=== PATIENT | female | born 1985 | race Caucasian/White ===

== ENCOUNTER 2019-06-27 13:26 | Emergency (ER) | payer MEDICARE, SELFPAY ==
[2019-06-27 13:27] VITALS: BP 132/86; PULSE 99; RESP 18; TEMP 36.4; O2SAT 95; BMI 43.4
[2019-06-27 14:01] LABS: Color, Urine Yellow (Yellow); Glucose, Dipstick 50 mg/dl (Normal); Ketone-Dipstick 15 mg/dl (Negative); Leukocyte Esterase-Dipstick 25 /ul (Negative); Mucous, Urine 0 SEEN /hpf (<or=2+); Nitrite-Dipstick Negative (Negative); Occult Blood-Urine 10 /ul (Negative); Protein-Dipstick 15 mg/dl (Negative); Specific Gravity, Urine 1.025 (1.002-1.030); Urine Bilirubin Dipstick Negative (Negative); Urine Clarity Sl. Cloudy (Clear); Urine Urobilinogen Normal (Normal)
[2019-06-27 14:07] LABS: Bacteria 1+ /hpf (None Seen); Red Blood Cells-Urine 0-5 SEEN /hpf (0-5); Squamous Epithelial Cells - UA 0-5 SEEN /hpf (5-10); White Blood Cells 0-5 SEEN /hpf (0-5)
[2019-06-27 14:31] LABS: Absolute Neutrophil Count 5.3 X10^3/uL (2.0-7.7); Basophil# 0.05 X10^3/uL; Basophil% 0.6 % (0-1); Eosinophil# 0.19 X10^3/uL; Eosinophils% 2.1 % (0-5); Hematocrit 45.7 % (37-47); Hemoglobin 15.2 g/dL (12.0-15.0); Lymphocyte % 32.6 % (19-41); Mean Corp Hgb Conc 33.3 g/dL (32-36); Mean Corpuscular Hgb 29.8 pg (27.0-32.0); Mean Corpuscular Volume 89.6 fL (81-99); Mean Platelet Vol. 10.2 fl (6.2-12.0); Monocyte# 0.49 X10^3/uL; Monocyte% 5.5 % (0-10); NRBC Flagged by Analyzer 0 % (0-5); Neutrophil # 5.25 X10^3/uL (2.7-7.7); Platelet Count 220 K/mm3 (150-450); RBC Distribution Width CV 13.9 % (11.6-14.6); RBC Distribution Width SD 45.9 fl (35.1-43.9); White Blood Count 8.9 K/mm3 (4.4-11.0)
--- NOTE | 2019-06-27 14:34 | CT_ITS ---
STUDY: CT ABDOMEN AND PELVIS WITH CONTRAST REASON FOR EXAM: Female, 33 years old. Nausea, vomiting and diarrhea. Abdominal pain. History of cholecystectomy RADIATION DOSAGE (If Supplied By Facility): CTDIvol = ( 17.05 ) mGy, DLP = ( 1222.91 ) mGycm TECHNIQUE: Transaxial images were obtained from the dome of the diaphragm to the symphysis pubis with oral contrast. 100 IV/Oral Isovue 300 was administered. Sagittal and coronal images were reconstructed. Individualized dose optimization techniques were used for this CT. COMPARISON: None. FINDINGS: The visualized lung bases are unremarkable. The visualized portions of the heart are within normal limits. Diffuse fatty infiltration of liver without focal mass. There are surgical clips in the gallbladder fossa consistent with a prior cholecystectomy. Normal spleen. There is a 1.7 cm splenule adjacent to the pancreatic tail. Normal pancreas. Normal bilateral adrenal glands. Normal right kidney. Normal left kidney. Normal bilateral ureters Normal visualized stomach. Normal small intestine. Normal colon. The appendix is visualized and appears normal. Normal abdominal aorta. Normal inferior vena cava. Normal retroperitoneum. Normal urinary bladder. Uterus is anteverted and tilted to the right. No evidence of uterine abnormality. The left ovary is well visualized and contains small follicles. The right ovary is not well visualized. There is no pelvic lymphadenopathy. No free air or free fluid is seen within the peritoneal cavity. Normal abdominal wall. Normal osseous structures. CT/Abdomen/Pelvis WITH Contrast IMPRESSION: 1. Fatty infiltration liver without mass. 2. No evidence of acute intra-abdominal or pelvic abnormality. 3. Normal appendix. 4. Nonvisualization of the right ovary without evidence of pelvic mass. Electronically Signed: Maciej Cabral DO at 17:23 EDT Tel [phone], Service support ,
[2019-06-27 14:44] LABS: Anion Gap 5 (5-15); BUN 8 mg/dL (7-18); BUN/Creat Ratio 10.3 RATIO (10-20); Calcium,Total 8.6 mg/dL (8.5-10.1); Chloride 108 mmol/L (98-107); Creatinine, Serum 0.77 mg/dL (0.55-1.02); EST Glomerular Filtration Rate 90 mL/min (>60); Est Glom Filt Rate - Afr Amer 109 mL/min (>60); Estimated Creatinine Clearance 76.95 ml/min; Glucose 185 mg/dL (74-106); Sodium Level 139 mmol/L (136-145)
[2019-06-27] MEDS: Ondansetron 4 MG/2 ML Vial IV (14:45)
[2019-06-27] MEDS: Morphine 4 MG/ML Syringe IV (14:45)
[2019-06-27] MEDS: 0.9% Normal Saline 1,000 ML 150 ML IV (14:45)
[2019-06-27 15:49] LABS: Internal QC Validated? YES +Cl - CLEAR BKGD; Pregnancy, Serum, hCG Quali. NEGATIVE Negative
[2019-06-27] MEDS: MethylPREDNISolone 125 MG/2 ML Vial 60 MG IV (15:57)
[2019-06-27] MEDS: DiphenhydrAMINE 50 MG/ML Syringe 25 MG IV (15:57)
[2019-06-27] MEDS: proMETHazine 25 MG/ML Syringe 12.5 MG IV (15:57)
--- NOTE | 2019-06-27 17:39 | ED.VIS.GEN ---
History of Present Illness Chief Complaint: Abd Pain Informant: Patient Onset: Yesterday Current Severity: Moderate Maximum Severity: Moderate Narrative: Patient presents with right lower quadrant abdominal pain that started yesterday morning. She has had nausea, vomiting, and diarrhea. She denies fever. She went to urgent care and then sent to the emergency room due to concern for appendicitis. Patient did have her right ovary and fallopian tube removed as well as her gallbladder in the past. Past Medical History - Allergies and Home Meds Allergies/Adverse Reactions: Allergies Iodinated Contrast Media [CONTRASTS] Allergy (Verified 06/27/19 14:55) Hives tramadol Adverse Reaction (Verified 06/27/19 13:27) Other Primary Care Physician: Mack Hart MD [Primary Care Provider] - Prior records reviewed: Yes Past Medical History: - Surgical History: cholecystectomy, - - Right ovary and fallopian tube removed Lives: With Family Smoking Status: Current every day smoker Review of Systems General: Denies: Chills, Fever Eyes: Denies: Visual changes - bilaterally ENT: Denies: Bilateral ear pain Cardiovascular: Denies: Chest pain Respiratory: Denies: Dyspnea, Cough Gastrointestinal: Reports: Abdominal pain, Nausea, Vomiting, Diarrhea Genitourinary: Denies: Dysuria Musculoskeletal: Denies: Neck pain, Back pain, Extremity Pain Skin: Denies: Rash Neurological: Denies: Headache Hematologic: Denies: Easy bruising, Easy bleeding Allergy: Denies: Uticaria Physical Exam Inital Vital Signs reviewed: Yes General: Well nourished, Well developed ENT: Moist mucous membranes Neck: Supple Cardiovascular: Regular rate, Regular rhythm Respiratory: No distress, CTA bilaterally Abdomen: Soft, Tender - Lower abdominal tenderness, worse in the right lower quadrant., Hypoactive bowel sounds. Negative for: Guarding, Rebound tenderness Back: Nontender Extremities: Nontender Skin: - - Linear abrasions throughout the left forearm consistent with cutting behavior. No sign of infection. Neurological: Alert, Oriented x3 Psychological: Normal affect Diagnostic/Tx/Re-eval Impressions Abdomen/Pelvis CT 06/27/19 14:34 IMPRESSION: 1. Fatty infiltration liver without mass. 2. No evidence of acute intra-abdominal or pelvic abnormality. 3. Normal appendix. 4. Nonvisualization of the right ovary without evidence of pelvic mass. Electronically Signed: Maciej Cabral DO at 17:23 EDT Tel [phone], Service support , 06/27/19 14:34 Abdomen/Pelvis WITH Contrast [CT] Stat Laboratory Results 06/27/19 06/27/19 06/27/19 13:52 14:20 14:20 WBC 8.9 RBC 5.10 Hgb 15.2 H Hct 45.7 MCV 89.6 MCH 29.8 MCHC 33.3 RDW Std Deviation 45.9 H RDW Coeff of Radha 13.9 Plt Count 220 MPV 10.2 Immature Gran % (Auto) 0.200 Neut % (Auto) 59.0 Lymph % (Auto) 32.6 Elmore % (Auto) 5.5 Eos % (Auto) 2.1 Baso % (Auto) 0.6 Absolute Neuts (auto) 5.3 Absolute Lymphs (auto) 2.90 Nucleated RBC % 0 Sodium 139 Potassium 4.0 Chloride 108 H Carbon Dioxide 26.0 Anion Gap 5 BUN 8 Creatinine 0.77 Estim Creat Clear Calc 76.95 Est GFR (MDRD) Af Amer 109 Est GFR (MDRD) Non-Af 90 BUN/Creatinine Ratio 10.3 Glucose 185 H Calcium 8.6 Serum , Qual Urine Color Yellow Urine Clarity Sl. Cloudy Urine pH 5.0 Ur Specific Freeland 1.025 Urine Protein 15 H Urine Glucose (UA) 50 H Urine Ketones 15 H Urine Occult Blood 10 H Urine Nitrite Negative Urine Bilirubin Negative Urine Urobilinogen Normal Ur Leukocyte Esterase 25 H Urine RBC 0-5 SEEN Urine WBC 0-5 SEEN Ur Squamous Epith Cells 0-5 SEEN Urine Bacteria 1+ Urine Mucus 0 SEEN 06/27/19 14:20 WBC RBC Hgb Hct MCV MCH MCHC RDW Std Deviation RDW Coeff of Radha Plt Count MPV Immature Gran % (Auto) Neut % (Auto) Lymph % (Auto) Elmore % (Auto) Eos % (Auto) Baso % (Auto) Absolute Neuts (auto) Absolute Lymphs (auto) Nucleated RBC % Sodium Potassium Chloride Carbon Dioxide Anion Gap BUN Creatinine Estim Creat Clear Calc Est GFR (MDRD) Af Amer Est GFR (MDRD) Non-Af BUN/Creatinine Ratio Glucose Calcium Serum , Qual NEGATIVE Urine Color Urine Clarity Urine pH Ur Specific Freeland Urine Protein Urine Glucose (UA) Urine Ketones Urine Occult Blood Urine Nitrite Urine Bilirubin Urine Urobilinogen Ur Leukocyte Esterase Urine RBC Urine WBC Ur Squamous Epith Cells Urine Bacteria Urine Mucus - Medical Decision Making Patient was given morphine and Zofran for pain and nausea. Due to a sensitivity to IV contrast, she was given Benadryl and Solu-Medrol prior to CT. Blood work is unremarkable. CT reveals no evidence of acute intra-abdominal abnormality. Appendix is visualized and is normal. Test results are discussed with patient and mother at bedside. She will be given Zofran for home. She will continue Tylenol or ibuprofen and return for any worsening symptoms. ED Disposition - Plan for ED Patient: Disposition: Home or Assisted Living Diagnosis: Abdominal pain Instructions: ABDOMINAL PAIN, Unknown Cause, (Female) Prescriptions: Ondansetron [Zofran Odt] 4 mg PO Q8H PRN PRN #10 tablet PRN Reason: Nausea Referrals: Mack Hart MD [Primary Care Provider] - 3-5 Days if not improving
[2019-06-27 17:43] VITALS: BP 129/75; PULSE 81; RESP 16; O2SAT 98
[2019-06-27 17:56] VITALS: BP 123/70; PULSE 89; RESP 16; O2SAT 95
--- NOTE | 2019-06-27 17:57 | ED.RN ---
REVIEWED D/C INSTRUCTIONS, FOLLOW UP CARE, PRESCRIPTION, AND S/S THAT WOULD WARRANT A RETURN TO THE ED WITH PT. PT VERBALIZED AN UNDERSTANDING AND DENIES FURTHER QUESTIONS FOR THIS RN. PT SKIN P/W/D, RESP EVEN AND UNLABORED, PT A&O X 3, NO DISTRESS NOTED. PT AMBULATED OUT OF ED, GAIT STEADY.
== END 2019-06-27 17:58 | disposition home or self-care (01) ==
PROVIDERS: Emergency Provider Emergency Medicine; Family Provider Family Medicine; PCP Family Medicine
DX: R10.31 Right lower quadrant pain (principal); F17.200 Nicotine dependence, unspecified, uncomplicated
CPT/HCPCS: 74177; 80048; 81001; 84703; 85025; 96361; 96374; 96375; 99284; J7030; Q9967; J2405

== ENCOUNTER → 2019-08-27 | Outpatient (CLI) | payer MEDICARE, SELFPAY ==
--- NOTE | 2019-08-27 09:25 | RAD_ITS ---
STUDY: AIR-CONTRAST UPPER GI SERIES. REASON FOR EXAM: Female, 34 years old. Nausea vomiting and abdominal pain. FLUOROSCOPY TIME (if supplied): ( 105 seconds. ) minutes/seconds. 17 images were obtained. TECHNIQUE: The patient ingested barium. Imaging of the esophagus, stomach and duodenum were obtained. COMPARISON: None. FINDINGS: The esophagus is unremarkable. There is no evidence of obstruction. No mass lesion is seen. No evidence of gastroesophageal reflux. The stomach and duodenum are unremarkable. No evidence of ulceration. No mass lesion is present. RAD/Upper GI Series Only IMPRESSION: Unremarkable upper GI series. Electronically Signed: Luis Williamson, at 15:26 EST , Service support ,
== END | disposition home or self-care (01) ==
LOC: RAD 09:23
PROVIDERS: Family Provider Family Medicine; PCP Family Medicine; Referring Provider Nurse Practitioner Adult Health; Visit Provider Nurse Practitioner Adult Health
DX: R11.0 Nausea (principal); K21.9 Gastro-esophageal reflux disease without esophagitis
CPT/HCPCS: 74246

== ENCOUNTER → 2020-03-12 | Outpatient (CLI) | payer MEDICARE, SELFPAY ==
--- NOTE | 2020-03-12 13:15 | MRI_ITS ---
STUDY: MRI RIGHT ANKLE WITHOUT CONTRAST REASON FOR EXAM: Lateral and posterior ankle pain, injury one year ago, reconstructive surgery many years ago, evaluate for peroneal tendon tear, chronic sprain. TECHNIQUE: Standardized fat and water weighted pulse sequences were obtained in all 3 orthogonal planes. COMPARISON: None. FINDINGS: There is micrometallic postoperative artifact in the subcutis adipose space lateral to the posterior tuberosity of the calcaneus. Normal posterior tibialis tendon. Normal flexor digitorum longus tendon. Normal flexor hallucis longus tendon. Normal peroneus longus and brevis tendons. Normal tibialis anterior tendon. Normal extensor hallucis longus tendon. Normal extensor digitorum longus tendons. Normal Achilles tendon and teno-osseous insertion. Normal plantar fascia. There is a healed calcaneal osteotomy. Normal intrinsic muscles of the rearfoot. Normal distal tibiofibular syndesmotic ligamentous complex. There is scarring of the anterior talofibular ligament (T2 axial image 16). Normal calcaneofibular and posterior talofibular ligaments. Normal subtalar ligaments and sinus tarsi. Normal deltoid ligamentous complexes. Normal plantar calcaneonavicular (spring) ligament. Normal tibiotalar articulation. Normal talar dome. Normal subtalar articulations. Normal talonavicular articulation. Normal calcaneocuboid articulation. Normal navicular-cuneiform articulations. MRI/Lower Ext Joint Only (Routine) IMPRESSION: Scarring of the anterior talofibular ligament. Healed calcaneal osteotomy. No demonstrated peroneal tendon tear. Electronically Signed: Marquise Duran MD at 15:19 EDT Tel , Service support ,
== END | disposition home or self-care (01) ==
LOC: MRI 13:03
PROVIDERS: Family Provider Family Medicine; PCP Family Medicine; Referring Provider Podiatrist; Visit Provider Podiatrist
DX: M25.373 Other instability, unspecified ankle (principal); S86.319A Strain of muscle(s) and tendon(s) of peroneal muscle group at lower leg level, unspecified leg, initial encounter; S93.409A Sprain of unspecified ligament of unspecified ankle, initial encounter
CPT/HCPCS: 73721

== ENCOUNTER 2020-03-20 09:57 | Day surgery (SDC) | payer MEDICARE, MEDICAID, SELFPAY ==
--- NOTE | 2020-03-18 08:03 | PCM.HP.OB ---
- Problem List (1) Menorrhagia Status: Acute (2) Uterine polyp Status: Acute History History of this : This is a 34 year-old with menorrhagia and a polyp noted on ultrasound. Medical History: Medical History (Last Updated 03/18/20 @ 08:[address] 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 Renetta García, DO) H/O foot surgery Z98.890 History of esophagogastroduodenoscopy (EGD) Z98.890 History of salpingo-oophorectomy Z90.79, Z90.721 History of tonsillectomy Z90.89 Hx of cholecystectomy Z90.49 Allergies Iodinated Contrast Media [CONTRASTS] Allergy (Verified 03/14/20 09:44) Hives tramadol Adverse Reaction (Verified 03/14/20 09:44) Other lodine Allergy (Uncoded 03/14/20 09:44) Swelling Home Medications: Home Medications Fenofibrate [Lofibra] 160 mg PO DAILY 01/04/14 Levothyroxine [Synthroid] 250 mcg PO DAILY 01/04/14 Simvastatin [Zocor] 40 mg PO QHS 01/04/14 Benztropine Mesylate 2 mg PO DAILY 06/27/19 Glimepiride 4 mg PO DAILY 06/27/19 Insulin Aspart [Novolog Flexpen] 35 units SQ TID 06/27/19 Insulin Degludec [Tresiba Flextouch U-200] 102 unit SQ DAILY 06/27/19 Mirtazapine [Remeron] 30 mg PO QHS 06/27/19 Prochlorperazine Maleate [Compazine] 10 mg PO Q6H PRN 06/27/19 Cholecalciferol (VIT D3) [Vitamin D] 1,000 unit PO DAILY 03/14/20 Clozapine [Clozapine Odt] 200 mg PO QHS 03/14/20 Divalproex Sodium [Depakote ER] 750 mg PO QHS 03/14/20 Doxepin HCl 100 mg PO QHS 03/14/20 Melatonin/Pyridoxine HCl (B6) [Melatonin 10 mg Tablet] 1 ea PO QHS 03/14/20 Ondansetron [Zofran Odt] 8 mg PO Q6H 03/14/20 Pantoprazole Sodium [Protonix] 40 mg PO BID 03/14/20 Prazosin HCl [Minipress] 2 mg PO QHS 03/14/20 metFORMIN HCl [Glucophage] 500 mg PO BIDCM 03/14/20 Albuterol Inhaler [Ventolin Hfa (SP)] 2 puff INHALATION Q4H PRN PRN 03/18/20 Benztropine [Cogentin] 1 mg PO QHS 03/18/20 Etodolac 400 mg PO 03/18/20 Lorazepam [Ativan] 1 mg PO DAILY 03/18/20 Smoking Status: Current every day smoker History Past Pregnancies: Past Pregnancies Delivery Date Name GA/ Weeks Outcome Route Wt Infant Sex Labor Length Anesthesia Delivery Location Provider FOB Review of Systems Constitutional: Denies: Chills, Fever Eyes: Denies: Blurred vision HEENT: Denies: Head Aches Cardiovascular: Denies: Chest Pain Gastrointestinal: Denies: Vomiting Neurological: Denies: Blurred vision, Double vision Hematologic/ Lymphatic: Denies: Easy Bruising, Easy Bleeding Physical Exam General: Alert, No apparent distress HEENT: Atraumatic Cardiovascular: Regular rate Lungs: Clear to auscultation Abdomen: Soft, Non Tender Extremities:: No edema Neurological: Neuro grossly intact Assessment/Plan All Active Problems Menorrhagia (Acute) Uterine polyp (Acute) This is a 34 year-old who presents with menorrhagia and pelvic pain. Hemoglobin is 14.7. Pelvic ultrasound shows an endometrial polyp. Discussed hysteroscopy, polypectomy, D&C, possible IUD placement with patient. Discussed that there may not be a polyp at the time of surgery. Reviewed option for an office hysteroscopy. Also discussed that surgery will likely not improve her pelvic pain. After discussion of risk, benefits, alternatives to surgery the patient desires to proceed. Consent was signed.
[2020-03-20] VITALS (7 sets, daily range): BP systolic 112–151; BP diastolic 60–80; PULSE 81–96; RESP 16; TEMP 36.7–36.9; O2SAT 94–98; BMI 43.0
[2020-03-20 10:17] LABS: Internal QC Validated? YES +Cl - CLEAR BKGD; Pregnancy, Urine Negative Negative
[2020-03-20 10:25] LABS: Hemoglobin 14.9 g/dL (12.0-15.0); Mean Corp Hgb Conc 33.1 g/dL (32-36); Mean Corpuscular Hgb 30.3 pg (27.0-32.0); Mean Corpuscular Volume 91.6 fL (81-99); Mean Platelet Vol. 10.2 fl (6.2-12.0); Platelet Count 302 K/mm3 (150-450); RBC Distribution Width CV 13.8 % (11.6-14.6); RBC Distribution Width SD 46.5 fl (35.1-43.9); Red Blood Count 4.91 M/mm3 (4.2-5.4)
[2020-03-20] MEDS: Lactated Ringers 1,000 ML 100 ML IV (10:32)
[2020-03-20 10:41] LABS: Bedside Glucose 253 mg/dL (70-110)
--- NOTE | 2020-03-20 11:40 | EMB_PTH ---
PATIENT: MAYA OTT LOC: [facility] [place][id number] AGE/SX: 34/F ROOM: RE03/20/[address]: Dr. Renetta García DO : 1985 BED: DIS: 03/20/2020 SPEC #: [id number] RECD: 03/20/20 14:40 STATUS: YURIDIA JOSE #: [id number] MARQUEZ: 03/20/20 11:[address]: Renetta García DEPT: SURGICAL PATHOLOGY RECD BY: Nereida Jolly ENTERED: 03/21/20 09:34 SP TYPE: ENDOM BX/C OTHR DR: Dr. Mack Hart MD Tissues: Endometrium, NOS Procedures: Surgery Specimen Level IV HEADER OPERATION: Hysteroscopy, D & C Symphion, Mirena IUD PRE-OP DIAGNOSIS: Menorrhagia, uterine polyp TISSUE SUBMITTED: Endometrial curettings MICROSCOPIC DIAGNOSIS Endometrium, curettings: Proliferative endometrium with minimal disorder and recent stromal hemorrhage. Rare strips of benign superficial endocervix. AM:anitra 03/24/20 MICROSCOPIC DESCRIPTION Slides are reviewed. GROSS DESCRIPTION Received in fixative is one container labeled with the patient's name and designated endometrial curettings. The specimen consists of multiple fragments of hemorrhagic soft tissue that in aggregate measure 3 x 2.5 x 0.3 cm. The specimen is totally submitted in one cassette. / SJ:anitra 03/21/20 TC:5 CPT: 27573
--- NOTE | 2020-03-20 11:51 | DCINST_ITS ---
Discharge Diet: No Restrictions Discharge Activity: May Shower May resume sexual activity in: 1 week Weight Bearing Status: Weight bearing as tolerated Lifting Restrictions: No lifting restrictions Call your doctor if you observe: Fever of 101 or Higher, Inability to urinate, Inability to have a bowel movement, Using more than one pad per hour, Shortness of breath, Dizziness, Fainting spells, Chest pain, Increased palpitations (irreg ular heartbeat), Calf discomfort, Uncontrolled pain Allergies/Adverse Reactions: Allergies Iodinated Contrast Media [CONTRASTS] Allergy (Verified 03/20/20 10:12) Hives tramadol Adverse Reaction (Verified 03/20/20 10:12) Other lodine Allergy (Uncoded 03/20/20 10:12) Swelling Medications to take at Discharge Fenofibrate [Lofibra] 160 mg PO DAILY 01/04/14 Levothyroxine [Synthroid] 250 mcg PO DAILY 01/04/14 Simvastatin [Zocor] 40 mg PO QHS 01/04/14 Benztropine Mesylate 2 mg PO DAILY 06/27/19 Glimepiride 4 mg PO DAILY 06/27/19 Insulin Aspart [Novolog Flexpen] 35 units SQ TID 06/27/19 Insulin Degludec [Tresiba Flextouch U-200] 102 unit SQ DAILY 06/27/19 Mirtazapine [Remeron] 30 mg PO QHS 06/27/19 Prochlorperazine Maleate [Compazine] 10 mg PO Q6H PRN 06/27/19 Cholecalciferol (VIT D3) [Vitamin D] 1,000 unit PO DAILY 03/14/20 Clozapine [Clozapine Odt] 200 mg PO QHS 03/14/20 Divalproex Sodium [Depakote ER] 750 mg PO QHS 03/14/20 Doxepin HCl 100 mg PO QHS 03/14/20 Melatonin/Pyridoxine HCl (B6) [Melatonin 10 mg Tablet] 1 ea PO QHS 03/14/20 Ondansetron [Zofran Odt] 8 mg PO Q6H 03/14/20 Pantoprazole Sodium [Protonix] 40 mg PO BID 03/14/20 Prazosin HCl [Minipress] 2 mg PO QHS 03/14/20 metFORMIN HCl [Glucophage] 500 mg PO BIDCM 03/14/20 Albuterol Inhaler [Ventolin Hfa (SP)] 2 puff INHALATION Q4H PRN PRN 03/18/20 Benztropine [Cogentin] 1 mg PO QHS 03/18/20 Etodolac 400 mg PO 03/18/20 Lorazepam [Ativan] 1 mg PO DAILY 03/18/20 Primary Care Physician: Mack Hart MD [Primary Care Provider] - Test Results: Test results from this visit will be discussed in further detail at your follow- up appointment, if applicable. Please Follow Up With: Renetta García DO When: 1-2 weeks
--- NOTE | 2020-03-20 11:52 | PCM.OPRPT ---
Problem List (1) Menorrhagia Status: Acute (2) Uterine polyp Status: Acute Report of Operation Date of Procedure: 03/20/20 Pre-Operative Diagnosis: DUB, polyp on pelvic ultrasound Post-Operative Diagnosis: DUB, no polyp present Surgery/Procedure Performed:: Hysteroscopy D&C, Mirena IUD placement Description of Surgical Findings:: Uterine cavity was normal-appearing. Bilateral tubal ostia were visualized. No fibroids or polyps noted. Type of Anesthesia:: MAC Special Medications: Mirena IUD Specimen's removed: Endometrial curettings Drains: None Estimated Blood Loss (mL): < 10 cc Fluids Replaced: 50 cc fluid deficit Description of Procedure: Discussed risks and side effects of Mirena IUD. Patient provided consent and desires to proceed with Mirena IUD placement after discussion of risk, benefits, alternatives. Patient was taken the operating room where MAC anesthesia was found to be adequate. She was prepped and draped in the dorsal lithotomy position using yellowfin stirrups. Weighted speculum was placed in the vagina to expose the cervix. Single-tooth tenaculum was placed on the anterior lip of the cervix. Cervix was serially dilated to accommodate the hysteroscope. Hysteroscope was advanced to the fundus of the uterus and the uterus was distended with normal saline. The uterine cavity was normal-appearing and bilateral tubal ostia were visualized. Hysteroscope was then removed. A sharp curettage was performed and the endometrial curettings were sent to pathology for review. The uterus sounded to 7.5 cm. The Mirena IUD was then placed in usual fashion and the strings were trimmed. All instruments were removed from the vagina. Bleeding was hemostatic. Vaginal sweep was performed. Instrument and sponge counts were correct. The patient was taken recovery in stable condition. Grafts/Implants Used: Mirena IUD - Complications None - Admit VTE Documentation VTE Present on Admission: No VTE Mechan Device Prophylaxis: SCD's
--- NOTE | 2020-03-20 15:04 | HP.PCM_ITS ---
- Problem List (1) Menorrhagia Status: Acute (2) Uterine polyp Status: Acute History and Physical Date of Admission: 03/20/20 DATE OF SERVICE: March 04, 2020 ? PROBLEM:?Menorrhagia with irregular cycles, pelvic pain ? DIAGNOSIS:?Polyp noted on ultrasound ? PAST SURGICAL HISTORY:? PAST SURGICAL HISTORY PAST SURGICAL HISTORY Procedure Laterality Date ? EGD W/O OR W/BRUSH/WASH ? 11/27/2019 ? EGD ? PAST SURGICAL HISTORY OF ? 2008 ? Right foot surgery ? PAST SURGICAL HISTORY OF ? ? ? Lipoma removed from rib cage right side ? PAST SURGICAL HISTORY OF ? ? ? Cyst removed from tailbone ? REMOVAL GALLBLADDER ? 2006 ? Cholecystectomy ? REMOVAL OF OVARY/TUBE(S) Right ? Salpingo-oophorectomy ? REMOVAL OF TONSILS,<12 Y/O ? ? ? Tonsillectomy ? PAST MEDICAL HISTORY:? PAST MEDICAL HISTORY PAST MEDICAL HISTORY Diagnosis Date ? Depressive disorder, not elsewhere classified ? ? HPV in female ? ? Other anxiety states ? ? Other organic sleep apnea ? ? PCOS (polycystic ovarian syndrome) ? ? Pure hypercholesterolemia ? ? Schizoaffective disorder, unspecified condition ? ? Type II or unspecified type diabetes mellitus without mention of complication, not stated as uncontrolled ? ? Unspecified asthma(493.90) ? ? Unspecified essential hypertension ? ? Unspecified hypothyroidism ? ? SUBJECTIVE:?Heavy menses and pelvic pain. See note on 02/01/2020? ? SOCIAL HISTORY:? SOCIAL HISTORY Social History ? Tobacco Use ? Smoking status: Current Every Day Smoker ? ? Packs/day: 1.00 ? ? Years: 9.00 ? ? Pack years: 9.00 ? ? Types: Cigarettes ? Smokeless tobacco: Never Used Substance Use Topics ? Alcohol use: No ? Drug use: Yes ? ? Types: Marijuana ? ? Comment: once in a while? ? [employer]PER[employer] HISTORY:?Mother and sister with uterine cancer ? Current Outpatient Medications on File Prior to Visit Medication Sig ? Fenofibrate (LOFIBRA) 160 mg tablet Take 1 tablet by mouth once daily. ? pantoprazole DR (PROTONIX) 40 mg tablet Take 1 tablet by mouth twice daily before meals. ? ondansetron (ZOFRAN) 8 mg tablet Take 1 tablet by mouth every 8 hours as needed for Nausea/Vomiting. ? prochlorperazine (COMPAZINE) 10 mg tablet Take 1 tablet by mouth every 6 hours as needed (Nausea). May alternate with Zofran. ? insulin degludec (TRESIBA) 200 unit/mL (3 mL) injection Inject 102 Units subcutaneously every morning. ? insulin aspart U-100 (NOVOLOG FLEXPEN U-100 INSULIN) 100 unit/mL (3 mL) Inject 35 Units subcutaneously three times daily before meals. ? metFORMIN ER (GLUCOPHAGE XR) 500 mg 24 hr tablet Take 2 tablets by mouth twice daily. Increase dose up to 2000mg daily as tolerated ? simvastatin (ZOCOR) 40 mg tablet Take 1 tablet by mouth daily at bedtime. ? Lancets (ACCU-CHEK FASTCLIX LANCET DRUM) lancets Use as instructed to check blood sugars four times daily. Dx: E11.65 ?Insulin: Yes ? blood sugar diagnostic (ACCU-CHEK GUIDE) test strip Use as instructed to check blood sugars four times daily. Dx: E11.65 ?Insulin: Yes ? insulin needles, DISPOSABLE, (PEN NEEDLE) 31 gauge x 5/16 Use one needle per dose for Lantus and Novolog. 3 injections per day ? glimepiride (AMARYL) 4 mg tablet Take 1 tablet by mouth daily with breakfast. ? divalproex ER (DEPAKOTE ER) 250 mg 24 hr tablet Take 3 tablets by mouth daily at bedtime. ? melatonin 10 mg tab Take 1 tablet by mouth daily at bedtime. ? doxepin capsule 100 mg ? ? prazosin (MINIPRESS) 2 mg cap ? ? levothyroxine (SYNTHROID) 200 mcg tablet Take 1 tablet by mouth daily before breakfast. ? mirtazapine (REMERON) 30 mg tablet Take 30 mg by mouth daily at bedtime. ? cloZAPine (CLOZARIL) 25 mg tablet 25 mg three times daily. Patient reports taking 25mg QAM and 75mg QPM per psychiatrist, Dr. Jerad English. Reports psych is working on titrating up dose. ? ? levothyroxine (SYNTHROID) 50 mcg tablet Take 1 tablet by mouth once daily. Take along with the synthroid 200 mcg tablet daily on empty stomach. For Thyroid. ? Cholecalciferol, Vitamin D3, 1,000 unit cap Take 1 capsule by mouth once daily. ? albuterol HFA (VENTOLIN HFA) 90 mcg/actuation inhaler Inhale 2 Puffs as instructed every 4 hours as needed for Wheezing/Shortness of Breath. ? Blood-Glucose Meter (ACCU-CHEK GUIDE GLUCOSE METER) [facility] [place] Use as instructed to check blood sugars four times daily. Dx: E11.65 ?Insulin: Yes ? benztropine (COGENTIN) 1 mg tablet Take 1 mg by mouth once daily. Per psychiatrist, Dr. Jerad English ? ? etodolac (LODINE) 400 mg tablet Take 1 tablet by mouth twice daily. ? methocarbamol (ROBAXIN) 500 mg tablet Take 1 tablet by mouth four times daily. As needed ? lactulose (DUPHALAC, CONSTULOSE) 10 gram/15 mL solution ? ? LORazepam (ATIVAN) 0.5 mg tab Take 1 mg by mouth one time only. ? ? No current facility-administered medications on file prior to visit.? ? ALLERGIES ALLERGIES Allergen Reactions ? Iv Contrast Dye [Co* Itching ? Lodine [Etodolac] ?? Intolerance ? Tramadol ? Mental Status Change ? ? Patient states that Tramadol interferes with her psych meds and alters her mental state making her more depressed and increase the risk of self harm ? ? ? OBJECTIVE: ? VITALS: BP 102/64 ? Pulse 80 ? Resp 16 ? Ht 5' 2 (1.575 m) ? Wt 233 lb 6.4 oz (105.9 kg) ? LMP 01/12/2020 (Approximate) ? BMI 42.69 kg/m? ? ? HEENT: ?Normocephalic, atraumatic, Mucus membranes moist without lesions. ? NECK: ???Soft and Supple. ?No adenopathy , thyromegaly or bruits. ? SKIN: No lesions. ? CHEST: Clear to auscultation. ?No wheezes or rales. ?Good air exchange. ? HEART: Regular rate and rhythm ?No S3 or S4. ?No gallops or rubs. ? BREAST: No masses, thickenings, skin changes, nipple discharge or axillary lymp hadenopathy. ? BACK: Nontender with no CVA tenderness. ? ABDOMEN: Soft, non-tender, non-distended, no masses, no hepatosplenomegaly. ? LOWER EXTREMITIES: There was no pitting edema, no palpable cords and no skin changes.? ? ? Component Latest Ref Rng & Units 02/25/2020 WBC 3.70 - 11.00 k/uL 12.18 (H) RBC 3.90 - 5.20 m/uL 4.83 Hemoglobin 11.5 - 15.5 g/dL 14.7 Hematocrit 36.0 - 46.0 % 44.1 MCV 80.0 - 100.0 fL 91.3 MCH 26.0 - 34.0 pG 30.4 MCHC 30.5 - 36.0 g/dL 33.3 RDW-CV 11.5 - 15.0 % 14.2 Platelet Count 150 - 400 k/uL 245 MPV 9.0 - 12.7 fL 11.6 Neut% % 49.9 Abs Neut (ANC) 1.45 - 7.50 k/uL 6.08 Lymph% % 42.0 Abs Lymph 1.00 - 4.00 k/uL 5.11 (H) Gregg% % 6.1 Abs Gregg <0.87 k/uL 0.74 Eosin% % 1.3 Abs Eosin <0.46 k/uL 0.16 Baso% % 0.7 Abs Baso <0.11 k/uL 0.09 Nucleated Reds 0 /100 WBC 0.0 Absolute nRBC <0.01 k/uL <0.01 Diff Type ? Auto Diff ? Pelvic US: Normal appearing anteverted uterus that measures 68 mm x 35 mm x 39 mm. The central endometrial complex measures 7 mm in combined thickness. An endometrial polyp was seen: Polyp(s): Size 6 mm x 3 mm x 7 mm. Mean 5.3 mm. mid uterus Left ovary was visualized and appears normal. No adnexal masses were observed. There is no free fluid visualized in the peritoneal cavity. Recommendations Consider hysteroscopic evaluation and management of intracavitary lesion if clinically indicated. ? ASSESSMENT:?Menorrhagia and polyp noted on pelvic US ? PLAN:?Discussed hysteroscopy, polypectomy, D&C, possible IUD placement. Discussed that there may not be a polyp at time of surgery. Reviewed option for in offie hysteroscopy. Also discussed that surgery may not improve her pain.?The rationale for the proposed surgery was discussed in addition to risks, benefits, and alternatives. ?General pre- and post-operative care was reviewed. ?Questions were answered. ?After discussion, the patient indicated a desire to proceed with the planned surgery. ? Renetta García,?DO
== END 2020-03-20 13:23 | disposition home or self-care (01) ==
LOC: SDC 10:01 → AC 10:01
PROVIDERS: Anesthesiology; PCP Family Medicine; Referring Provider Obstetrics & Gynecology; Visit Provider Obstetrics & Gynecology
PROC: 0UB98ZZ Excision of Uterus, Via Natural or Artificial Opening Endoscopic (ICD-10-PCS; CPT 58558; principal; 2020-03-20 11:25)
DX: N92.0 Excessive and frequent menstruation with regular cycle (principal); K21.9 Gastro-esophageal reflux disease without esophagitis; E78.00 Pure hypercholesterolemia, unspecified; E11.9 Type 2 diabetes mellitus without complications; I10 Essential (primary) hypertension; J44.9 Chronic obstructive pulmonary disease, unspecified; E03.9 Hypothyroidism, unspecified; F32.9 Major depressive disorder, single episode, unspecified; F41.9 Anxiety disorder, unspecified; F25.9 Schizoaffective disorder, unspecified; F17.210 Nicotine dependence, cigarettes, uncomplicated; Z11.59 Encounter for screening for other viral diseases; Z79.4 Long term (current) use of insulin; Z79.899 Other long term (current) drug therapy
CPT/HCPCS: 00952; 58300; 58558; 36415; 81025; 82962; 85027; 87635; 88305; G2023; J7120; J2405; U0003

== ENCOUNTER → 2020-09-10 12:04 | Outpatient (CLI) | payer MEDICARE, MEDICAID, SELFPAY ==
[2020-03-20 10:18] VITALS: BMI 43.0
--- NOTE | 2020-09-10 14:09 | NEURO ---
NCS and/or EMG Patient Report Ordering Doctor: Duke Reed DATE OF SERVICE: 09/10/20 Jeniffer Mabry presents for electrodiagnostic testing of the right lower limb. She reports right foot pain with numbness. Electrodiagnostic findings: Right peroneal motor nerve demonstrates normal distal latency, amplitude and conduction velocity. Normal right tibial motor response. Prolonged right peroneal F wave. H reflex within normal limits bilaterally. Normal right sural response. Normal right superficial peroneal response right sided plantar responses are within normal limits. On needle EMG, all muscles tested in the right lower limb showed no evidence of denervation with normal motor unit action potentials. Electrodiagnostic impression: This is a normal electrodiagnostic study in the right lower limb. There is no evidence for peripheral neuropathy. There is no evidence for tarsal tunnel syndrome or sural neuropathy. If there are any further questions, please do not hesitate to contact me.
== END ==
PROVIDERS: PCP Family Medicine; Referring Provider Podiatrist; Visit Provider Podiatrist
DX: G58.8 Other specified mononeuropathies (principal); G62.9 Polyneuropathy, unspecified
CPT/HCPCS: 95886; 95910

== ENCOUNTER → 2020-09-30 13:58 | Outpatient (CLI) | payer MEDICARE, MEDICAID, SELFPAY ==
[2020-03-20 10:18] VITALS: BMI 43.0
--- NOTE | 2020-09-30 14:00 | ART_ITS ---
Reason For Study: PVD Procedure A bilateral lower extremity continuous wave Doppler with analog waveform analysis,segmental pressures,and ankle brachial indexes without exercise. Left Segmental Pressures Left brachial= 119mmHg. Left posterior tibial artery = 138mmHg. Left dorsalis pedis artery = 131mmHg. Left digit = 125 mmHg. The left dorsalis pedis waveforms are triphasic. The left posterior tibial artery waveforms are triphasic. Right Segmental Pressures Right brachial= 114mmHg. Right posterior tibial artery = 139mmHg. Right dorsalis pedis artery = 124mmHg. Right digit = 122 mmHg. The right dorsalis pedis waveforms are triphasic. The right posterior tibial artery waveforms are triphasic. Indices The right ankle brachial index by the posterior tibial artery is 1.17. The right ankle brachial index by the dorsalis pedis is 1.04. The right digital-brachial index is 1.03. The left ankle brachial index by the dorsalis pedis is 1.1. The left ankle brachial index by the posterior tibial artery is 1.16. The left digital-brachial index is 1.05. Interpretation Summary Triphasic Doppler waveforms are noted at ankle level bilaterally. Pulse-volume recordings appear satisfactory at all levels bilaterally, including low-thigh, calf, ankle, and digital levels. Resting ankle-brachial indices are normal bilaterally. Digital-brachial indices are normal bilaterally. There is no evidence of significant arterial occlusive disease in the lower extremities bilaterally. Ordering Physician: Duke Reed Performed By: ANNA BELL Flory
== END ==
PROVIDERS: PCP Family Medicine; Referring Provider Podiatrist; Visit Provider Podiatrist
DX: I73.9 Peripheral vascular disease, unspecified (principal)
CPT/HCPCS: 93923

== ENCOUNTER 2020-10-07 10:55 | Emergency (ER) | payer MEDICARE, MEDICAID, SELFPAY ==
[2020-03-20 10:18] VITALS: BMI 43.0
[2020-10-07 10:57] VITALS: BP 124/74; PULSE 91; RESP 18; TEMP 36.8; O2SAT 93; BMI 43.8
--- NOTE | 2020-10-07 11:29 | ED.DCSUM_ITS ---
History of Present Illness Chief Complaint: Depression Informant: Patient Narrative: 35-year-old female with history of schizoaffective disorder and anxiety presenting for evaluation. She states that she has been up for the last 4 days straight since her sister and she got an argument. She states that her sister called her a psycho bitch. Patient states that she has had these episodes in the past but she does not feel that this 1 is that bad. She states that her international tax manager called her counselor in the next thing she knows there is an ambulance there. She does not know what the counselor said. She is not suicidal or homicidal. She has hallucinations but she states she always has these at baseline. Past Medical History - Allergies and Home Meds Allergies/Adverse Reactions: Allergies Iodinated Contrast Media [CONTRASTS] Allergy (Verified 10/07/20 11:02) Hives tramadol Adverse Reaction (Verified 10/07/20 11:02) Other lodine Allergy (Uncoded 10/07/20 11:02) Swelling Primary Care Physician: Mack Hart MD [Primary Care Provider] - Past Medical History: - - Diabetes, asthma, schizoaffective disorder, anxiety, PCOS Surgical History: noncontributory, cholecystectomy, - - Right ovary and fallopian tube removed Lives: Alone Smoking Status: Current every day smoker Alcohol: None Drugs: None Review of Systems General: Denies: Chills, Fever, Sweats Eyes: Denies: Visual changes - bilaterally, Diplopia ENT: Denies: Rhinorrhea, Sore throat Cardiovascular: Denies: Chest pain, Palpitations Respiratory: Denies: Dyspnea, Cough, Dyspnea on exertion Genitourinary: Denies: Dysuria, Hematuria, Frequency Musculoskeletal: Denies: Back pain, Extremity Pain Skin: Denies: Rash, Wounds Psych: Reports: Anxiety Physical Exam Vital Signs/Narrative: Vital Signs Temp Pulse Resp BP Pulse Ox 10/07/20 10:57 98.2 F 91 18 124/74 H 93 Inital Vital Signs reviewed: Yes General: Obese, No Acute Distress Head: Normocephalic, Atraumatic Eyes: Perrl, EOMI ENT: Moist mucous membranes, Nasal congestion Cardiovascular: Regular rate, Regular rhythm Respiratory: No distress, CTA bilaterally Abdomen: Soft, Nontender Extremities: Nontender, No edema Skin: Normal color, No rash Neurological: Alert, Oriented x3, Cranial nerves II-XII grossly intact Psychological: Normal affect, - - Denies SI or HI. Admits to hallucinations which are chronic and unchanged. Diagnostic/Tx/Re-eval - Medical Decision Making She was seen and evaluated by the case resource manager. Patient does not have suicidal or homicidal behavior. It is felt by case management and myself that she could go home. She has an appointment on Tuesday to see her regular counselor. She has appointment next day for her Invega shot. She feels comfortable with this plan. Patient is given return precautions. Impression: 1. Anxiety 2. Insomnia ED Disposition - Plan for ED Patient: Disposition: Home or Assisted Living Instructions: ED Schizoaffective Disorder Referrals: Mack Hart MD [Primary Care Provider] -
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
--- NOTE | 2020-10-07 12:07 | CM.ED ---
Social Work Telephone call from Kathleen Gomez. Kathleen confirms to have received release of information. This social work job titles updated Kathleen on reason for patient ED visit today. Kathleen reports to be agreeable to safety plan to home for patient as patient is not actively suicidal. Kathleen confirms that patient goes through periods of not sleeping. Kathleen updated this social work job titles on patient next appointments. Met with patient in room. This social work job titles completed safety plan with patient. This social work job titles provided patient with crisis hotline number and local community resources. Patient reports to have transportation to home via a friend. Patient with no concerns on returning to home. This social work job titles also provided patient with written appointment reminders for patients appointments next week. Dr. Ballard updated on above and agreeable to plan. PLAN: Discharge to home with community services follow-up. Selina GUTHRIE, [place]
[2020-10-07 12:39] VITALS: BP 124/69; PULSE 75; RESP 16; O2SAT 99
== END 2020-10-07 12:41 | disposition home or self-care (01) ==
PROVIDERS: Emergency Provider Student in an Organized Health Care Education/Training Program; PCP Family Medicine
DX: F41.9 Anxiety disorder, unspecified (principal); G47.00 Insomnia, unspecified; E11.9 Type 2 diabetes mellitus without complications; J45.909 Unspecified asthma, uncomplicated; E66.9 Obesity, unspecified; Z79.899 Other long term (current) drug therapy; Z79.4 Long term (current) use of insulin
CPT/HCPCS: 99283

== ENCOUNTER → 2021-08-14 13:58 | Outpatient (CLI) | payer MEDICARE, MEDICAID, SELFPAY ==
--- NOTE | 2021-08-14 14:00 | US_ITS ---
STUDY: RENAL ULTRASOUND - COMPLETE REASON FOR EXAM: Female, 36 years old. UTI,RETENTION TECHNIQUE: Ultrasound evaluation of the kidneys was performed with real-time and static guajardo-scale imaging. COMPARISON: None. FINDINGS: RIGHT KIDNEY: Normal location of the right kidney, which is normal in size. The right kidney measures 12.5 cm x 5 cm x 4.3 cm. There is a normal cortex of the right kidney. The renal cortex measures 2.3 cm. There is no right renal mass or cyst. There are no right renal calculi. There is no right hydronephrosis. DISTAL RIGHT URETER: There is non-visualization of the distal right ureter. There is no demonstrated right ureterovesical junction calculus. There is no demonstrated right ureteral jet. LEFT KIDNEY: Normal location of the left kidney, which is normal in size. The left kidney measures 12 cm x 4.2 cm x 6.3 cm. There is a normal cortex of the left kidney. The renal cortex measures 2.6 cm. There is a 8mm by 11 mm x 8 mm parapelvic cyst. There are no left renal calculi. Minimal fullness of the left renal pelvis. DISTAL LEFT URETER: There is non-visualization of the distal left ureter. There is no demonstrated left ureterovesical junction calculus. There is no demonstrated left ureteral jet. BLADDER: The distended urinary bladder has a volume of 312 ml. The empty urinary bladder has a volume of 251 ml. There is a normal wall thickness of the distended urinary bladder. There is no demonstrated mass within the urinary bladder. There are no demonstrated bladder calculi. US/Kidney and Bladder IMPRESSION: Small left parapelvic cyst. Minimal fullness of the left renal pelvis. Electronically Signed: Luis Williamson MD at 15:34 EDT , Service support ,
== END ==
PROVIDERS: PCP Family Medicine; Referring Provider Urology; Visit Provider Urology
DX: N39.0 Urinary tract infection, site not specified (principal); R33.9 Retention of urine, unspecified
CPT/HCPCS: 76770

== ENCOUNTER 2021-11-18 13:58 | Outpatient (CLI) | payer MEDICARE, MEDICAID, SELFPAY | END 2021-11-18 23:59 | disposition home or self-care (01) | LOC: PAT 01-05 13:58 | PROVIDERS: PCP Family Medicine; Referring Provider Urology; Visit Provider Urology | DX: Z20.828 Contact with and (suspected) exposure to other viral communicable diseases (principal) | CPT/HCPCS: 87426 ==

== ENCOUNTER 2022-02-15 05:56 | Day surgery (SDC) | payer MEDICARE, MEDICAID, SELFPAY ==
[2022-02-15] VITALS (10 sets, daily range): BP systolic 105–156; BP diastolic 59–113; PULSE 102–117; RESP 16–24; TEMP 36.7–37.3; O2SAT 92–97; BMI 43.5
[2022-02-15 06:40] LABS: Bedside Glucose 376 mg/dL (74-106)
[2022-02-15 06:42] LABS: Internal QC Validated? YES +Cl - CLEAR BKGD; Pregnancy, Urine Negative Negative
[2022-02-15] MEDS: Insulin Lispro 100 UNIT/ML INSULN.PEN 8 UNIT SC (06:56)
[2022-02-15] MEDS: Vancomycin IV 1,000 MG/200 ML BAG 200 MG IV (06:56)
[2022-02-15] MEDS: Lactated Ringers 1,000 ML 15 ML IV (06:57)
--- NOTE | 2022-02-15 07:29 | PCM.OPRPT ---
Problems Associated Problem List Diagnoses (1) Urinary retention: Report of Operation Date of Procedure: 02/15/22 Pre-Operative Diagnosis: urinary retention, neurogenic bladder Post-Operative Diagnosis: same Surgery/Procedure Performed:: Interstim Stage 1 Surgeon: Naima Medina Type of Anesthesia: MAC Specimen's removed: none Estimated Blood Loss (mL): 5 cc. Description of Procedure: The patient is a 36-year-old female with urinary retention secondary to neurogenic bladder. She caths herself 3 times daily. She presents for an InterStim stage I trial. Informed consent was obtained. The patient was taken to the operating room and placed in a prone position on the operating room table. She was appropriately secured and padded. Anesthesia monitored the head, neck, airway, IV access and vital signs throughout the case. Once anesthesia was appropriate ministered the patient was prepped and draped in usual sterile fashion. Using fluoroscopic visualization the sacrum was outlined on the skin specifically the S3 foramen was marked. The area on the right side was infiltrated with lidocaine and the needle was passed through the skin through the S3 foramen. Good alejandro and toe flexion was achieved with stimulation. The obturator was removed and a guidewire was placed. The needle was then removed and an incision in the skin was made. The dilator was then passed through the S3 foramen followed by the lead. All 4 leads received good stimulation response with alejandro and toe flexion. The sheath was then removed leaving the tined lead in position. The pocket site was identified infiltrated with lidocaine. The incision was made and the pocket was formed using blunt dissection and Bovie cautery for hemostasis. The lead was then tunneled into position using the tunneling device which was then also used to tunnel the lead extension into position. The lead was inserted into the lead extension and secured using the torque wrench. The lead extension was secured using the Prolene suture and then. Everything was buried in the pocket site. The pocket was closed using 3-0 interrupted Vicryl followed by 4-0 subcuticular suturing and skin glue. The incisions over the lead and the lead extension were closed similarly. The battery was then attached and everything was secured in position with cloth tape. The patient was then awakened and taken to the recovery room in good condition. There were no complications during this procedure. Grafts/Implants Used: Interstim lead Complications none Admit VTE Documentation VTE Present on Admission: No VTE Mechan Device Prophylaxis: None VTE Pharm Prophylaxis ordered?: No Reason prophylaxis not ordered:: Treatment Not Indicated
--- NOTE | 2022-02-15 07:30 | RAD_ITS ---
STUDY: X-RAY - PELVIS REASON FOR EXAM: Female, 36 years old. INTERSTIM THERAPY 1 TECHNIQUE: One view of the pelvis was obtained. COMPARISON: None. FINDINGS: There is a non-specific bowel gas pattern. The tip of the right InterStim device is in the upper right posterior hemipelvis. IUD is seen within the pelvis. Normal bilateral iliac wings, sacroiliac joints and visualized sacrum. Normal visualized bilateral superior and inferior pubic rami. Normal pubic symphysis. Normal ischial tuberosities. Normal visualized right femoral head. Normal right acetabulum. Normal right hip joint. Normal visualized left femoral head. Normal left acetabulum. Normal left hip joint. RAD/Pelvis 1 or 2 Views IMPRESSION: The tip of the right InterStim device is in the upper right posterior hemipelvis. IUD is seen within the pelvis as well. Electronically Signed: Luis Williamson MD at 10:06 EDT ,
--- NOTE | 2022-02-15 07:31 | DCINST_ITS ---
Discharge Instructions Diet Discharge Diet: No restrictions Activity Discharge Activity: May Not Shower Dressing / Incision Call your doctor if your incision/area has: Continuous Slow Oozing, Sudden Increased Bleeding, Increased Pain/ Swelling, Increased Redness, Foul Smelling Discharge and Swelling at the incision site Call your doctor if you observe: Fever of 101 or Higher and Inability to have a bowel movement Suture Line Care: Avoid Pulling/Pushing and Avoid Pinching/Bending Remove Dressing in: do not remove dressing Cleanse incision/area with: Do not get Incision Wet Follow Up Care Please Follow Up With: Naima Medina MD When: this week in the office Test Results: Test results from this visit will be discussed in further detail at your follow-up appointment, if applicable. Discharge Plan Admission Attending Provider: Naima Medina Primary Care Provider: Mack Hart Discharge Orders/Prescriptions Prescriptions: New oxycodone-acetaminophen [Percocet] 5-325 mg tablet 1 tab PO Q8H PRN (Reason: pain) 5 Days RF: 0 cephalexin [cephalexin] 500 MG capsule 500 mg PO Q12 3 Days Qty: 6 RF: 0 Continued levothyroxine 112 MCG tablet 250 mcg PO DAILY RF: 0 prochlorperazine maleate [Compazine] 10 MG tablet 10 mg PO Q6H PRN (Reason: Nausea) RF: 0 metformin 500 MG tablet 1,000 mg PO BID RF: 0 pantoprazole [Protonix] 40 MG tablet 40 mg PO BID RF: 0 cholecalciferol (vitamin D3) 1,000 UNIT tablet 1,000 unit PO DAILY RF: 0 ondansetron 4 MG tablet 8 mg PO BID RF: 0 gabapentin [Neurontin] 100 MG capsule 800 mg PO TID RF: 0 trazodone 100 MG tablet 100 mg PO QHS RF: 0 multivitamin with minerals 1 EACH tablet 1 ea PO DAILY RF: 0 hydroxyzine HCl 10 MG tablet 50 mg PO TID RF: 0 dicyclomine 10 MG capsule 10 mg PO TIDAC RF: 0 fenofibrate 160 MG tablet 160 mg PO DAILY RF: 0 Tresiba FlexTouch U-100 100 UNIT/ML insulin pen 100 unit SQ QHS RF: 0 prochlorperazine 2.5 mg Suppository 25 mg [place] Q12H PRN (Reason: Nausea) RF: 0 asenapine maleate [Saphris] 10 mg tablet, sublingual 20 mg SUBLINGUAL QHS RF: 0 cyclobenzaprine 10 mg Tablet 10 mg PO TID PRN (Reason: Muscle Spasm) RF: 0 tamsulosin [Flomax] 0.4 mg Capsule 0.4 mg PO QHS RF: 0 insulin aspart U-100 [Novolog PenFill U-100 Insulin] 100 unit/mL Cartridge 35 unit SUBCUT TID RF: 0 Other Ambulatory Orders: COVID 19 AG RAPID (RN COLLECT) (Routine) Timeframe: 20211207 Facility: [facility] - Location: Laboratory Ordered By: Dr. John De La Vega COVID 19 AG RAPID (RN COLLECT) (Routine) Timeframe: 20220208 Facility: [facility] - Location: Laboratory Ordered By: Dr. John De La Vega ,Urine (Routine) Timeframe: 20211207 Facility: [facility] - Location: Laboratory Ordered By: Dr. John De La Vega ,Urine (Routine) Timeframe: 20220215 Facility: [facility] - Location: Laboratory Ordered By: Dr. John De La Vega Referrals / Follow Up: Mack Hart MD [Primary Care Provider] - Disposition Disposition (needs filled in before D/C Order can be placed): Home, Self Care
[2022-02-15] MEDS: Lidocaine 1% /Epi 1:100 (50ml) 50 ML VIAL (07:50)
[2022-02-15 08:55] LABS: Bedside Glucose 275 mg/dL (74-106)
[2022-02-15] MEDS: Insulin Lispro 100 UNIT/ML INSULN.PEN 35 UNIT SC (10:17)
== END 2022-02-15 10:57 | disposition home or self-care (01) ==
LOC: SDC 05:57 → AC 05:57
PROVIDERS: Anesthesiology; PCP Family Medicine; Referring Provider Urology; Visit Provider Urology
PROC: (CPT 64590; principal; 2022-02-15 07:20)
DX: Z45.42 Encounter for adjustment and management of neurostimulator (principal); F25.9 Schizoaffective disorder, unspecified; E11.9 Type 2 diabetes mellitus without complications; Z79.4 Long term (current) use of insulin; R33.9 Retention of urine, unspecified; N31.9 Neuromuscular dysfunction of bladder, unspecified; I10 Essential (primary) hypertension; R39.15 Urgency of urination; Z79.899 Other long term (current) drug therapy; Z79.890 Hormone replacement therapy; F41.9 Anxiety disorder, unspecified; F32.A Depression, unspecified; K21.9 Gastro-esophageal reflux disease without esophagitis; K76.0 Fatty (change of) liver, not elsewhere classified; E03.9 Hypothyroidism, unspecified
CPT/HCPCS: 64590; 64581; 00300; 72170; 76000; 81025; 82962; 87426; C9803; J7120; C1820; J2405

== ENCOUNTER → 2022-02-25 | Outpatient (CLI) | payer MEDICARE, MEDICAID, SELFPAY ==
[2022-02-25 15:20] LABS: Hemoglobin 14.9 g/dL (12.0-15.0); Mean Corp Hgb Conc 33.9 g/dL (32-36); Mean Corpuscular Volume 88.7 fL (81-99); Mean Platelet Vol. 10.6 fl (6.2-12.0); Platelet Count 225 K/mm3 (150-450); RBC Distribution Width SD 49.3 fl (35.1-43.9); Red Blood Count 4.96 M/mm3 (4.2-5.4); White Blood Count 9.5 K/mm3 (4.4-11.0)
[2022-02-25 16:22] LABS: Anion Gap 10 (5-15); BUN 12 mg/dL (7-18); BUN/Creat Ratio 13.2 RATIO (10-20); Calcium,Total 9.3 mg/dL (8.5-10.1); Chloride 104 mmol/L (98-107); Creatinine, Serum 0.91 mg/dL (0.55-1.02); EST Glomerular Filtration Rate 73 mL/min (>60); Est Glom Filt Rate - Afr Amer 89 mL/min (>60); Glucose 283 mg/dL (74-106); Potassium 4.2 mmol/L (3.5-5.1); Sodium Level 135 mmol/L (136-145)
== END | disposition home or self-care (01) ==
LOC: MTLAB 11:22
PROVIDERS: PCP Family Medicine; Referring Provider Urology; Visit Provider Urology
DX: R33.8 Other retention of urine (principal)
CPT/HCPCS: 36415; 80048; 85027

== ENCOUNTER 2022-03-01 06:25 | Day surgery (SDC) | payer MEDICARE, MEDICAID, SELFPAY ==
[2022-03-01] VITALS (11 sets, daily range): BP systolic 95–147; BP diastolic 45–85; PULSE 102–128; RESP 16–28; TEMP 36.7–37.3; O2SAT 92–100; BMI 43.9
[2022-03-01] MEDS: Lactated Ringers 1,000 ML 15 ML IV ×2 (07:06→09:31)
[2022-03-01 07:11] LABS: Bedside Glucose 329 mg/dL (74-106)
[2022-03-01] MEDS: Insulin Lispro 100 UNIT/ML INSULN.PEN 6 UNIT SC (07:29)
--- NOTE | 2022-03-01 07:57 | PCM.DC ---
Discharge Instructions Diet Discharge Diet: No restrictions Activity Discharge Activity: Return to Normal Activity and [address] (When not on pain medication.) Dressing / Incision Call your doctor if your incision/area has: Continuous Slow Oozing, Sudden Increased Bleeding, Increased Pain/ Swelling, Increased Redness, Foul Smelling Discharge and Swelling at the incision site Call your doctor if you observe: Fever of 101 or Higher and Inability to have a bowel movement Follow Up Care Please Follow Up With: Naima Medina MD When: Call the office for appointment Test Results: Test results from this visit will be discussed in further detail at your follow-up appointment, if applicable. Discharge Plan Admission Attending Provider: Naima Medina Primary Care Provider: Mack Hart Discharge Orders/Prescriptions Prescriptions: Continued levothyroxine 112 MCG tablet 250 mcg PO DAILY RF: 0 prochlorperazine maleate [Compazine] 10 MG tablet 10 mg PO Q6H PRN (Reason: Nausea) RF: 0 metformin 500 MG tablet 1,000 mg PO BID RF: 0 pantoprazole [Protonix] 40 MG tablet 40 mg PO BID RF: 0 cholecalciferol (vitamin D3) 1,000 UNIT tablet 1,000 unit PO DAILY RF: 0 ondansetron 4 MG tablet 8 mg PO BID RF: 0 gabapentin [Neurontin] 100 MG capsule 800 mg PO TID RF: 0 trazodone 100 MG tablet 100 mg PO QHS RF: 0 multivitamin with minerals 1 EACH tablet 1 ea PO DAILY RF: 0 hydroxyzine HCl 10 MG tablet 50 mg PO TID RF: 0 dicyclomine 10 MG capsule 10 mg PO TIDAC RF: 0 fenofibrate 160 MG tablet 160 mg PO DAILY RF: 0 Tresiba FlexTouch U-100 100 UNIT/ML insulin pen 100 unit SQ QHS RF: 0 prochlorperazine 2.5 mg Suppository 25 mg [place] Q12H PRN (Reason: Nausea) RF: 0 asenapine maleate [Saphris] 10 mg tablet, sublingual 20 mg SUBLINGUAL QHS RF: 0 cyclobenzaprine 10 mg Tablet 10 mg PO TID PRN (Reason: Muscle Spasm) RF: 0 tamsulosin [Flomax] 0.4 mg Capsule 0.4 mg PO QHS RF: 0 insulin aspart U-100 [Novolog PenFill U-100 Insulin] 100 unit/mL Cartridge 35 unit SUBCUT TID RF: 0 oxycodone-acetaminophen [Percocet] 5-325 mg tablet 1 tab PO Q8H PRN (Reason: pain) 5 Days RF: 0 cephalexin 500 MG capsule 500 mg PO Q12 3 Days Qty: 6 RF: 0 oxycodone-acetaminophen 1 TABLET tablet 2 tab PO Q8H PRN PRN (Reason: Pain) 7 Days Qty: 20 RF: 0 Referrals / Follow Up: Mack Hart MD [Primary Care Provider] - Disposition Disposition (needs filled in before D/C Order can be placed): Home, Self Care
--- NOTE | 2022-03-01 07:59 | PCM.OPRPT ---
Problems Associated Problem List Diagnoses (1) Urinary retention: Report of Operation Date of Procedure: 03/01/22 Pre-Operative Diagnosis: Urinary retention, postoperative infection Post-Operative Diagnosis: Same Surgery/Procedure Performed:: Removal of InterStim lead and lead extension Surgeon: Naima Medina Type of Anesthesia: MAC Specimen's removed: Interstim Lead and lead extension Description of Procedure: The patient is a 36-year-old female who had a successful stage I implant of an InterStim for management of her urinary retention. She then developed pain at the lead site and was started on antibiotics. We discussed the likelihood of infection given the extended trial phase and her history of diabetes. We have decided to proceed with removal of the InterStim lead and lead extension. Informed consent was obtained. The patient was taken to the operating room and placed in a prone position on the operating room table. Anesthesia monitored the head, neck, airway, IV access and vital signs throughout the case. Once anesthesia was appropriate ministered, the patient was prepped and draped in usual sterile fashion. The pocket and lead insertion sites were infiltrated with local anesthetic. The pocket site was opened exposing the lead and lead extension. The lead extension was removed using heavy scissors. The lead insertion site was then opened and using hemostats, the lead in its entirety was removed. The wounds were cultured, irrigated and closed with interrupted sutures. Gauze dressings were applied. The patient was then awakened and taken to the recovery room in good condition. There were no complications during this procedure. Grafts/Implants Used: None Complications None Admit VTE Documentation VTE Present on Admission: Yes VTE Mechan Device Prophylaxis: SCD's VTE Pharm Prophylaxis ordered?: No Reason prophylaxis not ordered:: Treatment Not Indicated
[2022-03-01] MEDS: Lidocaine 1% /Epi 1:100 (50ml) 50 ML VIAL (08:37)
[2022-03-01 10:36] LABS: Bedside Glucose 200 mg/dL (74-106)
== END 2022-03-01 11:24 | disposition home or self-care (01) ==
LOC: SDC 06:26 → AC 06:26
PROVIDERS: PCP Family Medicine; Referring Provider Urology; Visit Provider Urology
PROC: (CPT 64595; principal; 2022-03-01 08:05)
DX: Z45.42 Encounter for adjustment and management of neurostimulator (principal); F25.9 Schizoaffective disorder, unspecified; E11.9 Type 2 diabetes mellitus without complications; R33.9 Retention of urine, unspecified; T81.40XA Infection following a procedure, unspecified, initial encounter; Z87.440 Personal history of urinary (tract) infections; N31.9 Neuromuscular dysfunction of bladder, unspecified; R39.15 Urgency of urination
CPT/HCPCS: 64595; 64585; 00300; 82962; 87070; 87075; 87205; 87426; C9803; J7120; J2405

== ENCOUNTER 2022-03-24 17:26 | Emergency (ER) | payer MEDICARE, MEDICAID, SELFPAY ==
[2022-03-24 17:27] VITALS: BP 140/83; PULSE 96; RESP 16; TEMP 36.6; O2SAT 95; BMI 43.6
[2022-03-24 17:57] LABS: Mucous, Urine 0 SEEN /hpf (<or=2+)
[2022-03-24 17:59] LABS: Glucose, Dipstick 1000 mg/dl (Normal); Ketone-Dipstick 5 mg/dl (Negative); Leukocyte Esterase-Dipstick Negative /ul (Negative); Nitrite-Dipstick Negative (Negative); Occult Blood-Urine 10 /ul (Negative); Protein-Dipstick 15 mg/dl (Negative); Specific Gravity, Urine 1.015 (1.002-1.030); Urine Bilirubin Dipstick Negative (Negative); Urine Clarity Clear (Clear); Urine Urobilinogen Normal (Normal)
[2022-03-24 18:06] LABS: Color, Urine Straw (Yellow)
[2022-03-24 18:21] LABS: Bacteria 1+ /hpf (None Seen); Red Blood Cells-Urine 0-5 SEEN /hpf (0-5); Squamous Epithelial Cells - UA 0-5 SEEN /hpf (5-10); White Blood Cells 0-5 SEEN /hpf (0-5)
[2022-03-24 18:22] LABS: Yeast-Urine 1+ /hpf (None Seen)
[2022-03-24 18:47] LABS: Basophil# 0.06 X10^3/uL; Basophil% 0.6 % (0-1); Eosinophil# 0.14 X10^3/uL; Eosinophils% 1.4 % (0-5); Hematocrit 45.4 % (37-47); Hemoglobin 15.5 g/dL (12.0-15.0); Lymphocyte % 33.9 % (19-41); Mean Corp Hgb Conc 34.1 g/dL (32-36); Mean Corpuscular Hgb 30.5 pg (27.0-32.0); Mean Corpuscular Volume 89.2 fL (81-99); Mean Platelet Vol. 10.6 fl (6.2-12.0); Monocyte# 0.62 X10^3/uL; NRBC Flagged by Analyzer 0 % (0-5); Neutrophil # 5.95 X10^3/uL (2.7-7.7); Neutrophil % 57.7 % (47-70); Platelet Count 203 K/mm3 (150-450); RBC Distribution Width CV 14.1 % (11.6-14.6); RBC Distribution Width SD 45.7 fl (35.1-43.9); Red Blood Count 5.09 M/mm3 (4.2-5.4); White Blood Count 10.3 K/mm3 (4.4-11.0)
[2022-03-24 18:48] LABS: Anion Gap 9 (5-15); BUN 10 mg/dL (7-18); BUN/Creat Ratio 10.2 RATIO (10-20); Calcium,Total 9.1 mg/dL (8.5-10.1); Chloride 108 mmol/L (98-107); Creatinine, Serum 0.98 mg/dL (0.55-1.02); EST Glomerular Filtration Rate 67 mL/min (>60); Est Glom Filt Rate - Afr Amer 81 mL/min (>60); Estimated Creatinine Clearance 58.73 ml/min; Glucose 300 mg/dL (74-106); Sodium Level 140 mmol/L (136-145)
[2022-03-24 19:15] LABS: Internal QC Validated? YES +Cl - CLEAR BKGD; Pregnancy, Serum, hCG Quali. NEGATIVE Negative
--- NOTE | 2022-03-24 19:37 | CT_ITS ---
EXAM: CT ABDOMEN AND PELVIS WITHOUT INTRAVENOUS CONTRAST CLINICAL INDICATION: abdominal pain TECHNIQUE: Helically acquired images were obtained of the abdomen and pelvis without intravenous contrast. This CT exam was performed using one or more of the following dose reduction techniques: automated exposure control, adjustment of the mA and/or kV according to patient size, and/or use of iterative reconstruction technique. This report was created using Nimbit report generation technology. COMPARISON: 06/27/2019 FINDINGS: LOWER THORAX: Unremarkable. Lung bases are clear. No cardiomegaly. No pericardial effusion. ABDOMEN: LIVER: Enlarged steatotic liver again noted. GALLBLADDER AND BILE DUCTS: Cholecystectomy clips are in place. No intra- or extrahepatic biliary ductal dilation. PANCREAS: Unremarkable. No focal cystic mass. SPLEEN: Unremarkable. Normal size without focal cystic or solid mass. ADRENALS: Unremarkable. No nodules. KIDNEYS AND URETERS: Unremarkable. Normal renal size and position. No hydronephrosis. STOMACH AND BOWEL: Unremarkable. No bowel distention. No focal inflammatory change. PELVIS: APPENDIX: Appendix is visualized and normal in appearance. BLADDER: Unremarkable. REPRODUCTIVE: Interval placement of an IUD located within the endometrial cavity. ABDOMEN and PELVIS: INTRAPERITONEAL SPACE: Unremarkable. No ascites or other fluid collection. No free air. BONES/JOINTS: Unremarkable. No suspicious lytic or blastic abnormality. SOFT TISSUES: Unremarkable. No discrete abdominal or pelvic wall hernia. VASCULATURE: Unremarkable. Abdominal aorta is non-dilated. LYMPH NODES: Unremarkable. No enlarged lymph nodes. CT/Abdomen/Pelvis without Cont IMPRESSION: 1. Stable enlarged steatotic liver. 2. Interval placement of IUD. Electronically Signed: Ty Gray MD at 20:20 EDT ,
--- NOTE | 2022-03-24 19:38 | ED.VIS.GI ---
HPI HPI - GI History of Present Illness Chief Complaint: Abd Pain Narrative Narrative: 36-year-old female presenting with nausea, vomiting since early this morning. She denies fever or chills. She denies constipation or diarrhea. Patient denies any urinary complaints but does state that he self caths. Patient states that sometimes she does not self cath early and often there is too much urine left but this does not feel the same as what happened today. Patient states she has no sick contacts. She is complaining of pain which is fairly diffuse but also is more to the right side of her abdomen. Not associated with eating. PFSH [facility] Medical History Anxiety Bladder disease Cardiology follow-up encounter CPAP (continuous positive airway pressure) dependence Depression Dietary restriction Fatty liver Gastric reflux Gastroparesis High cholesterol History of stress test HPV (human papilloma virus) infection Hypothyroid Insulin dependent diabetes mellitus Nausea PCOS (polycystic ovarian syndrome) Schizoaffective disorder Smoker Urinary retention Wears glasses Wound abscess Home Medications levothyroxine 112 mcg tablet 250 mcg PO DAILY 01/04/14 [History Last Taken 03/01/22] prochlorperazine maleate 10 mg tablet (Compazine) 10 mg PO Q6H PRN Nausea 06/27/19 [History Last Taken Unknown] cholecalciferol (vitamin D3) 25 mcg (1,000 unit) tablet 1,000 unit PO DAILY 03/14/20 [History Last Taken Unknown] metformin 500 mg tablet 1,000 mg PO BID 03/14/20 [History Last Taken Unknown] ondansetron 4 mg disintegrating tablet 8 mg PO BID 03/14/20 [History Last Taken 03/01/22] pantoprazole 40 mg tablet,delayed release (Protonix) 40 mg PO BID 03/14/20 [History Last Taken 03/01/22] dicyclomine 10 mg capsule 10 mg PO TIDAC 10/07/20 [History Last Taken Unknown] fenofibrate 160 mg tablet 160 mg PO DAILY 10/07/20 [History Last Taken Unknown] gabapentin 100 mg capsule (Neurontin) 800 mg PO TID 10/07/20 [History Last Taken Unknown] hydroxyzine HCl 10 mg tablet 50 mg PO TID 10/07/20 [History Last Taken Unknown] insulin degludec 100 unit/mL (3 mL) subcutaneous pen (Tresiba FlexTouch U-100 insulin) 100 unit SQ QHS 10/07/20 [History Last Taken Unknown] multivitamin with minerals 1 ea PO DAILY 10/07/20 [History Last Taken Unknown] trazodone 100 mg tablet 100 mg PO QHS 10/07/20 [History Last Taken Unknown] asenapine maleate 10 mg sublingual tablet (Saphris) 20 mg sublingual QHS 11/18/21 [History Last Taken Unknown] prochlorperazine 2.5 mg rectal suppository 25 mg [place] Q12H PRN Nausea 11/18/21 [History Last Taken Unknown] cyclobenzaprine 10 mg tablet 10 mg PO TID PRN Muscle Spasm 02/08/22 [History Last Taken Unknown] insulin aspart U-100 100 unit/mL subcutaneous cartridge (Novolog PenFill U-100 Insulin aspart) 35 unit subcut TID 02/08/22 [History Last Taken Unknown] tamsulosin 0.4 mg capsule (Flomax) 0.4 mg PO QHS 02/08/22 [History Last Taken Unknown] cephalexin 500 mg capsule 500 mg PO Q12 post-operative 3 days #6 CAPSULES 02/15/22 [Rx Last Taken Unknown] oxycodone-acetaminophen 5 mg-325 mg tablet 2 tab PO Q8H PRN PRN Pain 7 days #20 tabs 02/15/22 [Rx Last Taken Unknown] oxycodone-acetaminophen 5 mg-325 mg tablet (Percocet) 1 tab PO Q8H PRN pain 5 days 02/15/22 [Rx Last Taken Unknown] ondansetron 4 mg disintegrating tablet 4 mg PO Q8H PRN nausea and vomiting #10 tabs 03/24/22 [Rx Last Taken Unknown] Allergy/AdvReac Type Severity Reaction Status Date / Time Iodinated Contrast Media Allergy Hives Verified 03/24/22 17:26 [CONTRASTS] tramadol AdvReac Other Verified 03/24/22 17:26 lodine Allergy Swelling Uncoded 03/24/22 17:26 Surgical History H/O foot surgery History of esophagogastroduodenoscopy (EGD) History of hysteroscopy History of salpingo-oophorectomy History of tonsillectomy Hx of cholecystectomy Social History Smoking Status: Current every day smoker tobacco type: cigarettes ROS ROS ED Constitutional Constitutional ED: Denies chills or subjective ENT ENT ED: Denies rhinorrhea or sore throat Cardiovascular Cardiovascular: Denies chest pain or palpitations Respiratory/Chest Respiratory/Chest: Denies cough or dyspnea Gastrointestinal Gastrointestinal: Reports abdominal pain, nausea and vomiting; Denies diarrhea Genitourinary Genitourinary ED: Denies dysuria or hematuria Musculoskeletal Musculoskeletal: Denies arthralgias or back pain Integumentary Denies abscess Neurologic Neurologic: Denies headache(s) or paresthesias Psychiatric Psychiatric: Denies anxiety or depression Endocrine Endocrinology: Denies polydipsia or polyphagia EXAM Physical Exam Const Vital Signs: 03/24/22 17:27 03/24/22 20:24 Temperature 97.8 F Temperature Source Temporal Pulse Rate 96 86 Respiratory Rate 16 16 Blood Pressure 140/83 H 114/72 Blood Pressure Mean 102 86 Pulse Ox 95 98 Oxygen Delivery Method Room Air Room Air Positive well nourished, obese and unkempt General Appearance ED: unkempt and NAD; Negative for pallor Nutritional Appearance: obese HEENT Reports moist mucous membranes Eyes PERRL and EOMs intact bilaterally Resp normal respiratory effort and clear to auscultation bilaterally Cardio regular rate and regular rhythm GI non-distended Auscultation: normoactive bowel sounds Palpation: soft and tender RLQ and RUQ Back/Spine no CVA tenderness Neuro Sensorium / Orientation: alert, oriented to person, oriented to place and oriented to time Motor Exam: strength 5/5 throughout Psych mental status grossly normal Appearance: unkempt Skin General Skin Exam: Negative for jaundice or pallor MDM MDM MDM Narrative Medical decision making narrative: Patient presenting with right-sided abdominal pain as well as nausea and vomiting. She not had fever or chills. CBC shows no leukocytosis. Hemoglobin stable at 15.4. Platelets normal at 203. Urinalysis is negative for infection. BMP is unremarkable with exception of slight hyperglycemia of 300. No anion gap. Patient was given morphine, Zofran, IV fluids. CT of the abdomen pelvis is negative for acute abnormality. Patient will be given refill for Zofran for home. She is instructed on bland diet. Meds as tolerated. Patient stable discharge. Impression: 1 abdominal pain 2. Nausea/vomiting Lab Data Labs: Laboratory Results - last 24 hr 03/24/22 03/24/22 03/24/22 17:45 18:28 18:28 WBC 10.3 RBC 5.09 Hgb 15.5 H Hct 45.4 MCV 89.2 MCH 30.5 MCHC 34.1 RDW Std Deviation 45.7 H RDW Coeff of Radha 14.1 Plt Count 203 MPV 10.6 Immature Gran % (Auto) 0.400 Neut % (Auto) 57.7 Lymph % (Auto) 33.9 Baldwin % (Auto) 6.0 Eos % (Auto) 1.4 Baso % (Auto) 0.6 Absolute Neuts (auto) 6.0 Absolute Lymphs (auto) 3.50 Nucleated RBC % 0 Sodium Potassium Chloride Carbon Dioxide Anion Gap BUN Creatinine Estim Creat Clear Calc Est GFR (MDRD) Af Amer Est GFR (MDRD) Non-Af BUN/Creatinine Ratio Glucose Calcium Total Bilirubin Direct Bilirubin AST ALT Alkaline Phosphatase Total Protein Albumin Globulin Lipase Serum , Qual NEGATIVE Urine Color Straw Urine Clarity Clear Urine pH 6.0 Ur Specific Beverly 1.015 Urine Protein 15 H Urine Glucose (UA) 1000 H Urine Ketones 5 H Urine Occult Blood 10 H Urine Nitrite Negative Urine Bilirubin Negative Urine Urobilinogen Normal Ur Leukocyte Esterase Negative Urine RBC 0-5 SEEN Urine WBC 0-5 SEEN Ur Squamous Epith Cells 0-5 SEEN Urine Bacteria 1+ Urine Mucus 0 SEEN Urine Yeast 1+ 03/24/22 03/24/22 18:28 18:28 WBC RBC Hgb Hct MCV MCH MCHC RDW Std Deviation RDW Coeff of Radha Plt Count MPV Immature Gran % (Auto) Neut % (Auto) Lymph % (Auto) Baldwin % (Auto) Eos % (Auto) Baso % (Auto) Absolute Neuts (auto) Absolute Lymphs (auto) Nucleated RBC % Sodium 140 Potassium 4.0 Chloride 108 H Carbon Dioxide 23.0 Anion Gap 9 BUN 10 Creatinine 0.98 Estim Creat Clear Calc 58.73 Est GFR (MDRD) Af Amer 81 Est GFR (MDRD) Non-Af 67 BUN/Creatinine Ratio 10.2 Glucose 300 H Calcium 9.1 Total Bilirubin 0.40 Direct Bilirubin 0.13 AST 19 ALT 31 Alkaline Phosphatase 83 Total Protein 7.1 Albumin 3.4 Globulin 3.7 Lipase 92 Serum , Qual Urine Color Urine Clarity Urine pH Ur Specific Beverly Urine Protein Urine Glucose (UA) Urine Ketones Urine Occult Blood Urine Nitrite Urine Bilirubin Urine Urobilinogen Ur Leukocyte Esterase Urine RBC Urine WBC Ur Squamous Epith Cells Urine Bacteria Urine Mucus Urine Yeast Radiography Diagnostic Testing: Clinical Impression(s) from Imaging Studies Abdomen/Pelvis CT 03/24/22 19:37 IMPRESSION: 1. Stable enlarged steatotic liver. 2. Interval placement of IUD. Electronically Signed: Ty Gray MD at 20:20 EDT , Discharge Plan Triage Chief Complaint: Abd Pain ED Provider: Yrn Ballard Dx/Rx/DC Orders Instructions: ED Abdominal Pain Unkn Cause Fem, ED Vomiting (Adult) Prescriptions: New ondansetron 4 mg tablet,disintegrating 4 mg PO Q8H PRN (Reason: nausea and vomiting) Qty: 10 0RF No Action levothyroxine 112 MCG tablet 250 mcg PO DAILY prochlorperazine maleate [Compazine] 10 MG tablet 10 mg PO Q6H PRN (Reason: Nausea) metformin 500 MG tablet 1,000 mg PO BID pantoprazole [Protonix] 40 MG tablet 40 mg PO BID cholecalciferol (vitamin D3) 1,000 UNIT tablet 1,000 unit PO DAILY ondansetron 4 MG tablet 8 mg PO BID gabapentin [Neurontin] 100 MG capsule 800 mg PO TID trazodone 100 MG tablet 100 mg PO QHS multivitamin with minerals 1 EACH tablet 1 ea PO DAILY hydroxyzine HCl 10 MG tablet 50 mg PO TID dicyclomine 10 MG capsule 10 mg PO TIDAC fenofibrate 160 MG tablet 160 mg PO DAILY Tresiba FlexTouch U-100 100 UNIT/ML insulin pen 100 unit SQ QHS prochlorperazine 2.5 mg Suppository 25 mg [place] Q12H PRN (Reason: Nausea) asenapine maleate [Saphris] 10 mg tablet, sublingual 20 mg SUBLINGUAL QHS cyclobenzaprine 10 mg Tablet 10 mg PO TID PRN (Reason: Muscle Spasm) tamsulosin [Flomax] 0.4 mg Capsule 0.4 mg PO QHS insulin aspart U-100 [Novolog PenFill U-100 Insulin] 100 unit/mL Cartridge 35 unit SUBCUT TID oxycodone-acetaminophen [Percocet] 5-325 mg tablet 1 tab PO Q8H PRN (Reason: pain) 5 Days 0RF cephalexin 500 MG capsule 500 mg PO Q12 3 Days Qty: 6 0RF oxycodone-acetaminophen 1 TABLET tablet 2 tab PO Q8H PRN PRN (Reason: Pain) 7 Days Qty: 20 0RF Primary Care Provider: Mack Hart Referrals: Mack Hart MD [Primary Care Provider] - Disposition Disposition: Home, Self Care
[2022-03-24 20:11] LABS: AST(SGOT) 19 U/L (15-37); Alanine Aminotransfer ALT/SGPT 31 U/L (13-56); Albumin, Serum 3.4 g/dL (3.2-5.0); Alkaline Phosphatase 83 U/L (45-117); Bilirubin, Direct 0.13 mg/dL (0.00-0.30); Globulin 3.7 g/dL (2.2-4.2); Lipase 92 U/L (73-393); Protein, Total 7.1 g/dL (6.4-8.2)
[2022-03-24] MEDS: Morphine 4 MG/ML Syringe IV (20:18)
[2022-03-24] MEDS: Ondansetron 4 MG/2 ML Vial IV (20:18)
[2022-03-24 20:24] VITALS: BP 114/72; PULSE 86; RESP 16; O2SAT 98
[2022-03-24 22:27] VITALS: PULSE 74; RESP 17; O2SAT 99
--- NOTE | 2022-03-24 22:31 | ED.RN ---
PT LEFT PRIOR TO RECEIVING DC INSTRUCTIONS
== END 2022-03-24 22:38 | disposition home or self-care (01) ==
PROVIDERS: Emergency Provider Student in an Organized Health Care Education/Training Program; PCP Family Medicine; Visit Provider Student in an Organized Health Care Education/Training Program
DX: R10.9 Unspecified abdominal pain (principal); E11.43 Type 2 diabetes mellitus with diabetic autonomic (poly)neuropathy; Z79.4 Long term (current) use of insulin; R11.2 Nausea with vomiting, unspecified; E78.00 Pure hypercholesterolemia, unspecified; F17.210 Nicotine dependence, cigarettes, uncomplicated; E03.9 Hypothyroidism, unspecified; Z79.899 Other long term (current) drug therapy; Z79.890 Hormone replacement therapy; K21.9 Gastro-esophageal reflux disease without esophagitis
CPT/HCPCS: 74176; 80048; 80076; 81001; 83690; 84703; 85025; 96361; 96374; 96375; 99283; J7030; A4216; J2405

== ENCOUNTER 2023-05-25 05:24 | Inpatient (IN) | payer MEDICARE, MEDICAID, SELFPAY ==
--- NOTE | 2023-05-13 12:07 | EKG12_ITS ---
Test Reason : PRE OP Blood Pressure : / mmHG Vent. Rate : 084 BPM Atrial Rate : 084 BPM P-R Int : 152 ms QRS Dur : 084 ms QT Int : 380 ms P-R-T Axes : 038 -30 049 degrees QTc Int : 449 ms Normal sinus rhythm Possible Left atrial enlargement Left axis deviation Low voltage QRS RSR' or QR pattern in V1 suggests right ventricular conduction delay Inferior infarct , age undetermined Cannot rule out Anterior infarct , age undetermined Abnormal ECG Confirmed by EMELI FISCHER, MIGUEL ([id number]), material expeditor CIERRA YOST ([id number]) on 05/13/2023 1:50:42 PM Referred By: Horace Brennan Confirmed By:MIGUEL SAINZ MD
[2023-05-13 12:48] LABS: Hematocrit 43.2 % (37-47); Hemoglobin 14.8 g/dL (12.0-15.0); Mean Corp Hgb Conc 34.3 g/dL (32-36); Mean Corpuscular Hgb 32.2 pg (27.0-32.0); Mean Corpuscular Volume 93.9 fL (81-99); Mean Platelet Vol. 9.9 fl (6.2-12.0); Platelet Count 248 K/mm3 (150-450); RBC Distribution Width CV 15.1 % (11.6-14.6); RBC Distribution Width SD 52.5 fl (35.1-43.9); White Blood Count 11.4 K/mm3 (4.4-11.0)
[2023-05-13 12:51] LABS: Internal QC Validated? YES +Cl - CLEAR BKGD; Pregnancy, Urine Negative Negative
[2023-05-13 13:17] LABS: Hemoglobin A1c 6.1 % (3.8-5.6)
[2023-05-13 13:20] LABS: Anion Gap 3 (5-15); BUN 8 mg/dL (7-18); BUN/Creat Ratio 9.7 RATIO (10-20); Calcium,Total 8.7 mg/dL (8.5-10.1); Chloride 111 mmol/L (98-107); Creatinine, Serum 0.82 mg/dL (0.55-1.02); EST Glomerular Filtration Rate 82 mL/min (>60); Est Glom Filt Rate - Afr Amer 99 mL/min (>60); Glucose 99 mg/dL (74-106); Potassium 4.2 mmol/L (3.5-5.1); Sodium Level 140 mmol/L (136-145); Thyroid Stim Hormone (TSH) 9.47 uIU/mL (0.358-3.74)
[2023-05-25] VITALS (12 sets, daily range): BP systolic 110–138; BP diastolic 64–87; PULSE 83–99; RESP 16–18; TEMP 36.2–37.2; O2SAT 90–98; BMI 47.5
--- NOTE | 2023-05-25 00:06 | PCM.HP.BLA ---
History and Physical Date of Admission: 05/25/23 HISTORY OF PRESENT ILLNESS 37 year old woman presents with a 7 month history of hidradenitis in her vulval area involving the mons pubis. She had an I&D once in the doctor's office. She has pain in her mons pubis. She denies fever. She denies trauma. She just finished antibiotics, Keflex and Bactrim. Patient has diabetes mellitus. Her last HgbA1c according to the patient is 7.3 few months ago at [facility]. She presents at this time for further evaluation and treatment. PAST MEDICAL HISTORY Anxiety Bladder disease Cardiology follow-up encounter CPAP (continuous positive airway pressure) dependence Depression Dietary restriction Fatty liver Gastric reflux Gastroparesis Hemoglobin A1c between 7.0% and 9.0% High cholesterol History of stress test HPV (human papilloma virus) infection Hypothyroid Insulin dependent diabetes mellitus Nausea PCOS (polycystic ovarian syndrome) Schizoaffective disorder Smoker Urinary retention Vulval hidradenitis suppurativa Wears glasses Wound abscess PAST SURGICAL HISTORY H/O foot surgery History of esophagogastroduodenoscopy (EGD) History of hysteroscopy History of incision and drainage History of salpingo-oophorectomy History of tonsillectomy Hx of cholecystectomy ALLERGIES etodolac Iodinated Contrast Media [CONTRASTS] tramadol MEDICATIONS levothyroxine 112 mcg tablet 250 mcg PO DAILY 01/04/14 [History Confirmed 04/05/23] prochlorperazine maleate 10 mg tablet (Compazine) 10 mg PO Q6H PRN Nausea 06/27/19 [History Confirmed 04/05/23] cholecalciferol (vitamin D3) 25 mcg (1,000 unit) tablet 1,000 unit PO DAILY 03/14/20 [History Confirmed 04/05/23] metformin 500 mg tablet 1,000 mg PO BID 03/14/20 [History Confirmed 04/05/23] ondansetron 4 mg disintegrating tablet 8 mg PO BID 03/14/20 [History Confirmed 04/05/23] pantoprazole 40 mg tablet,delayed release (Protonix) 40 mg PO BID 03/14/20 [History Confirmed 04/05/23] fenofibrate 160 mg tablet 160 mg PO DAILY 10/07/20 [History Confirmed 04/05/23] insulin degludec 100 unit/mL (3 mL) subcutaneous pen (Tresiba FlexTouch U-100 insulin) 100 unit SQ QHS 10/07/20 [History Confirmed 04/05/23] multivitamin with minerals 1 ea PO DAILY 10/07/20 [History Confirmed 04/05/23] prochlorperazine 2.5 mg rectal suppository 25 mg WI Q12H PRN Nausea 11/18/21 [History Confirmed 04/05/23] cyclobenzaprine 10 mg tablet 10 mg PO TID PRN Muscle Spasm 02/08/22 [History Confirmed 04/05/23] insulin aspart U-100 100 unit/mL subcutaneous cartridge (Novolog PenFill U-100 Insulin aspart) 35 unit subcut TID 02/08/22 [History Confirmed 04/05/23] chlorpromazine 25 mg tablet 25 mg PO TID 04/05/23 [History Confirmed 04/05/23] colestipol 1 gram tablet 2 g PO DAILY 04/05/23 [History Confirmed 04/05/23] levothyroxine 75 mcg tablet 75 mcg PO DAILY 04/05/23 [History Confirmed 04/05/23] metoprolol succinate 50 mg tablet,extended release 24 hr 50 mg PO DAILY 04/05/23 [History Confirmed 04/05/23] simvastatin 40 mg tablet 40 mg PO DAILY 04/05/23 [History Confirmed 04/05/23] tirzepatide 10 mg/0.5 mL subcutaneous pen injector (Mounjaro) 10 mg subcut QWEEK 04/05/23 [History Confirmed 04/05/23] doxycycline hyclate 100 mg capsule 100 mg PO BID #60 caps 04/07/23 [Rx Confirmed 04/07/23] FAMILY HISTORY Other - Cancer SOCIAL HISTORY Smoking Status: Current every day smoker tobacco type: cigarettes REVIEW OF SYSTEMS General - Denies fever, fatigue, and weight loss. Eyes - Denies cataracts and glaucoma. ENT - Denies nasal congestion and sore throat. Endocrine - Denies excessive thirst and urination. Has thyroid disease. Has diabetes mellitus. Skin - Denies suspicious lesions and skin cancer. Musculoskeletal - Denies joint pain, joint stiffness, weakness of muscles and joints, back pain, and arthritis. Neuro - Denies headaches. Cardiovascular - Denies chest pain, fatigue, and shortness of breath with exertion. Psych - Has anxiety and depression. Respiratory - Denies chronic cough and shortness of breath. Patient is a smoker. Gastrointestinal - Denies nausea, vomiting, diarrhea, and constipation. Hematologic - Denies abnormal bruising and bleeding. Genitourinary - Denies hematuria and urinary frequency. PHYSICAL EXAMINATION General - Alert and Oriented HEENT - PERRL. EOMI. Throat is clear. Neck - Supple and nontender. No cervical adenopathy. Lungs - Clear to auscultation. Heart - Regular rate and rhythm. Abdomen - Soft and nondistended. No inguinal adenopathy. Extremities - FROM. No axillary adenopathy. Radial pulses are palpable. Vulva - Has redness and swelling and drainage from hidradenitis. Involves the mons pubis. Measures 8 cm. Neuro - CN II-XII grossly intact. Psych - Normal mood and affect. ASSESSMENT 1. Vulval hidradenitis. 2. History of Incision and Drainage. 2. Diabetes mellitus, HgbA1c is 7.3 according to the patient. 3. Smoker. PLAN Patient has a flare up of hidradenitis in her mons pubis. She had a recent I&D procedure and was on antibiotics (Keflex and Bactrim). Recommend operative intervention with excision of her vulval hidradenitis with a partial vulvectomy involving the deep subcutaneous tissue. I would leave the wound open and begin wound care with the VAC at 150 mmHg to be changed 3 times per week or daily dressing changes with Dakin's dressings. Would followup at the [facility] Center. If there is a plateau during the healing process, can proceed with delayed closure with skin grafting. At the time of surgery, will send tissue to Pathology for analysis to rule out carcinoma and to Microbiology for culture. A positive culture will necessitate antibiotic therapy. Surgery would be done under general anesthesia with a surgical observation overnight stay in the hospital. At the time of surgery, will check a Prealbumin. I anticipate increased metabolic demands from the infection and the surgery. Patient was informed of the risks and complications of the procedure including alternatives to surgery. These were discussed with the patient personally. Patient voices understanding and wishes to proceed. Some of the risks and complications were included in a form from the [employer]. Potential risks and complications included but not inclusive of bleeding, infection, hematoma, bruising, swelling, loss of sensation to skin, wound breakdown, need for wound care, poor scarring, poor aesthetic outcome, intra operative cardiac or neurologic events, DVT, PE, and reaction to anesthesia. Encouraged patient to stop smoking as it may have deleterious effects on wound healing. Will send a script to her Pharmacy for Doxycycline that she will take for flare ups of hidradenitis when she is out of the hospital. Patient has diabetes mellitus. Her last HgbA1c is 7.3 according to the patient. For elective surgery, the HgbA1c needs to be less than 8. Assessment & Plan Assessment/Plan (1) Vulval hidradenitis suppurativa: (2) Diabetes mellitus: (3) Smoker: (4) History of incision and drainage:
[2023-05-25] MEDS: Lactated Ringers 1,000 ML 15 ML IV ×2 (06:33→10:59)
--- NOTE | 2023-05-25 06:39 | SUR.PREOP ---
Patient refuses test as she is a for 9 years, and is not sexually active.
--- NOTE | 2023-05-25 07:30 | TISS_PTH ---
PATIENT: MAYA OTT LOC: [facility]3 U#:[id number] AGE/SX: 37/F [facility] [facility] RE05/25/[address]: Dr. Horace Brennan MD : [id number] BED: 1 DIS: 05/28/2023 SPEC #: [id number] RECD: 05/25/23 12:57 STATUS: YURIDIA RESusan #: [id number] MARQUEZ: 05/25/23 07:[address]: Horace Brennan DEPT: SURGICAL PATHOLOGY RECD BY: Sayda Quintana ENTERED: 05/26/23 07:33 SP TYPE: Tissue Bx OTHR DR: Dr. Mack Hart MD Tissues: A - Abdomen, NOS B - Vulva, NOS Procedures: Surgery Specimen Level IV HEADER OPERATION: Surgical preparation vulvar area involving mons pubis PRE-OP DIAGNOSIS: Hidradenitis in vulvar area involving mons pubis TISSUE SUBMITTED: A - Anterior abdominal wall, B - Left inguinal and vulvar area MICROSCOPIC DIAGNOSIS A. Anterior abdominal wall skin and soft tissue, excision: Consistent with hidradenitis with abscess formation and associated granulation. B. Left inguinal and vulvar area skin and soft tissue, excision: Consistent with hidradenitis. AM:anitra 05/27/2023 MICROSCOPIC DESCRIPTION Slides are reviewed. GROSS DESCRIPTION A - Received in fixative is one container labeled with the patient's name and designated anterior abdominal wall. The specimen consists of an irregular fragment of pink-gould skin with attached yellow fatty tissue measuring 14.0 x 5.0 cm and a depth of excision measuring 6.5 cm. An area of discoloration is noted in the skin fragment measuring 3.5 x 2.0 cm. The remainder of the cut surface reveal yellow fatty tissue without mass lesions. Social Media Job Titles sections of area of skin with ulceration and underlying soft tissue are submitted in two cassettes. B - Received in fixative is one container labeled with the patient's name and designated left inguinal and vulvar area. The specimen consists of an irregular fragment of pink-gould skin with attached yellow fatty tissue measuring 11.5 x 7.0 cm and a depth of excision measuring 2.5 cm. Serial sections reveal a subepithelial cyst measuring 3.0 x 1.0 x 0.5 cm. No mass lesions are identified. Social Media Job Titles sections are submitted in two cassettes. / AM:anitra 05/26/2023 TC:2 CPT: 23498 x2
[2023-05-25 07:32] LABS: Bedside Glucose 197 mg/dL (74-106)
[2023-05-25] MEDS: Lidocaine 1% /Epi 1:100 (20ml) 20 ML Vial (10:15)
--- NOTE | 2023-05-25 10:38 | PCM.OPRPT ---
Problems Associated Problem List Diagnoses (1) Vulval hidradenitis suppurativa: (2) Hidradenitis suppurativa: (3) Abdominal wall abscess: (4) Necrotizing soft tissue infection: (5) Smoker: (6) Abscess of groin, left: (7) Abscess of vulva: (8) Open wound of vulva with complication: (9) Non-healing open wound of left groin: (10) Open wound anterior abdominal wall: Report of Operation Date of Procedure: 05/25/23 Pre-Operative Diagnosis: 1. Left vulval hidradenitis involving mons pubis and left genitocrural crease up to the labia. 2. Left inguinal hidradenitis. 3. Hidradenitis abscess anterior abdominal wall. 4. Diabetes mellitus, HgbA1c was 6.1 on 05/13/23. 5. Smoker. Post-Operative Diagnosis: 1. Left vulval hidradenitis abscess involving mons pubis and left genitocrural crease up to the labia. 2. Left inguinal hidradenitis abscess. 3. Necrotizing hidradenitis abscess anterior abdominal wall involving skin, subcutaneous tissue, and fascia. 4. Open surgical hidradenitis wound left vulval area involving mons pubis and left genitocrural crease up to the labia. 5. Open surgical hidradenitis wound left inguinal area. 6. Open surgical hidradenitis wound anterior abdominal wall. 7. Diabetes mellitus, HgbA1c was 6.1 on 05/13/23. 8. Smoker. Surgery/Procedure Performed:: 1. Surgical preparation left vulval area involving mons pubis and left genitocrural crease up to the labia with excision hidradenitis abscess and radical partial vulvectomy including deep subcutaneous tissue. 2. Surgical preparation left inguinal area with excision hidradenitis abscess. 3. Surgical preparation anterior abdominal wall with excisional debridement skin and subcutaneous tissue and fascia for necrotizing hidradenitis abscess. Description of Surgical Findings:: 7 year old woman presents with a 7 month history of hidradenitis in her vulval area involving the mons pubis. She had an I&D once in the doctor's office. She has pain in her mons pubis. She denies fever. She denies trauma. She just finished antibiotics, Keflex and Bactrim. Patient has diabetes mellitus. Her last HgbA1c was 6.1 on 05/13/23. On the day of surgery, she had worsening hidradenitis in the vulval area as it involved the mons pubis and left genitocrural crease up to the labia and hidradenitis developing in her left inguinal area. Her most pain was in the anterior abdominal wall where there was a hidradenitis abscess. Will address all three areas today in surgery. Patient was informed of the risks and complications of the procedure including alternatives to surgery. These were discussed with the patient personally. Patient voices understanding and wishes to proceed. Some of the risks and complications were included in a form from the [employer]. Potential risks and complications included but not inclusive of bleeding, infection, hematoma, bruising, swelling, loss of sensation to skin, wound breakdown, need for wound care, poor scarring, poor aesthetic outcome, intra operative cardiac or neurologic events, DVT, PE, and reaction to anesthesia. Size of wound anterior abdominal wall - 17 x 8 x 7 cm. Size of wound left vulval area involving mons pubis and left genitocrural crease up to the labia combined with left inguinal wound as one larger wound - 13 x 9 x 5 cm. Surgeon: Horace Brennan MD library technology instructor: None Type of Anesthesia: General Anesthesiologist: Ronnie Neil MD and John De La Vega MD and Vasile Tucker CRNA Specimen's removed: 1. Necrotizing hidradenitis abscess tissue anterior abdominal wall to Pathology and Microbiology. 2. Hidradenitis abscess tissue left vulva area involving mons pubis and left genitocrural crease up to the labia and left inguinal area to Pathology and Microbiology. Drains: None. Estimated Blood Loss (mL): 50. Description of Procedure: Patient was taken to OR in supine position and was placed under general anesthesia. Her legs were frog legged and secured. The anterior abdominal wall and left vulval and left inguinal areas were prepped and draped in the usual fashion. SCD's were placed for DVT prophylaxis. Perioperative antibiotics were given intravenously. A regalado catheter was placed. She will be sent home with the regalado catheter. Using xylocaine with epinephrine, the areas of hidradenitis were infiltrated. After waiting 5 minutes for the anesthetic to take effect, I started in the vulval area by excising areas of redness and induration and fluctuance. Some pus was seen. A lot of fat necrosis was present and excised. From the left vulval area I excised a portion of the mons pubis and the genitocrural crease up to the labia. The excision extended to the muscular fascia and involved the deep subcutaneous tissue as a radical partial vulvectomy. Adjacent to the vulva was an area of hidradenitis of the left inguinal area showing redness and induration. Small amount of pus was seen. A lot of fat necrosis was present and excised. The excision extended to the muscular fascia. This area of hidradenitis excision in the left inguinal area and the vulval area were combined as one excision and sent as one specimen to Pathology for analysis to rule out carcinoma. Tissue was also sent to Microbiology for culture. A positive culture will necessitate antibiotic therapy. The size of the hidradenitis wound left vulval and left inguinal areas was 13 x 9 x 5 cm or 117 cm2. Hemostasis was obtained with electrocautery. The wound was irrigated with saline. I then addressed the anterior abdominal wall. I made an incision and drainage into the hidradenitis abscess. Copious pus was seen. It was thick. Fat necrosis was pervasive through the subcutaneous tissue and Errol's fascia extending to the muscular fascia. Since the patient is a diabetic, she is at risk for worsening of the infection. It appeared clinically to be a necrotizing soft tissue infection. A wider excision was then done to make sure no residual necrotizing process is left behind. Some of the tissue was sent to Pathology for analysis to rule out carcinoma and to Microbiology for culture. A positive culture will necessitate antibiotic therapy. The size of the necrotizing hidradenitis wound anterior abdominal wall was 17 x 8 x 7 cm or 136 cm. Hemostasis was obtained with electrocautery. The wounds were irrigated with saline. These hidradenitis wounds were then dressed with Mepitel nonadherent dressing followed by Kerlix gauze and Betadine followed by dry Kerlix gauze and ABD pads. Medipore tape was applied followed by meshed panties. Patient tolerated the procedure well and was sent to PACU in satisfactory condition. Patient will be sent upstairs for continued postop care. Will try to place the VAC tomorrow in the inguinal and vulval areas. May have to proceed with twice a day Dakin's dressing changes. After discharge will followup at the [facility]ound Center. If there is a plateau during the healing process, can then proceed with delayed closure with skin grafting. Grafts/Implants Used: None. Procedure Start Time: 09:18 Procedure Stop Time: 10:23 Complications None. Admit VTE Documentation VTE Present on Admission: No VTE Mechan Device Prophylaxis: SCD's VTE Pharm Prophylaxis ordered?: Yes Addendum Addendum: Surgery Charges CPT - 12759 ICD-10 - L73.2, N76.4, S31.40xA, F17.200 44863 L73.2, L02.14, S31.104A, F17.200 62961 L73.2, L02.11, S31.109A, F17.200
[2023-05-25 11:05] LABS: Bedside Glucose 106 mg/dL (74-106)
[2023-05-25] MEDS: Lithium Carbonate 300mg Capsule 300 MG PO ×2 (13:23→21:17)
[2023-05-25] MEDS: QUEtiapine 25 MG Tablet 50 MG PO ×2 (13:23→21:18)
[2023-05-25] MEDS: oxyCODONE 5 MG Tablet 10 MG PO ×2 (13:24→21:26)
[2023-05-25 14:13] LABS: Creatinine, Serum 0.79 mg/dL (0.55-1.02); EST Glomerular Filtration Rate 86 mL/min (>60); Est Glom Filt Rate - Afr Amer 104 mL/min (>60); Estimated Creatinine Clearance 72.15 ml/min
--- NOTE | 2023-05-25 14:36 | PCM.RX.CS ---
Consult Antibiotic Management Pharmacy has been consulted to manage selected antiobiotic: Vancomycin Type of Intervention Type of Consult: New start Suspected Infection Suspected Infection: Skin/Soft tissue Prior Doses of Antibiotics Prior Doses of Antibiotics Received/Current Regimen: received vanc 1750mg IV x1 preop starting at 06:34 today Labs Labs: Sodium 140 mmol/L (136-145) 05/13/23 12:30 Potassium 4.2 mmol/L (3.5-5.1) 05/13/23 12:30 Chloride 111 mmol/L (98-107) H 05/13/23 12:30 Carbon Dioxide 26.0 mmol/L (21.0-32.0) 05/13/23 12:30 Anion Gap 3 (5-15) L 05/13/23 12:30 BUN 8 mg/dL (7-18) 05/13/23 12:30 Creatinine 0.79 mg/dL (0.55-1.02) 05/25/23 13:48 Est GFR (MDRD) Af Amer 104 mL/min (>60) 05/25/23 13:48 Est GFR (MDRD) Non-Af 86 mL/min (>60) 05/25/23 13:48 BUN/Creatinine Ratio 9.7 RATIO (10-20) L 05/13/23 12:30 Glucose 99 mg/dL (74-106) 05/13/23 12:30 Dosing Weight Weight used for dosin kg Estimated Creatinine Clearance Estimated Creatinine Clearance: 112ml/min Goal Trough Goal Trough: 10-15 mcg/mL Pharmacy Plan for Drug Dosing Pharmacy Plan for Drug Dosing: Starting 12 hours after the preop dose, continue with vanc 1750mg IV q12h per [facility] dosing protocol for moderate goal trough. Will check a trough before the 4th total dose. The patient's CrCl of 112 ml/min was calculated using an adjusted body weight. Pharmacy Service will continue to monitor and adjust dosing as required. Follow-Up Labs Follow-Up Labs: Trough: Vancomycin Date/Time Labs Ordered Labs to be done on [date and time ordered]: 05/26/23 17:30
[2023-05-25] MEDS: proCHLORPERazine 5 MG Tablet 10 MG PO (14:41)
[2023-05-25] MEDS: Gabapentin 800 MG Tablet PO (17:22)
[2023-05-25] MEDS: 0.9% Saline Lock 10 ML Syringe IV (17:22)
[2023-05-25] MEDS: HYDROmorphone 1 MG/ML Syringe IV (17:22)
[2023-05-25] MEDS: metFORMIN HCl 500 MG Tablet 1000 MG PO (17:23)
[2023-05-25] MEDS: Pantoprazole Sodium 40 MG Tablet PO (21:18)
[2023-05-25] MEDS: Atorvastatin Calcium 20 MG Tablet PO (21:18)
[2023-05-25] MEDS: Gabapentin 400 MG Capsule 1200 MG PO (21:25)
[2023-05-25] MEDS: Ondansetron ODT 4 MG Tablet 8 MG PO (21:25)
[2023-05-25] MEDS: cycloBENZAPRine HCl 10 MG Tablet PO (21:26)
[2023-05-25 21:57] LABS: Bedside Glucose 106 mg/dL (74-106)
[2023-05-26] VITALS (7 sets, daily range): BP systolic 95–121; BP diastolic 54–76; PULSE 75–88; RESP 16–18; TEMP 36.4–37.1; O2SAT 95–97
[2023-05-26] MEDS: oxyCODONE 5 MG Tablet 10 MG PO ×4 (01:20→20:43)
[2023-05-26] MEDS: Levothyroxine 75 MCG Tablet PO (05:34)
[2023-05-26] MEDS: cycloBENZAPRine HCl 10 MG Tablet PO ×2 (05:34→20:43)
[2023-05-26] MEDS: Levothyroxine 100 MCG Tablet 200 MCG PO (05:35)
[2023-05-26] MEDS: QUEtiapine 25 MG Tablet 50 MG PO ×3 (05:35→20:44)
[2023-05-26] MEDS: Lithium Carbonate 300mg Capsule 300 MG PO ×3 (05:35→20:44)
[2023-05-26 06:41] LABS: Hematocrit 37.6 % (37-47); Hemoglobin 11.7 g/dL (12.0-15.0); Mean Corp Hgb Conc 31.1 g/dL (32-36); Mean Corpuscular Volume 99.5 fL (81-99); Mean Platelet Vol. 10.7 fl (6.2-12.0); Platelet Count 228 K/mm3 (150-450); RBC Distribution Width CV 15.8 % (11.6-14.6); RBC Distribution Width SD 57.8 fl (35.1-43.9); Red Blood Count 3.78 M/mm3 (4.2-5.4); White Blood Count 12.3 K/mm3 (4.4-11.0)
[2023-05-26 07:20] LABS: Bedside Glucose 92 mg/dL (74-106)
[2023-05-26 07:37] LABS: Anion Gap 4 (5-15); BUN 9 mg/dL (7-18); BUN/Creat Ratio 13.3 RATIO (10-20); Chloride 109 mmol/L (98-107); Creatinine, Serum 0.68 mg/dL (0.55-1.02); EST Glomerular Filtration Rate 102 mL/min (>60); Est Glom Filt Rate - Afr Amer 124 mL/min (>60); Estimated Creatinine Clearance 83.82 ml/min; Glucose 118 mg/dL (74-106); Sodium Level 139 mmol/L (136-145)
[2023-05-26 07:55] LABS: Bedside Glucose 106 mg/dL (74-106)
[2023-05-26] MEDS: metFORMIN HCl 500 MG Tablet 1000 MG PO ×2 (08:47→17:06)
[2023-05-26] MEDS: Multivitamins,Ther W-Minerals Tablet 1 TABLET PO (08:47)
[2023-05-26] MEDS: Fenofibrate 145 MG Tablet PO (08:48)
[2023-05-26] MEDS: Colestipol 1 GM TABLET 2 GM PO (09:35)
[2023-05-26] MEDS: Pantoprazole Sodium 40 MG Tablet PO ×2 (09:35→20:44)
[2023-05-26] MEDS: Ondansetron ODT 4 MG Tablet 8 MG PO ×2 (09:35→20:50)
[2023-05-26] MEDS: Metoprolol(XL)Succ 50 MG Tablet PO (09:35)
[2023-05-26] MEDS: Enoxaparin 40 MG/0.4 ML Syringe SC (09:35)
[2023-05-26] MEDS: Cholecalciferol (VIT D3) 25 MCG TABLET (1,000 UNITS) PO (09:35)
[2023-05-26] MEDS: Gabapentin 800 MG Tablet PO ×2 (09:35→17:06)
[2023-05-26] MEDS: Doxazosin 1 MG Tablet PO (09:35)
[2023-05-26] MEDS: HYDROmorphone 1 MG/ML Syringe IV (10:47)
--- NOTE | 2023-05-26 11:19 | WOUNDNOTE ---
wound photo: lower abdomen
--- NOTE | 2023-05-26 11:20 | WOUNDNOTE ---
wound photo: left inguinal/vulvar region
[2023-05-26 11:31] LABS: Bedside Glucose 103 mg/dL (74-106)
--- NOTE | 2023-05-26 12:30 | CASEMGMT ---
RN CM RELIGIOUS ASSISTANT CM to room to meet with patient for initial transition planning/care coordination assessment. MALIK CASTRO introduced self and role at [facility]. Pt voices understanding and consents to assessment at this time. Pt resting in bed in no distress at this time. Pt is A/O at this time and answers all questions appropriately. Care providers, pharmacy, and demographics verified/updated at this time. PCP: Dr Hart Specialists: Dr Brennan-surgeon, Dr Medina-urology, Ritu-neurologist/[facility]. Pt is also active w/[facility]. She also has a CM, Sveta, [facility] and sees Dr Wong. Arminda NICHOLAS, made aware. Preferred Pharmacy: [facility] Insurance: GERALD Muniz Prescription Benefit: Yes Living Will/HPOA: Pt does not currently have LW/HCPOA and declines info at this time. Pt made aware that she can contact as an out-pt and make appt in the future if she decides she would like to talk with someone about this or would like to utilize [facility] social work for advanced directive completion. LNOK: Mother, Sara. Father. Pt is . Living Arrangements:Lives alone in one-story/ground-level apt w/no steps to enter. Indep w/ADL's and IADL's. Pt states her mother was manages her meds, but she (pt) is doing it now and sets up weekly pill containers and states she feels she is managing them well now and does not feel she needs assistance with them. She states she is indep w/ADL's and IADL's. She states she talks w/her mother daily and her mom checks in on her/comes by her place a couple times a week. Transportation: Pt states she does not drive. Her mother provides transportation. She takes her to get groceries and to her doctor appts. DME: States has the following DME: shower chair, pulse ox, functioning glucometer w/supplies. She states she has all her insulin and medications needed. Pt states no need for further DME at this time. HHC/SNF: No hx of SNF or HHC. Discussed discharge planning. Pt does not want to go to a SNF for wound vac/wound care/dsg changes. She wishes to d/c home w/HHC. She was made aware HHC nurse could come 2-3 x's/week (depending on if pt goes to weekly) for wound vac changes but do not come to her home daily for the other wound care and that she would need a teachable caregiver that would be willing/able to do dsg changes/wound care. She states she has a teachable caregiver, Pancho Parada, who lives about 5-6 min away, who has done her dsg changes/wound care in the past and just told her she would be willing to do this again and could come at least daily for this. She would like a list of [facility] choices to review. Pt wishes to return home and states has no concerns with going home at time of discharge. CM to follow for any further discharge planning/needs. Pt voices no further concerns/needs at this time. Advised pt to ask for CM if any further questions/concerns/needs arise. Voices understanding. PLAN: Home w/HHC for wound vac care and dressing changes/wound care. Chloe JOINER RN CM
--- NOTE | 2023-05-26 12:50 | CASEMGMT ---
Discharge Planning A list of home healthcare providers including quality and resource use data and consistent with the patient?s preferred geographic region, medical needs, and insurance network was created in [employer]. This list was provided to the RN MATTHEW. Esther Olivera, Discharge Planning Asst.
--- NOTE | 2023-05-26 13:10 | CASEMGMT ---
Addendum entered by Natalia Pittman 05/26/23 14:07: MALIK CASTRO into pt room, pt has chosen Camila, Selene and Kevin respectively. DC sales assistant entertainment and media aware and will make referrals. Plan for pt to dc tomorrow. Original Note: Provided pt with a list of [facility] agencies created by dc sales assistant entertainment and media, pt to review and give top 3 preferences. MALIK CASTRO to check back.
--- NOTE | 2023-05-26 14:23 | CASEMGMT ---
Discharge Planning HH referral sent to [facility] via [facility]. Esther Olivera, Discharge Planning Asst.
--- NOTE | 2023-05-26 14:59 | CASEMGMT ---
[facility] Referral sent to both [facility] and [facility] via [facility]. Esther Olivera, Discharge Planning Asst.
[2023-05-26 16:46] LABS: Bedside Glucose 100 mg/dL (74-106)
--- NOTE | 2023-05-26 17:11 | PCM.PN.SRG ---
Subjective Subjective Postop #1 Patient states she is having a lot of discomfort. She is requiring IV pain meds with her dressing changes. Objective Data Objective Data Vital Signs: Vital Signs Temp Pulse Resp BP Pulse Ox O2 Del Method O2 Flow Rate 98.6 F 79 18 95/56 L 95 Room Air 2 05/26/23 13:28 05/26/23 13:28 05/26/23 13:28 05/26/23 13:28 05/26/23 13:28 05/26/23 13:28 05/26/23 05:42 Oxygen Flow Rate (L/min) 2 Oxygen Delivery Method Room Air Weight: 251 lb 5.231 oz Body Mass Index (BMI) 47.5 Intake & Output: Intake and Output for Last 24 Hours 05/24/23 05/25/23 05/26/23 23:59 23:59 23:59 Intake Total 2108 / 2108 535 / 535 Output Total 400 / 600 900 / 900 Balance 1708 / 1508 -365 / -365 Lab / Micro Data 05/26/23 05:40 05/26/23 05:40 Labs: Laboratory Results - last 24 hr 05/25/23 17:08: POC Glucose 92 05/25/23 21:32: POC Glucose 106 05/26/23 05:40: WBC 12.3 H, RBC 3.78 L, Hgb 11.7 L, Hct 37.6, MCV 99.5 H, MCH 31.0, MCHC 31.1 L, RDW Std Deviation 57.8 H, RDW Coeff of Radha 15.8 H, Plt Count 228, MPV 10.7, Sodium 139, Potassium 4.0, Chloride 109 H, Carbon Dioxide 26.0, Anion Gap 4 L, BUN 9, Creatinine 0.68, Estim Creat Clear Calc 83.82, Est GFR (MDRD) Af Amer 124, Est GFR (MDRD) Non-Af 102, BUN/Creatinine Ratio 13.3, Glucose 118 H, Calcium 8.0 L 05/26/23 07:37: POC Glucose 106 05/26/23 11:06: POC Glucose 103 05/26/23 16:26: POC Glucose 100 Micro: Microbiology 05/25/23 Unknown Tissue - Groin Gram Stain - Final 05/25/23 Unknown Tissue - Groin Wound Culture - Preliminary Gram Positive Cocci 05/25/23 Unknown Tissue - Abdominal Gram Stain - Final 05/25/23 Unknown Tissue - Abdominal Wound Culture - Preliminary Gram positive organism Physical Exam Const alert General Appearance: cooperative HEENT normocephalic Head and Scalp: normocephalic Eyes General Eye: normal appearance of both eyes Neck full ROM Resp normal respiratory effort Effort and Inspection: able to speak in complete sentences Cardio regular rate Extremity full ROM and normal capillary refill Skin Wound Narrative: Lower abdominal wound is stable, no active bleeding. Wound VAC dressing at 150 mmHg placed today. Left vulva, mons pubis, left genitocrural crease to labia is stable, slight oozing present. Dakins 0.25% moistened gauze placed. Neuro oriented x3 Psych mental status grossly normal and cooperative Assessment & Plan Assessment/Plan (1) Open wound anterior abdominal wall: (2) Non-healing open wound of left groin: (3) Open wound of vulva with complication: (4) Abscess of vulva: (5) Abscess of groin, left: (6) Necrotizing soft tissue infection: (7) Abdominal wall abscess: (8) Hidradenitis suppurativa: (9) DM type 2, goal HbA1c < 7%: (10) Smoker: (11) Vulval hidradenitis suppurativa: (12) Insulin dependent diabetes mellitus: PLAN: Plan Patient is having issues with pain control, especially with dressing change. She is still requiring IV pain medication. Operative cultures pending. She is currently on Vancomycin IV. Lower abdominal wound is stable, no active bleeding. Wound VAC dressing at 150 mmHg placed today. Left vulva, mons pubis, left genitocrural crease to labia is stable, slight oozing present. Dakins 0.25% moistened gauze placed. Encouraged her to ambulate with assistance. Due to her increased metabolic demands, encourage increase in protein intake. Plan will be discharge home tomorrow if her pain is under better control. Arreguin catheter in place. Will plan on leaving this in for a couple weeks to prevent urine contamination of the wound. Upon discharge she will follow up at the wound healing center with either Dr. Brennan or myself.
[2023-05-26 18:27] LABS: Vancomycin, Trough Level 24.6 ug/mL (5.0-15.0)
--- NOTE | 2023-05-26 18:43 | PCM.RX.CS ---
Consult Antibiotic Management Pharmacy has been consulted to manage selected antiobiotic: Vancomycin Type of Intervention Type of Consult: Follow-up Suspected Infection Suspected Infection: Other (POST-OP) Prior Doses of Antibiotics Prior Doses of Antibiotics Received/Current Regimen: Vancomycin 1750 mg given: 05/25 @ 0634, 05/25 @ 1818, 05/26 @ 0534, 05/26 @ 1706 Labs Labs: Sodium 139 mmol/L (136-145) 05/26/23 05:40 Potassium 4.0 mmol/L (3.5-5.1) 05/26/23 05:40 Chloride 109 mmol/L (98-107) H 05/26/23 05:40 Carbon Dioxide 26.0 mmol/L (21.0-32.0) 05/26/23 05:40 Anion Gap 4 (5-15) L 05/26/23 05:40 BUN 9 mg/dL (7-18) 05/26/23 05:40 Creatinine 0.68 mg/dL (0.55-1.02) 05/26/23 05:40 Est GFR (MDRD) Af Amer 124 mL/min (>60) 05/26/23 05:40 Est GFR (MDRD) Non-Af 102 mL/min (>60) 05/26/23 05:40 BUN/Creatinine Ratio 13.3 RATIO (10-20) 05/26/23 05:40 Glucose 118 mg/dL (74-106) H 05/26/23 05:40 Vancomycin Trough 24.6 ug/mL (5.0-15.0) H 05/26/23 17:35 Microbiology Microbiology: Microbiology 05/25/23 Unknown Tissue - Groin Gram Stain - Final 05/25/23 Unknown Tissue - Groin Wound Culture - Preliminary Gram Positive Cocci 05/25/23 Unknown Tissue - Abdominal Gram Stain - Final 05/25/23 Unknown Tissue - Abdominal Wound Culture - Preliminary Gram positive organism Dosing Weight Weight used for dosin lb 5.231 oz Estimated Creatinine Clearance Estimated Creatinine Clearance: 84 Goal Trough Goal Trough: 10-15 mcg/mL Pharmacy Plan for Drug Dosing Pharmacy Plan for Drug Dosing: Vancomycin infusion started 05/26 @ 1706, vancomycin trough drawn 05/26 @ 1735, trough drawn while vancomycin infusing therefore not able to accurately assess vancomycin trough. Continue dosing of 1750 mg Q12H for now and re-draw trough before dose tomorrow morning. Pharmacy Service will continue to monitor and adjust dosing as required. Follow-Up Labs Follow-Up Labs: Trough: Vancomycin Date/Time Labs Ordered Labs to be done on [date and time ordered]: 05/27/23 @ 4504
[2023-05-26] MEDS: Atorvastatin Calcium 20 MG Tablet PO (20:51)
[2023-05-26] MEDS: Gabapentin 400 MG Capsule 1200 MG PO (20:51)
[2023-05-26 21:21] LABS: Bedside Glucose 120 mg/dL (74-106)
[2023-05-27] VITALS (7 sets, daily range): BP systolic 99–122; BP diastolic 57–69; PULSE 76–86; RESP 18; TEMP 36.6–37; O2SAT 95–97
[2023-05-27] MEDS: QUEtiapine 25 MG Tablet 50 MG PO ×3 (05:42→21:18)
[2023-05-27] MEDS: oxyCODONE 5 MG Tablet 10 MG PO ×3 (05:42→21:14)
[2023-05-27] MEDS: Levothyroxine 100 MCG Tablet 200 MCG PO (05:42)
[2023-05-27] MEDS: Levothyroxine 75 MCG Tablet PO (05:43)
[2023-05-27] MEDS: Lithium Carbonate 300mg Capsule 300 MG PO ×3 (05:43→21:18)
[2023-05-27] MEDS: 0.9% Saline Lock 10 ML Syringe IV ×2 (05:43→08:46)
[2023-05-27] MEDS: cycloBENZAPRine HCl 10 MG Tablet PO (06:07)
[2023-05-27 06:34] LABS: Vancomycin, Trough Level 12.6 ug/mL (5.0-15.0)
--- NOTE | 2023-05-27 06:43 | PCM.RX.CS ---
Consult Antibiotic Management Pharmacy has been consulted to manage selected antiobiotic: Vancomycin Type of Intervention Type of Consult: Follow-up Labs Labs: Sodium 139 mmol/L (136-145) 05/26/23 05:40 Potassium 4.0 mmol/L (3.5-5.1) 05/26/23 05:40 Chloride 109 mmol/L (98-107) H 05/26/23 05:40 Carbon Dioxide 26.0 mmol/L (21.0-32.0) 05/26/23 05:40 Anion Gap 4 (5-15) L 05/26/23 05:40 BUN 9 mg/dL (7-18) 05/26/23 05:40 Creatinine 0.68 mg/dL (0.55-1.02) 05/26/23 05:40 Est GFR (MDRD) Af Amer 124 mL/min (>60) 05/26/23 05:40 Est GFR (MDRD) Non-Af 102 mL/min (>60) 05/26/23 05:40 BUN/Creatinine Ratio 13.3 RATIO (10-20) 05/26/23 05:40 Glucose 118 mg/dL (74-106) H 05/26/23 05:40 Vancomycin Trough 12.6 ug/mL (5.0-15.0) 05/27/23 05:30 Microbiology Microbiology: Microbiology 05/25/23 Unknown Tissue - Groin Gram Stain - Final 05/25/23 Unknown Tissue - Groin Wound Culture - Preliminary Gram Positive Cocci 05/25/23 Unknown Tissue - Abdominal Gram Stain - Final 05/25/23 Unknown Tissue - Abdominal Wound Culture - Preliminary Gram positive organism Goal Trough Goal Trough: 10-15 mcg/mL Pharmacy Plan for Drug Dosing Pharmacy Plan for Drug Dosing: VANCOMYCIN LEVEL RECEIVED Current Vancomycin Dose: 1750mg IV Q12h Number of Doses Received: 4 Vancomycin Level: 12.6 Hours Since Last Dose: 12.33hr Renal Function: 0.68 Renal Function Trend: stable Lab/Micro: WCx x2 growing GPC Vancomycin Plan/Comments: Patient had a trough drawn which resulted in a value of 12.6 (Goal 10-15). Patient's trough is within goal range at this time and was drawn appropriately. Will continue current vancomycin dose of 1750mg IV Q12hr and recheck a trough in 2 days to reassess dosing. Pending Level: 05/29/23 @0530 Pharmacy Service will continue to monitor and adjust dosing as required.
[2023-05-27 07:02] LABS: Bedside Glucose 103 mg/dL (74-106)
[2023-05-27] MEDS: HYDROmorphone 1 MG/ML Syringe IV ×2 (08:46→15:17)
[2023-05-27] MEDS: Cholecalciferol (VIT D3) 25 MCG TABLET (1,000 UNITS) PO (08:52)
[2023-05-27] MEDS: Pantoprazole Sodium 40 MG Tablet PO ×2 (08:52→21:18)
[2023-05-27] MEDS: Multivitamins,Ther W-Minerals Tablet 1 TABLET PO (08:53)
[2023-05-27] MEDS: metFORMIN HCl 500 MG Tablet 1000 MG PO ×2 (08:53→16:47)
[2023-05-27] MEDS: Enoxaparin 40 MG/0.4 ML Syringe SC (08:53)
[2023-05-27] MEDS: Doxazosin 1 MG Tablet PO (08:53)
[2023-05-27] MEDS: Fenofibrate 145 MG Tablet PO (08:53)
[2023-05-27] MEDS: Gabapentin 800 MG Tablet PO ×2 (08:58→16:50)
[2023-05-27] MEDS: Ondansetron ODT 4 MG Tablet 8 MG PO ×2 (08:58→21:25)
[2023-05-27 12:13] LABS: Bedside Glucose 101 mg/dL (74-106)
[2023-05-27] MEDS: Colestipol 1 GM TABLET 2 GM PO (12:24)
[2023-05-27] MEDS: Metoprolol(XL)Succ 50 MG Tablet PO (12:24)
--- NOTE | 2023-05-27 12:49 | CASEMGMT ---
Addendum entered by Natalia Pittman 05/27/23 15:56: [facility] to call MALIK CASTRO back, rep [facility] sent an email to dept to check on status since rx was sent. MALIK CASTRO to follow up tomorrow. Addendum entered by Natalia Pittman 05/27/23 15:51: Pt to stay tonight with anticipated dc to home tomorrow. Updated [facility] via [facility] to see if they can start care on Tuesday. TC to [facility] to follow up on wound vac which is not approved yet. Original Note: Received signed wound vac form and op report from , loan secretary faxed to [facility].
[2023-05-27] MEDS: proCHLORPERazine 5 MG Tablet 10 MG PO (15:45)
[2023-05-27] MEDS: DAKIN'S SOL HALF STRENGTH (=0.25%) 1 APPLIC TOPICAL (16:44)
[2023-05-27 17:05] LABS: Bedside Glucose 88 mg/dL (74-106)
--- NOTE | 2023-05-27 19:51 | PCM.PN.SRG ---
Subjective Subjective Postop #2 Patient had trouble with the dressing change today with increased pain. Needed IV analgesia. She is unsteady on her feet with ambulation. Objective Data Objective Data Vital Signs: Vital Signs Temp Pulse Resp BP Pulse Ox O2 Del Method O2 Flow Rate 98.4 F 76 18 99/57 L 95 Room Air 2 05/27/23 16:43 05/27/23 16:43 05/27/23 16:43 05/27/23 16:43 05/27/23 16:43 05/27/23 16:43 05/26/23 05:42 Oxygen Flow Rate (L/min) 2 Oxygen Delivery Method Room Air Weight: 251 lb 5.231 oz Body Mass Index (BMI) 47.5 Intake & Output: Intake and Output for Last 24 Hours 05/25/23 05/26/23 05/27/23 23:59 23:59 23:59 Intake Total 2108 / 2108 1070 / 1070 1135 / 1135 Output Total 400 / 600 975 / 975 1475 / 1475 Balance 1708 / 1508 95 / 95 -340 / -340 Prealbumin was 11.8. Encourage nutritional supplementation with protein to help the healing process. Lab / Micro Data Attestation: I reviewed the patient's lab results. Lab results narrative: HgbA1c from 05/13/23 was 6.1. 05/28/23 07:44 05/28/23 07:44 Labs: Laboratory Results - last 24 hr 05/26/23 20:47: POC Glucose 120 H 05/27/23 05:30: Vancomycin Trough 12.6 05/27/23 06:17: POC Glucose 103 05/27/23 11:56: POC Glucose 101 05/27/23 16:40: POC Glucose 88 Micro: Microbiology 05/25/23 Unknown Tissue - Abdominal Gram Stain - Final 05/25/23 Unknown Tissue - Abdominal Wound Culture - Preliminary Staphylococcus species 05/25/23 Unknown Tissue - Abdominal Anaerobic Culture - Preliminary 05/25/23 Unknown Tissue - Groin Gram Stain - Final 05/25/23 Unknown Tissue - Groin Wound Culture - Final Staphylococcus lugdunensis Physical Exam Narrative General - Alert and Oriented HEENT - PERRL. EOMI. Neck - Supple and nontender. Abdomen - Soft and nondistended. Abdominal wall wound is stable. VAC in place. Minimal drainage in the canister. Vulval area and left groin area - wounds are clean. Mild oozing controlled with gauze compression. Redressed with Dakin's. Neuro - CN II-XII grossly intact. Psych - Normal mood and affect. Assessment & Plan Assessment/Plan (1) Open wound anterior abdominal wall: (2) Non-healing open wound of left groin: (3) Open wound of vulva with complication: (4) Abscess of vulva: (5) Abscess of groin, left: (6) Necrotizing soft tissue infection: (7) Abdominal wall abscess: (8) Hidradenitis suppurativa: (9) DM type 2, goal HbA1c < 7%: (10) Smoker: (11) Vulval hidradenitis suppurativa: (12) Insulin dependent diabetes mellitus: PLAN: Plan Patient is having issues with pain control, especially with dressing change. She is still requiring IV pain medication. Operative cultures show Staphylococcus lugdunensis in the groin. Sensitivity pending. The abdominal wall showed Staphylococcus species. She is currently on Vancomycin IV. Lower abdominal wound is stable, no active bleeding. Wound VAC dressing at 150 mmHg placed today. Left vulva, mons pubis, left genitocrural crease to labia is stable, slight oozing present. Easily controlled with gauze compression. Dakins 0.25% moistened gauze placed. Encouraged her to ambulate with assistance. Due to her increased metabolic demands, encourage increase in protein intake. Will check a Prealbumin. Plan will be discharge home tomorrow if her pain is under better control and tolerating po analgesia. Arreguin catheter in place. Will plan on leaving this in for a couple weeks to prevent urine contamination of the wound. Upon discharge she will follow up at the Wound Center.
[2023-05-27] MEDS: Atorvastatin Calcium 20 MG Tablet PO (21:18)
[2023-05-27] MEDS: Gabapentin 400 MG Capsule 1200 MG PO (21:25)
[2023-05-27 22:50] LABS: Bedside Glucose 112 mg/dL (74-106)
[2023-05-28 04:25] VITALS: BP 96/56; PULSE 78; RESP 16; TEMP 37.2; O2SAT 94
[2023-05-28] MEDS: oxyCODONE 5 MG Tablet 10 MG PO (04:33)
[2023-05-28] MEDS: QUEtiapine 25 MG Tablet 50 MG PO ×2 (05:10→14:29)
[2023-05-28] MEDS: Lithium Carbonate 300mg Capsule 300 MG PO ×2 (05:10→14:30)
[2023-05-28] MEDS: Levothyroxine 100 MCG Tablet 200 MCG PO (05:11)
[2023-05-28] MEDS: Levothyroxine 75 MCG Tablet PO (05:12)
[2023-05-28 07:14] LABS: Bedside Glucose 145 mg/dL (74-106)
[2023-05-28 07:58] LABS: Bedside Glucose 150 mg/dL (74-106)
[2023-05-28 08:22] LABS: Hematocrit 37.3 % (37-47); Hemoglobin 11.7 g/dL (12.0-15.0); Mean Corp Hgb Conc 31.4 g/dL (32-36); Mean Corpuscular Hgb 31.5 pg (27.0-32.0); Mean Corpuscular Volume 100.3 fL (81-99); Mean Platelet Vol. 10.5 fl (6.2-12.0); Platelet Count 224 K/mm3 (150-450); RBC Distribution Width CV 15.1 % (11.6-14.6); RBC Distribution Width SD 55.9 fl (35.1-43.9); Red Blood Count 3.72 M/mm3 (4.2-5.4); White Blood Count 12.2 K/mm3 (4.4-11.0)
[2023-05-28 08:57] LABS: Anion Gap 2 (5-15); BUN 9 mg/dL (7-18); BUN/Creat Ratio 12.1 RATIO (10-20); Calcium,Total 8.1 mg/dL (8.5-10.1); Chloride 110 mmol/L (98-107); Creatinine, Serum 0.74 mg/dL (0.55-1.02); EST Glomerular Filtration Rate 92 mL/min (>60); Est Glom Filt Rate - Afr Amer 112 mL/min (>60); Estimated Creatinine Clearance 77.02 ml/min; Glucose 136 mg/dL (74-106); Potassium 4.7 mmol/L (3.5-5.1); Prealbumin 11.8 mg/dL (20.0-40.0); Sodium Level 140 mmol/L (136-145)
[2023-05-28] MEDS: Gabapentin 800 MG Tablet PO (09:20)
[2023-05-28] MEDS: Cholecalciferol (VIT D3) 25 MCG TABLET (1,000 UNITS) PO (09:21)
[2023-05-28] MEDS: Multivitamins,Ther W-Minerals Tablet 1 TABLET PO (09:21)
[2023-05-28] MEDS: metFORMIN HCl 500 MG Tablet 1000 MG PO (09:21)
[2023-05-28] MEDS: Doxazosin 1 MG Tablet PO (09:22)
[2023-05-28 09:23] VITALS: PULSE 65
[2023-05-28] MEDS: Metoprolol(XL)Succ 50 MG Tablet PO (09:23)
[2023-05-28] MEDS: Pantoprazole Sodium 40 MG Tablet PO (09:24)
[2023-05-28] MEDS: Ondansetron ODT 4 MG Tablet 8 MG PO (09:27)
--- NOTE | 2023-05-28 09:28 | CASEMGMT ---
Pt home vac has been approved. [facility] to see pt for SOC on Tuesday.
[2023-05-28 09:31] VITALS: BP 103/56; PULSE 65; RESP 16; TEMP 36.9; O2SAT 98
[2023-05-28] MEDS: Enoxaparin 40 MG/0.4 ML Syringe SC (09:34)
[2023-05-28] MEDS: Fenofibrate 145 MG Tablet PO (10:19)
[2023-05-28] MEDS: Colestipol 1 GM TABLET 2 GM PO (11:04)
[2023-05-28] MEDS: DAKIN'S SOL HALF STRENGTH (=0.25%) 1 APPLIC TOPICAL (11:04)
[2023-05-28] MEDS: HYDROmorphone 1 MG/ML Syringe IV (11:13)
[2023-05-28] MEDS: 0.9% Saline Lock 10 ML Syringe IV (11:13)
[2023-05-28 11:48] LABS: Bedside Glucose 115 mg/dL (74-106)
--- NOTE | 2023-05-28 12:30 | DCINST_ITS ---
Discharge Instructions Diet Discharge Diet: Carb Control Diet and - (encourage nutritional supplementation with protein to help the healing process.) Activity Discharge Activity: May Not Drive and May Shower (on the days the VAC is changed.) May shower in (days): 2 (may shower on the days the VAC is changed.) Weight Bearing Status: Weight bearing as tolerated Dressing / Incision Call your doctor if your incision/area has: Continuous Slow Oozing, Sudden Increased Bleeding, Increased Pain/ Swelling, Increased Redness, Foul Smelling Discharge and Swelling at the incision site Call your doctor if you observe: Fever of 101 or Higher, Coldness, Increased Pain, Shortness of breath, Chest pain, Calf discomfort and Uncontrolled pain Change Dressing in: 1 day (Dakins dressing to left groin/vulval area daily. VAC to abdominal wall gets changed three times per week at 150 mmHg continuous suction.) Cleanse incision/area with: - (may get the wounds wet in the shower on the days the VAC is changed.) Catheter: Arreguin to leg bag (empty daily. ) Follow Up Care Please Follow Up With: Horace Brennan MD When: tuesday06/01/23 at the wound center. call [phone] for appt. Test Results: Test results from this visit will be discussed in further detail at your follow- up appointment, if applicable. Discharge Plan Admission Admit Date/Time: 05/25/23 19:42 Primary Reason for Your Visit: hidradenitis abscesses Attending Provider: Horace Brennan Primary Care Provider: Mack Hart Discharge Orders/Prescriptions Prescriptions: New cefdinir 300 mg capsule 300 mg PO BID Qty: 42 1RF hydromorphone [Dilaudid] 2 mg tablet 2 mg PO Q6H PRN (Reason: pain (scale score 7-10)) 7 Days Qty: 28 0RF Rx Instructions: 28 tabs (twenty-eight) docusate sodium [Colace] 100 mg capsule 100 mg PO BID Qty: 60 1RF Continued Mounjaro 10 mg/0.5 mL pen injector 10 mg subcut QWEEK metoprolol succinate 50 mg tablet extended release 24 hr 50 mg PO DAILY simvastatin 40 mg tablet 40 mg PO DAILY colestipol 1 gram tablet 2 g PO DAILY levothyroxine 75 mcg tablet 75 mcg PO DAILY Patient Comments: Takes 275mcg total levothyroxine 112 MCG tablet 250 mcg PO DAILY prochlorperazine maleate [Compazine] 10 MG tablet 10 mg PO Q6H PRN (Reason: Nausea) metformin 500 MG tablet 1,000 mg PO BID pantoprazole [Protonix] 40 MG tablet 40 mg PO BID cholecalciferol (vitamin D3) 1,000 UNIT tablet 1,000 unit PO DAILY ondansetron 4 MG tablet 8 mg PO BID multivitamin with minerals 1 EACH tablet 1 ea PO DAILY fenofibrate 160 MG tablet 160 mg PO DAILY insulin degludec [Tresiba FlexTouch U-100] 100 UNIT/ML insulin pen 80 unit SQ QHS cyclobenzaprine 10 mg Tablet 10 mg PO TID PRN (Reason: Muscle Spasm) insulin aspart U-100 [Novolog PenFill U-100 Insulin] 100 unit/mL Cartridge 35 unit SUBCUT TID carbamazepine 200 mg capsule, ER multiphase 12 hr 200 mg PO BID quetiapine 50 mg tablet 50 mg PO TID lithium carbonate 300 mg capsule 300 mg PO TID prazosin 1 mg capsule 1 mg PO DAILY gabapentin 800 mg tablet 800 mg PO Patient Comments: 800 mg two times daily 1200 at bedtime levothyroxine 200 mcg tablet 200 mcg PO .daily Patient Comments: takes 275mcg total daily Held doxycycline hyclate 100 mg capsule 100 mg PO BID Qty: 60 1RF Hold Instructions: Resume on 06/29/23. Rx Instructions: take only when there is a flare up Referrals / Follow Up: Mack Hart MD [Primary Care Provider] - Disposition Disposition (needs filled in before D/C Order can be placed): Home Health Service
[2023-05-28 14:32] VITALS: BP 98/48; PULSE 71; RESP 20; TEMP 36.9; O2SAT 94
--- NOTE | 2023-05-28 14:50 | NURSING ---
1440 Dr Brennan paged again, and left message pt is unable to fill scripts at [facility] since they closed at 1300 and she wants them transferred to [facility].
--- NOTE | 2023-05-28 15:46 | NURSING ---
pt notified nurse spoke with Dr. Brennan, he is willing to call the Rx's to [facility] but he isn't home right now. And if he doesn't get it called in, she can stay till tomorrow. Mother who is here to pick her up states that is a real problem. She has a dog and her dog has been voiding on her floor, has a strong odor. Pt desires to go home, but will call [facility] if the RX;s have been transferred there.
--- NOTE | 2023-05-28 15:52 | NURSING ---
Pt requested now, for it to be transferred [facility] in [place], [facility] Brennan paged again.
--- NOTE | 2023-05-28 16:09 | NURSING ---
Dr Brennan notified pt requested to have rx/s called to [facility] in [place]. States he will do it. pt informed.
--- NOTE | 2023-05-28 22:45 | DS.PCM_ITS ---
Providers Date of Admission: 05/25/23 Date of Discharge: 05/28/23 Primary Care Physician: Dr. Mack Hart MD Attending Physician: Dr. 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 Diagnosis Discharge Diagnosis (1) Vulval hidradenitis suppurativa: Status: Chronic Code(s): L73.2 - Hidradenitis suppurativa (2) Hidradenitis suppurativa: Status: Chronic Code(s): L73.2 - Hidradenitis suppurativa (3) Abscess of vulva: Status: Chronic Code(s): N76.4 - Abscess of vulva (4) Abscess of groin, left: Status: Chronic Code(s): L02.214 - Cutaneous abscess of groin (5) Abdominal wall abscess: Status: Chronic Code(s): L02.211 - Cutaneous abscess of abdominal wall (6) Open wound of vulva with complication: Status: Chronic Code(s): S31.40XA - Unspecified open wound of vagina and vulva, initial encounter (7) Non-healing open wound of left groin: Status: Chronic Code(s): S31.104A - Unspecified open wound of abdominal wall, left lower quadrant without penetration into peritoneal cavity, initial encounter (8) Open wound anterior abdominal wall: Status: Acute Code(s): S31.109A - Unspecified open wound of abdominal wall, unspecified quadrant without penetration into peritoneal cavity, initial encounter (9) Necrotizing soft tissue infection: Status: Acute Code(s): M79.89 - Other specified soft tissue disorders (10) DM type 2, goal HbA1c < 7%: Status: Chronic Code(s): E11.9 - Type 2 diabetes mellitus without complications (11) Smoker: Status: Chronic Code(s): F17.200 - Nicotine dependence, unspecified, uncomplicated Medications at Discharge Home Medications levothyroxine 112 mcg tablet 250 mcg PO DAILY hypothyroid 01/04/14 prochlorperazine maleate 10 mg tablet (Compazine) 10 mg PO Q6H PRN Nausea 06/27/19 cholecalciferol (vitamin D3) 25 mcg (1,000 unit) tablet 1,000 unit PO DAILY vitamin 03/14/20 metformin 500 mg tablet 1,000 mg PO BID diabetes 03/14/20 ondansetron 4 mg disintegrating tablet 8 mg PO BID nausea 03/14/20 pantoprazole 40 mg tablet,delayed release (Protonix) 40 mg PO BID gerd 03/14/20 fenofibrate 160 mg tablet 160 mg PO DAILY o 10/07/20 insulin degludec 100 unit/mL (3 mL) subcutaneous pen (Tresiba FlexTouch U-100 insulin) 80 unit SQ QHS diabetes 10/07/20 multivitamin with minerals 1 ea PO DAILY preventative 10/07/20 cyclobenzaprine 10 mg tablet 10 mg PO TID PRN Muscle Spasm 02/08/22 insulin aspart U-100 100 unit/mL subcutaneous cartridge (Novolog PenFill U-100 Insulin aspart) 35 unit subcut TID diabetes 02/08/22 colestipol 1 gram tablet 2 g PO DAILY bile 04/05/23 levothyroxine 75 mcg tablet 75 mcg PO DAILY hypothyroid 04/05/23 metoprolol succinate 50 mg tablet,extended release 24 hr 50 mg PO DAILY htn 04/05/23 simvastatin 40 mg tablet 40 mg PO DAILY cholesterol 04/05/23 tirzepatide 10 mg/0.5 mL subcutaneous pen injector (Kurtuntamikoro) 10 mg subcut QWEEK diabetes 04/05/23 doxycycline hyclate 100 mg capsule 100 mg PO BID antibiotic #60 caps 04/07/23 carbamazepine 200 mg capsule,extended release [id number] 200 mg PO BID mood stabilizer 05/11/23 quetiapine 50 mg tablet 50 mg PO TID mood 05/11/23 gabapentin 800 mg tablet 800 mg PO mood 05/25/23 levothyroxine 200 mcg tablet 200 mcg PO .daily Thyroid 05/25/23 lithium carbonate 300 mg capsule 300 mg PO TID mood stabilizer 05/25/23 prazosin 1 mg capsule 1 mg PO DAILY night terror 05/25/23 cefdinir 300 mg capsule 300 mg PO BID #42 caps 05/29/23 docusate sodium 100 mg capsule (Colace) 100 mg PO BID #60 caps 05/29/23 oxycodone-acetaminophen 5 mg-325 mg tablet (Percocet) 1 tab PO Q6H PRN pain (scale score 7-10) 7 days #28 tabs 05/29/23 Hospital Course Operations None (05/25/23 -: 1. Surgical preparation left vulval area involving mons pubis and left genitocrural crease up to the labia with excision hidradenitis abscess and radical partial vulvectomy including deep subcutaneous tissue. 2. Surgical preparation left inguinal area with excision hidradenitis ) and - (abscess. 3. Surgical preparation anterior abdominal wall with excisional debridement skin and subcutaneous tissue and fascia for necrotizing hidradenitis abscess. ) Procedures Wound vac placement Summary of Care Provided Minutes Spent on Discharge: 35 Hospital Course: 37 year old woman presents with a 7 month history of hidradenitis in her vulval area involving the mons pubis. She had an I&D once in the doctor's office. She has pain in her mons pubis. She denies fever. She denies trauma. She just finished antibiotics, Keflex and Bactrim. Patient has diabetes mellitus. Her last HgbA1c was 6.1 on 05/13/23. On the day of surgery, she had worsening hidradenitis in the vulval area as it involved the mons pubis and left genitocrural crease up to the labia and hidradenitis developing in her left inguinal area. Her most pain was in the anterior abdominal wall where there was a hidradenitis abscess. Will address all three areas today in surgery. On 05/25/23, the patient went to the operating room where she underwent surgical preparation left vulval area involving mons pubis and left genitocrural crease up to the labia with excision hidradenitis abscess and radical partial vulvectomy including deep subcutaneous tissue and surgical preparation left inguinal area with excision hidradenitis abscess and surgical preparation anter ior abdominal wall with excisional debridement skin and subcutaneous tissue and fascia for necrotizing hidradenitis abscess. She tolerated the procedure well. The next day, she had a VAC placed in the abdominal wall wound. She had pain with the placement of the VAC. The left inguinal and vulval wound was dressed with Dakin's dressing. She required IV analgesia with the dressing changes. On the second postoperative day, there was some oozing in the left inguinal and vulval wound that required gauze compression for control. The dressing change was once again quite painful and she needed IV analgesia. So it was decided to keep her one more day to make sure no more bleeding is seen and to wean her to po analgesia in preparation for discharge. Her Hgb after surgery was stable at 11.7. On the 3rd postoperative day, there was no more oozing in the wound. She tolerated the dressing change with po analgesia. She was also steady on her feete with ambulation. She was discharged on the 3rd postoperative day in satisfactory condition. She was treated perioperatively with Vancomycin. Wound cultures in both the abdominal wall and the left inguinal and vulval wound showed Staphylococcus lugdunensis, Oxacillin sensitive. Discharged her home on Cefdinir. Prealbumin on 05/28/23 was 11.8. Encourage nutritional supplementation with protein to help the healing process. She will have Home Health assist her in the VAC dressing changes. She will followup [facility] on [facility]/23. Wrote scripts for Cefdinir for 21 days and a refill. Also wrote scripts for Percocet for pain (28 tabs) and for Colace for constipation (60 tabs) and a refill. ' Physical Exam Narrative General - Alert and Oriented HEENT - PERRL. EOMI. Throat is clear. Neck - Supple and nontender. No cervical adenopathy. Lungs - Clear to auscultation. Heart - Regular rate and rhythm. Abdomen - Soft and nondistended. Abdominal wall wound is stable. VAC changed today. No active bleeding noted. Left inguinal and vulval areas - wounds are stable. No active bleeding noted. Dakin's dressing applied. Extremities - FROM. No axillary adenopathy. Radial pulses are palpable. Neuro - CN II-XII grossly intact. Psych - Normal mood and affect. Medical Records Data Attestation: I reviewed the patient's medical records Prealbumin was 11.8 on 05/28/23. Encourage nutritional supplementation with protein to help the healing process. Weight / BMI Weight Weight: 251 lb 5.231 oz Body Mass Index (BMI) 47.5 ABG / Lab / Microbiology Data Attestation: I reviewed the patient's lab results. Results Narrative: HgbA1c was 6.1 on 05/13/23. 05/28/23 07:44 05/28/23 07:44 Laboratory: Laboratory Results - last 24 hr 05/27/23 21:30: POC Glucose 112 H 05/28/23 06:50: POC Glucose 145 H 05/28/23 07:30: POC Glucose 150 H 05/28/23 07:44: WBC 12.2 H, RBC 3.72 L, Hgb 11.7 L, Hct 37.3, MCV 100.3 H, MCH 31.5, MCHC 31.4 L, RDW Std Deviation 55.9 H, RDW Coeff of Radha 15.1 H, Plt Count 224, MPV 10.5, Sodium 140, Potassium 4.7, Chloride 110 H, Carbon Dioxide 28.0, Anion Gap 2 L, BUN 9, Creatinine 0.74, Estim Creat Clear Calc 77.02, Est GFR (MDRD) Af Amer 112, Est GFR (MDRD) Non-Af 92, BUN/Creatinine Ratio 12.1, Glucose 136 H, Calcium 8.1 L, Prealbumin 11.8 L 05/28/23 11:28: POC Glucose 115 H Microbiology: Microbiology 05/25/23 Unknown Tissue - Abdominal Gram Stain - Final 05/25/23 Unknown Tissue - Abdominal Wound Culture - Final Staphylococcus lugdunensis 05/25/23 Unknown Tissue - Groin Gram Stain - Final 05/25/23 Unknown Tissue - Groin Wound Culture - Final Staphylococcus lugdunensis Pathology - hidradenitis abscess in abdominal wall. hidradenitis in left inguinal and vulval areas. D/C Instructions Discharge Diet: [place] diet, Swallowing Precautions, Carb Control Diet and - (encourage nutritional supplementation with protein to help the healing process.) Discharge Activity: May Not Drive and May Shower (on the days the VAC is changed.) May shower in (days): 2 (may shower on the days the VAC is changed.) Weight Bearing Status: Weight bearing as tolerated Call your doctor if your incision/area has: Continuous Slow Oozing, Sudden Increased Bleeding, Increased Pain/ Swelling, Increased Redness, Foul Smelling Discharge and Swelling at the incision site Call your doctor if you observe: Fever of 101 or Higher, Coldness, Increased Pain, Shortness of breath, Chest pain, Calf discomfort and Uncontrolled pain Change Dressing in: 1 day (Dakin's dressing to left inguinal and vulval area daily. The VAC change to abdominal wall is 3 times per week at 150 mmHg continuous suction) Remove Dressing in: 5 days Cleanse incision/area with: - (may get the wounds wet in the shower on the days the VAC is changed.) Catheter: Arreguin to leg bag (empty daily. ) Please Follow Up With: Horace Brennan MD When: tuesday06/01/23 at the wound center. call [phone] for appt. Meaningful Use Info Meaningful Use Diagnoses (Choose all that apply): None applicable Discharge Plan Admission Admit Date/Time: 05/25/23 19:42 Primary Reason for Your Visit: hidradenitis abscesses Attending Provider: Horace Brennan Primary Care Provider: Mack Hart Discharge Orders/Prescriptions Prescriptions: New cefdinir 300 mg capsule 300 mg PO BID Qty: 42 1RF oxycodone-acetaminophen [Percocet] 5-325 mg tablet 1 tab PO Q6H PRN (Reason: pain (scale score 7-10)) 7 Days Qty: 28 0RF Rx Instructions: 28 tabs (twenty-eight) docusate sodium [Colace] 100 mg capsule 100 mg PO BID Qty: 60 1RF Continued Mounjaro 10 mg/0.5 mL pen injector 10 mg subcut QWEEK metoprolol succinate 50 mg tablet extended release 24 hr 50 mg PO DAILY simvastatin 40 mg tablet 40 mg PO DAILY colestipol 1 gram tablet 2 g PO DAILY levothyroxine 75 mcg tablet 75 mcg PO DAILY Patient Comments: Takes 275mcg total levothyroxine 112 MCG tablet 250 mcg PO DAILY prochlorperazine maleate [Compazine] 10 MG tablet 10 mg PO Q6H PRN (Reason: Nausea) metformin 500 MG tablet 1,000 mg PO BID pantoprazole [Protonix] 40 MG tablet 40 mg PO BID cholecalciferol (vitamin D3) 1,000 UNIT tablet 1,000 unit PO DAILY ondansetron 4 MG tablet 8 mg PO BID multivitamin with minerals 1 EACH tablet 1 ea PO DAILY fenofibrate 160 MG tablet 160 mg PO DAILY insulin degludec [Tresiba FlexTouch U-100] 100 UNIT/ML insulin pen 80 unit SQ QHS cyclobenzaprine 10 mg Tablet 10 mg PO TID PRN (Reason: Muscle Spasm) insulin aspart U-100 [Novolog PenFill U-100 Insulin] 100 unit/mL Cartridge 35 unit SUBCUT TID carbamazepine 200 mg capsule, ER multiphase 12 hr 200 mg PO BID quetiapine 50 mg tablet 50 mg PO TID lithium carbonate 300 mg capsule 300 mg PO TID prazosin 1 mg capsule 1 mg PO DAILY gabapentin 800 mg tablet 800 mg PO Patient Comments: 800 mg two times daily 1200 at bedtime levothyroxine 200 mcg tablet 200 mcg PO .daily Patient Comments: takes 275mcg total daily Held doxycycline hyclate 100 mg capsule 100 mg PO BID Qty: 60 1RF Hold Instructions: Resume on 06/29/23. Rx Instructions: take only when there is a flare up Referrals / Follow Up: Mack Hart MD [Primary Care Provider] - Disposition Disposition (needs filled in before D/C Order can be placed): Home Health Service
== END 2023-05-28 16:45 | disposition home health service (06) | DRG 571 ==
LOC: ACINP 11:49 → MS3 11:49
PROVIDERS: Anesthesiology; Admitting Provider Surgery; PCP Family Medicine; Referring Provider Surgery; Visit Provider Surgery
PROC: 0JB80ZZ Excision of Abdomen Subcutaneous Tissue and Fascia, Open Approach (ICD-10-PCS; principal; 2023-05-25 07:15)
DX: L73.2 Hidradenitis suppurativa (principal); N76.4 Abscess of vulva; F25.9 Schizoaffective disorder, unspecified; Z79.4 Long term (current) use of insulin; E03.9 Hypothyroidism, unspecified; E78.00 Pure hypercholesterolemia, unspecified; F17.210 Nicotine dependence, cigarettes, uncomplicated; Z79.84 Long term (current) use of oral hypoglycemic drugs; Z79.890 Hormone replacement therapy; Z79.899 Other long term (current) drug therapy
CPT/HCPCS: 36415; 80048; 80202; 81025; 82565; 82962; 83036; 84134; 84443; 85027; 87015; 87070; 87075; 87077; 87102; 87116; 87176; 87186; 87205; 87206; 88305; 93005; 97802; J7040; J7120; A4216; J2405

== ENCOUNTER 2023-06-08 11:15 | Outpatient (RCR) | payer MEDICARE, MEDICAID, SELFPAY ==
[2023-06-01 11:14] VITALS: BP 112/71; PULSE 102; RESP 22; TEMP 36.3; BMI 47.2
--- NOTE | 2023-06-01 12:16 | HP.PCM_ITS ---
History of Present Illness Date of Service: 06/01/23 Chief Complaint: Left groin wound and lower abdominal wound History of Wound: 37 year old female with a 7 month history of hidradenitis suppurativa in her vulval area involving the mons pubis. She had an I&D once in the doctor's office. She has pain in her mons pubis. She denies fever. She denies trauma. She just finished antibiotics, Keflex and Bactrim. Patient has diabetes mellitus. Her last HgbA1c according to the patient is 7.3 few months ago at [facility] Surgery on 05/25/23 1. Surgical preparation left vulval area involving mons pubis and left genitocrural crease up to the labia with excision hidradenitis abscess and radical partial vulvectomy including deep subcutaneous tissue. 2. Surgical preparation left inguinal area with excision hidradenitis abscess. 3. Surgical preparation anterior abdominal wall with excisional debridement skin and subcutaneous tissue and fascia for necrotizing hidradenitis abscess. Operative cultures - Staphylococcus lugdunensis. She is being treated wt Cefdinir. Wound care - Wound VAC to the lower abdominal area and Dakins 0.25% moistened gauze to the left vulval area. Progress of Wound: Left vulval and lower abdominal wounds are very painful. She is having a lot of issues with pain control. She was started on Valium for muscle spasms yesterday. 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) Abdominal wall abscess Abscess of groin, left Abscess of vulva Anxiety Bladder disease Cardiology follow-up encounter CPAP (continuous positive airway pressure) dependence Depression Diabetes mellitus Dietary restriction DM type 2, goal HbA1c < 7% Fatty liver Gastric reflux Gastroparesis Hemoglobin A1c between 7.0% and 9.0% Hidradenitis suppurativa High cholesterol History of Clostridium difficile infection History of steroid therapy History of stress test HPV (human papilloma virus) infection Hypothyroid Insulin dependent diabetes mellitus MRSA infection Nausea Necrotizing soft tissue infection Non-healing open wound of left groin Open wound of vulva with complication PCOS (polycystic ovarian syndrome) Schizoaffective disorder Sleep apnea Smoker Urinary retention Vulval hidradenitis suppurativa Wears glasses Wound abscess Home Medications prochlorperazine maleate 10 mg tablet (Compazine) 10 mg PO Q6H PRN Nausea 06/27/19 [History Last Taken 05/21/23] cholecalciferol (vitamin D3) 25 mcg (1,000 unit) tablet 1,000 unit PO DAILY vitamin 03/14/20 [History Last Taken 05/24/23] metformin 500 mg tablet 1,000 mg PO BID diabetes 03/14/20 [History Last Taken 05/24/23] ondansetron 4 mg disintegrating tablet 8 mg PO BID nausea 03/14/20 [History Last Taken 05/24/23] pantoprazole 40 mg tablet,delayed release (Protonix) 40 mg PO BID gerd 03/14/20 [History Last Taken 05/25/23] fenofibrate 160 mg tablet 160 mg PO DAILY o 10/07/20 [History Last Taken 05/24/23] insulin degludec 100 unit/mL (3 mL) subcutaneous pen (Tresiba FlexTouch U-100 insulin) 80 unit SQ QHS diabetes 10/07/20 [History Last Taken 05/24/23] multivitamin with minerals 1 ea PO DAILY preventative 10/07/20 [History Last Ta vladimir 05/24/23] cyclobenzaprine 10 mg tablet 10 mg PO TID PRN Muscle Spasm 02/08/22 [History Last Taken 05/21/23] insulin aspart U-100 100 unit/mL subcutaneous cartridge (Novolog PenFill U-100 Insulin aspart) 35 unit subcut TID diabetes 02/08/22 [History Last Taken 05/25/23 40 unit] colestipol 1 gram tablet 2 g PO DAILY bile 04/05/23 [History Last Taken 05/24/23] levothyroxine 75 mcg tablet 75 mcg PO DAILY hypothyroid 04/05/23 [History Last Taken 05/24/23] metoprolol succinate 50 mg tablet,extended release 24 hr 50 mg PO DAILY htn 04/05/23 [History Last Taken 05/25/23] simvastatin 40 mg tablet 40 mg PO DAILY cholesterol 04/05/23 [History Last Taken 05/24/23] tirzepatide 10 mg/0.5 mL subcutaneous pen injector (Mounjaro) 10 mg subcut QWEEK diabetes 04/05/23 [History Last Taken 05/23/23] doxycycline hyclate 100 mg capsule 100 mg PO BID antibiotic #60 caps 04/07/23 [Rx Last Taken 05/24/23] carbamazepine 200 mg capsule,extended release [id number] 200 mg PO BID mood stabilizer 05/11/23 [History Last Taken 05/24/23] quetiapine 50 mg tablet 50 mg PO TID mood 05/11/23 [History Last Taken 05/24/23] gabapentin 800 mg tablet 800 mg PO mood 05/25/23 [History Last Taken 05/24/23] levothyroxine 200 mcg tablet 200 mcg PO .daily Thyroid 05/25/23 [History Last Taken 05/25/23] lithium carbonate 300 mg capsule 300 mg PO TID mood stabilizer 05/25/23 [History Last Taken 05/24/23] prazosin 1 mg capsule 1 mg PO DAILY night terror 05/25/23 [History Last Taken 05/24/23] cefdinir 300 mg capsule 300 mg PO BID #42 caps 05/29/23 [Rx Last Taken Unknown] docusate sodium 100 mg capsule (Colace) 100 mg PO BID #60 caps 05/29/23 [Rx Last Taken Unknown] oxycodone-acetaminophen 5 mg-325 mg tablet (Percocet) 1 tab PO Q6H PRN pain (scale score 7-10) 7 days #28 tabs 05/29/23 [Rx Last Taken Unknown] diazepam 5 mg tablet (Valium) 5 mg PO BID PRN muscle spasm 7 days #14 tabs 05/31/23 [Rx Last Taken Unknown] Allergy/AdvReac Type Severity Reaction Status Date / Time etodolac Allergy Swelling Verified 05/25/23 06:12 Iodinated Contrast Media Allergy Hives Verified 05/25/23 06:12 [CONTRASTS] tramadol AdvReac Other Verified 05/25/23 06:12 Family History (Reviewed 06/06/23 @ 09:00 by Zeina Méndez [employer] INST[employer]ER, [employer] INSTALLER-C) Other Cancer Surgical History H/O foot surgery History of esophagogastroduodenoscopy (EGD) History of hysteroscopy History of incision and drainage History of salpingo-oophorectomy History of surgery History of tonsillectomy Hx of cholecystectomy Social History (Reviewed 06/06/23 @ 09:00 by Zeina Méndez [employer]CH[employer] INSTALLER, [employer] 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-C) Smoking Status: Current every day smoker tobacco type: cigarettes ROS Constitutional Constitutional: Denies chills or fever(s) Eyes Eyes: Reports none ENT HEENT: Reports none Cardiovascular Cardiovascular: Denies chest pain or dyspnea Respiratory/Chest Respiratory/Chest: Denies cough or dyspnea Gastrointestinal Gastrointestinal: Denies constipation or diarrhea Genitourinary Genitourinary: Reports none Musculoskeletal Musculoskeletal: Reports systems reviewed and no addt'l complaints, except as documented Integumentary Integumentary: Reports skin pain and wounds Neurologic Neurologic: Reports systems reviewed and no addt'l complaints, except as documented Psychiatric Psychiatric: Reports systems reviewed and no addt'l complaints, except as documented Endocrine Endocrinology: Reports systems reviewed and no addt'l complaints, except as documented Vital Signs Vital Signs Vital Signs: 06/01/23 11:14 Temperature 97.3 F L Temperature Source Temporal Pulse Rate 102 H Respiratory Rate 22 H Blood Pressure 112/71 Blood Pressure Mean 84 Blood Pressure Source Monitor Weight Weight: 250 lb 2.49 oz Body Mass Index (BMI) 47.2 Physical Exam Const alert and oriented x3 General Appearance: cooperative and in distress Positive for moderate (Having significant amount of pain and discomfort) Orientation / Consciousness: awake and oriented to person HEENT normocephalic Head and Scalp: atraumatic Eyes General Eye: normal appearance of both eyes Neck full ROM Resp normal respiratory effort, normal air movement and clear to auscultation bilaterally Effort and Inspection: able to speak in complete sentences Cardio regular rate and regular rhythm GI soft to palpation Back/Spine normal ROM Extremity normal capillary refill Skin Wound Narrative: Lower abdominal wound is clean, beefy pink. Left vulvar area is beefy pink. She is having a significant amout of pain with dressing changes. Neuro oriented x3 Psych mental status grossly normal Debridement Note Debridement Note No debridement was completed: No debridement was completed today Post-Debridement Measurements and Additional Note: Post-Debridement Measurements/Treatment CRISPIN - Nurse 1 - General Ulcer Assessment Start: 06/01/23 11:14 Freq: Status: Active Protocol: LAWSON Activity Type Activity Date Activity User E-sign Co-sign Detail Recorded Client Recorded Date Recorded By Document 06/01/23 11:14 DL [id number] 06/01/23 11:31 DL 06/01/23 11:14 - Today's Visit Information Type of service Initial Visit Arrival Mode Ambulatory Transfer Assistance None Patient Identification Verified (Name & Yes ) Patient Requires Transmission-Based No Precautions Finger Stick Blood Sugar(mg/dl) (if 110 indicated): Blood Sugar Stated by Patient Height and Weight Height 5 ft 1 in Weight 250 lb 2.49 oz Weight in Pounds 250.2 lbs Body Mass Index (BMI) 47.2 BMI Classification Obese BSA - [employer] 2.08 Vital Signs Temperature (97.8 F-99.1 F) 97.3 F L Temperature Source Temporal Pulse Rate (60-100) 102 H Respiratory Rate (12-18) 22 H Respiratory rate source Observation Blood Pressure (90/60-120/80) 112/71 Blood Pressure Mean 84 Source Monitor Pain Scale: 0-10 Numeric Is Patient Pain Free? Yes Communication Assessment Preferred language Citizen Of [place] Able to Read Yes Able to Write Yes Communication Tools None Right Hearing Abillity Normal Left Hearing Abillity Normal Visual Assistive Devices Glasses Teaching Assessment Preferences Verbal,Written, Demonstration Culture/Judaism/Dipping Machine Operator Cultural/Judaism Needs that may affect No Treatment Plan Would you allow our hospital drupal developer to No meet you for the purpose of spiritual/ emotional support? Dipping Machine Operator to contact place of congregational No - Nurse 1 - General Ulcer Measurement Start: 06/01/23 11:14 Freq: Status: Active Protocol: Activity Type Activity Date Activity User E-sign Co-sign Detail Recorded Client Recorded Date Recorded By Document 06/01/23 11:14 DL [id number] 06/01/23 11:31 DL 06/01/23 11:14 Wound Center Nurse 1 #2 L Groin -Current Size (cm) - Length 12 -Current Size (cm) - Width 8 -Current Size (cm) - Depth 8.2 -Total Square Cm 96 -Photo Taken Yes -Exudate Amt Large -Exudate Type Serosanguineous -Wound Margin Distinct, Outline Attached -Granulation Amt Medium (34-66%) -Granulation Quality Pale,Red -Necrosis Amt Medium (34-66%) -Necrotic Tissue Type Adherent Slough -Structure Exposed N/A -Texture ([place]-wound Skin Appearance) No Abnormality -Moisture ([place]-wound Skin Appearance) No Abnormality -Color ([place]-wound Skin Appearance) No Abnormality -Temperature ([place]-wound Skin No Abnormality Appearance) (Pt Warm) -Tenderness on Palpation ([place]-wound No Skin Appearance) -Foul Odor after Cleansing No #1 Lower Abd -Current Size (cm) - Length 6 -Current Size (cm) - Width 15 -Current Size (cm) - Depth 10.8 -Total Square Cm 90 -Photo Taken Yes -Exudate Amt Large -Exudate Type Serosanguineous -Wound Margin Distinct, Outline Attached -Granulation Amt Medium (34-66%) -Granulation Quality Red -Necrosis Amt Medium (34-66%) -Necrotic Tissue Type Adherent Slough -Structure Exposed N/A -Texture ([place]-wound Skin Appearance) No Abnormality -Moisture ([place]-wound Skin Appearance) No Abnormality -Color ([place]-wound Skin Appearance) No Abnormality -Temperature ([place]-wound Skin No Abnormality Appearance) (Pt Warm) -Tenderness on Palpation ([place]-wound No Skin Appearance) -Ulcer Cleansing Soap and Water -Foul Odor after Cleansing No WC - Nurse 2 - General Ulcer CM Notes Start: 06/01/23 11:14 Freq: Status: Active Protocol: Activity Type Activity Date Activity User E-sign Co-sign Detail Recorded Client Recorded Date Recorded By Document 06/01/23 11:54 DL [id number] 06/01/23 11:56 DL 06/01/23 11:54 Wound Center Nurse 2 #2 L Groin -Correct Patient No -Correct Side, Site, Position No -Correct Procedure No -Procedure Performed No -Wound/Ulcer Outcome Not Healed #1 Lower Abd -Correct Patient No -Correct Side, Site, Position No -Correct Procedure No -Procedure Performed No -Wound/Ulcer Outcome Not Healed Pain Scale: 0-10 Numeric Is Patient Pain Free? Yes WC - Nurse 3 - General Ulcer D/C NN Start: 06/01/23 11:14 Freq: Status: Active Protocol: Activity Type Activity Date Activity User E-sign Co-sign Detail Recorded Client Recorded Date Recorded By Document 06/01/23 12:00 DL [id number] 06/01/23 12:00 DL 06/01/23 12:00 Wound Care Center Nurse 3 #2 L Groin -Ulcer Cleansing Rinsed/ Irrigated with Saline -Foul Odor after Cleansing No -Other Dressing dakin's -Primary Dressing Covered/Secured with Dry Gauze & Roll Gauze, Secured with Tape #1 Lower Abd -Ulcer Cleansing Rinsed/ Irrigated with Saline -Foul Odor after Cleansing No -Negative Pressure Wound Therapy Continue -Setting (mmHg) 150 -Negative Pressure is Continuous -NPWT Application Charge NPWT > 50 sq cm ($) Pain Scale: 0-10 Numeric Is Patient Pain Free? Yes WC - Visit Discharge Discharge Condition Stable Ambulatory Status Ambulatory Transportation Private Auto Medication Reconcilliation completed & Yes provided to patient/care provider Clinical Summary of Care Provided Yes Charges/Coding Procedures Integumentary [id number]: [id number] Global Visit Assessment/Plan Assessment/Plan (1) Open wound anterior abdominal wall: CODE(S): S31.109A - Unspecified open wound of abdominal wall, unspecified quadrant without penetration into peritoneal cavity, initial encounter (2) Open wound of vulva with complication: CODE(S): S31.40XA - Unspecified open wound of vagina and vulva, initial encounter (3) Non-healing open wound of left groin: CODE(S): S31.104A - Unspecified open wound of abdominal wall, left lower quadrant without penetration into peritoneal cavity, initial encounter (4) Other acute postprocedural pain: CODE(S): G89.18 - Other acute postprocedural pain (5) DM type 2, goal HbA1c < 7%: CODE(S): E11.9 - Type 2 diabetes mellitus without complications (6) Necrotizing soft tissue infection: CODE(S): M79.89 - Other specified soft tissue disorders (7) Abdominal wall abscess: CODE(S): L02.211 - Cutaneous abscess of abdominal wall (8) Hidradenitis suppurativa: CODE(S): L73.2 - Hidradenitis suppurativa (9) Abscess of vulva: CODE(S): N76.4 - Abscess of vulva (10) Abscess of groin, left: CODE(S): L02.214 - Cutaneous abscess of groin (11) Hemoglobin A1c between 7.0% and 9.0%: CODE(S): R73.9 - Hyperglycemia, unspecified (12) Insulin dependent diabetes mellitus: (13) Smoker: CODE(S): F17.200 - Nicotine dependence, unspecified, uncomplicated (14) Vulval hidradenitis suppurativa: CODE(S): L73.2 - Hidradenitis suppurativa PLAN: Plan Patient evaluated at the wound healing center today. No wound debridement performed. Wound care - To the lower abdominal wound VAC at 150 mmHg to be changed 3 times per week. Left vulval/mons pubis/left genitocrural crease up to the labia is Dakins 0.25% moistened gauze daily and as needed. She continues to have a regalado catheter. She is to continue Cefdinir for her positive operative culture. She was prescribed Valium (14 tabs) BID PRN yesterday for muscle spasms to see if this would help with her pain control. Follow up one week.
[2023-06-08 11:21] VITALS: BP 149/88; PULSE 88; RESP 20; TEMP 36.4; BMI 47.2
--- NOTE | 2023-06-08 12:32 | PCM.WC.PN ---
History of Present Illness Date of Service: 06/08/23 Chief Complaint: Left groin wound and lower abdominal wound History of Wound: 37 year old female with a 7 month history of hidradenitis suppurativa in her vulval area involving the mons pubis. She had an I&D once in the doctor's office. She has pain in her mons pubis. She denies fever. She denies trauma. She just finished antibiotics, Keflex and Bactrim. Patient has diabetes mellitus. Her last HgbA1c according to the patient is 7.3 few months ago at [facility] on 05/25/23 1. Surgical preparation left vulval area involving mons pubis and left genitocrural crease up to the labia with excision hidradenitis abscess and radical partial vulvectomy including deep subcutaneous tissue. 2. Surgical preparation left inguinal area with excision hidradenitis abscess. 3. Surgical preparation anterior abdominal wall with excisional debridement skin and subcutaneous tissue and fascia for necrotizing hidradenitis abscess. Operative cultures - Staphylococcus lugdunensis. She is being treated wt Cefdinir. Wound care - Wound VAC to the lower abdominal area and Dakins 0.25% moistened gauze to the left vulval area. Progress of Wound: Left vulval wound continues to be very painful, but is pink in color.. The lower abdominal wound is smaller. There is a tunnel in the center around 9 o'clock that is 6 cm. Objective Data Objective Data Vital Signs: Vital Signs Temp Pulse Resp BP 97.5 F L 88 20 H 149/88 H 06/08/23 11:21 06/08/23 11:21 06/08/23 11:21 06/08/23 11:21 Weight: 250 lb 2.49 oz Body Mass Index (BMI) 47.2 Charges/Coding Procedures Integumentary 111xxx-113xx: [id number] Global Visit Debridement Note Debridement Note Wound debrided: Lower abdominal wound Laterality: Not Applicable Type of Debridement: Excisional debridement Anesthesia Used: 4% Lidocaine Solution and 5% Lidocaine Gel Depth: Down to and including healthy tissue and in the subcutaneous layer Percentage of wound debrided: 100 Instrument Used: 7mm curette Tissue Removed: Non viable tissue and slough Severity: Fat Layer Exposed Amount of bleeding with debridement: Mild Bleeding Controlled with: Pressure and Compression and gauze Patient tolerated procedure: Patient tolerated procedure well Debridement Free Text: Did not debride the left vulva due to the amount of discomfort she is experiencing. Post-Debridement Measurements and Additional Note: Post-Debridement Measurements/Treatment WC - Nurse 1 - General Ulcer Assessment Start: 06/01/23 11:14 Freq: Status: Active Protocol: WC.LOWAMOST Activity Type Activity Date Activity User E-sign Co-sign Detail Recorded Client Recorded Date Recorded By Document 06/01/23 11:14 DL [id number] 06/01/23 11:31 DL Document 06/08/23 11:21 BMF [id number] 06/08/23 11:40 BMF 06/01/23 06/08/23 11:14 11:21 WC - Today's Visit Information Type of service Initial Visit Follow-up Visit (Physician/ONCOLOGY SOCIAL WORK ) Arrival Mode Ambulatory Ambulatory Transfer Assistance None None Patient Identification Verified (Name & Yes Yes ) Patient Requires Transmission-Based No No Precautions Finger Stick Blood Sugar(mg/dl) (if 110 105 indicated): Blood Sugar Stated by Stated by Patient Patient Height and Weight Height 5 ft 1 in Weight 250 lb 2.49 oz Weight in Pounds 250.2 lbs Body Mass Index (BMI) 47.2 47.2 BMI Classification Obese Obese BSA - [employer] 2.08 Vital Signs Temperature (97.8 F-99.1 F) 97.3 F L 97.5 F L Temperature Source Temporal Temporal Pulse Rate (60-100) 102 H 88 Pulse Location Monitor Respiratory Rate (12-18) 22 H 20 H Respiratory rate source Observation Observation Blood Pressure (90/60-120/80) 112/71 149/88 H Blood Pressure Mean (mm Hg) 84 108 Source Monitor Monitor History Since Last Visit- (Skip if this is Patient's initial visit) Have you changed medications since your No last visit? Any new allergies or adverse reactions No Had a fall/change in ADL's that may No increase risk of falls Signs or symptoms of abuse and/or No neglect since last visit Have you been in the hospital since your No last visit? Has dressing in place as prescribed Yes Has compression in place as prescribed N/A Has offloadiing in place as prescribed N/A Experienced any changes in pain level or No management Pain Scale: 0-10 Numeric Is Patient Pain Free? 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 Box Printing Machine Operator to contact place of taoist No WC - Nurse 1 - General Ulcer Measurement Start: 06/01/23 11:14 Freq: Status: Active Protocol: Activity Type Activity Date Activity User E-sign Co-sign Detail Recorded Client Recorded Date Recorded By Document 06/01/23 11:14 DL [id number] 06/01/23 11:31 DL Document 06/08/23 11:21 BM [id number] 06/08/23 11:40 BMF 06/01/23 06/08/23 11:14 11:21 Wound Center Nurse 1 #2 L Groin -Current Size (cm) - Length 12 13 -Current Size (cm) - Width 8 4.7 -Current Size (cm) - Depth 8.2 7.9 -Total Square Cm 96 61.1 -Photo Taken Yes -Exudate Amt Large Large -Exudate Type Serosanguineous Serosanguineous -Wound Margin Distinct, Distinct, Outline Outline Attached Attached -Granulation Amt Medium (34-66%) Medium (34-66%) -Granulation Quality Pale,Red Pale,[place] -Necrosis Amt Medium (34-66%) Medium (34-66%) -Necrotic Tissue Type Adherent Slough Adherent Slough -Structure Exposed N/A N/A -Texture ([place]-wound Skin Appearance) No Abnormality Scarring -Moisture ([place]-wound Skin Appearance) No Abnormality No Abnormality -Color ([place]-wound Skin Appearance) No Abnormality No Abnormality -Temperature ([place]-wound Skin No Abnormality No Abnormality Appearance) (Pt Warm) (Pt Warm) -Tenderness on Palpation ([place]-wound No No Skin Appearance) -Ulcer Cleansing Soap and Water -Foul Odor after Cleansing No No -Anesthetic Used 4% Lidocaine Solution #1 Lower Abd -Current Size (cm) - Length 6 4.4 -Current Size (cm) - Width 15 16 -Current Size (cm) - Depth 10.8 7.1 -Total Square Cm 90 70.4 -Photo Taken Yes -Exudate Amt Large Large -Exudate Type Serosanguineous Serosanguineous -Wound Margin Distinct, Distinct, Outline Outline Attached Attached -Granulation Amt Medium (34-66%) Medium (34-66%) -Granulation Quality Red Red -Necrosis Amt Medium (34-66%) Medium (34-66%) -Necrotic Tissue Type Adherent Slough Adherent Slough -Structure Exposed N/A N/A -Texture ([place]-wound Skin Appearance) No Abnormality Scarring -Moisture ([place]-wound Skin Appearance) No Abnormality No Abnormality -Color ([place]-wound Skin Appearance) No Abnormality No Abnormality -Temperature ([place]-wound Skin No Abnormality No Abnormality Appearance) (Pt Warm) (Pt Warm) -Tenderness on Palpation ([place]obia-wound No No Skin Appearance) -Ulcer Cleansing Soap and Water Soap and Water -Foul Odor after Cleansing No No -Anesthetic Used 4% Lidocaine Solution WC - Nurse 2 - General Ulcer CM Notes Start: 06/01/23 11:14 Freq: Status: Active Protocol: Activity Type Activity Date Activity User E-sign Co-sign Detail Recorded Client Recorded Date Recorded By Document 06/01/23 11:54 DL [id number] 06/01/23 11:56 DL Document 06/08/23 11:43 [id number] 06/08/23 11:46 06/01/23 06/08/23 11:54 11:43 Wound Center Nurse 2 #2 L Groin -Time 11:45 -Correct Patient No No -Correct Side, Site, Position No No -Correct Procedure No No -Procedure Performed No No -Wound/Ulcer Outcome Not Healed Not Healed -Debridement - Subq, 1st 20sq cm No #1 Lower Abd -Time 11:45 -Correct Patient No Yes -Correct Side, Site, Position No Yes -Correct Procedure No Yes -Procedure Performed No Yes -Type of Procedure Debridement -Clinical Debridement Subcutaneous -Tissue Removed Subcutaneous -Post Debridement (cm) - Length 5.0 -Post Debridement (cm) - Width 16.0 -Post Debridement (cm) - Depth 2.5 -Total Square (Post) (cm) 80.00 -Area of Debridement (cm) - Length 5.0 -Area of Debridement (cm) - Width 16.0 -Total Square (Area) (cm) 80.00 -Tunneling Yes -Tunneling Position (O'clock) 9 -Tunneling Distance (cm) 6.0 -Undermining/Tunneling No -Circular Undermining No -Wound/Ulcer Outcome Not Healed Not Healed -Ulcer Cleansing Rinsed/ Irrigated with Saline -Foul Odor after Cleansing No -Bioengineered Tissue No -Bleeding Controlled with Pressure -Treatment Response Procedure Tolerated Well -Offloading No -Debridement - Subq, 1st 20sq cm Yes -Debridement, SubQ, ea addt'l 20sq cm 3 or part thereof Pain Scale: 0-10 Numeric Is Patient Pain Free? Yes Yes - Nurse 3 - General Ulcer D/C NN Start: 06/01/23 11:14 Freq: Status: Active Protocol: Activity Type Activity Date Activity User E-sign Co-sign Detail Recorded Client Recorded Date Recorded By Document 06/01/23 12:00 DL [id number] 06/01/23 12:00 DL Document 06/08/23 11:55 [facility] [id number] 06/08/23 11:57 BM 06/01/23 06/08/23 12:00 11:55 Wound Care Center Nurse 3 #2 L Groin -Ulcer Cleansing Rinsed/ Rinsed/ Irrigated with Irrigated with Saline Saline -Foul Odor after Cleansing No No -Other Dressing dakin's DAKINS MOIST GAUZE; PER DL TRIM OPERATOR -Primary Dressing Covered/Secured with Dry Gauze & Secured with Roll Gauze, Tape Secured with Tape -Other Covering ABD #1 Lower Abd -Ulcer Cleansing Rinsed/ Soap and Water Irrigated with Saline -Foul Odor after Cleansing No No -Negative Pressure Wound Therapy Continue Continue -Setting (mmHg) 150 150 -Negative Pressure is Continuous Continuous -Other Dressing VAC REAPPLIED PER DL TRIM OPERATOR -NPWT Application Charge NPWT > 50 sq cm NPWT & ($) Debridement (nc ) Treatment Response Procedure Tolerated Well Pain Scale: 0-10 Numeric Is Patient Pain Free? Yes Yes WC - Visit Discharge Discharge Condition Stable Stable Ambulatory Status Ambulatory Ambulatory Transportation Private Auto Private Auto Medication Reconcilliation completed & Yes provided to patient/care provider Clinical Summary of Care Provided Yes Facility Type Home Health Assessment/Plan Assessment/Plan (1) Open wound anterior abdominal wall: CODE(S): S31.109A - Unspecified open wound of abdominal wall, unspecified quadrant without penetration into peritoneal cavity, initial encounter (2) Open wound of vulva with complication: CODE(S): S31.40XA - Unspecified open wound of vagina and vulva, initial encounter (3) Non-healing open wound of left groin: CODE(S): S31.104A - Unspecified open wound of abdominal wall, left lower quadrant without penetration into peritoneal cavity, initial encounter (4) Other acute postprocedural pain: CODE(S): G89.18 - Other acute postprocedural pain (5) DM type 2, goal HbA1c < 7%: CODE(S): E11.9 - Type 2 diabetes mellitus without complications (6) Necrotizing soft tissue infection: CODE(S): M79.89 - Other specified soft tissue disorders (7) Abdominal wall abscess: CODE(S): L02.211 - Cutaneous abscess of abdominal wall (8) Hidradenitis suppurativa: CODE(S): L73.2 - Hidradenitis suppurativa (9) Abscess of vulva: CODE(S): N76.4 - Abscess of vulva (10) Abscess of groin, left: CODE(S): L02.214 - Cutaneous abscess of groin (11) Hemoglobin A1c between 7.0% and 9.0%: CODE(S): R73.9 - Hyperglycemia, unspecified (12) Insulin dependent diabetes mellitus: (13) Smoker: CODE(S): F17.200 - Nicotine dependence, unspecified, uncomplicated (14) Vulval hidradenitis suppurativa: CODE(S): L73.2 - Hidradenitis suppurativa PLAN: Plan Patient evaluated at the wound healing center today. Wound care - To the lower abdominal wound VAC at 150 mmHg to be changed 3 times per week. Left vulval/mons pubis/left genitocrural crease up to the labia is Dakins 0.25% moistened gauze daily and as needed. She continues to have a regalado catheter. She is to continue Cefdinir for her positive operative culture. Follow up one week.
== END 2023-06-09 23:59 | disposition home or self-care (01) ==
LOC: WC 11:15
PROVIDERS: PCP Family Medicine; Referring Provider Surgery; Visit Provider Nurse Practitioner Family
DX: T81.31XA Disruption of external operation (surgical) wound, not elsewhere classified, initial encounter (principal); F25.9 Schizoaffective disorder, unspecified; E11.65 Type 2 diabetes mellitus with hyperglycemia; E11.43 Type 2 diabetes mellitus with diabetic autonomic (poly)neuropathy; Z79.4 Long term (current) use of insulin; S31.40XA Unspecified open wound of vagina and vulva, initial encounter; L73.2 Hidradenitis suppurativa; F17.210 Nicotine dependence, cigarettes, uncomplicated; E78.00 Pure hypercholesterolemia, unspecified; N76.4 Abscess of vulva; L02.211 Cutaneous abscess of abdominal wall; L02.214 Cutaneous abscess of groin; G89.18 Other acute postprocedural pain; S31.104A Unspecified open wound of abdominal wall, left lower quadrant without penetration into peritoneal cavity, initial encounter; M79.89 Other specified soft tissue disorders
CPT/HCPCS: 11042; 11045; 97606; 99214; G0463

== ENCOUNTER 2023-06-13 21:59 | Emergency (ER) | payer MEDICARE, MEDICAID, SELFPAY ==
[2023-06-13 22:02] VITALS: BP 126/83; PULSE 97; RESP 24; TEMP 35.8; BMI 46.6
[2023-06-13 22:05] VITALS: BP 126/83; PULSE 97; RESP 24; TEMP 35.8
[2023-06-13 22:13] VITALS: BP 138/78; PULSE 68; RESP 16; TEMP 36.6
[2023-06-13 23:27] LABS: Absolute Lymphocyte Count 3.87 X10^3/uL (0.83-4.51); Absolute Neutrophil Count 7.7 X10^3/uL (2.0-7.7); Basophil# 0.11 X10^3/uL; Basophil% 0.9 % (0-1); Eosinophil# 0.22 X10^3/uL; Eosinophils% 1.7 % (0-5); Hematocrit 41.2 % (37-47); Hemoglobin 12.9 g/dL (12.0-15.0); Lymphocyte # 3.87 X10^3/ul (0.83-4.51); Lymphocyte % 30.3 % (19-41); Mean Corp Hgb Conc 31.3 g/dL (32-36); Mean Corpuscular Hgb 30.9 pg (27.0-32.0); Mean Corpuscular Volume 98.6 fL (81-99); Mean Platelet Vol. 9.4 fl (6.2-12.0); Monocyte# 0.82 X10^3/uL; Monocyte% 6.4 % (0-10); NRBC Flagged by Analyzer 0 % (0-5); Neutrophil # 7.72 X10^3/uL (2.7-7.7); Neutrophil % 60.4 % (47-70); Platelet Count 376 K/mm3 (150-450); RBC Distribution Width CV 14.6 % (11.6-14.6); Red Blood Count 4.18 M/mm3 (4.2-5.4); White Blood Count 12.8 K/mm3 (4.4-11.0)
[2023-06-13] MEDS: Morphine 4 MG/ML Syringe 6 MG IM (23:28)
[2023-06-13] MEDS: Ondansetron ODT 4 MG Tablet PO (23:28)
[2023-06-13 23:50] LABS: Anion Gap 5 (5-15); BUN 10 mg/dL (7-18); BUN/Creat Ratio 11.1 RATIO (10-20); Calcium,Total 8.6 mg/dL (8.5-10.1); Chloride 110 mmol/L (98-107); EST Glomerular Filtration Rate 74 mL/min (>60); Est Glom Filt Rate - Afr Amer 89 mL/min (>60); Estimated Creatinine Clearance 63.33 ml/min; Glucose 87 mg/dL (74-106); Potassium 3.5 mmol/L (3.5-5.1); Sodium Level 138 mmol/L (136-145)
--- NOTE | 2023-06-14 00:32 | EX.ED.DYSGE1 ---
HPI History of Present Illness Chief Complaint: Wound Informant: patient Narrative Narrative: Patient is a 37-year-old female with past medical history of insulin-dependent type 2 diabetes who underwent surgery in mid May secondary to abdominal wall abscess and necrotizing fasciitis. She has a wound VAC in place over the abdominal wall wound but the wound in the left groin cannot facilitate a wound VAC based on its location. The patient states she has been going to wound care as directed. She states she feels there is a malodorous scent coming from the wound has concern it may be infected despite her taking her antibiotics and therefore comes in for evaluation. [facility] Medical History (Reviewed 06/06/23 @ 09:00 by Zeina Méndez ELECTROGALVANIZING MACHINE OPERATOR, ELECTROGALVANIZING MACHINE OPERATOR-C) Abdominal wall abscess Abscess of groin, left Abscess of vulva Anxiety Bladder disease Cardiology follow-up encounter CPAP (continuous positive airway pressure) dependence Depression Diabetes mellitus Dietary restriction DM type 2, goal HbA1c < 7% Fatty liver Gastric reflux Gastroparesis Hemoglobin A1c between 7.0% and 9.0% Hidradenitis suppurativa High cholesterol History of Clostridium difficile infection History of steroid therapy History of stress test HPV (human papilloma virus) infection Hypothyroid Insulin dependent diabetes mellitus MRSA infection Nausea Necrotizing soft tissue infection Non-healing open wound of left groin Open wound of vulva with complication PCOS (polycystic ovarian syndrome) Schizoaffective disorder Sleep apnea Smoker Urinary retention Vulval hidradenitis suppurativa Wears glasses Wound abscess Home Medications prochlorperazine maleate 10 mg tablet (Compazine) 10 mg PO Q6H PRN Nausea 06/27/19 [History Last Taken 05/21/23] cholecalciferol (vitamin D3) 25 mcg (1,000 unit) tablet 1,000 unit PO DAILY vitamin 03/14/20 [History Last Taken 05/24/23] metformin 500 mg tablet 1,000 mg PO BID diabetes 03/14/20 [History Last Taken 05/24/23] ondansetron 4 mg disintegrating tablet 8 mg PO BID nausea 03/14/20 [History Last Taken 05/24/23] pantoprazole 40 mg tablet,delayed release (Protonix) 40 mg PO BID gerd 03/14/20 [History Last Taken 05/25/23] fenofibrate 160 mg tablet 160 mg PO DAILY o 10/07/20 [History Last Taken 05/24/23] insulin degludec 100 unit/mL (3 mL) subcutaneous pen (Tresiba FlexTouch U-100 insulin) 80 unit SQ QHS diabetes 10/07/20 [History Last Taken 05/24/23] multivitamin with minerals 1 ea PO DAILY preventative 10/07/20 [History Last Taken 05/24/23] cyclobenzaprine 10 mg tablet 10 mg PO TID PRN Muscle Spasm 02/08/22 [History Last Taken 05/21/23] insulin aspart U-100 100 unit/mL subcutaneous cartridge (Novolog PenFill U-100 Insulin aspart) 35 unit subcut TID diabetes 02/08/22 [History Last Taken 05/25/23 40 unit] colestipol 1 gram tablet 2 g PO DAILY bile 04/05/23 [History Last Taken 05/24/23] levothyroxine 75 mcg tablet 75 mcg PO DAILY hypothyroid 04/05/23 [History Last Taken 05/24/23] metoprolol succinate 50 mg tablet,extended release 24 hr 50 mg PO DAILY htn 04/05/23 [History Last Taken 05/25/23] simvastatin 40 mg tablet 40 mg PO DAILY cholesterol 04/05/23 [History Last Taken 05/24/23] tirzepatide 10 mg/0.5 mL subcutaneous pen injector (Mounjaro) 10 mg subcut QWEEK diabetes 04/05/23 [History Last Taken 05/23/23] doxycycline hyclate 100 mg capsule 100 mg PO BID antibiotic #60 caps 04/07/23 [Rx Last Taken 05/24/23] carbamazepine 200 mg capsule,extended release [id number] 200 mg PO BID mood stabilizer 05/11/23 [History Last Taken 05/24/23] quetiapine 50 mg tablet 50 mg PO TID mood 05/11/23 [History Last Taken 05/24/23] gabapentin 800 mg tablet 800 mg PO mood 05/25/23 [History Last Taken 05/24/23] levothyroxine 200 mcg tablet 200 mcg PO .daily Thyroid 05/25/23 [History Last Taken 05/25/23] lithium carbonate 300 mg capsule 300 mg PO TID mood stabilizer 05/25/23 [History Last Taken 05/24/23] prazosin 1 mg capsule 1 mg PO DAILY night terror 05/25/23 [History Last Taken 05/24/23] cefdinir 300 mg capsule 300 mg PO BID #42 caps 05/29/23 [Rx Last Taken Unknown] docusate sodium 100 mg capsule (Colace) 100 mg PO BID #60 caps 05/29/23 [Rx Last Taken Unknown] oxycodone-acetaminophen 5 mg-325 mg tablet (Percocet) 1 tab PO Q6H PRN pain (scale score 7-10) 7 days #28 tabs 05/29/23 [Rx Last Taken Unknown] morphine 30 mg tablet,extended release (MS Contin) 30 mg PO TID PRN PRN pain 3 days #9 tabs 06/14/23 [Rx Last Taken Unknown] Allergy/AdvReac Type Severity Reaction Status Date / Time etodolac Allergy Swelling Verified 06/13/23 22:06 Iodinated Contrast Media Allergy Hives Verified 06/13/23 22:06 [CONTRASTS] tramadol AdvReac Other Verified 06/13/23 22:06 Family History (Reviewed 06/06/23 @ 09:00 by Zeina Méndez ELECTROGALVANIZING MACHINE OPERATOR, ELECTROGALVANIZING MACHINE OPERATOR-C) Other Cancer Surgical History H/O foot surgery History of esophagogastroduodenoscopy (EGD) History of hysteroscopy History of incision and drainage History of salpingo-oophorectomy History of surgery History of tonsillectomy Hx of cholecystectomy Social History (Reviewed 06/06/23 @ 09:00 by Zeina Méndez ELECTROGALVANIZING MACHINE OPERATOR, ELECTROGALVANIZING MACHINE OPERATOR-C) Smoking Status: Current every day smoker tobacco type: cigarettes ROS ROS ED Constitutional Constitutional ED: Denies chills or fever(s) ENT ENT ED: Denies sore throat Cardiovascular Cardiovascular: Denies chest pain Respiratory/Chest Respiratory/Chest: Denies cough or dyspnea Gastrointestinal Gastrointestinal: Reports abdominal pain; Denies diarrhea, nausea or vomiting Genitourinary Genitourinary ED: Denies dysuria Musculoskeletal Musculoskeletal: Denies myalgias Integumentary Reports other Details: Positive chronic wounds Neurologic Neurologic: Denies headache(s) Hematologic/Lymphatic Hematologic/Lymphatic: Denies easy bleeding or easy bruising EXAM Physical Exam Const Vital Signs: 06/13/23 22:02 06/13/23 22:05 06/13/23 22:13 Temperature 96.5 F L 96.5 F L 98 F Temperature Source Temporal Temporal Oral Pulse Rate 97 97 68 Respiratory Rate 24 H 24 H 16 Blood Pressure 126/83 H 126/83 H 138/78 H Blood Pressure Mean 97 97 98 Positive well nourished, well developed and obese General Appearance ED: well developed Nutritional Appearance: obese HEENT HEENT Narrative: Normocephalic atraumatic Eyes PERRL and EOMs intact bilaterally Neck supple Neck Narrative: No nuchal rigidity or meningeal signs noted Resp normal respiratory effort and clear to auscultation bilaterally Cardio regular rate and regular rhythm Rate: other Other Details: Radial and carotid pulses are equal and symmetric GI non-distended GI Narrative: Abdomen is obese soft and nondistended with hypoactive bowel sounds. There is mild pain with palpation in the mid lower abdomen around the abdominal wound/wound VAC. However there are no surrounding secondary soft tissue changes to suggest infection. Auscultation: hypoactive bowel sounds Palpation: soft Narrative: In the left inguinal region there is an open wound with mild granulation tissue present. No obvious purulent drainage or abscess formation. No surrounding erythema warmth or lymphangitic streak. No crepitance palpated in the inguinal region. No overlying soft tissue changes to suggest Herminio's gangrene. Extremity normal to inspection Neuro oriented x3, CN's II-XII intact bilaterally and no sensory deficits noted Sensorium / Orientation: alert Motor Exam: strength 5/5 throughout Psych mental status grossly normal Skin Skin Narrative: Soft tissue changes in the lower mid abdomen and left inguinal region consistent with history of previous surgery without secondary changes to suggest infection MDM MDM MDM Narrative Medical decision making narrative: Patient presented to the ER afebrile with stable vitals. She reported she has been taking her antibiotic as directed and going to wound care as directed. Exam does not show overt changes for secondary infection. Differential diagnosis is for postoperative pain versus normal wound healing versus secondary infection such as cellulitis or Herminio's gangrene. Based on the presentation of the wound and patient's vitals I do not feel this is secondarily infected and therefore elected to perform basic laboratory studies without imaging. Patient's white count is at her baseline and as vitals are stable and she is afebrile do not feel there is need for further imaging. Patient is also already on antibiotics and by exam there is no secondary changes to suggest infection. Therefore she can continue to treat the wound as directed by wound care and is otherwise safe for discharge History & Record Review Discussion w/independent historian: Patient Lab Data Attestation: I reviewed the patient's lab results. Labs: Laboratory Results - last 24 hr 06/13/23 23:18 WBC 12.8 H RBC 4.18 L Hgb 12.9 Hct 41.2 MCV 98.6 MCH 30.9 MCHC 31.3 L RDW Std Deviation 54.0 H RDW Coeff of Radha 14.6 Plt Count 376 MPV 9.4 Immature Gran % (Auto) 0.300 Neut % (Auto) 60.4 Lymph % (Auto) 30.3 [place] % (Auto) 6.4 Eos % (Auto) 1.7 Baso % (Auto) 0.9 Absolute Neuts (auto) 7.7 Absolute Lymphs (auto) 3.87 Nucleated RBC % 0 Sodium 138 Potassium 3.5 Chloride 110 H Carbon Dioxide 23.0 Anion Gap 5 BUN 10 Creatinine 0.90 Estim Creat Clear Calc 63.33 Est GFR (MDRD) Af Amer 89 Est GFR (MDRD) Non-Af 74 BUN/Creatinine Ratio 11.1 Glucose 87 Lactic Acid Cancelled Calcium 8.6 Discharge Plan Triage Chief Complaint: Wound ED Provider: Oscar Hooper Dx/Rx/DC Orders Clinical Impression: Other acute postprocedural pain, Necrotizing soft tissue infection, Diabetes mellitus, Non-healing open wound of left groin Instructions: ED Dressing Change, ED Post Op Wound Check, General Prescriptions: New morphine [MS Contin] 30 mg tablet extended release 30 mg PO TID PRN PRN (Reason: pain) 3 Days Qty: 9 0RF No Action Mounjaro 10 mg/0.5 mL pen injector 10 mg subcut QWEEK metoprolol succinate 50 mg tablet extended release 24 hr 50 mg PO DAILY simvastatin 40 mg tablet 40 mg PO DAILY colestipol 1 gram tablet 2 g PO DAILY levothyroxine 75 mcg tablet 75 mcg PO DAILY Patient Comments: Takes 275mcg total doxycycline hyclate 100 mg capsule 100 mg PO BID Qty: 60 1RF Hold Instructions: Resume on 06/29/23. Rx Instructions: take only when there is a flare up prochlorperazine maleate [Compazine] 10 MG tablet 10 mg PO Q6H PRN (Reason: Nausea) metformin 500 MG tablet 1,000 mg PO BID pantoprazole [Protonix] 40 MG tablet 40 mg PO BID cholecalciferol (vitamin D3) 1,000 UNIT tablet 1,000 unit PO DAILY ondansetron 4 MG tablet 8 mg PO BID multivitamin with minerals 1 EACH tablet 1 ea PO DAILY fenofibrate 160 MG tablet 160 mg PO DAILY insulin degludec [Tresiba FlexTouch U-100] 100 UNIT/ML insulin pen 80 unit SQ QHS cyclobenzaprine 10 mg Tablet 10 mg PO TID PRN (Reason: Muscle Spasm) insulin aspart U-100 [Novolog PenFill U-100 Insulin] 100 unit/mL Cartridge 35 unit SUBCUT TID carbamazepine 200 mg capsule, ER multiphase 12 hr 200 mg PO BID quetiapine 50 mg tablet 50 mg PO TID lithium carbonate 300 mg capsule 300 mg PO TID prazosin 1 mg capsule 1 mg PO DAILY gabapentin 800 mg tablet 800 mg PO Patient Comments: 800 mg two times daily 1200 at bedtime levothyroxine 200 mcg tablet 200 mcg PO .daily Patient Comments: takes 275mcg total daily cefdinir 300 mg capsule 300 mg PO BID Qty: 42 1RF oxycodone-acetaminophen [Percocet] 5-325 mg tablet 1 tab PO Q6H PRN (Reason: pain (scale score 7-10)) 7 Days Qty: 28 0RF Rx Instructions: 28 tabs (twenty-eight) docusate sodium [Colace] 100 mg capsule 100 mg PO BID Qty: 60 1RF Primary Care Provider: Mack Hart Referrals: Mack Hart MD [Primary Care Provider] - Activity Restrictions/Additional Instructions: Please continue to change your dressings as directed and follow-up with wound care as you have been doing. Continue your antibiotic as your exam today indicates that the wound is healing appropriately without secondary infection and return to the ER should you have any further concerns. Disposition Disposition: Home, Self Care Discharge Date/Time: 06/14/23 00:53
--- NOTE | 2023-06-14 00:47 | ED.RN ---
PT WAS COMPLAINING OF DISCOMFORT OF REECE CATHETER. PT STATES THAT SHE FEELS THOUGH CATHETER IS STUCK IN HER URETHRA. PER DR. SHINE READJUST REECE BALLOON. STAT LOCK APPLIED TO PT LEG AND REECE DEFLATED AND MOVED FURTHER IN AND REINFLATED. PT TOLERATED WELL.
== END 2023-06-14 00:53 | disposition home or self-care (01) ==
PROVIDERS: Emergency Provider Emergency Medicine; PCP Family Medicine; Visit Provider Emergency Medicine
DX: G89.18 Other acute postprocedural pain (principal); E11.43 Type 2 diabetes mellitus with diabetic autonomic (poly)neuropathy; F17.210 Nicotine dependence, cigarettes, uncomplicated; E78.00 Pure hypercholesterolemia, unspecified; K31.84 Gastroparesis; E66.9 Obesity, unspecified
CPT/HCPCS: 36415; 80048; 85025; 96372; 99282; A4216

== ENCOUNTER 2023-06-22 12:16 | Inpatient (IN) | payer MEDICARE, MEDICAID, SELFPAY ==
[2023-06-22] VITALS (7 sets, daily range): BP systolic 88–118; BP diastolic 53–98; PULSE 80–102; RESP 14–23; TEMP 36.5–37.1; O2SAT 91–100; BMI 46.7; BMI 44.4
--- NOTE | 2023-06-22 12:35 | CT_ITS ---
STUDY: CT ABDOMEN AND PELVIS WITH CONTRAST REASON FOR EXAM: Female, 37 years old. Lower abdominal wall abscess and necrotizing fasciitis in the past. RADIATION DOSAGE (If Supplied By Facility): CTDIvol = ( 18.39 ) mGy, DLP = ( 1563.56 ) mGycm TECHNIQUE: Transaxial images were obtained from the dome of the diaphragm to the symphysis pubis without oral contrast. IV 100mL Isovue-300 was administered. Sagittal and coronal images were reconstructed. Individualized dose optimization techniques were used for this CT. COMPARISON: Comparison is made with prior study March 24, 2022. FINDINGS: The visualized lung bases are unremarkable. The visualized portions of the heart are within normal limits. There is decreased attenuation of the liver consistent with steatosis. There are surgical clips in the gallbladder fossa consistent with a prior cholecystectomy. Normal spleen. Normal pancreas. Normal bilateral adrenal glands. Normal right kidney. Normal left kidney. There is a small hiatal hernia. Normal small intestine. Normal colon. The appendix is visualized and appears normal. Normal abdominal aorta. Normal inferior vena cava. Normal retroperitoneum. Normal urinary bladder. IUD is seen within the uterus. There is a 3.3 cm x 12.6 cm heterogeneous soft tissue density in the lower anterior abdominal wall subcutaneous fat on the right side of the midline. There are tiny air bubbles within these soft tissue densities suggestive of possible airforming organism. Increased markings are seen in the surrounding subcutaneous fat with overlying this skin thickening. Tissue sample is recommended. Normal osseous structures. CT/Abdomen/Pelvis W IV Cont ONLY IMPRESSION: 3.3 cm x 12.6 cm heterogeneous soft tissue density in the lower anterior abdominal wall subcutaneous tissue with tiny air bubble within it. There is also evidence of increased linear markings in the surrounding subcutaneous fat with overlying skin thickening. Tissue samples recommended. Electronically Signed: Luis Williamson MD at 14:45 EDT ,
--- NOTE | 2023-06-22 12:45 | EX.ED.DYSGE1 ---
HPI History of Present Illness Chief Complaint: Wound Check Narrative Narrative: Open wound to the lower abdomen secondary to hidradenitis suppurativa and abdominal wound abscess. Patient was surgically seen by Dr. Brennan. Patient has been following with wound care. She had a tunnel previously and there was some light brown drainage. Apparently she went to the wound care clinic today and while it was being probed her wound started draining foul-smelling odor. There were cultures taken. The nurse practitioner spoke to Dr. Mims who is on-call for surgery. Apparently the concern here today is that the wound Fax down and his organs. Patient does not have any fevers or chills. She has pain but its not any worse or better. She does not feel physically ill. [facility] Medical History Abdominal wall abscess Abscess of groin, left Abscess of vulva Anxiety Bladder disease Cardiology follow-up encounter CPAP (continuous positive airway pressure) dependence Depression Diabetes mellitus Dietary restriction DM type 2, goal HbA1c < 7% Fatty liver Gastric reflux Gastroparesis Hemoglobin A1c between 7.0% and 9.0% Hidradenitis suppurativa High cholesterol History of Clostridium difficile infection History of steroid therapy History of stress test HPV (human papilloma virus) infection Hypothyroid Insulin dependent diabetes mellitus MRSA infection Nausea Necrotizing soft tissue infection Non-healing open wound of left groin Open wound of vulva with complication PCOS (polycystic ovarian syndrome) Schizoaffective disorder Sleep apnea Smoker Urinary retention Vulval hidradenitis suppurativa Wears glasses Wound abscess Home Medications prochlorperazine maleate 10 mg tablet (Compazine) 10 mg PO Q6H PRN Nausea 06/27/19 [History Last Taken 05/21/23] cholecalciferol (vitamin D3) 25 mcg (1,000 unit) tablet 1,000 unit PO DAILY vitamin 03/14/20 [History Last Taken 05/24/23] metformin 500 mg tablet 1,000 mg PO BID diabetes 03/14/20 [History Last Taken 05/24/23] ondansetron 4 mg disintegrating tablet 8 mg PO BID nausea 03/14/20 [History Last Taken 05/24/23] pantoprazole 40 mg tablet,delayed release (Protonix) 40 mg PO BID gerd 03/14/20 [History Last Taken 05/25/23] fenofibrate 160 mg tablet 160 mg PO DAILY o 10/07/20 [History Last Taken 05/24/23] insulin degludec 100 unit/mL (3 mL) subcutaneous pen (Tresiba FlexTouch U-100 insulin) 80 unit SQ QHS diabetes 10/07/20 [History Last Taken 05/24/23] multivitamin with minerals 1 ea PO DAILY preventative 10/07/20 [History Last Taken 05/24/23] cyclobenzaprine 10 mg tablet 10 mg PO TID PRN Muscle Spasm 02/08/22 [History Last Taken 05/21/23] insulin aspart U-100 100 unit/mL subcutaneous cartridge (Novolog PenFill U-100 Insulin aspart) 35 unit subcut TID diabetes 02/08/22 [History Last Taken 05/25/23 40 unit] colestipol 1 gram tablet 2 g PO DAILY bile 04/05/23 [History Last Taken 05/24/23] levothyroxine 75 mcg tablet 75 mcg PO DAILY hypothyroid 04/05/23 [History Last Taken 05/24/23] metoprolol succinate 50 mg tablet,extended release 24 hr 50 mg PO DAILY htn 04/05/23 [History Last Taken 05/25/23] simvastatin 40 mg tablet 40 mg PO DAILY cholesterol 04/05/23 [History Last Taken 05/24/23] tirzepatide 10 mg/0.5 mL subcutaneous pen injector (Mounjaro) 10 mg subcut QWEEK diabetes 04/05/23 [History Last Taken 05/23/23] doxycycline hyclate 100 mg capsule 100 mg PO BID antibiotic #60 caps 04/07/23 [Rx Last Taken 05/24/23] carbamazepine 200 mg capsule,extended release [id number] 200 mg PO BID mood stabilizer 05/11/23 [History Last Taken 05/24/23] quetiapine 50 mg tablet 50 mg PO TID mood 05/11/23 [History Last Taken 05/24/23] gabapentin 800 mg tablet 800 mg PO mood 05/25/23 [History Last Taken 05/24/23] levothyroxine 200 mcg tablet 200 mcg PO .daily Thyroid 05/25/23 [History Last Taken 05/25/23] lithium carbonate 300 mg capsule 300 mg PO TID mood stabilizer 05/25/23 [History Last Taken 05/24/23] prazosin 1 mg capsule 1 mg PO DAILY night terror 05/25/23 [History Last Taken 05/24/23] cefdinir 300 mg capsule 300 mg PO BID #42 caps 05/29/23 [Rx Last Taken Unknown] docusate sodium 100 mg capsule (Colace) 100 mg PO BID #60 caps 05/29/23 [Rx Last Taken Unknown] oxycodone-acetaminophen 5 mg-325 mg tablet (Percocet) 1 tab PO Q6H PRN pain (scale score 7-10) 7 days #28 tabs 05/29/23 [Rx Last Taken Unknown] morphine 30 mg tablet,extended release (MS Contin) 30 mg PO TID PRN PRN pain 3 days #9 tabs 06/14/23 [Rx Last Taken Unknown] Allergy/AdvReac Type Severity Reaction Status Date / Time etodolac Allergy Swelling Verified 06/13/23 22:06 Iodinated Contrast Media Allergy Hives Verified 06/13/23 22:06 [CONTRASTS] tramadol AdvReac Other Verified 06/13/23 22:06 Family History Other Cancer Surgical History H/O foot surgery History of esophagogastroduodenoscopy (EGD) History of hysteroscopy History of incision and drainage History of salpingo-oophorectomy History of surgery History of tonsillectomy Hx of cholecystectomy Social History Smoking Status: Current every day smoker tobacco type: cigarettes ROS ROS ED Constitutional Constitutional ED: Denies chills, fever(s) or sweats Eyes Eyes: Denies blurry vision or change in vision ENT ENT ED: Denies ear pain or sore throat Cardiovascular Cardiovascular: Denies chest pain, palpitations or racing heartbeat Respiratory/Chest Respiratory/Chest: Denies cough, dyspnea or sputum Gastrointestinal Gastrointestinal: Reports abdominal pain; Denies constipation, diarrhea, nausea or vomiting Genitourinary Genitourinary ED: Denies dysuria, hematuria or urinary frequency Musculoskeletal Musculoskeletal: Denies arthralgias, myalgias or neck pain Integumentary Reports other Details: Plan abdominal wall wound packed with dressing. Dressing clean, dry, intact ; Denies Abrasions or rash Neurologic Neurologic: Denies headache(s), paresthesias or weakness Psychiatric Psychiatric: Denies anxiety, depression, suicidal ideation or suicidal thoughts Endocrine Endocrinology: Denies polydipsia or polyuria EXAM Physical Exam Const Vital Signs: 06/22/23 12:16 Temperature 98.7 F Temperature Source Temporal Pulse Rate 102 H Respiratory Rate 18 Blood Pressure 109/98 H Blood Pressure Mean 101 Pulse Ox 100 Oxygen Delivery Method Room Air Positive well nourished General Appearance ED: NAD HEENT Reports moist mucous membranes MDM MDM MDM Narrative Medical decision making narrative: Patient with open ventral wall wound. Apparently she had a wound VAC some point. Patient found to have drainage today and of concern for tracking down to the organs. Patient is physically well. He states he does have some pain in the abdomen. Her vital signs are stable and she is afebrile. Patient was medicated morphine and Zofran. Basic lab work will be obtained as well as CT of the abdomen pelvis with IV contrast. Patient medicated due to allergy to contrast dye. CBC shows a leukocytosis of 14.5. Hemoglobin hematocrit are stable. Platelets normal at 247. Renal function and electrolyte limits. LFTs are normal. The abdomen pelvis shows3.3 cm x 12.6 cm heterogeneous soft tissue density in the lower anterior abdominal wall subcutaneous tissue with tiny air bubble within it. There is also evidence of increased linear markings in the surrounding subcutaneous fat with overlying skin thickening. I spoke with practitioner for Dr. Brennan. Eda Honey states that she thinks that the wound was much bigger initially after surgery was 17 x 8 x 9 or somewhere in that range. He states he believes it is healing too fast and she believes it is because the home health care [place]. She is concerned that this may need to be irrigated. Dr. Brennan is on vacation. She is going to talk to Dr. Mims and Dr. Morel and get back with me. She spoke to Dr. Morel and apparently states his window will be irrigating the wound and Dr. Morel the on-call for surgical intervention needed. They requested the patient be admitted to medicine. Patient given vancomycin and Zosyn. Wound was cultured prior. Discussed with Dr. Keene for admission.. Impression: 1. Abscess 2. Cellulitis Lab Data Labs: Laboratory Results - last 24 hr 06/22/23 12:59 WBC 14.5 H RBC 4.11 L Hgb 12.6 Hct 40.8 MCV 99.3 H MCH 30.7 MCHC 30.9 L RDW Std Deviation 53.8 H RDW Coeff of Radha 14.6 Plt Count 247 MPV 10.5 Immature Gran % (Auto) 0.400 Neut % (Auto) 70.2 H Lymph % (Auto) 20.9 Imperial % (Auto) 6.5 Eos % (Auto) 1.6 Baso % (Auto) 0.4 Absolute Neuts (auto) 10.2 H Absolute Lymphs (auto) 3.04 Nucleated RBC % 0 Sodium 135 L Potassium 3.8 Chloride 104 Carbon Dioxide 25.0 Anion Gap 6 BUN 7 Creatinine 0.86 Estim Creat Clear Calc 66.27 Est GFR (MDRD) Af Amer 94 Est GFR (MDRD) Non-Af 78 BUN/Creatinine Ratio 8.2 L Glucose 99 Calcium 8.8 Total Bilirubin 0.50 AST 88 H ALT 22 Alkaline Phosphatase 90 Total Protein 7.3 Albumin 2.9 L Globulin 4.4 H Albumin/Globulin Ratio 0.7 L Radiography Diagnostic Testing: Clinical Impression(s) from Imaging Studies Abdomen/Pelvis CT 06/22/23 12:35 IMPRESSION: 3.3 cm x 12.6 cm heterogeneous soft tissue density in the lower anterior abdominal wall subcutaneous tissue with tiny air bubble within it. There is also evidence of increased linear markings in the surrounding subcutaneous fat with overlying skin thickening. Tissue samples recommended. Electronically Signed: Luis Williamson MD at 14:45 EDT , Discharge Plan Triage Chief Complaint: Wound Check ED Provider: Yrn Ballard Dx/Rx/DC Orders Prescriptions: No Action Mounjaro 10 mg/0.5 mL pen injector 10 mg subcut QWEEK metoprolol succinate 50 mg tablet extended release 24 hr 50 mg PO DAILY simvastatin 40 mg tablet 40 mg PO DAILY colestipol 1 gram tablet 2 g PO DAILY levothyroxine 75 mcg tablet 75 mcg PO DAILY Patient Comments: Takes 275mcg total doxycycline hyclate 100 mg capsule 100 mg PO BID Qty: 60 1RF Hold Instructions: Resume on 06/29/23. Rx Instructions: take only when there is a flare up prochlorperazine maleate [Compazine] 10 MG tablet 10 mg PO Q6H PRN (Reason: Nausea) metformin 500 MG tablet 1,000 mg PO BID pantoprazole [Protonix] 40 MG tablet 40 mg PO BID cholecalciferol (vitamin D3) 1,000 UNIT tablet 1,000 unit PO DAILY ondansetron 4 MG tablet 8 mg PO BID multivitamin with minerals 1 EACH tablet 1 ea PO DAILY fenofibrate 160 MG tablet 160 mg PO DAILY insulin degludec [Tresiba FlexTouch U-100] 100 UNIT/ML insulin pen 80 unit SQ QHS cyclobenzaprine 10 mg Tablet 10 mg PO TID PRN (Reason: Muscle Spasm) insulin aspart U-100 [Novolog PenFill U-100 Insulin] 100 unit/mL Cartridge 35 unit SUBCUT TID carbamazepine 200 mg capsule, ER multiphase 12 hr 200 mg PO BID quetiapine 50 mg tablet 50 mg PO TID lithium carbonate 300 mg capsule 300 mg PO TID prazosin 1 mg capsule 1 mg PO DAILY gabapentin 800 mg tablet 800 mg PO Patient Comments: 800 mg two times daily 1200 at bedtime levothyroxine 200 mcg tablet 200 mcg PO .daily Patient Comments: takes 275mcg total daily cefdinir 300 mg capsule 300 mg PO BID Qty: 42 1RF oxycodone-acetaminophen [Percocet] 5-325 mg tablet 1 tab PO Q6H PRN (Reason: pain (scale score 7-10)) 7 Days Qty: 28 0RF Rx Instructions: 28 tabs (twenty-eight) docusate sodium [Colace] 100 mg capsule 100 mg PO BID Qty: 60 1RF morphine [MS Contin] 30 mg tablet extended release 30 mg PO TID PRN PRN (Reason: pain) 3 Days Qty: 9 0RF Primary Care Provider: Mack Hart Referrals: Mack Hart MD [Primary Care Provider] -
[2023-06-22] MEDS: DiphenhydrAMINE 50 MG/ML Syringe IV (13:04)
[2023-06-22] MEDS: 0.9% Normal Saline (1000mL) 1,000 ML 1000 ML IV (13:04)
[2023-06-22] MEDS: Morphine 4 MG/ML Syringe IV ×2 (13:04→15:31)
[2023-06-22] MEDS: Ondansetron 4 MG/2 ML Vial IV ×2 (13:04→20:28)
[2023-06-22 13:19] LABS: Absolute Lymphocyte Count 3.04 X10^3/uL (0.83-4.51); Absolute Neutrophil Count 10.2 X10^3/uL (2.0-7.7); Basophil# 0.06 X10^3/uL; Basophil% 0.4 % (0-1); Eosinophil# 0.23 X10^3/uL; Eosinophils% 1.6 % (0-5); Hematocrit 40.8 % (37-47); Hemoglobin 12.6 g/dL (12.0-15.0); Lymphocyte # 3.04 X10^3/ul (0.83-4.51); Lymphocyte % 20.9 % (19-41); Mean Corp Hgb Conc 30.9 g/dL (32-36); Mean Corpuscular Hgb 30.7 pg (27.0-32.0); Mean Corpuscular Volume 99.3 fL (81-99); Mean Platelet Vol. 10.5 fl (6.2-12.0); Monocyte# 0.95 X10^3/uL; Monocyte% 6.5 % (0-10); NRBC Flagged by Analyzer 0 % (0-5); Neutrophil % 70.2 % (47-70); Platelet Count 247 K/mm3 (150-450); RBC Distribution Width CV 14.6 % (11.6-14.6); RBC Distribution Width SD 53.8 fl (35.1-43.9); Red Blood Count 4.11 M/mm3 (4.2-5.4); White Blood Count 14.5 K/mm3 (4.4-11.0)
[2023-06-22 13:26] LABS: ALB/GLOB Ratio 0.7 RATIO (0.9-2.4); AST(SGOT) 88 U/L (15-37); Alanine Aminotransfer ALT/SGPT 22 U/L (13-56); Albumin, Serum 2.9 g/dL (3.2-5.0); Alkaline Phosphatase 90 U/L (45-117); Anion Gap 6 (5-15); BUN 7 mg/dL (7-18); BUN/Creat Ratio 8.2 RATIO (10-20); Calcium,Total 8.8 mg/dL (8.5-10.1); Chloride 104 mmol/L (98-107); Creatinine, Serum 0.86 mg/dL (0.55-1.02); EST Glomerular Filtration Rate 78 mL/min (>60); Est Glom Filt Rate - Afr Amer 94 mL/min (>60); Estimated Creatinine Clearance 66.27 ml/min; Globulin 4.4 g/dL (2.2-4.2); Glucose 99 mg/dL (74-106); Potassium 3.8 mmol/L (3.5-5.1); Protein, Total 7.3 g/dL (6.4-8.2); Sodium Level 135 mmol/L (136-145)
[2023-06-22] MEDS: 0.9% Normal Saline (1000mL) 1,000 ML 999 ML IV (15:32)
[2023-06-22] MEDS: Piperacil/Tazobactam 3.375 GM in 0.9% Normal Saline (50mL MB+) 50 ML IV ×2 (16:23→22:04)
[2023-06-22] MEDS: Vancomycin HCl 1,750 MG in 0.9% Normal Saline (500mL Bag) 500 ML 250 MG IV (17:04)
--- NOTE | 2023-06-22 17:16 | PCM.HP.STD ---
HPI - General General Date of Admission: 06/22/23 Date of Service: 06/22/23 Chief Complaint: Abdominal wound HPI Narrative MAYA OTT, is a 37-year-old female history of type 2 diabetes mellitus, hidradenitis suppurativa, tobacco use, hypothyroidism who presented to [facility] 06/22/2023 for an open ventral wound. She had surgery on May [address] Brennan for her right lower abdominal wound and has been following with the wound clinic since that time. There was concern with the wound clinic that the wound was worsening and plastic surgery consulted and they voiced concern that there could be extension and recommended patient go to the hospital. In the ED white blood cell count 14.5 and lab work otherwise unremarkable, CT abdomen pelvis with IV contrast did not show any intra-abdominal but showed shows3.3 cm x 12.6 cm heterogeneous soft tissue density in the lower anterior abdominal wall subcutaneous tissue with tiny air bubble within it. Nurse practitioner from Dr. Brennan's office, Eda Méndez, was contacted in the ED and stated she would come irrigate and pack this per ED physician. Given Dr. Brennan is on vacation Dr. Morel contacted and is willing to be contacted if needed for assistance. It was recommended patient be admitted for IV antibiotics and wound cultures. Patient evaluated at bedside and reports that she has not had a temperature noted but has been feeling chills, has also been nauseated though this to some extent is chronic. Has noted a foul smell but she is not sure if it is from her left-sided groin wound or her right abdominal wound. Reports that she uses a wound VAC and feels her drainage has been decreasing because now she can change every couple of days and she reports she still uses a wound VAC routinely on that right side of her abdomen. She presently has a Arreguin catheter that has been present since her surgery and denies any complaints with this. Has no other complaints at this time [facility] Medical History Abdominal wall abscess Abscess of groin, left Abscess of vulva Anxiety Bladder disease Cardiology follow-up encounter CPAP (continuous positive airway pressure) dependence Depression Diabetes mellitus Dietary restriction DM type 2, goal HbA1c < 7% Fatty liver Gastric reflux Gastroparesis Hemoglobin A1c between 7.0% and 9.0% Hidradenitis suppurativa High cholesterol History of Clostridium difficile infection History of steroid therapy History of stress test HPV (human papilloma virus) infection Hypothyroid Insulin dependent diabetes mellitus MRSA infection Nausea Necrotizing soft tissue infection Non-healing open wound of left groin Open wound of vulva with complication PCOS (polycystic ovarian syndrome) Schizoaffective disorder Sleep apnea Smoker Urinary retention Vulval hidradenitis suppurativa Wears glasses Wound abscess Home Medications prochlorperazine maleate 10 mg tablet (Compazine) 10 mg PO Q6H PRN Nausea 06/27/19 [History Last Taken 05/21/23] cholecalciferol (vitamin D3) 25 mcg (1,000 unit) tablet 1,000 unit PO DAILY vitamin 03/14/20 [History Last Taken 05/24/23] metformin 500 mg tablet 1,000 mg PO BID diabetes 03/14/20 [History Last Taken 05/24/23] ondansetron 4 mg disintegrating tablet 8 mg PO BID nausea 03/14/20 [History Last Taken 05/24/23] pantoprazole 40 mg tablet,delayed release (Protonix) 40 mg PO BID gerd 03/14/20 [History Last Taken 05/25/23] fenofibrate 160 mg tablet 160 mg PO DAILY o 10/07/20 [History Last Taken 05/24/23] insulin degludec 100 unit/mL (3 mL) subcutaneous pen (Tresiba FlexTouch U-100 insulin) 80 unit SQ QHS diabetes 10/07/20 [History Last Taken 05/24/23] multivitamin with minerals 1 ea PO DAILY preventative 10/07/20 [History Last Taken 05/24/23] cyclobenzaprine 10 mg tablet 10 mg PO TID PRN Muscle Spasm 02/08/22 [History Last Taken 05/21/23] insulin aspart U-100 100 unit/mL subcutaneous cartridge (Novolog PenFill U-100 Insulin aspart) 35 unit subcut TID diabetes 02/08/22 [History Last Taken 05/25/23 40 unit] colestipol 1 gram tablet 2 g PO DAILY bile 04/05/23 [History Last Taken 05/24/23] levothyroxine 75 mcg tablet 75 mcg PO DAILY hypothyroid 04/05/23 [History Last Taken 05/24/23] metoprolol succinate 50 mg tablet,extended release 24 hr 50 mg PO DAILY htn 04/05/23 [History Last Taken 05/25/23] simvastatin 40 mg tablet 40 mg PO DAILY cholesterol 04/05/23 [History Last Taken 05/24/23] tirzepatide 10 mg/0.5 mL subcutaneous pen injector (Mounjaro) 10 mg subcut QWEEK diabetes 04/05/23 [History Last Taken 05/23/23] doxycycline hyclate 100 mg capsule 100 mg PO BID antibiotic #60 caps 04/07/23 [Rx Last Taken 05/24/23] carbamazepine 200 mg capsule,extended release [id number] 200 mg PO BID mood stabilizer 05/11/23 [History Last Taken 05/24/23] quetiapine 50 mg tablet 50 mg PO TID mood 05/11/23 [History Last Taken 05/24/23] gabapentin 800 mg tablet 800 mg PO mood 05/25/23 [History Last Taken 05/24/23] levothyroxine 200 mcg tablet 200 mcg PO .daily Thyroid 05/25/23 [History Last Taken 05/25/23] lithium carbonate 300 mg capsule 300 mg PO TID mood stabilizer 05/25/23 [History Last Taken 05/24/23] prazosin 1 mg capsule 1 mg PO DAILY night terror 05/25/23 [History Last Taken 05/24/23] cefdinir 300 mg capsule 300 mg PO BID #42 caps 05/29/23 [Rx Last Taken Unknown] docusate sodium 100 mg capsule (Colace) 100 mg PO BID #60 caps 05/29/23 [Rx Last Taken Unknown] oxycodone-acetaminophen 5 mg-325 mg tablet (Percocet) 1 tab PO Q6H PRN pain (scale score 7-10) 7 days #28 tabs 05/29/23 [Rx Last Taken Unknown] morphine 30 mg tablet,extended release (MS Contin) 30 mg PO TID PRN PRN pain 3 days #9 tabs 06/14/23 [Rx Last Taken Unknown] Allergy/AdvReac Type Severity Reaction Status Date / Time etodolac Allergy Swelling Verified 06/13/23 22:06 Iodinated Contrast Media Allergy Hives Verified 06/13/23 22:06 [CONTRASTS] tramadol AdvReac Other Verified 06/13/23 22:06 Family History Other Cancer Surgical History H/O foot surgery History of esophagogastroduodenoscopy (EGD) History of hysteroscopy History of incision and drainage History of salpingo-oophorectomy History of surgery History of tonsillectomy Hx of cholecystectomy Social History Smoking Status: Current every day smoker tobacco type: cigarettes ROS ROS Narrative General: Denies fever but has been feeling like she has chills HENT: Denies headache, denies stuffy nose, denies sore throat EYES: Denies changes in vision Resp: Denies cough, denies shortness of breath Cardiac: Denies chest pain GI: Has discomfort with her abdominal wounds, chronic constipation, chronic intermittent nausea : Has indwelling Arreguin catheter in place Extremity: Feels she has had some swelling in her ankles but thinks it is because she has been dangling her legs MSK: Denies weakness Neuro: Denies any numbness/tingling Heme: Denies any bleeding or bruising Skin: Denies rashes Psychiatric: No complaints voiced Vital Signs Vital Signs Vital Signs: 06/22/23 12:16 06/22/23 15:44 06/22/23 15:45 Temperature 98.7 F 98.3 F Temperature Source Temporal Temporal Pulse Rate 102 H 94 89 Respiratory Rate 18 23 H 19 H Blood Pressure 109/98 H 106/67 106/67 Blood Pressure Mean 101 80 80 Pulse Ox 100 92 93 Oxygen Delivery Method Room Air Room Air 06/22/23 17:05 Temperature Temperature Source Pulse Rate 82 Respiratory Rate 15 Blood Pressure 105/65 Blood Pressure Mean 78 Pulse Ox 92 Oxygen Delivery Method Room Air Weight Weight: 112.264 kg Body Mass Index (BMI) 46.7 Physical Exam Narrative General: Alert, oriented, no apparent distress HEENT: Atraumatic, normocephalic Eyes: Anicteric, normal conjunctiva, extraocular movements grossly intact Neck: Supple Respiratory: Clear to auscultation bilaterally, normal respiratory effort Cardiovascular: Regular rate and rhythm GI: Soft, nondistended, no drainage on dressing over right abdominal wound Extremities: No edema Musculoskeletal: Moving all extremities Neuro: No overt focal neurological deficits Skin: No rashes appreciated, wounds covered Psych: Cooperative Results Lab / Micro Data 06/22/23 12:59 06/22/23 12:59 Labs: Laboratory Results - last 24 hr 06/22/23 12:59: WBC 14.5 H, RBC 4.11 L, Hgb 12.6, Hct 40.8, MCV 99.3 H, MCH 30.7, MCHC 30.9 L, RDW Std Deviation 53.8 H, RDW Coeff of Radha 14.6, Plt Count 247, MPV 10.5, Immature Gran % (Auto) 0.400, Neut % (Auto) 70.2 H, Lymph % (Auto) 20.9, [place] % (Auto) 6.5, Eos % (Auto) 1.6, Baso % (Auto) 0.4, Absolute Neuts (auto) 10.2 H, Absolute Lymphs (auto) 3.04, Nucleated RBC % 0, Sodium 135 L, Potassium 3.8, Chloride 104, Carbon Dioxide 25.0, Anion Gap 6, BUN 7, Creatinine 0.86, Estim Creat Clear Calc 66.27, Est GFR (MDRD) Af Amer 94, Est GFR (MDRD) Non-Af 78, BUN/Creatinine Ratio 8.2 L, Glucose 99, Calcium 8.8, Total Bilirubin 0.50, AST 88 H, ALT 22, Alkaline Phosphatase 90, Total Protein 7.3, Albumin 2.9 L, Globulin 4.4 H, Albumin/Globulin Ratio 0.7 L Radiology Impression Abdomen/Pelvis CT 06/22/23 12:35 IMPRESSION: 3.3 cm x 12.6 cm heterogeneous soft tissue density in the lower anterior abdominal wall subcutaneous tissue with tiny air bubble within it. There is also evidence of increased linear markings in the surrounding subcutaneous fat with overlying skin thickening. Tissue samples recommended. Electronically Signed: Luis Williamson MD at 14:45 EDT , Assessment & Plan Assessment/Plan (1) Abdominal wall abscess: (2) Insulin dependent diabetes mellitus: (3) Hidradenitis suppurativa: PLAN: Plan #Abdominal wound in setting of hidradenitis suppurativa -Status post surgery 05/25/[address] Brennan. Op cultures with Staphylococcus lungdunensis and was being treated with cefdinir and following with wound clinic -Sent after a wound eval to ED due to foul abdominal drainage and to verify it did not connect to her bowel. -CT abdomen pelvis with IV contrast did not show any intra-abdominal but showed shows 3.3 cm x 12.6 cm heterogeneous soft tissue density in the lower anterior abdominal wall subcutaneous tissue with tiny air bubble within it -Wound care, wound cx -Broad spectrum abx -Has elevated white count with left shift but no signs or symptoms of sepsis or severe infection -Plastic surgery consult for nurse practitioner with general surgery available if needed for additional assistance -Patient on gabapentin chronically based on external fill history and has received scripts for morphine and hydromorphone after surgery, not on medication for pain control #Hypothyroidism -Continue Synthroid -TSH was 9.47 last check, will recheck and check free t4 #Type 2 diabetes mellitus -Glucose checks and sliding scale insulin -Continue home insulin while holding any orals including metformin #mood disturbance -Patient has multiple psychiatric medications listed on her home med list however this is yet to be verified -We will need to be completed after medications are verified #Morbid obesity -BMI 46.8 kg/m? -Complicates treatment, prognosis, outcomes -Recommend weight loss and lifestyle changes #Tobacco use -Advise cessation -Patient declined nicotine replacement #DVT ppx: Lovenox subcu Susan Keene MD Time spent in the patient's overall evaluation,decision-making process, review of diagnostic data, adjustment of management, discussion with other providers, nursing nursing and ancillary staff involved in patient's care documentation, 76 minutes Charges/Coding Visit Charges Inpatient E&M: 63614 Init Hosp L3
--- NOTE | 2023-06-22 18:32 | PCM.PN.SRG ---
Subjective Subjective Patient is postop from 05/25/23 from 1. Surgical preparation left vulval area involving mons pubis and left genitocrural crease up to the labia with excision hidradenitis abscess and radical partial vulvectomy including deep subcutaneous tissue. 2. Surgical preparation left inguinal area with excision hidradenitis abscess. 3. Surgical preparation anterior abdominal wall with excisional debridement skin and subcutaneous tissue and fascia for necrotizing hidradenitis abscess. She was seen earlier today at the wound center when she had a copious amount of light brown, odoriferous drainage from her lower abdominal wound. I sent her to the ED for further evaluation and she was admitted. She is complaining of discomfort from her wounds. Objective Data Objective Data Labs and CT reviewed. Vital Signs: Vital Signs Temp Pulse Resp BP Pulse Ox O2 Del Method 98.0 F 80 14 118/69 92 Room Air 06/22/23 17:43 06/22/23 17:43 06/22/23 17:43 06/22/23 17:43 06/22/23 17:43 06/22/23 17:43 Oxygen Delivery Method Room Air Weight: 235 lb Body Mass Index (BMI) 44.4 Intake & Output: Intake and Output for Last 24 Hours 06/20/23 06/21/23 06/22/23 23:59 23:59 23:59 Intake Total 1050 / 1050 Balance 1050 / 1050 Lab / Micro Data 06/22/23 12:59 06/22/23 12:59 Labs: Laboratory Results - last 24 hr 06/22/23 12:59: WBC 14.5 H, RBC 4.11 L, Hgb 12.6, Hct 40.8, MCV 99.3 H, MCH 30.7, MCHC 30.9 L, RDW Std Deviation 53.8 H, RDW Coeff of Radha 14.6, Plt Count 247, MPV 10.5, Immature Gran % (Auto) 0.400, Neut % (Auto) 70.2 H, Lymph % (Auto) 20.9, [place] % (Auto) 6.5, Eos % (Auto) 1.6, Baso % (Auto) 0.4, Absolute Neuts (auto) 10.2 H, Absolute Lymphs (auto) 3.04, Nucleated RBC % 0, Sodium 135 L, Potassium 3.8, Chloride 104, Carbon Dioxide 25.0, Anion Gap 6, BUN 7, Creatinine 0.86, Estim Creat Clear Calc 66.27, Est GFR (MDRD) Af Amer 94, Est GFR (MDRD) Non-Af 78, BUN/Creatinine Ratio 8.2 L, Glucose 99, Calcium 8.8, Total Bilirubin 0.50, AST 88 H, ALT 22, Alkaline Phosphatase 90, Total Protein 7.3, Albumin 2.9 L, Globulin 4.4 H, Albumin/Globulin Ratio 0.7 L Radiography Diagnostic Testing: Radiology Impression Abdomen/Pelvis CT 06/22/23 12:35 IMPRESSION: 3.3 cm x 12.6 cm heterogeneous soft tissue density in the lower anterior abdominal wall subcutaneous tissue with tiny air bubble within it. There is also evidence of increased linear markings in the surrounding subcutaneous fat with overlying skin thickening. Tissue samples recommended. Electronically Signed: Luis Williamson MD at 14:45 EDT , Physical Exam Const alert and oriented x3 General Appearance: cooperative HEENT normocephalic Eyes General Eye: normal appearance of both eyes Resp normal respiratory effort and normal air movement Effort and Inspection: able to speak in complete sentences Cardio regular rate GI soft to palpation Bladder / Kidney Exam: catheter in place Extremity normal capillary refill Skin Wound Narrative: Left inguinal ulcer is stable, beefy pink in color. Lower abdominal ulcer continues to have strong odor from drainage. Irrigated with normal saline until clear (approx 400 ml). Packed tunnel with gauze roll moistened with NS. Covered wound with ABD. Psych mental status grossly normal Assessment & Plan Assessment/Plan (1) Abdominal wall abscess: (2) Hidradenitis suppurativa: (3) DM type 2, goal HbA1c < 7%: (4) Open wound anterior abdominal wall: (5) Smoker: PLAN: Plan Wound culture obtained earlier today while at the wound center. Hospitalist managing antibiotics. She is currently on Zosyn and Vancomycin. Lower abdominal ulcer continues to have strong odor from drainage. Irrigated with normal saline until clear (approx 400 ml). Packed tunnel with gauze roll moistened with NS. Covered wound with ABD. Would like wound care to both ulcer to be Dakins 0.25% moistened gauze covered with ABD daily and PRN. This can be started tomorrow. She currently has a regalado catheter. Would like to see this discontinued tomorrow. She is far enough out from her surgery that she should be able to keep urine from going into her left inguinal/vulval ulcer. She is having increased pain today. She has pain medication ordered. When she is discharged, she will follow up with either Dr. Brennan or myself at the wound healing center. Charges/Coding Procedures Integumentary [id number]: [id number] Global Visit
[2023-06-22] MEDS: oxyCODONE 5 MG Tablet PO (18:54)
--- NOTE | 2023-06-22 19:39 | PCM.RX.CS ---
Consult Type of Intervention Type of Consult: New start Suspected Infection Suspected Infection: Skin/Soft tissue Labs Labs: Sodium 135 mmol/L (136-145) L 06/22/23 12:59 Potassium 3.8 mmol/L (3.5-5.1) 06/22/23 12:59 Chloride 104 mmol/L (98-107) 06/22/23 12:59 Carbon Dioxide 25.0 mmol/L (21.0-32.0) 06/22/23 12:59 Anion Gap 6 (5-15) 06/22/23 12:59 BUN 7 mg/dL (7-18) 06/22/23 12:59 Creatinine 0.86 mg/dL (0.55-1.02) 06/22/23 12:59 Est GFR (MDRD) Af Amer 94 mL/min (>60) 06/22/23 12:59 Est GFR (MDRD) Non-Af 78 mL/min (>60) 06/22/23 12:59 BUN/Creatinine Ratio 8.2 RATIO (10-20) L 06/22/23 12:59 Glucose 99 mg/dL (74-106) 06/22/23 12:59 Goal Trough Goal Trough: 15-20 mcg/mL Pharmacy Plan for Drug Dosing Pharmacy Plan for Drug Dosing: NEW START IV VANCOMYCIN Consulting Physician: Dr. Keene Indication: cellulitis/abscess Goal Trough: 15-20 SrCr: 0.86 CrCl: 98 mL/min (using Adjusted BW) Comments: Initial dose of 1750mg IV x1 ordered and administered in ED 06/22/23 @1704 Vancomycin Dose: 2000mg IV Q12hr to start 06/23/23 @0500 Pending Level: 06/24/23 @0430, prior to 4th total dose of vancomycin per protocol Pharmacy Service will continue to monitor and adjust dosing as required.
[2023-06-22] MEDS: Morphine 2 MG/ML Syringe IV (20:29)
[2023-06-22] MEDS: Enoxaparin 40 MG/0.4 ML Syringe SC (22:07)
[2023-06-22] MEDS: Gabapentin 800 MG Tablet PO (22:08)
[2023-06-22] MEDS: Lithium Carbonate 300mg Capsule 300 MG PO (22:09)
[2023-06-22] MEDS: Pantoprazole Sodium 40 MG Tablet PO (22:09)
[2023-06-22] MEDS: carBAMazepine 200 MG Tablet PO (22:09)
[2023-06-23] VITALS (9 sets, daily range): BP systolic 95–148; BP diastolic 52–105; PULSE 63–82; RESP 16–18; TEMP 36.2–36.7; O2SAT 90–99
[2023-06-23 00:05] LABS: Bedside Glucose 138 mg/dL (74-106)
[2023-06-23] MEDS: oxyCODONE 5 MG Tablet PO ×3 (01:12→16:40)
[2023-06-23] MEDS: Vancomycin HCl 2,000 MG in 0.9% Normal Saline (500mL Bag) 500 ML 250 MG IV ×2 (04:30→18:03)
[2023-06-23 05:47] LABS: Absolute Lymphocyte Count 1.37 X10^3/uL (0.83-4.51); Absolute Neutrophil Count 10.5 X10^3/uL (2.0-7.7); Basophil# 0.01 X10^3/uL; Basophil% 0.1 % (0-1); Hematocrit 36.2 % (37-47); Hemoglobin 11.3 g/dL (12.0-15.0); Lymphocyte # 1.37 X10^3/ul (0.83-4.51); Mean Corp Hgb Conc 31.2 g/dL (32-36); Mean Corpuscular Hgb 30.5 pg (27.0-32.0); Mean Corpuscular Volume 97.8 fL (81-99); Mean Platelet Vol. 10.8 fl (6.2-12.0); Monocyte% 4.8 % (0-10); NRBC Flagged by Analyzer 0 % (0-5); Neutrophil # 10.46 X10^3/uL (2.7-7.7); Neutrophil % 83.7 % (47-70); Platelet Count 254 K/mm3 (150-450); RBC Distribution Width CV 14.1 % (11.6-14.6); RBC Distribution Width SD 50.6 fl (35.1-43.9); White Blood Count 12.5 K/mm3 (4.4-11.0)
[2023-06-23 06:22] LABS: ALB/GLOB Ratio 0.6 RATIO (0.9-2.4); AST(SGOT) 42 U/L (15-37); Alanine Aminotransfer ALT/SGPT 18 U/L (13-56); Albumin, Serum 2.3 g/dL (3.2-5.0); Alkaline Phosphatase 73 U/L (45-117); Anion Gap 5 (5-15); BUN 8 mg/dL (7-18); BUN/Creat Ratio 14.5 RATIO (10-20); Calcium,Total 7.9 mg/dL (8.5-10.1); Chloride 113 mmol/L (98-107); Creatinine, Serum 0.55 mg/dL (0.55-1.02); EST Glomerular Filtration Rate 130 mL/min (>60); Est Glom Filt Rate - Afr Amer 157 mL/min (>60); Estimated Creatinine Clearance 103.63 ml/min; Globulin 3.9 g/dL (2.2-4.2); Glucose 106 mg/dL (74-106); Protein, Total 6.2 g/dL (6.4-8.2); Sodium Level 140 mmol/L (136-145); T4 Free Direct 0.82 ng/dL (0.76-1.46); Thyroid Stim Hormone (TSH) 3.56 uIU/mL (0.358-3.74)
[2023-06-23] MEDS: Gabapentin 800 MG Tablet PO ×3 (06:33→21:36)
[2023-06-23] MEDS: Levothyroxine 100 MCG Tablet 200 MCG PO (06:33)
[2023-06-23] MEDS: Levothyroxine 75 MCG Tablet PO (06:34)
[2023-06-23] MEDS: Piperacil/Tazobactam 3.375 GM in 0.9% Normal Saline (50mL MB+) 50 ML IV ×3 (07:41→21:48)
[2023-06-23] MEDS: Lithium Carbonate 300mg Capsule 300 MG PO ×3 (07:50→16:40)
--- NOTE | 2023-06-23 08:31 | PN.HOSP_ITS ---
Subjective Subjective Doing well, no issues overnight. Abdominal wound is dressed Objective Data Objective Data Vital Signs: Vital Signs Temp Pulse Resp BP Pulse Ox O2 Del Method O2 Flow Rate 97.1 F L 80 16 120/66 94 Room Air 2 06/23/23 08:09 06/23/23 08:09 06/23/23 08:09 06/23/23 08:09 06/23/23 08:09 06/23/23 08:09 06/23/23 07:53 Oxygen Flow Rate (L/min) 2 Oxygen Delivery Method Room Air Weight: 235 lb Body Mass Index (BMI) 44.4 Intake & Output: Intake and Output for Last 24 Hours 06/22/23 06/23/23 06/24/23 03:59 03:59 03:59 Intake Total 3175 / 3175 780 / 780 Output Total 750 / 750 240 / 240 Balance 2425 / 2425 540 / 540 Lab / Micro Data 06/23/23 04:44 06/23/23 04:44 Labs: Laboratory Results - last 24 hr 06/22/23 12:59: WBC 14.5 H, RBC 4.11 L, Hgb 12.6, Hct 40.8, MCV 99.3 H, MCH 30.7, MCHC 30.9 L, RDW Std Deviation 53.8 H, RDW Coeff of Radha 14.6, Plt Count 247, MPV 10.5, Immature Gran % (Auto) 0.400, Neut % (Auto) 70.2 H, Lymph % (Auto) 20.9, [place] % (Auto) 6.5, Eos % (Auto) 1.6, Baso % (Auto) 0.4, Absolute Neuts (auto) 10.2 H, Absolute Lymphs (auto) 3.04, Nucleated RBC % 0, Sodium 135 L, Potassium 3.8, Chloride 104, Carbon Dioxide 25.0, Anion Gap 6, BUN 7, Creatinine 0.86, Estim Creat Clear Calc 66.27, Est GFR (MDRD) Af Amer 94, Est GFR (MDRD) Non-Af 78, BUN/Creatinine Ratio 8.2 L, Glucose 99, Calcium 8.8, Total Bilirubin 0.50, AST 88 H, ALT 22, Alkaline Phosphatase 90, Total Protein 7.3, Albumin 2.9 L, Globulin 4.4 H, Albumin/Globulin Ratio 0.7 L 06/22/23 22:02: POC Glucose 138 H 06/23/23 04:44: WBC 12.5 H, RBC 3.70 L, Hgb 11.3 L, Hct 36.2 L, MCV 97.8, MCH 30.5, MCHC 31.2 L, RDW Std Deviation 50.6 H, RDW Coeff of Radha 14.1, Plt Count 254, MPV 10.8, Immature Gran % (Auto) 0.400, Neut % (Auto) 83.7 H, Lymph % (Auto) 11.0 L, [place] % (Auto) 4.8, Eos % (Auto) 0.0, Baso % (Auto) 0.1, Absolute Neuts (auto) 10.5 H, Absolute Lymphs (auto) 1.37, Nucleated RBC % 0, Sodium 140, Potassium 4.0, Chloride 113 H, Carbon Dioxide 22.0, Anion Gap 5, BUN 8, Creatinine 0.55, Estim Creat Clear Calc 103.63, Est GFR (MDRD) Af Amer 157, Est GFR (MDRD) Non-Af 130, BUN/Creatinine Ratio 14.5, Glucose 106, Calcium 7.9 L, Total Bilirubin 0.30, AST 42 H, ALT 18, Alkaline Phosphatase 73, Total Protein 6.2 L, Albumin 2.3 L, Globulin 3.9, Albumin/Globulin Ratio 0.6 L, TSH 3.56, Free T4 0.82 Radiography Diagnostic Testing: Radiology Impression Abdomen/Pelvis CT 06/22/23 12:35 IMPRESSION: 3.3 cm x 12.6 cm heterogeneous soft tissue density in the lower anterior abdominal wall subcutaneous tissue with tiny air bubble within it. There is also evidence of increased linear markings in the surrounding subcutaneous fat with overlying skin thickening. Tissue samples recommended. Electronically Signed: Luis Williamson MD at 14:45 EDT , Physical Exam Narrative General: Alert, Oriented x3, Cooperative, No apparent distress HEENT: Atraumatic, PERRLA, EOMI, Normocephalic Oral: Moist Mucosa Neck: Supple, No JVD Lungs: Diminished, Normal air movement, No rhonchi, No wheeze, No rales Cardiovascular: Regular rate, Regular Rhythm, Normal S1, Normal S2, No murmurs Abdomen: Soft, abdominal wound is dressed some mild tenderness around the wound, Non-Distended, No Hepato-splenomegaly Extremities: No edema, Capillary Refill Less than 3 Seconds Skin: No rashes, No breakdown Musculoskeletal: No Tenderness to Palpation of Joints or Extremities Neurological: Motor Exam 5/5 strength throughout, Sensory exam intact to light touch and pain Psych/Mental Status: Flat affect Assessment & Plan Assessment/Plan (1) Abdominal wall abscess: (2) Insulin dependent diabetes mellitus: (3) Hidradenitis suppurativa: PLAN: Plan 1. Abdominal wound in setting of hidradenitis suppurativa -Status post surgery 05/25/[address] Brennan. Op cultures with Staphylococcus lungdunensis and was being treated with cefdinir and following with wound clinic -Sent after a wound eval to ED due to foul abdominal drainage and to verify it did not connect to her bowel. -CT abdomen pelvis with IV contrast did not show any intra-abdominal but showed shows 3.3 cm x 12.6 cm heterogeneous soft tissue density in the lower anterior abdominal wall subcutaneous tissue with tiny air bubble within it -Wound care, wound cx -Broad spectrum abx -Has elevated white count with left shift but no signs or symptoms of sepsis or severe infection -Plastic surgery consult for nurse practitioner with general surgery available if needed for additional assistance -Patient on gabapentin chronically based on external fill history and has received scripts for morphine and hydromorphone after surgery, not on medication for pain control 2. Type 2 diabetes mellitus/morbid obesity -Glucose checks and sliding scale insulin -Continue home insulin while holding any orals including metformin ? BMI 46.8, discussed lifestyle modifications ? We will continue to monitor and make adjustments to her insulin as necessary 3. Hypothyroidism -Continue Synthroid -TSH was 9.47 last check, will recheck and check free t4 4. Mood disturbance -Patient has multiple psychiatric medications listed on her home med list however this is yet to be verified -We will need to be completed after medications are verified DVT: Lovenox Charges/Coding Visit Charges Inpatient E&M: 08645 Subs Hosp L2
--- NOTE | 2023-06-23 09:30 | CASEMGMT ---
MALIK CASTRO chart Review: Patient was admitted 05/25-05/28/23 for Hidradenitis Vulva area with partial vulvectomy. See MALIK CASTRO Assessment from 05/26/23. Patient was discharged home with C through [facility], wound vac, and follow-up plans in place. Patient returned to [facility] ED on 06/22/23 for wound check with complaint of wound drainage and foul odor. Patient was admitted for cellulitis and abscess of the ABD. Patient currently on IV ATBs. MALIK CASTRO in to dicuss readmission. Patint states she attended follow-up appointments and taking medications a prescribed. Patient statesshe is still active with [facility]. Patient plans to return home with resumption of HHC through [facility]. CM to send resumption referral to [facility]. CM will continue to follow this patient and plan for a safe discharge. Munira JOINER. MALIK, CM
[2023-06-23] MEDS: Morphine 2 MG/ML Syringe IV ×4 (09:38→22:56)
[2023-06-23] MEDS: Ondansetron 4 MG/2 ML Vial IV (09:43)
[2023-06-23] MEDS: carBAMazepine 200 MG Tablet PO ×2 (09:53→21:37)
[2023-06-23] MEDS: Pantoprazole Sodium 40 MG Tablet PO ×2 (09:54→21:36)
[2023-06-23] MEDS: Enoxaparin 40 MG/0.4 ML Syringe SC ×2 (09:54→21:35)
[2023-06-23] MEDS: Colestipol 1 GM TABLET 2 GM PO (09:54)
--- NOTE | 2023-06-23 09:54 | CASEMGMT ---
Discharge Planning Resumption of SN order sent to [facility] via [facility]. Esther Olivera, Discharge Planning Asst.
[2023-06-23 10:58] LABS: Bedside Glucose 90 mg/dL (74-106)
[2023-06-23] MEDS: DAKIN'S SOL HALF STRENGTH (=0.25%) 1 APPLIC TOPICAL (11:02)
[2023-06-23] MEDS: Senna/Docusate Sodium 1 Tablet 2 TABLET PO (11:37)
[2023-06-23] MEDS: Acetaminophen 325 MG Tablet 650 MG PO ×2 (11:37→22:13)
[2023-06-23 12:01] LABS: Bedside Glucose 85 mg/dL (74-106)
--- NOTE | 2023-06-23 12:54 | WOUNDNOTE ---
wound photo: abdomen
--- NOTE | 2023-06-23 12:55 | WOUNDNOTE ---
wound photo: left vulvar region
--- NOTE | 2023-06-23 12:59 | PN.SURG_ITS ---
Subjective Subjective Postop from 05/25/23. She is resting in bed. She looks more comfortable today although she states she has been having increased pain. Objective Data Objective Data Vital Signs: Vital Signs Temp Pulse Resp BP Pulse Ox O2 Del Method O2 Flow Rate 97.1 F L 80 16 120/66 94 Room Air 2 06/23/23 08:09 06/23/23 08:09 06/23/23 08:09 06/23/23 08:09 06/23/23 08:09 06/23/23 08:09 06/23/23 07:53 Oxygen Flow Rate (L/min) 2 Oxygen Delivery Method Room Air Weight: 235 lb Body Mass Index (BMI) 44.4 Intake & Output: Intake and Output for Last 24 Hours 06/21/23 06/22/23 06/23/23 23:59 23:59 23:59 Intake Total 2885 / 3125 1120 / 1120 Output Total 990 / 990 Balance 2885 / 2375 130 / 130 Lab / Micro Data Attestation: I reviewed the patient's lab results. 06/23/23 04:44 06/23/23 04:44 Labs: Laboratory Results - last 24 hr 06/22/23 12:59: WBC 14.5 H, RBC 4.11 L, Hgb 12.6, Hct 40.8, MCV 99.3 H, MCH 30.7, MCHC 30.9 L, RDW Std Deviation 53.8 H, RDW Coeff of Radha 14.6, Plt Count 247, MPV 10.5, Immature Gran % (Auto) 0.400, Neut % (Auto) 70.2 H, Lymph % (Auto) 20.9, [place] % (Auto) 6.5, Eos % (Auto) 1.6, Baso % (Auto) 0.4, Absolute Neuts (auto) 10.2 H, Absolute Lymphs (auto) 3.04, Nucleated RBC % 0, Sodium 135 L, Potassium 3.8, Chloride 104, Carbon Dioxide 25.0, Anion Gap 6, BUN 7, Creatinine 0.86, Estim Creat Clear Calc 66.27, Est GFR (MDRD) Af Amer 94, Est GFR (MDRD) Non-Af 78, BUN/Creatinine Ratio 8.2 L, Glucose 99, Calcium 8.8, Total Bilirubin 0.50, AST 88 H, ALT 22, Alkaline Phosphatase 90, Total Protein 7.3, Albumin 2.9 L, Globulin 4.4 H, Albumin/Globulin Ratio 0.7 L 06/22/23 22:02: POC Glucose 138 H 06/23/23 04:44: WBC 12.5 H, RBC 3.70 L, Hgb 11.3 L, Hct 36.2 L, MCV 97.8, MCH 30.5, MCHC 31.2 L, RDW Std Deviation 50.6 H, RDW Coeff of Radha 14.1, Plt Count 254, MPV 10.8, Immature Gran % (Auto) 0.400, Neut % (Auto) 83.7 H, Lymph % (Auto) 11.0 L, [place] % (Auto) 4.8, Eos % (Auto) 0.0, Baso % (Auto) 0.1, Absolute Neuts (auto) 10.5 H, Absolute Lymphs (auto) 1.37, Nucleated RBC % 0, Sodium 140, Potassium 4.0, Chloride 113 H, Carbon Dioxide 22.0, Anion Gap 5, BUN 8, Creatinine 0.55, Estim Creat Clear Calc 103.63, Est GFR (MDRD) Af Amer 157, Est GFR (MDRD) Non-Af 130, BUN/Creatinine Ratio 14.5, Glucose 106, Calcium 7.9 L, Total Bilirubin 0.30, AST 42 H, ALT 18, Alkaline Phosphatase 73, Total Protein 6.2 L, Albumin 2.3 L, Globulin 3.9, Albumin/Globulin Ratio 0.6 L, TSH 3.56, Free T4 0.82 06/23/23 07:47: POC Glucose 90 06/23/23 11:31: POC Glucose 85 Micro: Microbiology 06/22/23 11:40 Wound Drainage - Abdominal Gram Stain - Final Radiography Diagnostic Testing: Radiology Impression Abdomen/Pelvis CT 06/22/23 12:35 IMPRESSION: 3.3 cm x 12.6 cm heterogeneous soft tissue density in the lower anterior abdominal wall subcutaneous tissue with tiny air bubble within it. There is also evidence of increased linear markings in the surrounding subcutaneous fat with overlying skin thickening. Tissue samples recommended. Electronically Signed: Luis Williamson MD at 14:45 EDT , Physical Exam Const alert and oriented x3 General Appearance: cooperative HEENT normocephalic Eyes General Eye: normal appearance of both eyes Resp normal respiratory effort and normal air movement Effort and Inspection: able to speak in complete sentences Cardio regular rate GI soft to palpation Bladder / Kidney Exam: catheter in place Extremity normal capillary refill Skin Wound Narrative: Left inguinal ulcer is stable, beefy pink in color. Lower abdominal ulcer beefy pink. Drainage from the tunnel area no longer has a strong odor. She tolerated her Dakin's 0.25% dressing change. Neuro oriented x3 and moves all extremities Psych mental status grossly normal Assessment & Plan Assessment/Plan (1) Abdominal wall abscess: (2) Insulin dependent diabetes mellitus: (3) Hidradenitis suppurativa: (4) Open wound anterior abdominal wall: (5) Open wound of vulva with complication: (6) Non-healing open wound of left groin: PLAN: Plan Wound culture obtained yesterday and is pending. Hospitalist managing antibiotics. She is currently on Zosyn and Vancomycin. Lower abdominal ulcer no longer has a strong odor and drainage is serosanguineous. She tolerated Dakins 0.25% moistened gauze covered with ABD daily and PRN. She currently has a regalado catheter. Discussed discontinuing the regalado with her and she is very agreeable. Will discontinue it today. When she is discharged, she will follow up with either Dr. Brennan or myself at the wound healing center. Charges/Coding Procedures Integumentary [id number]: [id number] Global Visit
[2023-06-23] MEDS: Juven (unflavored) Packet 1 PACKET PO (16:40)
[2023-06-23 17:09] LABS: Bedside Glucose 80 mg/dL (74-106)
[2023-06-23 23:00] LABS: Bedside Glucose 77 mg/dL (74-106)
[2023-06-23] MEDS: 0.9% Saline Lock 10 ML Syringe IV (23:08)
[2023-06-24 03:55] VITALS: BP 111/59; PULSE 72; RESP 12; TEMP 36.6; O2SAT 95
[2023-06-24] MEDS: Morphine 2 MG/ML Syringe IV ×2 (04:11→08:27)
[2023-06-24 04:19] VITALS: O2SAT 89
[2023-06-24 04:21] VITALS: O2SAT 92
[2023-06-24 04:42] LABS: Absolute Lymphocyte Count 3.72 X10^3/uL (0.83-4.51); Absolute Neutrophil Count 5.6 X10^3/uL (2.0-7.7); Basophil# 0.06 X10^3/uL; Basophil% 0.6 % (0-1); Eosinophil# 0.16 X10^3/uL; Eosinophils% 1.6 % (0-5); Hematocrit 34.9 % (37-47); Hemoglobin 11.1 g/dL (12.0-15.0); Lymphocyte # 3.72 X10^3/ul (0.83-4.51); Lymphocyte % 36.3 % (19-41); Mean Corp Hgb Conc 31.8 g/dL (32-36); Mean Corpuscular Hgb 31.3 pg (27.0-32.0); Mean Corpuscular Volume 98.3 fL (81-99); Mean Platelet Vol. 10.1 fl (6.2-12.0); Monocyte# 0.69 X10^3/uL; Monocyte% 6.7 % (0-10); NRBC Flagged by Analyzer 0 % (0-5); Neutrophil # 5.61 X10^3/uL (2.7-7.7); Neutrophil % 54.6 % (47-70); Platelet Count 248 K/mm3 (150-450); RBC Distribution Width CV 14.4 % (11.6-14.6); Red Blood Count 3.55 M/mm3 (4.2-5.4); White Blood Count 10.3 K/mm3 (4.4-11.0)
[2023-06-24 05:02] LABS: Vancomycin, Trough Level 21.5 ug/mL (5.0-15.0)
[2023-06-24] MEDS: Piperacil/Tazobactam 3.375 GM in 0.9% Normal Saline (50mL MB+) 50 ML IV (05:11)
[2023-06-24] MEDS: Levothyroxine 75 MCG Tablet PO (05:12)
[2023-06-24] MEDS: Levothyroxine 100 MCG Tablet 200 MCG PO (05:12)
[2023-06-24] MEDS: Gabapentin 800 MG Tablet PO (05:12)
[2023-06-24 05:20] LABS: Anion Gap 4 (5-15); BUN 14 mg/dL (7-18); BUN/Creat Ratio 16.4 RATIO (10-20); Calcium,Total 8.2 mg/dL (8.5-10.1); Chloride 115 mmol/L (98-107); Creatinine, Serum 0.85 mg/dL (0.55-1.02); EST Glomerular Filtration Rate 78 mL/min (>60); Est Glom Filt Rate - Afr Amer 95 mL/min (>60); Estimated Creatinine Clearance 67.05 ml/min; Glucose 84 mg/dL (74-106); Potassium 3.8 mmol/L (3.5-5.1); Sodium Level 143 mmol/L (136-145)
--- NOTE | 2023-06-24 05:25 | PCM.RX.CS ---
Consult Antibiotic Management Pharmacy has been consulted to manage selected antiobiotic: Vancomycin Type of Intervention Type of Consult: Follow-up Suspected Infection Suspected Infection: Skin/Soft tissue Labs Labs: Sodium 143 mmol/L (136-145) 06/24/23 04:30 Potassium 3.8 mmol/L (3.5-5.1) 06/24/23 04:30 Chloride 115 mmol/L (98-107) H 06/24/23 04:30 Carbon Dioxide 24.0 mmol/L (21.0-32.0) 06/24/23 04:30 Anion Gap 4 (5-15) L 06/24/23 04:30 BUN 14 mg/dL (7-18) 06/24/23 04:30 Creatinine 0.85 mg/dL (0.55-1.02) 06/24/23 04:30 Est GFR (MDRD) Af Amer 95 mL/min (>60) 06/24/23 04:30 Est GFR (MDRD) Non-Af 78 mL/min (>60) 06/24/23 04:30 BUN/Creatinine Ratio 16.4 RATIO (10-20) 06/24/23 04:30 Glucose 84 mg/dL (74-106) 06/24/23 04:30 Vancomycin Trough 21.5 ug/mL (5.0-15.0) H 06/24/23 04:30 Microbiology Microbiology: Microbiology 06/22/23 11:40 Wound Drainage - Abdominal Gram Stain - Final Dosing Weight Weight used for dosin kg Estimated Creatinine Clearance Estimated Creatinine Clearance: 100 Pharmacy Plan for Drug Dosing Pharmacy Plan for Drug Dosing: Vancomycin trough level of 21.5 was above the target range of 15-20. Current dosing was held, and a random vanco level will be drawn in 12 hours to determine further dosing. Pharmacy Service will continue to monitor and adjust dosing as required. Follow-Up Labs Follow-Up Labs: Trough: Vancomycin (random) Date/Time Labs Ordered Labs to be done on [date and time ordered]: 06/24/23 @1630 random
[2023-06-24] MEDS: 0.9% Saline Lock 10 ML Syringe IV ×2 (05:38→08:26)
[2023-06-24 05:45] VITALS: BP 123/56
[2023-06-24] MEDS: oxyCODONE 5 MG Tablet PO (05:47)
[2023-06-24] MEDS: Juven (unflavored) Packet 1 PACKET PO (08:25)
[2023-06-24 08:39] LABS: Bedside Glucose 78 mg/dL (74-106)
[2023-06-24] MEDS: carBAMazepine 200 MG Tablet PO (08:45)
[2023-06-24] MEDS: Colestipol 1 GM TABLET 2 GM PO (08:46)
[2023-06-24] MEDS: Lithium Carbonate 300mg Capsule 300 MG PO (08:46)
[2023-06-24] MEDS: Pantoprazole Sodium 40 MG Tablet PO (08:46)
[2023-06-24] MEDS: DAKIN'S SOL HALF STRENGTH (=0.25%) 1 APPLIC TOPICAL (08:47)
[2023-06-24] MEDS: Enoxaparin 40 MG/0.4 ML Syringe SC (08:47)
--- NOTE | 2023-06-24 08:52 | DCINST_ITS ---
Discharge Instructions Diet Discharge Diet: Carb Control Diet Activity Discharge Activity: Return to Normal Activity Dressing / Incision Call your doctor if you observe: Fever of 101 or Higher, Shortness of breath, Dizziness, Fainting spells, Swelling in the ankles, Chest pain and Increased palpitations (irregular heartbeat) Follow Up Care Test Results: Test results from this visit will be discussed in further detail at your follow- up appointment, if applicable. Discharge Plan Admission Admit Date/Time: 06/22/23 16:51 Attending Provider: Rakan Melendez Primary Care Provider: Mack Hart Consulting Providers: Zeina Méndez DIESEL LOCOMOTIVE FIRER; Susan Keene Discharge Orders/Prescriptions Prescriptions: Continued Mounjaro 10 mg/0.5 mL pen injector 10 mg subcut QWEEK metoprolol succinate 50 mg tablet extended release 24 hr 50 mg PO DAILY simvastatin 40 mg tablet 40 mg PO DAILY colestipol 1 gram tablet 2 g PO DAILY levothyroxine 75 mcg tablet 75 mcg PO DAILY Patient Comments: Takes 275mcg total doxycycline hyclate 100 mg capsule 100 mg PO BID Qty: 60 1RF Hold Instructions: Resume on 06/29/23. Rx Instructions: take only when there is a flare up prochlorperazine maleate [Compazine] 10 MG tablet 10 mg PO Q6H PRN (Reason: Nausea) metformin 500 MG tablet 1,000 mg PO BID pantoprazole [Protonix] 40 MG tablet 40 mg PO BID cholecalciferol (vitamin D3) 1,000 UNIT tablet 1,000 unit PO DAILY ondansetron 4 MG tablet 8 mg PO BID multivitamin with minerals 1 EACH tablet 1 ea PO DAILY fenofibrate 160 MG tablet 160 mg PO DAILY insulin degludec [Tresiba FlexTouch U-100] 100 UNIT/ML insulin pen 80 unit SQ QHS cyclobenzaprine 10 mg Tablet 10 mg PO TID PRN (Reason: Muscle Spasm) insulin aspart U-100 [Novolog PenFill U-100 Insulin] 100 unit/mL Cartridge 35 unit SUBCUT TID carbamazepine 200 mg capsule, ER multiphase 12 hr 200 mg PO BID quetiapine 50 mg tablet 50 mg PO TID lithium carbonate 300 mg capsule 300 mg PO TID prazosin 1 mg capsule 1 mg PO DAILY gabapentin 800 mg tablet 800 mg PO Patient Comments: 800 mg two times daily 1200 at bedtime levothyroxine 200 mcg tablet 200 mcg PO .daily Patient Comments: takes 275mcg total daily cefdinir 300 mg capsule 300 mg PO BID Qty: 42 1RF docusate sodium [Colace] 100 mg capsule 100 mg PO BID Qty: 60 1RF morphine [MS Contin] 30 mg tablet extended release 30 mg PO TID PRN PRN (Reason: pain) 3 Days Qty: 9 0RF Referrals / Follow Up: Mack Hart MD [Primary Care Provider] - Within 1 Week Zeina Méndez NP, [employer]ER-C [Med Staff - Adv Practice Prof] - Within 1 Week Disposition Disposition (needs filled in before D/C Order can be placed): Home, Self Care
--- NOTE | 2023-06-24 09:25 | WOUNDNOTE ---
Called and talked with wound center. patient has appt on Tuesday, Jun 27 at 3pm with PHIL Pastrana. pt aware and will place on discharge paperwork.
--- NOTE | 2023-06-24 10:26 | CASEMGMT ---
RN MATTHEW received script for wound supplies. Discharge planning director notified of discharge and to send information to [facility]. RN CM in to discuss discharge needs with patient. Patient denies needs at discharge. Patient had no further questions or concerns at this time.
[2023-06-24 10:32] VITALS: BP 111/59; PULSE 72; RESP 12; TEMP 36.6; O2SAT 95
--- NOTE | 2023-06-24 10:39 | CASEMGMT ---
Discharge Planning Discharge instructions, wound supply script, and discharge date sent to [facility] via [facility]. Esther Olivera, Discharge Planning Asst.
--- NOTE | 2023-06-24 11:31 | DS.PCM_ITS ---
Providers Date of Admission: 06/22/23 Primary Care Physician: Dr. Mack Hart MD Consultations 06/22/23 18:43 Consult: Onc/Wound/carton stamper Routine Comment: Reason for Consult:: Abdominal wounds Consult: Plastic Surgery Routine Consulting Provider: Zeina Méndez NP Reason for Consult: abdominal wound EMERGENT Consult: No MD Notified: Yes Date Notified: 06/22/23 Time Notified: 17:27 Method of Notification: ED Physician Initiated Reason For Visit: ABDOMINAL WOUND Diagnosis Discharge Diagnosis (1) Abdominal wall abscess: Status: Chronic Code(s): L02.211 - Cutaneous abscess of abdominal wall (2) Insulin dependent diabetes mellitus: Status: Acute (3) Hidradenitis suppurativa: Status: Chronic Code(s): L73.2 - Hidradenitis suppurativa (4) Open wound anterior abdominal wall: Status: Acute Code(s): S31.109A - Unspecified open wound of abdominal wall, unspecified quadrant without penetration into peritoneal cavity, initial encounter (5) Open wound of vulva with complication: Status: Chronic Code(s): S31.40XA - Unspecified open wound of vagina and vulva, initial encounter (6) Non-healing open wound of left groin: Status: Chronic Code(s): S31.104A - Unspecified open wound of abdominal wall, left lower quadrant without penetration into peritoneal cavity, initial encounter Medications at Discharge Home Medications prochlorperazine maleate 10 mg tablet (Compazine) 10 mg PO Q6H PRN Nausea 06/27/19 cholecalciferol (vitamin D3) 25 mcg (1,000 unit) tablet 1,000 unit PO DAILY vitamin 03/14/20 metformin 500 mg tablet 1,000 mg PO BID diabetes 03/14/20 ondansetron 4 mg disintegrating tablet 8 mg PO BID nausea 03/14/20 pantoprazole 40 mg tablet,delayed release (Protonix) 40 mg PO BID gerd 03/14/20 fenofibrate 160 mg tablet 160 mg PO DAILY o 10/07/20 insulin degludec 100 unit/mL (3 mL) subcutaneous pen (Tresiba FlexTouch U-100 insulin) 80 unit SQ QHS diabetes 10/07/20 multivitamin with minerals 1 ea PO DAILY preventative 10/07/20 cyclobenzaprine 10 mg tablet 10 mg PO TID PRN Muscle Spasm 02/08/22 insulin aspart U-100 100 unit/mL subcutaneous cartridge (Novolog PenFill U-100 Insulin aspart) 35 unit subcut TID diabetes 02/08/22 colestipol 1 gram tablet 2 g PO DAILY bile 04/05/23 levothyroxine 75 mcg tablet 75 mcg PO DAILY hypothyroid 04/05/23 metoprolol succinate 50 mg tablet,extended release 24 hr 50 mg PO DAILY htn 04/05/23 simvastatin 40 mg tablet 40 mg PO DAILY cholesterol 04/05/23 tirzepatide 10 mg/0.5 mL subcutaneous pen injector (Mounjaro) 10 mg subcut QWEEK diabetes 04/05/23 doxycycline hyclate 100 mg capsule 100 mg PO BID antibiotic #60 caps 04/07/23 carbamazepine 200 mg capsule,extended release [id number] 200 mg PO BID mood stabilizer 05/11/23 quetiapine 50 mg tablet 50 mg PO TID mood 05/11/23 gabapentin 800 mg tablet 800 mg PO mood 05/25/23 levothyroxine 200 mcg tablet 200 mcg PO .daily Thyroid 05/25/23 lithium carbonate 300 mg capsule 300 mg PO TID mood stabilizer 05/25/23 prazosin 1 mg capsule 1 mg PO DAILY night terror 05/25/23 cefdinir 300 mg capsule 300 mg PO BID #42 caps 05/29/23 docusate sodium 100 mg capsule (Colace) 100 mg PO BID #60 caps 05/29/23 morphine 30 mg tablet,extended release (MS Contin) 30 mg PO TID PRN PRN pain 3 days #9 tabs 06/14/23 Hospital Course Operations None Procedures None Summary of Care Provided Minutes Spent on Discharge: 36 Hospital Course: Per HPI: MAYA OTT, is a 37-year-old female history of type 2 diabetes mellitus, hidradenitis suppurativa, tobacco use, hypothyroidism who presented to [facility] 06/22/2023 for an open ventral wound. She had surgery on May [address] Brennan for her right lower abdominal wound and has been following with the wound clinic since that time. There was concern with the wound clinic that the wound was worsening and plastic surgery consulted and they voiced concern that there could be extension and recommended patient go to the hospital. In the ED white blood cell count 14.5 and lab work otherwise unremarkable, CT abdomen pelvis with IV contrast did not show any intra- abdominal but showed shows3.3 cm x 12.6 cm heterogeneous soft tissue density in the lower anterior abdominal wall subcutaneous tissue with tiny air bubble within it. Nurse practitioner from Dr. Brennan's office, Eda Méndez, was contacted in the ED and stated she would come irrigate and pack this per ED physician. Given Dr. Brennan is on vacation Dr. Morel contacted and is willing to be contacted if needed for assistance. It was recommended patient be admitted for IV antibiotics and wound cultures. Patient evaluated at bedside an d reports that she has not had a temperature noted but has been feeling chills, has also been nauseated though this to some extent is chronic. Has noted a foul smell but she is not sure if it is from her left-sided groin wound or her right abdominal wound. Reports that she uses a wound VAC and feels her drainage has been decreasing because now she can change every couple of days and she reports she still uses a wound VAC routinely on that right side of her abdomen. She presently has a Arreguin catheter that has been present since her surgery and denies any complaints with this. Has no other complaints at this time Hospital Course: 1. Abdominal wall wound in the setting of hidradenitis suppurativa?37-year-old female had surgery on 05/25/[address] Brennan for hidradenitis suppurativa and also had an abdominal wall wound for debridement. 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 She presented to the wound clinic and was sent into the ER and it was found that she had a fluid collection in the area where it appeared that the wound VAC was not being placed and so she had a small abscess formation. This was opened at bedside and packing was placed. She did well with the procedure and is feeling much better. Wound culture did demonstrate an E. coli that was pansensitive significance is unclear as per the surgical report there is no entry into the abdominal cavity therefore having a fistula is not possible. We will continue with the cefdinir and doxycycline on discharge and have her follow-up with the wound care center to continue with wet-to-dry dressing changes. Appreciate plastic surgery's assistance on her care and they will schedule outpatient follow-up. Of note she did have a postoperative Arreguin that was placed that was removed prior to discharge today and she is urinating on her own. I do recommend outpatient follow-up with her PCP in 3 to 5 days. 2. Type 2 diabetes, morbid obesity, hypothyroidism, mood disturbance are all chronic medical conditions which complicate her care. Her home medications were continued where appropriate Physical Exam Narrative General: Alert, Oriented x3, Cooperative, No apparent distress HEENT: Atraumatic, PERRLA, EOMI, Normocephalic Oral: Moist Mucosa Neck: Supple, No JVD Lungs: Diminished, Normal air movement, No rhonchi, No wheeze, No rales Cardiovascular: Regular rate, Regular Rhythm, Normal S1, Normal S2, No murmurs Abdomen: Soft, abdominal wound is dressed some mild tenderness around the wound, Non-Distended, No Hepato-splenomegaly Extremities: No edema, Capillary Refill Less than 3 Seconds Skin: No rashes, No breakdown Musculoskeletal: No Tenderness to Palpation of Joints or Extremities Neurological: Motor Exam 5/5 strength throughout, Sensory exam intact to light touch and pain Psych/Mental Status: Flat affect Weight / BMI Weight Weight: 234 lb 15.992 oz Body Mass Index (BMI) 44.4 ABG / Lab / Microbiology Data 06/24/23 04:30 06/24/23 04:30 Laboratory: Laboratory Results - last 24 hr 06/23/23 11:31: POC Glucose 85 06/23/23 16:33: POC Glucose 80 06/23/23 21:29: POC Glucose 77 06/24/23 04:30: WBC 10.3, RBC 3.55 L, Hgb 11.1 L, Hct 34.9 L, MCV 98.3, MCH 31.3, MCHC 31.8 L, RDW Std Deviation 52.0 H, RDW Coeff of Radha 14.4, Plt Count 248, MPV 10.1, Immature Gran % (Auto) 0.200, Neut % (Auto) 54.6, Lymph % (Auto) 36.3, [place] % (Auto) 6.7, Eos % (Auto) 1.6, Baso % (Auto) 0.6, Absolute Neuts (auto) 5.6, Absolute Lymphs (auto) 3.72, Nucleated RBC % 0, Sodium 143, Potassium 3.8, Chloride 115 H, Carbon Dioxide 24.0, Anion Gap 4 L, BUN 14, Creatinine 0.85, Estim Creat Clear Calc 67.05, Est GFR (MDRD) Af Amer 95, Est GFR (MDRD) Non-Af 78, BUN/Creatinine Ratio 16.4, Glucose 84, Calcium 8.2 L, Vancomycin Trough 21.5 H 06/24/23 08:16: POC Glucose 78 Microbiology: Microbiology 06/22/23 11:40 Wound Drainage - Abdominal Gram Stain - Final 06/22/23 11:40 Wound Drainage - Abdominal Wound Culture - Final Presumptive E. coli D/C Instructions Discharge Diet: Carb Control Diet Call your doctor if you observe: Fever of 101 or Higher, Shortness of breath, D izziness, Fainting spells, Swelling in the ankles, Chest pain and Increased palpitations (irregular heartbeat) Meaningful Use Info Meaningful Use Diagnoses (Choose all that apply): None applicable Discharge Plan Admission Admit Date/Time: 06/22/23 17:17 Attending Provider: Rakan Melendez Primary Care Provider: Mack Hart Consulting Providers: Zeina Méndez CAR RESTORER; Susan Keene Discharge Orders/Prescriptions Prescriptions: Continued Mounjaro 10 mg/0.5 mL pen injector 10 mg subcut QWEEK metoprolol succinate 50 mg tablet extended release 24 hr 50 mg PO DAILY simvastatin 40 mg tablet 40 mg PO DAILY colestipol 1 gram tablet 2 g PO DAILY levothyroxine 75 mcg tablet 75 mcg PO DAILY Patient Comments: Takes 275mcg total doxycycline hyclate 100 mg capsule 100 mg PO BID Qty: 60 1RF Hold Instructions: Resume on 06/29/23. Rx Instructions: take only when there is a flare up prochlorperazine maleate [Compazine] 10 MG tablet 10 mg PO Q6H PRN (Reason: Nausea) metformin 500 MG tablet 1,000 mg PO BID pantoprazole [Protonix] 40 MG tablet 40 mg PO BID cholecalciferol (vitamin D3) 1,000 UNIT tablet 1,000 unit PO DAILY ondansetron 4 MG tablet 8 mg PO BID multivitamin with minerals 1 EACH tablet 1 ea PO DAILY fenofibrate 160 MG tablet 160 mg PO DAILY insulin degludec [Tresiba FlexTouch U-100] 100 UNIT/ML insulin pen 80 unit SQ QHS cyclobenzaprine 10 mg Tablet 10 mg PO TID PRN (Reason: Muscle Spasm) insulin aspart U-100 [Novolog PenFill U-100 Insulin] 100 unit/mL Cartridge 35 unit SUBCUT TID carbamazepine 200 mg capsule, ER multiphase 12 hr 200 mg PO BID quetiapine 50 mg tablet 50 mg PO TID lithium carbonate 300 mg capsule 300 mg PO TID prazosin 1 mg capsule 1 mg PO DAILY gabapentin 800 mg tablet 800 mg PO Patient Comments: 800 mg two times daily 1200 at bedtime levothyroxine 200 mcg tablet 200 mcg PO .daily Patient Comments: takes 275mcg total daily cefdinir 300 mg capsule 300 mg PO BID Qty: 42 1RF docusate sodium [Colace] 100 mg capsule 100 mg PO BID Qty: 60 1RF morphine [MS Contin] 30 mg tablet extended release 30 mg PO TID PRN PRN (Reason: pain) 3 Days Qty: 9 0RF Referrals / Follow Up: Mack Hart MD [Primary Care Provider] - Within 1 Week Zeina Méndez NP, CAR RESTORER-C [Med Staff - Adv Practice Prof] - 06/27/23 3:00 pm (wound center) Disposition Disposition (needs filled in before D/C Order can be placed): Home, Self Care Charges/Coding Visit Charges Inpatient E&M: 74315 Disch Hosp >30min
== END 2023-06-24 11:56 | disposition home or self-care (01) | DRG 603 ==
LOC: ED 16:40 → PCU 06-23 07:04
PROVIDERS: Admitting Provider Internal Medicine; Emergency Provider Student in an Organized Health Care Education/Training Program; PCP Family Medicine; Visit Provider Family Medicine
DX: L02.211 Cutaneous abscess of abdominal wall (principal); N76.4 Abscess of vulva; Z68.42 Body mass index [BMI] 45.0-49.9, adult; F25.9 Schizoaffective disorder, unspecified; E11.65 Type 2 diabetes mellitus with hyperglycemia; E66.01 Morbid (severe) obesity due to excess calories; E03.9 Hypothyroidism, unspecified; Z79.4 Long term (current) use of insulin; L98.492 Non-pressure chronic ulcer of skin of other sites with fat layer exposed; L73.2 Hidradenitis suppurativa; E78.00 Pure hypercholesterolemia, unspecified; F17.210 Nicotine dependence, cigarettes, uncomplicated; S31.40XA Unspecified open wound of vagina and vulva, initial encounter; S31.104A Unspecified open wound of abdominal wall, left lower quadrant without penetration into peritoneal cavity, initial encounter; M79.89 Other specified soft tissue disorders; Z91.041 Radiographic dye allergy status; Z79.84 Long term (current) use of oral hypoglycemic drugs; Z79.890 Hormone replacement therapy; Z79.899 Other long term (current) drug therapy; L02.214 Cutaneous abscess of groin; G89.18 Other acute postprocedural pain
CPT/HCPCS: 11042; 11045; 36415; 74177; 80048; 80053; 80202; 82962; 84439; 84443; 85025; 87070; 87075; 87077; 87086; 87186; 87205; 99284; 99406; J7030; J7040; Q9967; A4216; J2405

== ENCOUNTER 2023-06-27 15:00 | Outpatient (RCR) | payer MEDICARE, MEDICAID, SELFPAY ==
[2023-06-10 00:42] VITALS: BP 149/88; PULSE 88; RESP 20; TEMP 36.4; BMI 47.2
[2023-06-22 11:09] VITALS: BP 144/87; PULSE 192; RESP 20; TEMP 36.3; BMI 47.2
--- NOTE | 2023-06-22 13:19 | PCM.WC.PN ---
History of Present Illness Date of Service: 06/22/23 Chief Complaint: Left groin wound and lower abdominal wound History of Wound: 37 year old female with a 7 month history of hidradenitis suppurativa in her vulval area involving the mons pubis. She had an I&D once in the doctor's office. She has pain in her mons pubis. She denies fever. She denies trauma. She just finished antibiotics, Keflex and Bactrim. Patient has diabetes mellitus. Her last HgbA1c according to the patient is 7.3 few months ago at [facility] Surgery on 05/25/23 1. Surgical preparation left vulval area involving mons pubis and left genitocrural crease up to the labia with excision hidradenitis abscess and radical partial vulvectomy including deep subcutaneous tissue. 2. Surgical preparation left inguinal area with excision hidradenitis abscess. 3. Surgical preparation anterior abdominal wall with excisional debridement skin and subcutaneous tissue and fascia for necrotizing hidradenitis abscess. Operative cultures - Staphylococcus lugdunensis. She is being treated wt Cefdinir. Wound care - Wound VAC to the lower abdominal area and Dakins 0.25% moistened gauze to the left vulval area. Progress of Wound: Left vulval wound is not as painful. It is a nice beefy pink color, it has decreased in size and depth. The lower abdominal wound is smaller but there is a tunnel around 9 o'clock. When probing with a cotton swab applicator to measure the depth, there was a copious amount of light brown, thick, odoriferous drainage that smelled like stool. Clinically do not think that it connects to the bowel, but will send her to the ED for further evaluation. She is denying fever, chills, nausea and vomiting. She is having increased pain in her abdominal wound. Objective Data Objective Data Vital Signs: Vital Signs Temp Pulse Resp BP 97.3 F L 192 H 20 H 144/87 H 06/22/23 11:06/22/23 11:06/22/23 11:06/22/23 11:09 Weight: 250 lb 2.49 oz Body Mass Index (BMI) 47.2 Charges/Coding Procedures Integumentary 111xxx-113xx: [id number] Global Visit Debridement Note Debridement Note Wound debrided: Lower abdominal wound Laterality: Not Applicable Type of Debridement: Excisional debridement Anesthesia Used: 4% Lidocaine Solution and 5% Lidocaine Gel Depth: Down to and including healthy tissue and in the subcutaneous layer Percentage of wound debrided: 100 Instrument Used: 7mm curette Tissue Removed: Non viable tissue and slough Severity: Fat Layer Exposed Amount of bleeding with debridement: Mild Bleeding Controlled with: Pressure and Compression and gauze Patient tolerated procedure: Patient tolerated procedure well Debridement Free Text: Copious amount of light brown drainage with strong odor. Minimal blood present. 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 ) Arrival Mode Ambulatory Transfer Assistance None Patient Identification Verified (Name & Yes ) Finger Stick Blood Sugar(mg/dl) (if 115 indicated): Blood Sugar Stated by Patient Height and Weight Body Mass Index (BMI) 47.2 BMI Classification Obese Vital Signs Temperature (97.8 F-99.1 F) 97.3 F L Temperature Source Temporal Pulse Rate (60-100) 192 H Pulse Location Monitor Respiratory Rate (12-18) 20 H Respiratory rate source Observation Blood Pressure (90/60-120/80) 144/87 H Blood Pressure Mean (mm Hg) 106 Source Monitor History Since Last Visit- (Skip if this is Patient's initial visit) Have you changed medications since your No last visit? Any new allergies or adverse reactions No Had a fall/change in ADL's that may No increase risk of falls Signs or symptoms of abuse and/or No neglect since last visit Have you been in the hospital since your No last visit? Has dressing in place as prescribed Yes Has compression in place as prescribed N/A Has offloadiing in place as prescribed N/A Experienced any changes in pain level or No management Pain Scale: 0-10 Numeric Is Patient Pain Free? Yes - Nurse 1 - General Ulcer Measurement Start: 06/22/23 11:09 Freq: Status: Active Protocol: Activity Type Activity Date Activity User E-sign Co-sign Detail Recorded Client Recorded Date Recorded By Document 06/22/23 11:09 DL [id number] 06/22/23 11:17 DL 06/22/23 11:09 Wound Center Nurse 1 #2 L Groin -Current Size (cm) - Length 7 -Current Size (cm) - Width 6 -Current Size (cm) - Depth 0.3 -Total Square Cm 42 -Exudate Amt Medium -Exudate Type Serosanguineous -Wound Margin Distinct, Outline Attached -Granulation Amt Large (67-100%) -Granulation Quality Red -Necrosis Amt Small (1-33%) -Necrotic Tissue Type Adherent Slough -Structure Exposed N/A -Texture ([place]-wound Skin Appearance) Scarring -Moisture ([place]-wound Skin Appearance) No Abnormality -Color ([place]-wound Skin Appearance) No Abnormality -Temperature ([place]-wound Skin No Abnormality Appearance) (Pt Warm) -Tenderness on Palpation ([place]-wound No Skin Appearance) -Ulcer Cleansing Soap and Water -Foul Odor after Cleansing No -Anesthetic Used 4% Lidocaine Solution #1 Lower Abd -Current Size (cm) - Length 1.8 -Current Size (cm) - Width 13.7 -Current Size (cm) - Depth 1.6 -Total Square Cm 24.66 -Exudate Amt Medium -Exudate Type Serosanguineous -Wound Margin Distinct, Outline Attached -Granulation Quality Pale,Red -Necrosis Amt Small (1-33%) -Necrotic Tissue Type Eschar -Structure Exposed N/A -Texture ([place]-wound Skin Appearance) Scarring -Moisture ([place]-wound Skin Appearance) No Abnormality -Color ([place]-wound Skin Appearance) No Abnormality -Temperature ([place]-wound Skin No Abnormality Appearance) (Pt Warm) -Tenderness on Palpation ([place]-wound No Skin Appearance) -Ulcer Cleansing Soap and Water -Foul Odor after Cleansing No -Anesthetic Used 4% Lidocaine Solution WC - Nurse 2 - General Ulcer CM Notes Start: 06/22/23 11:09 Freq: Status: Active Protocol: Activity Type Activity Date Activity User E-sign Co-sign Detail Recorded Client Recorded Date Recorded By Document 06/22/23 11:24 ROMAN [id number] 06/22/23 11:46 ROMAN 06/22/23 11:24 Wound Center Nurse 2 #2 L Groin -Time 11:28 -Correct Patient Yes -Correct Side, Site, Position Yes -Correct Procedure Yes -Procedure Performed Yes -Type of Procedure Debridement -Clinical Debridement Subcutaneous -Tissue Removed Subcutaneous -Post Debridement (cm) - Length 6.0 -Post Debridement (cm) - Width 6.0 -Post Debridement (cm) - Depth 0.3 -Total Square (Post) (cm) 36.00 -Area of Debridement (cm) - Length 6.0 -Area of Debridement (cm) - Width 6.0 -Total Square (Area) (cm) 36.00 -Tunneling No -Undermining/Tunneling No -Circular Undermining No -Wound/Ulcer Outcome Not Healed -Ulcer Cleansing Rinsed/ Irrigated with Saline -Foul Odor after Cleansing No -Bleeding Controlled with Pressure -Treatment Response Procedure Tolerated Well -Offloading No -Debridement - Subq, 1st 20sq cm No #1 Lower Abd -Time 11:45 -Correct Patient Yes -Correct Side, Site, Position Yes -Correct Procedure Yes -Procedure Performed Yes -Type of Procedure Debridement -Clinical Debridement Subcutaneous -Tissue Removed Subcutaneous -Post Debridement (cm) - Length 2.0 -Post Debridement (cm) - Width 14.4 -Post Debridement (cm) - Depth 0.2 -Total Square (Post) (cm) 28.80 -Area of Debridement (cm) - Length 2.0 -Area of Debridement (cm) - Width 14.4 -Total Square (Area) (cm) 28.80 -Tunneling Yes -Tunneling Position (O'clock) 9 -Tunneling Distance (cm) 8.4 -Undermining/Tunneling No -Circular Undermining No -Wound/Ulcer Outcome Not Healed -Ulcer Cleansing Rinsed/ Irrigated with Saline -Foul Odor after Cleansing No -Bioengineered Tissue No -Bleeding Controlled with Pressure -Treatment Response Procedure Tolerated Well -Offloading No -Debridement - Subq, 1st 20sq cm Yes -Debridement, SubQ, ea addt'l 20sq cm 3 or part thereof Pain Scale: 0-10 Numeric Is Patient Pain Free? Yes WC - Nurse 3 - General Ulcer D/C NN Start: 06/22/23 11:09 Freq: Status: Active Protocol: Activity Type Activity Date Activity User E-sign Co-sign Detail Recorded Client Recorded Date Recorded By Document 06/22/23 11:51 [id number] 06/22/23 11:52 ROMAN 06/22/23 11:51 Wound Care Center Nurse 3 #2 L Groin -Ulcer Cleansing Soap and Water -Foul Odor after Cleansing No -Other Dressing dakins -Primary Dressing Covered/Secured with Dry Gauze,Dry Gauze & Roll Gauze,Secured with Tape #1 Lower Abd -Ulcer Cleansing Soap and Water -Foul Odor after Cleansing No -Other Dressing dakins -Primary Dressing Covered/Secured with Dry Gauze & Roll Gauze, Secured with Tape Treatment Response Procedure Tolerated Well Pain Scale: 0-10 Numeric Is Patient Pain Free? Yes WC - Visit Discharge Discharge Condition Stable Ambulatory Status Ambulatory Transportation Private Auto Notes: Pt sent to ER today. Facility Type Home Health Orders Sent Yes Additional Wound Wound debrided: vulva/mons pubis/genitocrural crease up to labia Laterality: Left Wound Grade/Stage: Stage III Type of Debridement: Excisional debridement Anesthesia Used: 5% Lidocaine Gel Depth: Down to and including healthy tissue and in the subcutaneous layer Percentage of wound debrided: 100 Instrument Used: 7mm curette Tissue Removed: Devitalized tissue and slough Severity: Fat Layer Exposed Amount of bleeding with debridement: Mild Bleeding Controlled with: Pressure and Compression and gauze Patient tolerated procedure: Patient tolerated procedure well Assessment/Plan Assessment/Plan (1) Open wound anterior abdominal wall: CODE(S): S31.109A - Unspecified open wound of abdominal wall, unspecified quadrant without penetration into peritoneal cavity, initial encounter (2) Open wound of vulva with complication: CODE(S): S31.40XA - Unspecified open wound of vagina and vulva, initial encounter (3) Non-healing open wound of left groin: CODE(S): S31.104A - Unspecified open wound of abdominal wall, left lower quadrant without penetration into peritoneal cavity, initial encounter (4) Other acute postprocedural pain: CODE(S): G89.18 - Other acute postprocedural pain (5) DM type 2, goal HbA1c < 7%: CODE(S): E11.9 - Type 2 diabetes mellitus without complications (6) Necrotizing soft tissue infection: CODE(S): M79.89 - Other specified soft tissue disorders (7) Abdominal wall abscess: CODE(S): L02.211 - Cutaneous abscess of abdominal wall (8) Hidradenitis suppurativa: CODE(S): L73.2 - Hidradenitis suppurativa (9) Abscess of vulva: CODE(S): N76.4 - Abscess of vulva (10) Abscess of groin, left: CODE(S): L02.214 - Cutaneous abscess of groin (11) Hemoglobin A1c between 7.0% and 9.0%: CODE(S): R73.9 - Hyperglycemia, unspecified (12) Insulin dependent diabetes mellitus: (13) Smoker: CODE(S): F17.200 - Nicotine dependence, unspecified, uncomplicated (14) Vulval hidradenitis suppurativa: CODE(S): L73.2 - Hidradenitis suppurativa PLAN: Plan Patient evaluated at the wound healing center today. Due to the amount of drainage from her lower abdominal wound, will transfer her to the ED for further evaluation. I obtained a wound culture and will send it to the ED with her so they can send it to the lab. I phoned the ED and spoke with Dr. Wolfe to discuss my concerns. I also talked with Dr. Brennan (who is on vacation at this time) and agrees with sending her to the ED for further evaluation. Patient is afebrile. Clinically I believe that her wound VAC was not properly packed and it created a pocket for fluid to collect, but will know more after she is seen in the ED. Packed both ulcers with Dakins 0.25% moistened gauze and covered with ABD. Hold wound VAC to abdomen at this time. She continues to have a regalado catheter. That can be discontinued with her next home health visit. She is to continue Cefdinir for her positive operative culture. Follow up one week. *06/22/[id number] Ballard in the ED. Discussed CT results that show 3.3 x 12.6 cm heterogeneous soft tissue density in the lower anterior abdominal wall subcutaneous tissue with tiny air bubble within it. There is also evidence of increased linear markings in the surrounding subcutaneous fat with overlying skin thickening. Dr. Ballard states that she can not be admitted without surgery back up. With Dr. Brennan being out of town, I discussed this case with Dr. Bee who is operator weapon locating radar for [employer]. She suggested irrigating the wound and making sure that the tunnel does not close by backing. She states that it is more of a general surgery issue, therefore I called Dr. Morel who is operator weapon locating radar with general surgery and discussed this case and the CT results with her and she agrees that irrigating the pocket and keeping the tunnel open would be sufficient, along with IV antibiotics. I then was able to get in touch with Dr. Brennan and he states he would like her admitted for IV antibiotics and good wound care. I discussed this with Dr. Ballard and he stated that he would discuss with Dr. Morel. I will plan on irrigating her wound. I do know that she has a Dakin's moistened gauze in place from the wound center.
[2023-06-27 15:13] VITALS: BP 129/77; PULSE 94; RESP 20; TEMP 36.3; BMI 47.2
--- NOTE | 2023-06-27 16:08 | PN.PCM_ITS ---
History of Present Illness Date of Service: 06/27/23 Chief Complaint: Left groin wound and lower abdominal wound History of Wound: 37 year old female with a 7 month history of hidradenitis suppurativa in her vulval area involving the mons pubis. She had an I&D once in the doctor's office. She has pain in her mons pubis. She denies fever. She denies trauma. She just finished antibiotics, Keflex and Bactrim. Patient has diabetes mellitus. Her last HgbA1c according to the patient is 7.3 few months ago at [facility] Surgery on 05/25/23 1. Surgical preparation left vulval area involving mons pubis and left genitocrural crease up to the labia with excision hidradenitis abscess and radical partial vulvectomy including deep subcutaneous tissue. 2. Surgical preparation left inguinal area with excision hidradenitis abscess. 3. Surgical preparation anterior abdominal wall with excisional debridement skin and subcutaneous tissue and fascia for necrotizing hidradenitis abscess. Operative cultures - Staphylococcus lugdunensis. She is being treated wt Cefdinir. Wound care - Wound VAC to the lower abdominal area and Dakins 0.25% moistened gauze to the left vulval area. Progress of Wound: Left vulval wound is not as painful. It is a nice beefy pink color, it has decreased in size and depth. The lower abdominal wound is smaller but there is a tunnel around 9 o'clock. Since her hospitalization, there is no longer any purulent drainage or odor. Ulcer is nice pink color, tunnel is slightly smaller, serosanguineous drainage present with no odor. Objective Data Objective Data Vital Signs: Vital Signs Temp Pulse Resp BP 97.4 F L 94 20 H 129/77 H 06/27/23 15:13 06/27/23 15:13 06/27/23 15:13 06/27/23 15:13 Weight: 250 lb 2.49 oz Body Mass Index (BMI) 47.2 Charges/Coding Procedures Integumentary 111xxx-113xx: [id number] Global Visit Debridement Note Debridement Note Wound debrided: Lower abdominal wound Laterality: Not Applicable Type of Debridement: Excisional debridement Anesthesia Used: 4% Lidocaine Solution and 5% Lidocaine Gel Depth: Down to and including healthy tissue and in the subcutaneous layer Percentage of wound debrided: 100 Instrument Used: 5mm curette Tissue Removed: Non viable tissue and slough Severity: Fat Layer Exposed Amount of bleeding with debridement: Mild Bleeding Controlled with: Pressure and Compression and gauze Patient tolerated procedure: Patient tolerated procedure well Post-Debridement Measurements and Additional Note: Post-Debridement Measurements/Treatment CRISPIN - Nurse 1 - General Ulcer Assessment Start: 06/22/23 11:09 Freq: Status: Active Protocol: LAWSON Activity Type Activity Date Activity User E-sign Co-sign Detail Recorded Client Recorded Date Recorded By Document 06/22/23 11:09 DL [id number] 06/22/23 11:17 DL Document 06/27/23 15:13 DL Desktop 06/27/23 15:25 DL 06/22/23 06/27/23 11:09 15:13 WC - Today's Visit Information Type of service Follow-up Visit Follow-up Visit (Physician/PRODUCE BUYER (Physician/PRODUCE BUYER ) ) Arrival Mode Ambulatory Ambulatory, Walker Transfer Assistance None None Patient Identification Verified (Name & Yes Yes ) Patient Requires Transmission-Based No Precautions Finger Stick Blood Sugar(mg/dl) (if 115 110 indicated): Blood Sugar Stated by Stated by Patient Patient Height and Weight Body Mass Index (BMI) 47.2 47.2 BMI Classification Obese Obese Vital Signs Temperature (97.8 F-99.1 F) 97.3 F L 97.4 F L Temperature Source Temporal Temporal Pulse Rate (60-100) 192 H 94 Pulse Location Monitor Monitor Respiratory Rate (12-18) 20 H 20 H Respiratory rate source Observation Observation Blood Pressure (90/60-120/80) 144/87 H 129/77 H Blood Pressure Mean (mm Hg) 106 94 Source Monitor Monitor History Since Last Visit- (Skip if this is Patient's initial visit) Have you changed medications since your No No last visit? Any new allergies or adverse reactions No No Had a fall/change in ADL's that may No No increase risk of falls Signs or symptoms of abuse and/or No No neglect since last visit Have you been in the hospital since your No No last visit? Has dressing in place as prescribed Yes Yes Has compression in place as prescribed N/A N/A Has offloadiing in place as prescribed N/A N/A Experienced any changes in pain level or No management Pain Scale: 0-10 Numeric Is Patient Pain Free? Yes Yes CRISPIN - Nurse 1 - General Ulcer Measurement Start: 06/22/23 11:09 Freq: Status: Active Protocol: Activity Type Activity Date Activity User E-sign Co-sign Detail Recorded Client Recorded Date Recorded By Document 06/22/23 11:09 DL [id number] 06/22/23 11:17 DL Document 06/27/23 15:13 DL Desktop 06/27/23 15:25 DL 06/22/23 06/27/23 11:09 15:13 Wound Center Nurse 1 #2 L Groin -Current Size (cm) - Length 7 7 -Current Size (cm) - Width 6 5 -Current Size (cm) - Depth 0.3 0.3 -Total Square Cm 42 35 -Exudate Amt Medium Medium -Exudate Type Serosanguineous Serosanguineous -Wound Margin Distinct, Distinct, Outline Outline Attached Attached -Granulation Amt Large (67-100%) -Granulation Quality Red Red -Necrosis Amt Small (1-33%) Small (1-33%) -Necrotic Tissue Type Adherent Slough Adherent Slough -Structure Exposed N/A N/A -Texture ([place]-wound Skin Appearance) Scarring Scarring -Moisture ([place]-wound Skin Appearance) No Abnormality No Abnormality -Color ([place]-wound Skin Appearance) No Abnormality No Abnormality -Temperature ([place]-wound Skin No Abnormality No Abnormality Appearance) (Pt Warm) (Pt Warm) -Tenderness on Palpation ([place]-wound No Skin Appearance) -Ulcer Cleansing Soap and Water Soap and Water -Foul Odor after Cleansing No No -Anesthetic Used 4% Lidocaine 4% Lidocaine Solution Solution #1 Lower Abd -Current Size (cm) - Length 1.8 1.3 -Current Size (cm) - Width 13.7 11.2 -Current Size (cm) - Depth 1.6 1 -Total Square Cm 24.66 14.56 -Tunneling Position (O'clock) 11 -Tunneling Distance (cm) 8 -Exudate Amt Medium Medium -Exudate Type Serosanguineous -Wound Margin Distinct, Distinct, Outline Outline Attached Attached -Granulation Amt Large (67-100%) -Granulation Quality Pale,Red Red -Necrosis Amt Small (1-33%) Small (1-33%) -Necrotic Tissue Type Eschar Adherent Slough -Structure Exposed N/A N/A -Texture ([place]-wound Skin Appearance) Scarring Scarring -Moisture ([place]-wound Skin Appearance) No Abnormality No Abnormality -Color ([place]-wound Skin Appearance) No Abnormality No Abnormality -Temperature ([place]-wound Skin No Abnormality No Abnormality Appearance) (Pt Warm) (Pt Warm) -Tenderness on Palpation ([place]-wound No No Skin Appearance) -Ulcer Cleansing Soap and Water Soap and Water -Foul Odor after Cleansing No No -Anesthetic Used 4% Lidocaine 4% Lidocaine Solution Solution WC - Nurse 2 - General Ulcer CM Notes Start: 06/22/23 11:09 Freq: Status: Active Protocol: Activity Type Activity Date Activity User E-sign Co-sign Detail Recorded Client Recorded Date Recorded By Document 06/22/23 11:24 [id number] 06/22/23 11:46 Document 06/27/23 15:55 Desktop 06/27/23 16:02 06/22/23 06/27/23 11:24 15:55 Wound Center Nurse 2 #2 L Groin -Time 11:28 15:55 -Correct Patient Yes Yes -Correct Side, Site, Position Yes Yes -Correct Procedure Yes Yes -Procedure Performed Yes Yes -Type of Procedure Debridement Debridement -Clinical Debridement Subcutaneous Subcutaneous -Tissue Removed Subcutaneous Subcutaneous -Post Debridement (cm) - Length 6.0 6.0 -Post Debridement (cm) - Width 6.0 5.0 -Post Debridement (cm) - Depth 0.3 0.2 -Total Square (Post) (cm) 36.00 30.00 -Area of Debridement (cm) - Length 6.0 6.0 -Area of Debridement (cm) - Width 6.0 5.0 -Total Square (Area) (cm) 36.00 30.00 -Tunneling No No -Undermining/Tunneling No No -Circular Undermining No No -Wound/Ulcer Outcome Not Healed Not Healed -Ulcer Cleansing Rinsed/ Rinsed/ Irrigated with Irrigated with Saline Saline -Foul Odor after Cleansing No No -Bioengineered Tissue No -Bleeding Controlled with Pressure Pressure -Treatment Response Procedure Procedure Tolerated Well Tolerated Well -Offloading No No -Debridement - Subq, 1st 20sq cm No No #1 Lower Abd -Time 11:45 15:56 -Correct Patient Yes Yes -Correct Side, Site, Position Yes Yes -Correct Procedure Yes Yes -Procedure Performed Yes Yes -Type of Procedure Debridement Debridement -Clinical Debridement Subcutaneous Subcutaneous -Tissue Removed Subcutaneous Subcutaneous -Post Debridement (cm) - Length 2.0 1.7 -Post Debridement (cm) - Width 14.4 12.5 -Post Debridement (cm) - Depth 0.2 0.3 -Total Square (Post) (cm) 28.80 21.25 -Area of Debridement (cm) - Length 2.0 1.7 -Area of Debridement (cm) - Width 14.4 12.5 -Total Square (Area) (cm) 28.80 21.25 -Tunneling Yes Yes -Tunneling Position (O'clock) 9 9 -Tunneling Distance (cm) 8.4 8.0 -Undermining/Tunneling No No -Circular Undermining No No -Wound/Ulcer Outcome Not Healed Not Healed -Ulcer Cleansing Rinsed/ Rinsed/ Irrigated with Irrigated with Saline Saline -Foul Odor after Cleansing No No -Bioengineered Tissue No No -Bleeding Controlled with Pressure Pressure -Treatment Response Procedure Procedure Tolerated Well Tolerated Well -Offloading No No -Debridement - Subq, 1st 20sq cm Yes Yes -Debridement, SubQ, ea addt'l 20sq cm 3 2 or part thereof Pain Scale: 0-10 Numeric Is Patient Pain Free? Yes Yes - Nurse 3 - General Ulcer D/C NN Start: 06/22/23 11:09 Freq: Status: Active Protocol: Activity Type Activity Date Activity User E-sign Co-sign Detail Recorded Client Recorded Date Recorded By Document 06/22/23 11:51 [id number] 06/22/23 11:52 06/22/23 11:51 Wound Care Center Nurse 3 #2 L Groin -Ulcer Cleansing Soap and Water -Foul Odor after Cleansing No -Other Dressing dakins -Primary Dressing Covered/Secured with Dry Gauze,Dry Gauze & Roll Gauze,Secured with Tape #1 Lower Abd -Ulcer Cleansing Soap and Water -Foul Odor after Cleansing No -Other Dressing dakins -Primary Dressing Covered/Secured with Dry Gauze & Roll Gauze, Secured with Tape Treatment Response Procedure Tolerated Well Pain Scale: 0-10 Numeric Is Patient Pain Free? Yes - Visit Discharge Discharge Condition Stable Ambulatory Status Ambulatory Transportation Private Auto Notes: Pt sent to ER today. Facility Type Home Health Orders Sent Yes Additional Wound Wound debrided: vulva/mons pubis/genitocrural crease up to labia Laterality: Left Wound Grade/Stage: Stage III Type of Debridement: Excisional debridement Anesthesia Used: 5% Lidocaine Gel Depth: Down to and including healthy tissue and in the subcutaneous layer Percentage of wound debrided: 100 Instrument Used: 7mm curette Tissue Removed: Devitalized tissue and slough Severity: Fat Layer Exposed Amount of bleeding with debridement: Mild Bleeding Controlled with: Pressure and Compression and gauze Patient tolerated procedure: Patient tolerated procedure well Assessment/Plan Assessment/Plan (1) Open wound anterior abdominal wall: CODE(S): S31.109A - Unspecified open wound of abdominal wall, unspecified quadrant without penetration into peritoneal cavity, initial encounter (2) Open wound of vulva with complication: CODE(S): S31.40XA - Unspecified open wound of vagina and vulva, initial encounter (3) Non-healing open wound of left groin: CODE(S): S31.104A - Unspecified open wound of abdominal wall, left lower quadrant without penetration into peritoneal cavity, initial encounter (4) Other acute postprocedural pain: CODE(S): G89.18 - Other acute postprocedural pain (5) DM type 2, goal HbA1c < 7%: CODE(S): E11.9 - Type 2 diabetes mellitus without complications (6) Necrotizing soft tissue infection: CODE(S): M79.89 - Other specified soft tissue disorders (7) Abdominal wall abscess: CODE(S): L02.211 - Cutaneous abscess of abdominal wall (8) Hidradenitis suppurativa: CODE(S): L73.2 - Hidradenitis suppurativa (9) Abscess of vulva: CODE(S): N76.4 - Abscess of vulva (10) Abscess of groin, left: CODE(S): L02.214 - Cutaneous abscess of groin (11) Hemoglobin A1c between 7.0% and 9.0%: CODE(S): R73.9 - Hyperglycemia, unspecified (12) Insulin dependent diabetes mellitus: (13) Smoker: CODE(S): F17.200 - Nicotine dependence, unspecified, uncomplicated (14) Vulval hidradenitis suppurativa: CODE(S): L73.2 - Hidradenitis suppurativa PLAN: Plan Patient evaluated at the wound healing center today. Wound care - Packed both ulcers with Dakins 0.25% moistened gauze and covered with ABD. Discontinuing wound VAC. Wound culture from 06/22/23 was positive for E.coli, Prevotella bivia, and Anaerobic cocci. Will stop the Doxycycline that she has been on since her disc harge from the hospital and start her on Augmentin. She is having issues with pain control since her hospitalization. Prescribed Dilaudid 2 mg every 8 hours prn for pain. Follow up one week.
== END 2023-07-09 23:59 | disposition home or self-care (01) ==
LOC: WC 15:00
PROVIDERS: PCP Family Medicine; Referring Provider Surgery; Visit Provider Nurse Practitioner Family
DX: L98.492 Non-pressure chronic ulcer of skin of other sites with fat layer exposed (principal); E11.65 Type 2 diabetes mellitus with hyperglycemia; Z79.4 Long term (current) use of insulin; L02.211 Cutaneous abscess of abdominal wall; L02.214 Cutaneous abscess of groin; L73.2 Hidradenitis suppurativa; N76.4 Abscess of vulva; G89.18 Other acute postprocedural pain; F17.200 Nicotine dependence, unspecified, uncomplicated; S31.104A Unspecified open wound of abdominal wall, left lower quadrant without penetration into peritoneal cavity, initial encounter; S31.40XA Unspecified open wound of vagina and vulva, initial encounter; S31.109A Unspecified open wound of abdominal wall, unspecified quadrant without penetration into peritoneal cavity, initial encounter; M79.89 Other specified soft tissue disorders; B95.7 Other staphylococcus as the cause of diseases classified elsewhere
CPT/HCPCS: 11042; 11045

== ENCOUNTER 2023-08-08 10:30 | Outpatient (RCR) | payer MEDICARE, MEDICAID, SELFPAY ==
[2023-07-10 00:25] VITALS: BP 129/77; PULSE 94; RESP 20; TEMP 36.3; BMI 47.2
[2023-07-11 10:54] VITALS: BP 127/73; PULSE 92; RESP 16; TEMP 36.1; BMI 47.2
--- NOTE | 2023-07-11 12:52 | PCM.WC.PN ---
History of Present Illness Date of Service: 07/11/23 Chief Complaint: Left groin wound and lower abdominal wound History of Wound: 37 year old female with a 7 month history of hidradenitis suppurativa in her vulval area involving the mons pubis. She had an I&D once in the doctor's office. She has pain in her mons pubis. She denies fever. She denies trauma. She just finished antibiotics, Keflex and Bactrim. Patient has diabetes mellitus. Her last HgbA1c according to the patient is 7.3 few months ago at [facility] Surgery on 05/25/23 1. Surgical preparation left vulval area involving mons pubis and left genitocrural crease up to the labia with excision hidradenitis abscess and radical partial vulvectomy including deep subcutaneous tissue. 2. Surgical preparation left inguinal area with excision hidradenitis abscess. 3. Surgical preparation anterior abdominal wall with excisional debridement skin and subcutaneous tissue and fascia for necrotizing hidradenitis abscess. Operative cultures - Staphylococcus lugdunensis. She is being treated wt Cefdinir. Wound care - Wound VAC to the lower abdominal area and Dakins 0.25% moistened gauze to the left vulval area. Progress of Wound: Left vulval wound is not quite as painful. It is a nice beefy pink color, it is smaller in size. The lower abdominal wound is smaller there still is a tunnel around 9 o'clock and it is getting smaller. Objective Data Objective Data Vital Signs: Vital Signs Temp Pulse Resp BP O2 Del Method 96.9 F L 92 16 127/73 H Room Air 07/11/23 10:54 07/11/23 10:54 07/11/23 10:54 07/11/23 10:54 07/11/23 10:54 Oxygen Delivery Method Room Air Weight: 250 lb 2.49 oz Body Mass Index (BMI) 47.2 Charges/Coding Procedures Integumentary 111xxx-113xx: [id number] Global Visit Debridement Note Debridement Note Wound debrided: Lower abdominal wound Laterality: Not Applicable Type of Debridement: Excisional debridement Anesthesia Used: 4% Lidocaine Solution and 5% Lidocaine Gel Depth: Down to and including healthy tissue and in the subcutaneous layer Percentage of wound debrided: 100 Instrument Used: 5mm curette Tissue Removed: Non viable tissue and slough Severity: Fat Layer Exposed Amount of bleeding with debridement: Mild Bleeding Controlled with: Pressure and Compression and gauze Patient tolerated procedure: Patient tolerated procedure well Post-Debridement Measurements and Additional Note: Post-Debridement Measurements/Treatment - Nurse 1 - General Ulcer Assessment Start: 07/11/23 10:54 Freq: Status: Active Protocol: [facility] Activity Type Activity Date Activity User E-sign Co-sign Detail Recorded Client Recorded Date Recorded By Document 07/11/23 10:54 [facility] Desktop 07/11/23 11:04 [facility] 07/11/23 10:54 WC - Today's Visit Information Type of service Follow-up Visit (Physician/[employer] REPAIRER ) Arrival Mode Ambulatory Transfer Assistance None Accompanied by mother Patient Identification Verified (Name & Yes ) Patient Requires Transmission-Based No Precautions Height and Weight Body Mass Index (BMI) 47.2 BMI Classification Obese Vital Signs Temperature (97.8 F-99.1 F) 96.9 F L Temperature Source Temporal Pulse Rate (60-100) 92 Pulse Location Monitor Respiratory Rate (12-18) 16 Respiratory rate source Observation Oxygen Delivery Method Room Air Blood Pressure (90/60-120/80) 127/73 H Blood Pressure Mean (mm Hg) 91 Source Monitor Position Sitting Blood Pressure Location Right Arm History Since Last Visit- (Skip if this is Patient's initial visit) Have you changed medications since your No last visit? Any new allergies or adverse reactions No Had a fall/change in ADL's that may No increase risk of falls Signs or symptoms of abuse and/or No neglect since last visit Have you been in the hospital since your No last visit? Has dressing in place as prescribed Yes Has compression in place as prescribed N/A Has offloadiing in place as prescribed N/A Experienced any changes in pain level or No management Left Footwear Regular Shoe Right Footwear Regular Shoe Pain Scale: 0-10 Numeric Is Patient Pain Free? Yes - Nurse 1 - General Ulcer Measurement Start: 07/11/23 10:54 Freq: Status: Active Protocol: Activity Type Activity Date Activity User E-sign Co-sign Detail Recorded Client Recorded Date Recorded By Document 07/11/23 10:54 [facility] [employer] 07/11/23 11:04 [facility] 07/11/23 10:54 Wound Center Nurse 1 #2 L Groin -Combined with other wound No -Current Size (cm) - Length 5.3 -Current Size (cm) - Width 3 -Current Size (cm) - Depth 0.1 -Total Square Cm 15.9 -Photo Taken No -Epithelialization Small 1-33% -Tunneling No -Undermining/Tunneling No -Circular Undermining No -Exudate Amt Medium -Exudate Type Serosanguineous -Wound Margin Distinct, Outline Attached -Granulation Amt Large (67-100%) -Granulation Quality Red -Slough/Fibrin No -Necrosis Amt None Present (0 %) -Texture (Zenobia-wound Skin Appearance) Assessed, Scarring -Moisture (Zenobia-wound Skin Appearance) Assessed -Color ([place]-wound Skin Appearance) Assessed -Temperature ([place]-wound Skin No Abnormality Appearance) (Pt Warm) -Tenderness on Palpation ([place]-wound No Skin Appearance) -Ulcer Cleansing Soap and Water -Foul Odor after Cleansing No -Anesthetic Used 4% Lidocaine Solution #1 Lower Abd -Combined with other wound No -Current Size (cm) - Length 0.2 -Current Size (cm) - Width 1.1 -Current Size (cm) - Depth 3.5 -Total Square Cm 0.22 -Photo Taken No -Epithelialization Small 1-33% -Exudate Amt Small -Exudate Type Serosanguineous -Wound Margin Distinct, Outline Attached -Texture (Zenobia-wound Skin Appearance) Assessed, Scarring -Moisture (Zenobia-wound Skin Appearance) Assessed -Color ([place]enobia-wound Skin Appearance) Assessed -Temperature (Zenobia-wound Skin No Abnormality Appearance) (Pt Warm) -Tenderness on Palpation (Zenobia-wound No Skin Appearance) -Ulcer Cleansing Soap and Water -Foul Odor after Cleansing No -Anesthetic Used 4% Lidocaine Solution WC - Nurse 2 - General Ulcer CM Notes Start: 07/11/23 10:54 Freq: Status: Active Protocol: Activity Type Activity Date Activity User E-sign Co-sign Detail Recorded Client Recorded Date Recorded By Document 07/11/23 11:19 Laptop 07/11/23 11:23 07/11/23 11:19 Wound Center Nurse 2 #2 L Groin -Time 11:19 -Correct Patient Yes -Correct Side, Site, Position Yes -Correct Procedure Yes -Procedure Performed Yes -Type of Procedure Debridement -Clinical Debridement Subcutaneous -Tissue Removed Subcutaneous -Post Debridement (cm) - Length 3.5 -Post Debridement (cm) - Width 3.0 -Post Debridement (cm) - Depth 0.2 -Total Square (Post) (cm) 10.50 -Area of Debridement (cm) - Length 3.5 -Area of Debridement (cm) - Width 3.0 -Total Square (Area) (cm) 10.50 -Tunneling No -Undermining/Tunneling No -Circular Undermining No -Wound/Ulcer Outcome Not Healed -Ulcer Cleansing Rinsed/ Irrigated with Saline -Foul Odor after Cleansing No -Bioengineered Tissue No -Bleeding Controlled with Pressure -Treatment Response Procedure Tolerated Well -Offloading No -Debridement - Subq, 1st 20sq cm No #1 Lower Abd -Time 11:19 -Correct Patient Yes -Correct Side, Site, Position Yes -Correct Procedure Yes -Procedure Performed Yes -Type of Procedure Debridement -Clinical Debridement Subcutaneous -Tissue Removed Subcutaneous -Post Debridement (cm) - Length 0.5 -Post Debridement (cm) - Width 1.1 -Post Debridement (cm) - Depth 3.5 -Total Square (Post) (cm) 0.55 -Area of Debridement (cm) - Length 0.5 -Area of Debridement (cm) - Width 1.1 -Total Square (Area) (cm) 0.55 -Tunneling No -Undermining/Tunneling No -Circular Undermining No -Wound/Ulcer Outcome Not Healed -Ulcer Cleansing Rinsed/ Irrigated with Saline -Foul Odor after Cleansing No -Bioengineered Tissue No -Bleeding Controlled with Pressure -Treatment Response Procedure Tolerated Well -Offloading No -Debridement - Subq, 1st 20sq cm Yes Pain Scale: 0-10 Numeric Is Patient Pain Free? Yes WC - Nurse 3 - General Ulcer D/C NN Start: 07/11/23 10:54 Freq: Status: Active Protocol: Activity Type Activity Date Activity User E-sign Co-sign Detail Recorded Client Recorded Date Recorded By Document 07/11/23 11:55 PL Tablet 07/11/23 11:57 PL 07/11/23 11:55 Wound Care Center Nurse 3 #2 L Groin -Ulcer Cleansing Rinsed/ Irrigated with Saline -Foul Odor after Cleansing No -Primary Dressing Applied Aquacel AG 4x4 -Other Dressing ABD -Primary Dressing Covered/Secured with Secured with Tape -Aquacel AG 4x4 1 #1 Lower Abd -Ulcer Cleansing Rinsed/ Irrigated with Saline -Foul Odor after Cleansing No -Primary Dressing Applied Nugauze, Iodoform 1/2in -Other Dressing ABD -Primary Dressing Covered/Secured with Secured with Tape -Nugauze, Iodoform 1/2in 1 Pain Scale: 0-10 Numeric Is Patient Pain Free? Yes WC - Visit Discharge Discharge Condition Stable Ambulatory Status Ambulatory Additional Wound Wound debrided: vulva/mons pubis/genitocrural crease up to labia Laterality: Left Wound Grade/Stage: Stage III Type of Debridement: Excisional debridement Anesthesia Used: 5% Lidocaine Gel Depth: Down to and including healthy tissue and in the subcutaneous layer Percentage of wound debrided: 100 Instrument Used: 5mm curette Tissue Removed: Devitalized tissue and slough Severity: Fat Layer Exposed Amount of bleeding with debridement: Mild Bleeding Controlled with: Pressure and Compression and gauze Patient tolerated procedure: Patient tolerated procedure well Assessment/Plan Assessment/Plan (1) Open wound anterior abdominal wall: CODE(S): S31.109A - Unspecified open wound of abdominal wall, unspecified quadrant without penetration into peritoneal cavity, initial encounter (2) Open wound of vulva with complication: CODE(S): S31.40XA - Unspecified open wound of vagina and vulva, initial encounter (3) Non-healing open wound of left groin: CODE(S): S31.104A - Unspecified open wound of abdominal wall, left lower quadrant without penetration into peritoneal cavity, initial encounter (4) Other acute postprocedural pain: CODE(S): G89.18 - Other acute postprocedural pain (5) DM type 2, goal HbA1c < 7%: CODE(S): E11.9 - Type 2 diabetes mellitus without complications (6) Necrotizing soft tissue infection: CODE(S): M79.89 - Other specified soft tissue disorders (7) Abdominal wall abscess: CODE(S): L02.211 - Cutaneous abscess of abdominal wall (8) Hidradenitis suppurativa: CODE(S): L73.2 - Hidradenitis suppurativa (9) Abscess of vulva: CODE(S): N76.4 - Abscess of vulva (10) Abscess of groin, left: CODE(S): L02.214 - Cutaneous abscess of groin (11) Hemoglobin A1c between 7.0% and 9.0%: CODE(S): R73.9 - Hyperglycemia, unspecified (12) Insulin dependent diabetes mellitus: (13) Smoker: CODE(S): F17.200 - Nicotine dependence, unspecified, uncomplicated (14) Vulval hidradenitis suppurativa: CODE(S): L73.2 - Hidradenitis suppurativa PLAN: Plan Patient evaluated at the wound healing center today. Wound care - Abdominal tunnel pack with Iodoform gauze and top with gauze. Left groin/vulva place Aquacel -Ag covered by gauze daily. Wash both areas wit soap and water at the time of the dressing change. Wound culture from 06/22/23 was positive for E.coli, Prevotella bivia, and Anaerobic cocci. Will stop the Doxycycline that she has been on since her discharge from the hospital and start her on Augmentin. She is having issues with pain control since her hospitalization. Prescribed Dilaudid 2 mg every 8 hours prn for pain. Follow up one week.
[2023-07-18 11:19] VITALS: BP 150/80; PULSE 103; RESP 20; TEMP 36.5; BMI 47.2
--- NOTE | 2023-07-18 14:34 | PN.PCM_ITS ---
History of Present Illness Date of Service: 07/18/23 Chief Complaint: Left groin wound and lower abdominal wound History of Wound: 37 year old female with a 7 month history of hidradenitis suppurativa in her vulval area involving the mons pubis. She had an I&D once in the doctor's office. She has pain in her mons pubis. She denies fever. She denies trauma. She just finished antibiotics, Keflex and Bactrim. Patient has diabetes mellitus. Her last HgbA1c according to the patient is 7.3 few months ago at [facility] Surgery on 05/25/23 1. Surgical preparation left vulval area involving mons pubis and left genitocrural crease up to the labia with excision hidradenitis abscess and radical partial vulvectomy including deep subcutaneous tissue. 2. Surgical preparation left inguinal area with excision hidradenitis abscess. 3. Surgical preparation anterior abdominal wall with excisional debridement skin and subcutaneous tissue and fascia for necrotizing hidradenitis abscess. Operative cultures - Staphylococcus lugdunensis. She is being treated wt Cefdinir. Wound care - Wound VAC to the lower abdominal area and Dakins 0.25% moistened gauze to the left vulval area. Progress of Wound: Left vulval wound is much smaller and is a nice beefy pink color. The lower abdominal wound is now a tunnel, which is slightly smaller. Objective Data Objective Data Vital Signs: Vital Signs Temp Pulse Resp BP O2 Del Method 97.7 F L 103 H 20 H 150/80 H Room Air 07/18/23 11:19 07/18/23 11:19 07/18/23 11:19 07/18/23 11:19 07/11/23 10:54 Oxygen Delivery Method Room Air Weight: 250 lb 2.49 oz Body Mass Index (BMI) 47.2 Charges/Coding Procedures Integumentary 111xxx-113xx: [id number] Global Visit Debridement Note Debridement Note Wound debrided: Lower abdominal wound Laterality: Not Applicable Type of Debridement: Excisional debridement Anesthesia Used: 4% Lidocaine Solution and 5% Lidocaine Gel Depth: Down to and including healthy tissue and in the subcutaneous layer Percentage of wound debrided: 100 Instrument Used: 3mm curette Tissue Removed: Non viable tissue and slough Severity: Fat Layer Exposed Amount of bleeding with debridement: Mild Bleeding Controlled with: Pressure and Compression and gauze Patient tolerated procedure: Patient tolerated procedure well Post-Debridement Measurements and Additional Note: Post-Debridement Measurements/Treatment CRISPIN - Nurse 1 - General Ulcer Assessment Start: 07/11/23 10:54 Freq: Status: Active Protocol: LAWSON Activity Type Activity Date Activity User E-sign Co-sign Detail Recorded Client Recorded Date Recorded By Document 07/11/23 10:54 BMF Desktop 07/11/23 11:04 BMF Document 07/18/23 11:19 DL Desktop 07/18/23 11:22 DL 07/11/23 07/18/23 10:54 11:19 WC - Today's Visit Information Type of service Follow-up Visit Follow-up Visit (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 (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 ) ) Arrival Mode Ambulatory Ambulatory Transfer Assistance None None Accompanied by mother Patient Identification Verified (Name & Yes Yes ) Patient Requires Transmission-Based No Precautions Finger Stick Blood Sugar(mg/dl) (if 112 indicated): Blood Sugar Stated by Patient Height and Weight Body Mass Index (BMI) 47.2 47.2 BMI Classification Obese Obese Vital Signs Temperature (97.8 F-99.1 F) 96.9 F L 97.7 F L Temperature Source Temporal Temporal Pulse Rate (60-100) 92 103 H Pulse Location Monitor Monitor Respiratory Rate (12-18) 16 20 H Respiratory rate source Observation Observation Oxygen Delivery Method Room Air Blood Pressure (90/60-120/80) 127/73 H 150/80 H Blood Pressure Mean (mm Hg) 91 103 Source Monitor Monitor Position Sitting Blood Pressure Location Right Arm History Since Last Visit- (Skip if this is Patient's initial visit) Have you changed medications since your No No last visit? Any new allergies or adverse reactions No No Had a fall/change in ADL's that may No No increase risk of falls Signs or symptoms of abuse and/or No No neglect since last visit Have you been in the hospital since your No No last visit? Has dressing in place as prescribed Yes Has compression in place as prescribed N/A Yes Has offloadiing in place as prescribed N/A N/A Experienced any changes in pain level or No No management Left Footwear Regular Shoe Right Footwear Regular Shoe Pain Scale: 0-10 Numeric Is Patient Pain Free? Yes Yes CRISPIN - Nurse 1 - General Ulcer Measurement Start: 07/11/23 10:54 Freq: Status: Active Protocol: Activity Type Activity Date Activity User E-sign Co-sign Detail Recorded Client Recorded Date Recorded By Document 07/11/23 10:54 BMF Desktop 07/11/23 11:04 BMF Document 07/18/23 11:19 DL Desktop 07/18/23 11:22 DL 07/11/23 07/18/23 10:54 11:19 Wound Center Nurse 1 #2 L Groin -Combined with other wound No -Current Size (cm) - Length 5.3 2 -Current Size (cm) - Width 3 1.7 -Current Size (cm) - Depth 0.1 0.1 -Total Square Cm 15.9 3.4 -Photo Taken No -Epithelialization Small 1-33% -Tunneling No -Undermining/Tunneling No -Circular Undermining No -Exudate Amt Medium Small -Exudate Type Serosanguineous Serosanguineous -Wound Margin Distinct, Distinct, Outline Outline Attached Attached -Granulation Amt Large (67-100%) Large (67-100%) -Granulation Quality Red Red -Slough/Fibrin No -Necrosis Amt None Present (0 Small (1-33%) %) -Necrotic Tissue Type Adherent Slough -Structure Exposed N/A -Texture ([place]-wound Skin Appearance) Assessed, Scarring Scarring -Moisture ([place]-wound Skin Appearance) Assessed No Abnormality -Color ([place]-wound Skin Appearance) Assessed No Abnormality -Temperature ([place]-wound Skin No Abnormality No Abnormality Appearance) (Pt Warm) (Pt Warm) -Tenderness on Palpation ([place]-wound No Skin Appearance) -Ulcer Cleansing Soap and Water Soap and Water -Foul Odor after Cleansing No No -Anesthetic Used 4% Lidocaine 5% Lidocaine Solution Gel #1 Lower Abd -Combined with other wound No -Current Size (cm) - Length 0.2 0.7 -Current Size (cm) - Width 1.1 0.3 -Current Size (cm) - Depth 3.5 3.3 -Total Square Cm 0.22 0.21 -Photo Taken No -Epithelialization Small 1-33% -Exudate Amt Small Medium -Exudate Type Serosanguineous Serosanguineous -Wound Margin Distinct, Distinct, Outline Outline Attached Attached -Granulation Amt Small (1-33%) -Granulation Quality [place] -Necrosis Amt Small (1-33%) -Necrotic Tissue Type Adherent Slough -Structure Exposed N/A -Texture ([place]-wound Skin Appearance) Assessed, Scarring Scarring -Moisture ([place]-wound Skin Appearance) Assessed No Abnormality -Color ([place]-wound Skin Appearance) Assessed No Abnormality -Temperature ([place]-wound Skin No Abnormality No Abnormality Appearance) (Pt Warm) (Pt Warm) -Tenderness on Palpation ([place]-wound No Skin Appearance) -Ulcer Cleansing Soap and Water Soap and Water -Foul Odor after Cleansing No No -Anesthetic Used 4% Lidocaine 5% Lidocaine Solution Gel WC - Nurse 2 - General Ulcer CM Notes Start: 07/11/23 10:54 Freq: Status: Active Protocol: Activity Type Activity Date Activity User E-sign Co-sign Detail Recorded Client Recorded Date Recorded By Document 07/11/23 11:19 Laptop 07/11/23 11:23 Document 07/18/23 11:36 Laptop 07/18/23 11:40 07/11/23 07/18/23 11:19 11:36 Wound Center Nurse 2 #2 L Groin -Time 11:19 11:37 -Correct Patient Yes Yes -Correct Side, Site, Position Yes Yes -Correct Procedure Yes Yes -Procedure Performed Yes Yes -Type of Procedure Debridement Debridement -Clinical Debridement Subcutaneous Subcutaneous -Tissue Removed Subcutaneous Subcutaneous -Post Debridement (cm) - Length 3.5 2.0 -Post Debridement (cm) - Width 3.0 2.0 -Post Debridement (cm) - Depth 0.2 0.1 -Total Square (Post) (cm) 10.50 4.00 -Area of Debridement (cm) - Length 3.5 2.0 -Area of Debridement (cm) - Width 3.0 2.0 -Total Square (Area) (cm) 10.50 4.00 -Tunneling No No -Undermining/Tunneling No No -Circular Undermining No No -Wound/Ulcer Outcome Not Healed Not Healed -Ulcer Cleansing Rinsed/ Rinsed/ Irrigated with Irrigated with Saline Saline -Foul Odor after Cleansing No No -Bioengineered Tissue No No -Bleeding Controlled with Pressure Pressure -Treatment Response Procedure Procedure Tolerated Well Tolerated Well -Offloading No No -Debridement - Subq, 1st 20sq cm No No #1 Lower Abd -Time 11:19 11:37 -Correct Patient Yes Yes -Correct Side, Site, Position Yes Yes -Correct Procedure Yes Yes -Procedure Performed Yes Yes -Type of Procedure Debridement Debridement -Clinical Debridement Subcutaneous Subcutaneous -Tissue Removed Subcutaneous Subcutaneous -Post Debridement (cm) - Length 0.5 0.5 -Post Debridement (cm) - Width 1.1 1.0 -Post Debridement (cm) - Depth 3.5 2.7 -Total Square (Post) (cm) 0.55 0.50 -Area of Debridement (cm) - Length 0.5 0.5 -Area of Debridement (cm) - Width 1.1 1 -Total Square (Area) (cm) 0.55 0.5 -Tunneling No No -Undermining/Tunneling No No -Circular Undermining No No -Wound/Ulcer Outcome Not Healed Not Healed -Ulcer Cleansing Rinsed/ Rinsed/ Irrigated with Irrigated with Saline Saline -Foul Odor after Cleansing No No -Bioengineered Tissue No No -Bleeding Controlled with Pressure Pressure -Treatment Response Procedure Procedure Tolerated Well Tolerated Well -Offloading No No -Debridement - Subq, 1st 20sq cm Yes Yes Pain Scale: 0-10 Numeric Is Patient Pain Free? Yes Yes WC - Nurse 3 - General Ulcer D/C NN Start: 07/11/23 10:54 Freq: Status: Active Protocol: Activity Type Activity Date Activity User E-sign Co-sign Detail Recorded Client Recorded Date Recorded By Document 07/11/23 11:55 PL Tablet 07/11/23 11:57 PL Document 07/18/23 11:45 DL Desktop 07/18/23 11:49 DL 07/11/23 07/18/23 11:55 11:45 Wound Care Center Nurse 3 #2 L Groin -Ulcer Cleansing Rinsed/ Rinsed/ Irrigated with Irrigated with Saline Saline -Foul Odor after Cleansing No No -Primary Dressing Applied Aquacel AG 4x4 Aquacel AG 4x4 -Other Dressing ABD -Primary Dressing Covered/Secured with Secured with Dry Gauze, Tape Secured with Tape -Aquacel AG 4x4 1 1 #1 Lower Abd -Ulcer Cleansing Rinsed/ Rinsed/ Irrigated with Irrigated with Saline Saline -Foul Odor after Cleansing No No -Primary Dressing Applied Nugauze, Iodoform 1/2in -Other Dressing ABD aguacel ag -Primary Dressing Covered/Secured with Secured with Dry Gauze, Tape Secured with Tape -Nugauze, Iodoform 1/2in 1 Treatment Response Procedure Tolerated Well Pain Scale: 0-10 Numeric Is Patient Pain Free? Yes Yes WC - Visit Discharge Discharge Condition Stable Stable Ambulatory Status Ambulatory Ambulatory Transportation Private [facility] Facility Type Home Health Orders Sent Yes Additional Wound Wound debrided: vulva/mons pubis/genitocrural crease up to labia Laterality: Left Wound Grade/Stage: Stage III Type of Debridement: Excisional debridement Anesthesia Used: 5% Lidocaine Gel Depth: Down to and including healthy tissue and in the subcutaneous layer Percentage of wound debrided: 100 Instrument Used: 5mm curette Tissue Removed: Devitalized tissue and slough Severity: Fat Layer Exposed Amount of bleeding with debridement: Mild Bleeding Controlled with: Pressure and Compression and gauze Patient tolerated procedure: Patient tolerated procedure well Assessment/Plan Assessment/Plan (1) Open wound anterior abdominal wall: CODE(S): S31.109A - Unspecified open wound of abdominal wall, unspecified quadrant without penetration into peritoneal cavity, initial encounter (2) Open wound of vulva with complication: CODE(S): S31.40XA - Unspecified open wound of vagina and vulva, initial encounter (3) Non-healing open wound of left groin: CODE(S): S31.104A - Unspecified open wound of abdominal wall, left lower quadrant without penetration into peritoneal cavity, initial encounter (4) Other acute postprocedural pain: CODE(S): G89.18 - Other acute postprocedural pain (5) DM type 2, goal HbA1c < 7%: CODE(S): E11.9 - Type 2 diabetes mellitus without complications (6) Necrotizing soft tissue infection: CODE(S): M79.89 - Other specified soft tissue disorders (7) Abdominal wall abscess: CODE(S): L02.211 - Cutaneous abscess of abdominal wall (8) Hidradenitis suppurativa: CODE(S): L73.2 - Hidradenitis suppurativa (9) Abscess of vulva: CODE(S): N76.4 - Abscess of vulva (10) Abscess of groin, left: CODE(S): L02.214 - Cutaneous abscess of groin (11) Hemoglobin A1c between 7.0% and 9.0%: CODE(S): R73.9 - Hyperglycemia, unspecified (12) Insulin dependent diabetes mellitus: (13) Smoker: CODE(S): F17.200 - Nicotine dependence, unspecified, uncomplicated (14) Vulval hidradenitis suppurativa: CODE(S): L73.2 - Hidradenitis suppurativa PLAN: Plan Patient evaluated at the wound healing center today. Wound care - Abdominal tunnel pack with Iodoform gauze and top with gauze. Left groin/vulva place Aquacel -Ag covered by gauze daily. Wash both areas with soap and water at the time of the dressing change. May massage the healed abdominal scar with lotion to help soften the scarring. Wound culture from 06/22/23 was positive for E.coli, Prevotella bivia, and Anaerobic cocci. Will stop the Doxycycline that she has been on since her discharge from the hospital and start her on Augmentin. She is having issues with pain control since her hospitalization. Prescribed Dilaudid 2 mg every 8 hours prn for pain. Follow up one week.
[2023-07-25 10:53] VITALS: BP 138/81; PULSE 102; RESP 20; TEMP 36.1; BMI 47.2
--- NOTE | 2023-07-25 11:56 | PCM.WC.PN ---
History of Present Illness Date of Service: 07/25/23 Chief Complaint: Left groin wound and lower abdominal wound History of Wound: 37 year old female with a 7 month history of hidradenitis suppurativa in her vulval area involving the mons pubis. She had an I&D once in the doctor's office. She has pain in her mons pubis. She denies fever. She denies trauma. She just finished antibiotics, Keflex and Bactrim. Patient has diabetes mellitus. Her last HgbA1c according to the patient is 7.3 few months ago at [facility] on 05/25/23 1. Surgical preparation left vulval area involving mons pubis and left genitocrural crease up to the labia with excision hidradenitis abscess and radical partial vulvectomy including deep subcutaneous tissue. 2. Surgical preparation left inguinal area with excision hidradenitis abscess. 3. Surgical preparation anterior abdominal wall with excisional debridement skin and subcutaneous tissue and fascia for necrotizing hidradenitis abscess. Operative cultures - Staphylococcus lugdunensis. She is being treated wt Cefdinir. Wound care - Wound VAC to the lower abdominal area and Dakins 0.25% moistened gauze to the left vulval area. Progress of Wound: Left vulval wound is much smaller and is now a cluster. The lower abdominal wound is a tunnel, which has less depth. Objective Data Objective Data Vital Signs: Vital Signs Temp Pulse Resp BP O2 Del Method 96.9 F L 102 H 20 H 138/81 H Room Air 07/25/23 10:53 07/25/23 10:53 07/25/23 10:53 07/25/23 10:53 07/11/23 10:54 Oxygen Delivery Method Room Air Weight: 250 lb 2.49 oz Body Mass Index (BMI) 47.2 Charges/Coding Procedures Integumentary [id number]: [id number] Global Visit Debridement Note Debridement Note Wound debrided: Lower abdominal wound Laterality: Not Applicable Type of Debridement: Excisional debridement Anesthesia Used: 4% Lidocaine Solution and 5% Lidocaine Gel Depth: Down to and including healthy tissue and in the subcutaneous layer Percentage of wound debrided: 100 Instrument Used: 3mm curette Tissue Removed: Non viable tissue and slough Severity: Fat Layer Exposed Amount of bleeding with debridement: Mild Bleeding Controlled with: Pressure and Compression and gauze Patient tolerated procedure: Patient tolerated procedure well Post-Debridement Measurements and Additional Note: Post-Debridement Measurements/Treatment WC - Nurse 1 - General Ulcer Assessment Start: 07/11/23 10:54 Freq: Status: Active Protocol: [place] Activity Type Activity Date Activity User E-sign Co-sign Detail Recorded Client Recorded Date Recorded By Document 07/11/23 10:54 BMF Desktop 07/11/23 11:04 BMF Document 07/18/23 11:19 DL Desktop 07/18/23 11:22 DL Document 07/25/23 10:53 DL Desktop 07/25/23 10:58 DL 07/11/23 07/18/23 07/25/23 10:54 11:19 10:53 WC - Today's Visit Information Type of service Follow-up Visit Follow-up Visit Follow-up Visit (Physician/AGRICULTURAL ECONOMICS TEACHER (Physician/AGRICULTURAL ECONOMICS TEACHER (Physician/AGRICULTURAL ECONOMICS TEACHER ) ) ) Arrival Mode Ambulatory Ambulatory Ambulatory Transfer Assistance None None None Accompanied by mother Patient Identification Verified (Name & Yes Yes Yes ) Patient Requires Transmission-Based No No Precautions Finger Stick Blood Sugar(mg/dl) (if 112 116 indicated): Blood Sugar Stated by Stated by Patient Patient Height and Weight Body Mass Index (BMI) 47.2 47.2 47.2 BMI Classification Obese Obese Obese Vital Signs Temperature (97.8 F-99.1 F) 96.9 F L 97.7 F L 96.9 F L Temperature Source Temporal Temporal Temporal Pulse Rate (60-100) 92 103 H 102 H Pulse Location Monitor Monitor Monitor Respiratory Rate (12-18) 16 20 H 20 H Respiratory rate source Observation Observation Observation Oxygen Delivery Method Room Air Blood Pressure (90/60-120/80) 127/73 H 150/80 H 138/81 H Blood Pressure Mean (mm Hg) 91 103 100 Source Monitor Monitor Monitor Position Sitting Blood Pressure Location Right Arm History Since Last Visit- (Skip if this is Patient's initial visit) Have you changed medications since your No No No last visit? Any new allergies or adverse reactions No No No Had a fall/change in ADL's that may No No No increase risk of falls Signs or symptoms of abuse and/or No No No neglect since last visit Have you been in the hospital since your No No No last visit? Has dressing in place as prescribed Yes Yes Has compression in place as prescribed N/A Yes N/A Has offloadiing in place as prescribed N/A N/A N/A Experienced any changes in pain level or No No management Left Footwear Regular Shoe Right Footwear Regular Shoe Pain Scale: 0-10 Numeric Is Patient Pain Free? Yes Yes Yes WC - Nurse 1 - General Ulcer Measurement Start: 07/11/23 10:54 Freq: Status: Active Protocol: Activity Type Activity Date Activity User E-sign Co-sign Detail Recorded Client Recorded Date Recorded By Document 07/11/23 10:54 BMF Desktop 07/11/23 11:04 BMF Document 07/18/23 11:19 DL Desktop 07/18/23 11:22 DL Document 07/25/23 10:53 DL Desktop 07/25/23 10:58 DL 07/11/23 07/18/23 07/25/23 10:54 11:19 10:53 Wound Center Nurse 1 #2 L Groin cluster -Combined with other wound No -Current Size (cm) - Length 5.3 2 2.5 -Current Size (cm) - Width 3 1.7 0.6 -Current Size (cm) - Depth 0.1 0.1 0.1 -Total Square Cm 15.9 3.4 1.50 -Photo Taken No -Epithelialization Small 1-33% -Tunneling No -Undermining/Tunneling No -Circular Undermining No -Exudate Amt Medium Small Small -Exudate Type Serosanguineous Serosanguineous -Wound Margin Distinct, Distinct, Fibrotic Scar, Outline Outline Thickened Scar Attached Attached -Granulation Amt Large (67-100%) Large (67-100%) Large (67-100%) -Granulation Quality [place] -Slough/Fibrin No -Necrosis Amt None Present (0 Small (1-33%) None Present (0 %) %) -Necrotic Tissue Type Adherent Slough -Structure Exposed N/A N/A -Texture ([place]-wound Skin Appearance) Assessed, Scarring Scarring Scarring -Moisture ([place]-wound Skin Appearance) Assessed No Abnormality No Abnormality -Color ([place]-wound Skin Appearance) Assessed No Abnormality No Abnormality -Temperature ([place]-wound Skin No Abnormality No Abnormality No Abnormality Appearance) (Pt Warm) (Pt Warm) (Pt Warm) -Tenderness on Palpation ([place]-wound No Skin Appearance) -Ulcer Cleansing Soap and Water Soap and Water Soap and Water -Foul Odor after Cleansing No No No -Anesthetic Used 4% Lidocaine 5% Lidocaine 5% Lidocaine Solution Gel Gel #1 Lower Abd -Combined with other wound No -Current Size (cm) - Length 0.2 0.7 0.1 -Current Size (cm) - Width 1.1 0.3 0.6 -Current Size (cm) - Depth 3.5 3.3 2.5 -Total Square Cm 0.22 0.21 0.06 -Photo Taken No -Epithelialization Small 1-33% -Exudate Amt Small Medium Small -Exudate Type Serosanguineous Serosanguineous Serosanguineous -Wound Margin Distinct, Distinct, Distinct, Outline Outline Outline Attached Attached Attached -Granulation Amt Small (1-33%) Small (1-33%) -Granulation Quality [place] -Necrosis Amt Small (1-33%) Small (1-33%) -Necrotic Tissue Type Adherent Slough Eschar -Structure Exposed N/A N/A -Texture ([place]-wound Skin Appearance) Assessed, Scarring Scarring Scarring -Moisture ([place]-wound Skin Appearance) Assessed No Abnormality Dry/Scaly -Color ([place]-wound Skin Appearance) Assessed No Abnormality No Abnormality -Temperature ([place]-wound Skin No Abnormality No Abnormality No Abnormality Appearance) (Pt Warm) (Pt Warm) (Pt Warm) -Tenderness on Palpation ([place]-wound No Skin Appearance) -Ulcer Cleansing Soap and Water Soap and Water Soap and Water -Foul Odor after Cleansing No No No -Anesthetic Used 4% Lidocaine 5% Lidocaine 5% Lidocaine Solution Gel Gel WC - Nurse 2 - General Ulcer CM Notes Start: 07/11/23 10:54 Freq: Status: Active Protocol: Activity Type Activity Date Activity User E-sign Co-sign Detail Recorded Client Recorded Date Recorded By Document 07/11/23 11:19 Laptop 07/11/23 11:23 Document 07/18/23 11:36 Laptop 07/18/23 11:40 Document 07/25/23 11:10 Laptop 07/25/23 11:14 07/11/23 07/18/23 07/25/23 11:19 11:36 11:10 Wound Center Nurse 2 #2 L Groin cluster -Time 11:19 11:37 11:10 -Correct Patient Yes Yes Yes -Correct Side, Site, Position Yes Yes Yes -Correct Procedure Yes Yes Yes -Procedure Performed Yes Yes Yes -Type of Procedure Debridement Debridement Debridement -Clinical Debridement Subcutaneous Subcutaneous Subcutaneous -Tissue Removed Subcutaneous Subcutaneous Subcutaneous -Post Debridement (cm) - Length 3.5 2.0 2.3 -Post Debridement (cm) - Width 3.0 2.0 1.0 -Post Debridement (cm) - Depth 0.2 0.1 0.1 -Total Square (Post) (cm) 10.50 4.00 2.30 -Area of Debridement (cm) - Length 3.5 2.0 2.3 -Area of Debridement (cm) - Width 3.0 2.0 1.0 -Total Square (Area) (cm) 10.50 4.00 2.30 -Tunneling No No No -Undermining/Tunneling No No No -Circular Undermining No No No -Wound/Ulcer Outcome Not Healed Not Healed Not Healed -Ulcer Cleansing Rinsed/ Rinsed/ Rinsed/ Irrigated with Irrigated with Irrigated with Saline Saline Saline -Foul Odor after Cleansing No No No -Bioengineered Tissue No No No -Bleeding Controlled with Pressure Pressure Pressure -Treatment Response Procedure Procedure Procedure Tolerated Well Tolerated Well Tolerated Well -Offloading No No No -Debridement - Subq, 1st 20sq cm No No No #1 Lower Abd -Time : 11:37 11:11 -Correct Patient Yes Yes Yes -Correct Side, Site, Position Yes Yes Yes -Correct Procedure Yes Yes Yes -Procedure Performed Yes Yes Yes -Type of Procedure Debridement Debridement Debridement -Clinical Debridement Subcutaneous Subcutaneous Subcutaneous -Tissue Removed Subcutaneous Subcutaneous Subcutaneous -Post Debridement (cm) - Length 0.5 0.5 0.4 -Post Debridement (cm) - Width 1.1 1.0 1.0 -Post Debridement (cm) - Depth 3.5 2.7 2.1 -Total Square (Post) (cm) 0.55 0.50 0.40 -Area of Debridement (cm) - Length 0.5 0.5 0.4 -Area of Debridement (cm) - Width 1.1 1 1.0 -Total Square (Area) (cm) 0.55 0.5 0.40 -Tunneling No No No -Undermining/Tunneling No No No -Circular Undermining No No No -Wound/Ulcer Outcome Not Healed Not Healed Not Healed -Ulcer Cleansing Rinsed/ Rinsed/ Rinsed/ Irrigated with Irrigated with Irrigated with Saline Saline Saline -Foul Odor after Cleansing No No No -Bioengineered Tissue No No No -Bleeding Controlled with Pressure Pressure Pressure -Treatment Response Procedure Procedure Procedure Tolerated Well Tolerated Well Tolerated Well -Offloading No No No -Debridement - Subq, 1st 20sq cm Yes Yes Yes Pain Scale: 0-10 Numeric Is Patient Pain Free? Yes Yes Yes - Nurse 3 - General Ulcer D/C NN Start: 07/11/23 10:54 Freq: Status: Active Protocol: Activity Type Activity Date Activity User E-sign Co-sign Detail Recorded Client Recorded Date Recorded By Document 07/11/23 11:55 PL Tablet 07/11/23 11:57 PL Document 07/18/23 11:45 DL Desktop 07/18/23 11:49 DL Document 07/25/23 11:21 DL Desktop 07/25/23 11:24 DL 07/11/23 07/18/23 07/25/23 11:55 11:45 11:21 Wound Care Center Nurse 3 #2 L Groin cluster -Ulcer Cleansing Rinsed/ Rinsed/ Rinsed/ Irrigated with Irrigated with Irrigated with Saline Saline Saline -Foul Odor after Cleansing No No No -Primary Dressing Applied Aquacel AG 4x4 Aquacel AG 4x4 Aquacel AG 4x4 -Other Dressing ABD -Primary Dressing Covered/Secured with Secured with Dry Gauze, Dry Gauze, Tape Secured with Secured with Tape Tape -Aquacel AG 4x4 1 1 1 #1 Lower Abd -Ulcer Cleansing Rinsed/ Rinsed/ Rinsed/ Irrigated with Irrigated with Irrigated with Saline Saline Saline -Foul Odor after Cleansing No No No -Primary Dressing Applied Nugauze, Iodoform 1/2in -Other Dressing ABD aguacel ag aqaucel ag -Primary Dressing Covered/Secured with Secured with Dry Gauze, Dry Gauze, Tape Secured with Secured with Tape Tape -Nugauze, Iodoform 1/2in 1 Treatment Response Procedure Procedure Tolerated Well Tolerated Well Pain Scale: 0-10 Numeric Is Patient Pain Free? Yes Yes Yes WC - Visit Discharge Discharge Condition Stable Stable Stable Ambulatory Status Ambulatory Ambulatory Ambulatory Transportation Private Auto Private [facility] Facility Type Home Health Home Health Orders Sent Yes Yes Additional Wound Wound debrided: vulva/mons pubis/genitocrural crease up to labia Laterality: Left Wound Grade/Stage: Stage III Type of Debridement: Excisional debridement Anesthesia Used: 5% Lidocaine Gel Depth: Down to and including healthy tissue and in the subcutaneous layer Percentage of wound debrided: 100 Instrument Used: 3mm curette Tissue Removed: Devitalized tissue and slough Severity: Fat Layer Exposed Amount of bleeding with debridement: Mild Bleeding Controlled with: Pressure and Compression and gauze Patient tolerated procedure: Patient tolerated procedure well Assessment/Plan Assessment/Plan (1) Open wound anterior abdominal wall: CODE(S): S31.109A - Unspecified open wound of abdominal wall, unspecified quadrant without penetration into peritoneal cavity, initial encounter (2) Open wound of vulva with complication: CODE(S): S31.40XA - Unspecified open wound of vagina and vulva, initial encounter (3) Non-healing open wound of left groin: CODE(S): S31.104A - Unspecified open wound of abdominal wall, left lower quadrant without penetration into peritoneal cavity, initial encounter (4) Other acute postprocedural pain: CODE(S): G89.18 - Other acute postprocedural pain (5) DM type 2, goal HbA1c < 7%: CODE(S): E11.9 - Type 2 diabetes mellitus without complications (6) Necrotizing soft tissue infection: CODE(S): M79.89 - Other specified soft tissue disorders (7) Abdominal wall abscess: CODE(S): L02.211 - Cutaneous abscess of abdominal wall (8) Hidradenitis suppurativa: CODE(S): L73.2 - Hidradenitis suppurativa (9) Abscess of vulva: CODE(S): N76.4 - Abscess of vulva (10) Abscess of groin, left: CODE(S): L02.214 - Cutaneous abscess of groin (11) Hemoglobin A1c between 7.0% and 9.0%: CODE(S): R73.9 - Hyperglycemia, unspecified (12) Insulin dependent diabetes mellitus: (13) Smoker: CODE(S): F17.200 - Nicotine dependence, unspecified, uncomplicated (14) Vulval hidradenitis suppurativa: CODE(S): L73.2 - Hidradenitis suppurativa PLAN: Plan Patient evaluated at the wound healing center today. Wound care - Abdominal tunnel pack with Iodoform gauze and top with gauze. Left groin/vulva place Aquacel -Ag covered by gauze daily. Wash both areas with soap and water at the time of the dressing change. May massage the healed abdominal scar with lotion to help soften the scarring. Wound culture from 06/22/23 was positive for E.coli, Prevotella bivia, and Anaerobic cocci. Will stop the Doxycycline that she has been on since her discharge from the hospital and start her on Augmentin. 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 She sees Dr. Hoffman for these issues. Follow up one week.
[2023-08-01 09:40] VITALS: BP 141/76; PULSE 107; RESP 16; TEMP 36.3; BMI 47.2
--- NOTE | 2023-08-01 11:16 | PN.PCM_ITS ---
History of Present Illness Date of Service: 08/01/23 Chief Complaint: Left groin wound and lower abdominal wound History of Wound: 37 year old female with a 7 month history of hidradenitis suppurativa in her vulval area involving the mons pubis. She had an I&D once in the doctor's office. She has pain in her mons pubis. She denies fever. She denies trauma. She just finished antibiotics, Keflex and Bactrim. Patient has diabetes mellitus. Her last HgbA1c according to the patient is 7.3 few months ago at [facility] on 05/25/23 1. Surgical preparation left vulval area involving mons pubis and left genitocrural crease up to the labia with excision hidradenitis abscess and radical partial vulvectomy including deep subcutaneous tissue. 2. Surgical preparation left inguinal area with excision hidradenitis abscess. 3. Surgical preparation anterior abdominal wall with excisional debridement skin and subcutaneous tissue and fascia for necrotizing hidradenitis abscess. Operative cultures - Staphylococcus lugdunensis. She is being treated wt Cefdinir. Wound care - Wound VAC to the lower abdominal area and Dakins 0.25% moistened gauze to the left vulval area. Progress of Wound: Left vulval wound is healed today. The lower abdominal wound is a tunnel, which is measuring 3 cm deep. Objective Data Objective Data Vital Signs: Vital Signs Temp Pulse Resp BP O2 Del Method 97.3 F L 107 H 16 141/76 H Room Air 08/01/23 09:40 08/01/23 09:40 08/01/23 09:40 08/01/23 09:40 08/01/23 09:40 Oxygen Delivery Method Room Air Weight: 250 lb 2.49 oz Body Mass Index (BMI) 47.2 Charges/Coding Procedures Integumentary [id number]: [id number] Global Visit Debridement Note Debridement Note Wound debrided: Lower abdominal wound Laterality: Not Applicable Type of Debridement: Excisional debridement Anesthesia Used: 4% Lidocaine Solution and 5% Lidocaine Gel Depth: Down to and including healthy tissue and in the subcutaneous layer Percentage of wound debrided: 100 Instrument Used: 3mm curette Tissue Removed: Non viable tissue and slough Severity: Fat Layer Exposed Amount of bleeding with debridement: Mild Bleeding Controlled with: Pressure and Compression and gauze Patient tolerated procedure: Patient tolerated procedure well Post-Debridement Measurements and Additional Note: Post-Debridement Measurements/Treatment WC - Nurse 1 - General Ulcer Assessment Start: 07/11/23 10:54 Freq: Status: Active Protocol: LAWSON Activity Type Activity Date Activity User E-sign Co-sign Detail Recorded Client Recorded Date Recorded By Document 07/11/23 10:54 BMF Desktop 07/11/23 11:04 BMF Document 07/18/23 11:19 DL Desktop 07/18/23 11:22 DL Document 07/25/23 10:53 DL Desktop 07/25/23 10:58 DL Document 08/01/23 09:40 BMF Desktop 08/01/23 09:50 BMF 07/11/23 07/18/23 07/25/23 10:54 11:19 10:53 WC - Today's Visit Information Type of service Follow-up Visit Follow-up Visit Follow-up Visit (Physician/RN TEACHER (Physician/RN TEACHER (Physician/RN TEACHER ) ) ) Arrival Mode Ambulatory Ambulatory Ambulatory Transfer Assistance None None None Accompanied by mother Patient Identification Verified (Name & Yes Yes Yes ) Patient Requires Transmission-Based No No Precautions Finger Stick Blood Sugar(mg/dl) (if 112 116 indicated): Blood Sugar Stated by Stated by Patient Patient Height and Weight Body Mass Index (BMI) 47.2 47.2 47.2 BMI Classification Obese Obese Obese Vital Signs Temperature (97.8 F-99.1 F) 96.9 F L 97.7 F L 96.9 F L Temperature Source Temporal Temporal Temporal Pulse Rate (60-100) 92 103 H 102 H Pulse Location Monitor Monitor Monitor Respiratory Rate (12-18) 16 20 H 20 H Respiratory rate source Observation Observation Observation Oxygen Delivery Method Room Air Blood Pressure (90/60-120/80) 127/73 H 150/80 H 138/81 H Blood Pressure Mean (mm Hg) 91 103 100 Source Monitor Monitor Monitor Position Sitting Blood Pressure Location Right Arm History Since Last Visit- (Skip if this is Patient's initial visit) Have you changed medications since your No No No last visit? Any new allergies or adverse reactions No No No Had a fall/change in ADL's that may No No No increase risk of falls Signs or symptoms of abuse and/or No No No neglect since last visit Have you been in the hospital since your No No No last visit? Has dressing in place as prescribed Yes Yes Has compression in place as prescribed N/A Yes N/A Has offloadiing in place as prescribed N/A N/A N/A Experienced any changes in pain level or No No management Left Footwear Regular Shoe Right Footwear Regular Shoe Pain Scale: 0-10 Numeric Is Patient Pain Free? Yes Yes Yes 08/01/23 09:40 WC - Today's Visit Information Type of service Follow-up Visit (Physician/RN TEACHER ) Arrival Mode Ambulatory Transfer Assistance None Accompanied by Patient Identification Verified (Name & Yes ) Patient Requires Transmission-Based No Precautions Finger Stick Blood Sugar(mg/dl) (if indicated): Blood Sugar Height and Weight Body Mass Index (BMI) 47.2 BMI Classification Obese Vital Signs Temperature (97.8 F-99.1 F) 97.3 F L Temperature Source Temporal Pulse Rate (60-100) 107 H Pulse Location Monitor Respiratory Rate (12-18) 16 Respiratory rate source Observation Oxygen Delivery Method Room Air Blood Pressure (90/60-120/80) 141/76 H Blood Pressure Mean (mm Hg) 97 Source Monitor Position Sitting Blood Pressure Location Left Arm History Since Last Visit- (Skip if this is Patient's initial visit) Have you changed medications since your No last visit? Any new allergies or adverse reactions No Had a fall/change in ADL's that may No increase risk of falls Signs or symptoms of abuse and/or No neglect since last visit Have you been in the hospital since your Yes last visit? Has dressing in place as prescribed Yes Has compression in place as prescribed N/A Has offloadiing in place as prescribed N/A Experienced any changes in pain level or No management Left Footwear Regular Shoe Right Footwear Regular Shoe Pain Scale: 0-10 Numeric Is Patient Pain Free? Yes - Nurse 1 - General Ulcer Measurement Start: 07/11/23 10:54 Freq: Status: Active Protocol: Activity Type Activity Date Activity User E-sign Co-sign Detail Recorded Client Recorded Date Recorded By Document 07/11/23 10:54 BMF Desktop 07/11/23 11:04 BMF Document 07/18/23 11:19 DL Desktop 07/18/23 11:22 DL Document 07/25/23 10:53 DL Desktop 10/16/23 10:58 DL Document 08/01/23 09:40 BMF Desktop 08/01/23 09:50 BMF 07/11/23 07/18/23 07/25/23 10:54 11:19 10:53 Wound Center Nurse 1 #2 L Groin cluster -Combined with other wound No -Current Size (cm) - Length 5.3 2 2.5 -Current Size (cm) - Width 3 1.7 0.6 -Current Size (cm) - Depth 0.1 0.1 0.1 -Total Square Cm 15.9 3.4 1.50 -Date of Last Picture (Recall this field) -Photo Taken No -Epithelialization Small 1-33% -Tunneling No -Undermining/Tunneling No -Circular Undermining No -Exudate Amt Medium Small Small -Exudate Type Serosanguineous Serosanguineous -Wound Margin Distinct, Distinct, Fibrotic Scar, Outline Outline Thickened Scar Attached Attached -Granulation Amt Large (67-100%) Large (67-100%) Large (67-100%) -Granulation Quality Red [place] -Slough/Fibrin No -Necrosis Amt None Present (0 Small (1-33%) None Present (0 %) %) -Necrotic Tissue Type Adherent Slough -Structure Exposed N/A N/A -Texture ([place]-wound Skin Appearance) Assessed, Scarring Scarring Scarring -Moisture ([place]-wound Skin Appearance) Assessed No Abnormality No Abnormality -Color ([place]-wound Skin Appearance) Assessed No Abnormality No Abnormality -Temperature ([place]-wound Skin No Abnormality No Abnormality No Abnormality Appearance) (Pt Warm) (Pt Warm) (Pt Warm) -Tenderness on Palpation ([place]-wound No Skin Appearance) -Ulcer Cleansing Soap and Water Soap and Water Soap and Water -Foul Odor after Cleansing No No No -Anesthetic Used 4% Lidocaine 5% Lidocaine 5% Lidocaine Solution Gel Gel #1 Lower Abd -Combined with other wound No -Current Size (cm) - Length 0.2 0.7 0.1 -Current Size (cm) - Width 1.1 0.3 0.6 -Current Size (cm) - Depth 3.5 3.3 2.5 -Total Square Cm 0.22 0.21 0.06 -Date of Last Picture (Recall this field) -Photo Taken No -Epithelialization Small 1-33% -Tunneling -Undermining/Tunneling -Circular Undermining -Exudate Amt Small Medium Small -Exudate Type Serosanguineous Serosanguineous Serosanguineous -Wound Margin Distinct, Distinct, Distinct, Outline Outline Outline Attached Attached Attached -Granulation Amt Small (1-33%) Small (1-33%) -Granulation Quality [place] -Slough/Fibrin -Necrosis Amt Small (1-33%) Small (1-33%) -Necrotic Tissue Type Adherent Slough Eschar -Structure Exposed N/A N/A -Texture ([place]-wound Skin Appearance) Assessed, Scarring Scarring Scarring -Moisture ([place]-wound Skin Appearance) Assessed No Abnormality Dry/Scaly -Color ([place]-wound Skin Appearance) Assessed No Abnormality No Abnormality -Temperature ([place]-wound Skin No Abnormality No Abnormality No Abnormality Appearance) (Pt Warm) (Pt Warm) (Pt Warm) -Tenderness on Palpation ([place]-wound No Skin Appearance) -Ulcer Cleansing Soap and Water Soap and Water Soap and Water -Foul Odor after Cleansing No No No -Anesthetic Used 4% Lidocaine 5% Lidocaine 5% Lidocaine Solution Gel Gel 08/01/23 09:40 Wound Center Nurse 1 #2 L Groin cluster -Combined with other wound No -Current Size (cm) - Length 0.1 -Current Size (cm) - Width 0.1 -Current Size (cm) - Depth 0.1 -Total Square Cm 0.01 -Date of Last Picture (Recall this 08/01/23 field) -Photo Taken Yes -Epithelialization Large 67-100% -Tunneling No -Undermining/Tunneling No -Circular Undermining No -Exudate Amt -Exudate Type -Wound Margin -Granulation Amt -Granulation Quality -Slough/Fibrin -Necrosis Amt -Necrotic Tissue Type -Structure Exposed -Texture ([place]-wound Skin Appearance) Assessed, Scarring -Moisture ([place]-wound Skin Appearance) Assessed -Color ([place]-wound Skin Appearance) Assessed -Temperature ([place]-wound Skin No Abnormality Appearance) (Pt Warm) -Tenderness on Palpation ([place]-wound No Skin Appearance) -Ulcer Cleansing Rinsed/ Irrigated with Saline -Foul Odor after Cleansing No -Anesthetic Used #1 Lower Abd -Combined with other wound No -Current Size (cm) - Length 0.9 -Current Size (cm) - Width 0.1 -Current Size (cm) - Depth 2.9 -Total Square Cm 0.09 -Date of Last Picture (Recall this 08/01/23 field) -Photo Taken Yes -Epithelialization None Present -Tunneling No -Undermining/Tunneling No -Circular Undermining No -Exudate Amt Medium -Exudate Type Serosanguineous -Wound Margin Distinct, Outline Attached -Granulation Amt Large (67-100%) -Granulation Quality Red -Slough/Fibrin No -Necrosis Amt None Present (0 %) -Necrotic Tissue Type -Structure Exposed -Texture ([place]-wound Skin Appearance) Assessed, Scarring -Moisture ([place]-wound Skin Appearance) Assessed,Dry/ Scaly -Color ([place]-wound Skin Appearance) Assessed -Temperature ([place]-wound Skin No Abnormality Appearance) (Pt Warm) -Tenderness on Palpation ([place]-wound No Skin Appearance) -Ulcer Cleansing Rinsed/ Irrigated with Saline -Foul Odor after Cleansing No -Anesthetic Used 5% Lidocaine Gel WC - Nurse 2 - General Ulcer CM Notes Start: 07/11/23 10:54 Freq: Status: Active Protocol: Activity Type Activity Date Activity User E-sign Co-sign Detail Recorded Client Recorded Date Recorded By Document 07/11/23 11:19 Laptop 07/11/23 11:23 Document 07/18/23 11:36 Laptop 07/18/23 11:40 Document 07/25/23 11:10 Laptop 07/25/23 11:14 Document 08/01/23 10:03 Desktop 08/01/23 10:06 07/11/23 07/18/23 07/25/23 11:19 11:36 11:10 Wound Center Nurse 2 #2 L Groin cluster -Time 11:19 11:37 11:10 -Correct Patient Yes Yes Yes -Correct Side, Site, Position Yes Yes Yes -Correct Procedure Yes Yes Yes -Procedure Performed Yes Yes Yes -Type of Procedure Debridement Debridement Debridement -Clinical Debridement Subcutaneous Subcutaneous Subcutaneous -Tissue Removed Subcutaneous Subcutaneous Subcutaneous -Post Debridement (cm) - Length 3.5 2.0 2.3 -Post Debridement (cm) - Width 3.0 2.0 1.0 -Post Debridement (cm) - Depth 0.2 0.1 0.1 -Total Square (Post) (cm) 10.50 4.00 2.30 -Area of Debridement (cm) - Length 3.5 2.0 2.3 -Area of Debridement (cm) - Width 3.0 2.0 1.0 -Total Square (Area) (cm) 10.50 4.00 2.30 -Tunneling No No No -Undermining/Tunneling No No No -Circular Undermining No No No -Wound/Ulcer Outcome Not Healed Not Healed Not Healed -Ulcer Cleansing Rinsed/ Rinsed/ Rinsed/ Irrigated with Irrigated with Irrigated with Saline Saline Saline -Foul Odor after Cleansing No No No -Bioengineered Tissue No No No -Bleeding Controlled with Pressure Pressure Pressure -Treatment Response Procedure Procedure Procedure Tolerated Well Tolerated Well Tolerated Well -Offloading No No No -Debridement - Subq, 1st 20sq cm No No No #1 Lower Abd -Time 11:19 11:37 11:11 -Correct Patient Yes Yes Yes -Correct Side, Site, Position Yes Yes Yes -Correct Procedure Yes Yes Yes -Procedure Performed Yes Yes Yes -Type of Procedure Debridement Debridement Debridement -Clinical Debridement Subcutaneous Subcutaneous Subcutaneous -Tissue Removed Subcutaneous Subcutaneous Subcutaneous -Post Debridement (cm) - Length 0.5 0.5 0.4 -Post Debridement (cm) - Width 1.1 1.0 1.0 -Post Debridement (cm) - Depth 3.5 2.7 2.1 -Total Square (Post) (cm) 0.55 0.50 0.40 -Area of Debridement (cm) - Length 0.5 0.5 0.4 -Area of Debridement (cm) - Width 1.1 1 1.0 -Total Square (Area) (cm) 0.55 0.5 0.40 -Tunneling No No No -Undermining/Tunneling No No No -Circular Undermining No No No -Wound/Ulcer Outcome Not Healed Not Healed Not Healed -Ulcer Cleansing Rinsed/ Rinsed/ Rinsed/ Irrigated with Irrigated with Irrigated with Saline Saline Saline -Foul Odor after Cleansing No No No -Bioengineered Tissue No No No -Bleeding Controlled with Pressure Pressure Pressure -Treatment Response Procedure Procedure Procedure Tolerated Well Tolerated Well Tolerated Well -Offloading No No No -Debridement - Subq, 1st 20sq cm Yes Yes Yes Pain Scale: 0-10 Numeric Is Patient Pain Free? Yes Yes Yes 08/01/23 10:03 Wound Center Nurse 2 #2 L Groin cluster -Time -Correct Patient No -Correct Side, Site, Position No -Correct Procedure No -Procedure Performed No -Type of Procedure -Clinical Debridement -Tissue Removed -Post Debridement (cm) - Length 0 -Post Debridement (cm) - Width 0 -Post Debridement (cm) - Depth 0 -Total Square (Post) (cm) 0 -Area of Debridement (cm) - Length 0 -Area of Debridement (cm) - Width 0 -Total Square (Area) (cm) 0 -Tunneling -Undermining/Tunneling -Circular Undermining -Wound/Ulcer Outcome Healed- Epithelialized -Ulcer Cleansing -Foul Odor after Cleansing -Bioengineered Tissue -Bleeding Controlled with -Treatment Response -Offloading -Debridement - Subq, 20sq cm #1 Lower Abd -Time 10:05 -Correct Patient Yes -Correct Side, Site, Position Yes -Correct Procedure Yes -Procedure Performed Yes -Type of Procedure Debridement -Clinical Debridement Subcutaneous -Tissue Removed Subcutaneous -Post Debridement (cm) - Length 0.3 -Post Debridement (cm) - Width 0.7 -Post Debridement (cm) - Depth 3.0 -Total Square (Post) (cm) 0.21 -Area of Debridement (cm) - Length 0.3 -Area of Debridement (cm) - Width 0.7 -Total Square (Area) (cm) 0.21 -Tunneling No -Undermining/Tunneling No -Circular Undermining No -Wound/Ulcer Outcome Not Healed -Ulcer Cleansing Rinsed/ Irrigated with Saline -Foul Odor after Cleansing No -Bioengineered Tissue No -Bleeding Controlled with Pressure -Treatment Response Procedure Tolerated Well -Offloading No -Debridement - Subq, 20sq cm Yes Pain Scale: 0-10 Numeric Is Patient Pain Free? Yes WC - Nurse 3 - General Ulcer D/C NN Start: 07/11/23 10:54 Freq: Status: Active Protocol: Activity Type Activity Date Activity User E-sign Co-sign Detail Recorded Client Recorded Date Recorded By Document 07/11/23 11:55 PL Tablet 07/11/23 11:57 PL Document 07/18/23 11:45 DL Desktop 07/18/23 11:49 DL Document 07/25/23 11:21 DL Desktop 07/25/23 11:24 DL Document 08/01/23 10:13 JF Desktop 08/01/23 10:14 JF 07/11/23 07/18/23 07/25/23 11:55 11:45 11:21 Wound Care Center Nurse 3 #2 L Groin cluster -Ulcer Cleansing Rinsed/ Rinsed/ Rinsed/ Irrigated with Irrigated with Irrigated with Saline Saline Saline -Foul Odor after Cleansing No No No -Primary Dressing Applied Aquacel AG 4x4 Aquacel AG 4x4 Aquacel AG 4x4 -Other Dressing ABD -Primary Dressing Covered/Secured with Secured with Dry Gauze, Dry Gauze, Tape Secured with Secured with Tape Tape -Aquacel AG 4x4 1 1 1 #1 Lower Abd -Ulcer Cleansing Rinsed/ Rinsed/ Rinsed/ Irrigated with Irrigated with Irrigated with Saline Saline Saline -Foul Odor after Cleansing No No No -Primary Dressing Applied Nugauze, Iodoform 1/2in -Other Dressing ABD aguacel ag aqaucel ag -Primary Dressing Covered/Secured with Secured with Dry Gauze, Dry Gauze, Tape Secured with Secured with Tape Tape -Nugauze, Iodoform 1/2in 1 Treatment Response Procedure Procedure Tolerated Well Tolerated Well Pain Scale: 0-10 Numeric Is Patient Pain Free? Yes Yes Yes WC - Visit Discharge Discharge Condition Stable Stable Stable Ambulatory Status Ambulatory Ambulatory Ambulatory Transportation Private Auto Private Auto Medication Reconcilliation completed & provided to patient/care provider Clinical Summary of Care Provided Facility Type Home Health Home Health Orders Sent Yes Yes 08/01/23 10:13 Wound Care Center Nurse 3 #2 L Groin cluster -Ulcer Cleansing -Foul Odor after Cleansing -Primary Dressing Applied -Other Dressing -Primary Dressing Covered/Secured with -Aquacel AG 4x4 #1 Lower Abd -Ulcer Cleansing Rinsed/ Irrigated with Saline -Foul Odor after Cleansing No -Primary Dressing Applied -Other Dressing 1/2 inch iodoform packing -Primary Dressing Covered/Secured with Dry Gauze, Secured with Tape -Nugauze, Iodoform 1/2in Treatment Response Pain Scale: 0-10 Numeric Is Patient Pain Free? Yes WC - Visit Discharge Discharge Condition Stable Ambulatory Status Ambulatory Transportation Private Auto Medication Reconcilliation completed & Yes provided to patient/care provider Clinical Summary of Care Provided Yes Facility Type Orders Sent Additional Wound Wound debrided: vulva/mons pubis/genitocrural crease up to labia Laterality: Left Wound Grade/Stage: Stage III Type of Debridement: Excisional debridement Anesthesia Used: 5% Lidocaine Gel Depth: Down to and including healthy tissue and in the subcutaneous layer Percentage of wound debrided: 100 Instrument Used: 3mm curette Tissue Removed: Devitalized tissue and slough Severity: Fat Layer Exposed Amount of bleeding with debridement: Mild Bleeding Controlled with: Pressure and Compression and gauze Patient tolerated procedure: Patient tolerated procedure well Assessment/Plan Assessment/Plan (1) Open wound anterior abdominal wall: CODE(S): S31.109A - Unspecified open wound of abdominal wall, unspecified quadrant without penetration into peritoneal cavity, initial encounter (2) Open wound of vulva with complication: CODE(S): S31.40XA - Unspecified open wound of vagina and vulva, initial encounter (3) Non-healing open wound of left groin: CODE(S): S31.104A - Unspecified open wound of abdominal wall, left lower quadrant without penetration into peritoneal cavity, initial encounter (4) Other acute postprocedural pain: CODE(S): G89.18 - Other acute postprocedural pain (5) DM type 2, goal HbA1c < 7%: CODE(S): E11.9 - Type 2 diabetes mellitus without complications (6) Necrotizing soft tissue infection: CODE(S): M79.89 - Other specified soft tissue disorders (7) Abdominal wall abscess: CODE(S): L02.211 - Cutaneous abscess of abdominal wall (8) Hidradenitis suppurativa: CODE(S): L73.2 - Hidradenitis suppurativa (9) Abscess of vulva: CODE(S): N76.4 - Abscess of vulva (10) Abscess of groin, left: CODE(S): L02.214 - Cutaneous abscess of groin (11) Hemoglobin A1c between 7.0% and 9.0%: CODE(S): R73.9 - Hyperglycemia, unspecified (12) Insulin dependent diabetes mellitus: (13) Smoker: CODE(S): F17.200 - Nicotine dependence, unspecified, uncomplicated (14) Vulval hidradenitis suppurativa: CODE(S): L73.2 - Hidradenitis suppurativa PLAN: Plan Patient evaluated at the wound healing center today. Wound care - Abdominal tunnel pack with Iodoform gauze and top with gauze after washing with soap and water at the time of the dressing change. May massage the healed abdominal and vulvar scars with lotion to help soften the scarring. Wound culture from 06/22/23 was positive for E.coli, Prevotella bivia, and Anaerobic cocci. Will stop the Doxycycline that she has been on since her discharge from the hospital and start her on Augmentin. 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 She sees Dr. Hoffman for these issues. Follow up one week.
[2023-08-08 10:22] VITALS: BP 128/79; PULSE 103; RESP 18; TEMP 36.1; BMI 47.2
--- NOTE | 2023-08-08 15:21 | PN.PCM_ITS ---
History of Present Illness Date of Service: 08/08/23 Chief Complaint: Left groin wound and lower abdominal wound History of Wound: 37 year old female with a 7 month history of hidradenitis suppurativa in her vulval area involving the mons pubis. She had an I&D once in the doctor's office. She has pain in her mons pubis. She denies fever. She denies trauma. She just finished antibiotics, Keflex and Bactrim. Patient has diabetes mellitus. Her last HgbA1c according to the patient is 7.3 few months ago at [facility] Surgery on 05/25/23 1. Surgical preparation left vulval area involving mons pubis and left genitocrural crease up to the labia with excision hidradenitis abscess and radical partial vulvectomy including deep subcutaneous tissue. 2. Surgical preparation left inguinal area with excision hidradenitis abscess. 3. Surgical preparation anterior abdominal wall with excisional debridement skin and subcutaneous tissue and fascia for necrotizing hidradenitis abscess. Operative cultures - Staphylococcus lugdunensis. She is being treated wt Cefdinir. Wound care - Wound VAC to the lower abdominal area and Dakins 0.25% moistened gauze to the left vulval area. Progress of Wound: Lower abdominal wound/tunnel is stable. Objective Data Objective Data Vital Signs: Vital Signs Temp Pulse Resp BP O2 Del Method 97 F L 103 H 18 128/79 H Room Air 08/08/23 10:22 08/08/23 10:22 08/08/23 10:22 08/08/23 10:22 08/08/23 10:22 Oxygen Delivery Method Room Air Weight: 250 lb 2.49 oz Body Mass Index (BMI) 47.2 Charges/Coding Procedures Integumentary [id number]: 09150 Global Visit Debridement Note Debridement Note Wound debrided: Lower abdominal wound Laterality: Not Applicable Type of Debridement: Excisional debridement Anesthesia Used: 4% Lidocaine Solution and 5% Lidocaine Gel Depth: Down to and including healthy tissue and in the subcutaneous layer Percentage of wound debrided: 100 Instrument Used: 3mm curette Tissue Removed: Non viable tissue and slough Severity: Fat Layer Exposed Amount of bleeding with debridement: Mild Bleeding Controlled with: Pressure and Compression and gauze Patient tolerated procedure: Patient tolerated procedure well Post-Debridement Measurements and Additional Note: Post-Debridement Measurements/Treatment WC - Nurse 1 - General Ulcer Assessment Start: 07/11/23 10:54 Freq: Status: Active Protocol: [email or web address] Activity Type Activity Date Activity User E-sign Co-sign Detail Recorded Client Recorded Date Recorded By Document 07/11/23 10:54 BMF Desktop 07/11/23 11:04 BMF Document 07/18/23 11:19 DL Desktop 07/18/23 11:22 DL Document 07/25/23 10:53 DL Desktop 07/25/23 10:58 DL Document 08/01/23 09:40 BMF Desktop 08/01/23 09:50 BMF Document 08/08/23 10:22 BMF Desktop 08/08/23 10:29 BMF 07/11/23 07/18/23 07/25/23 10:54 11:19 10:53 WC - Today's Visit Information Type of service Follow-up Visit Follow-up Visit Follow-up Visit (Physician/ECHOCARDIOGRAPHY TECH (Physician/ECHOCARDIOGRAPHY TECH (Physician/ECHOCARDIOGRAPHY TECH ) ) ) Arrival Mode Ambulatory Ambulatory Ambulatory Transfer Assistance None None None Accompanied by mother Patient Identification Verified (Name & Yes Yes Yes ) Patient Requires Transmission-Based No No Precautions Finger Stick Blood Sugar(mg/dl) (if 112 116 indicated): Blood Sugar Stated by Stated by Patient Patient Height and Weight Body Mass Index (BMI) 47.2 47.2 47.2 BMI Classification Obese Obese Obese Vital Signs Temperature (97.8 F-99.1 F) 96.9 F L 97.7 F L 96.9 F L Temperature Source Temporal Temporal Temporal Pulse Rate (60-100) 92 103 H 102 H Pulse Location Monitor Monitor Monitor Respiratory Rate (12-18) 16 20 H 20 H Respiratory rate source Observation Observation Observation Oxygen Delivery Method Room Air Blood Pressure (90/60-120/80) 127/73 H 150/80 H 138/81 H Blood Pressure Mean (mm Hg) 91 103 100 Source Monitor Monitor Monitor Position Sitting Blood Pressure Location Right Arm History Since Last Visit- (Skip if this is Patient's initial visit) Have you changed medications since your No No No last visit? Any new allergies or adverse reactions No No No Had a fall/change in ADL's that may No No No increase risk of falls Signs or symptoms of abuse and/or No No No neglect since last visit Have you been in the hospital since your No No No last visit? Has dressing in place as prescribed Yes Yes Has compression in place as prescribed N/A Yes N/A Has offloadiing in place as prescribed N/A N/A N/A Experienced any changes in pain level or No No management Left Footwear Regular Shoe Right Footwear Regular Shoe Pain Scale: 0-10 Numeric Is Patient Pain Free? Yes Yes Yes 08/01/23 08/08/23 09:40 10:22 WC - Today's Visit Information Type of service Follow-up Visit Follow-up Visit (Physician/ECHOCARDIOGRAPHY TECH (Physician/ECHOCARDIOGRAPHY TECH ) ) Arrival Mode Ambulatory Ambulatory Transfer Assistance None None Accompanied by Patient Identification Verified (Name & Yes Yes ) Patient Requires Transmission-Based No No Precautions Finger Stick Blood Sugar(mg/dl) (if indicated): Blood Sugar Height and Weight Body Mass Index (BMI) 47.2 47.2 BMI Classification Obese Obese Vital Signs Temperature (97.8 F-99.1 F) 97.3 F L 97 F L Temperature Source Temporal Temporal Pulse Rate (60-100) 107 H 103 H Pulse Location Monitor Monitor Respiratory Rate (12-18) 16 18 Respiratory rate source Observation Observation Oxygen Delivery Method Room Air Room Air Blood Pressure (90/60-120/80) 141/76 H 128/79 H Blood Pressure Mean (mm Hg) 97 95 Source Monitor Monitor Position Sitting Sitting Blood Pressure Location Left Arm Left Arm History Since Last Visit- (Skip if this is Patient's initial visit) Have you changed medications since your No No last visit? Any new allergies or adverse reactions No No Had a fall/change in ADL's that may No No increase risk of falls Signs or symptoms of abuse and/or No No neglect since last visit Have you been in the hospital since your Yes No last visit? Has dressing in place as prescribed Yes Yes Has compression in place as prescribed N/A N/A Has offloadiing in place as prescribed N/A N/A Experienced any changes in pain level or No No management Left Footwear Regular Shoe Regular Shoe Right Footwear Regular Shoe Regular Shoe Pain Scale: 0-10 Numeric Is Patient Pain Free? Yes Yes - Nurse 1 - General Ulcer Measurement Start: 07/11/23 10:54 Freq: Status: Active Protocol: Activity Type Activity Date Activity User E-sign Co-sign Detail Recorded Client Recorded Date Recorded By Document 07/11/23 10:54 BMF Desktop 07/11/23 11:04 BMF Document 07/18/23 11:19 DL Desktop 07/18/23 11:22 DL Document 07/25/23 10:53 DL Desktop 07/25/23 10:58 DL Document 08/01/23 09:40 BMF Desktop 08/01/23 09:50 BMF Document 08/08/23 10:22 BMF Desktop 08/08/23 10:29 F 07/11/23 07/18/23 07/25/23 10:54 11:19 10:53 Wound Center Nurse 1 #2 L Groin cluster -Combined with other wound No -Current Size (cm) - Length 5.3 2 2.5 -Current Size (cm) - Width 3 1.7 0.6 -Current Size (cm) - Depth 0.1 0.1 0.1 -Total Square Cm 15.9 3.4 1.50 -Date of Last Picture (Recall this field) -Photo Taken No -Epithelialization Small 1-33% -Tunneling No -Undermining/Tunneling No -Circular Undermining No -Exudate Amt Medium Small Small -Exudate Type Serosanguineous Serosanguineous -Wound Margin Distinct, Distinct, Fibrotic Scar, Outline Outline Thickened Scar Attached Attached -Granulation Amt Large (67-100%) Large (67-100%) Large (67-100%) -Granulation Quality Red Red [place] -Slough/Fibrin No -Necrosis Amt None Present (0 Small (1-33%) None Present (0 %) %) -Necrotic Tissue Type Adherent Slough -Structure Exposed N/A N/A -Texture ([place]-wound Skin Appearance) Assessed, Scarring Scarring Scarring -Moisture ([place]-wound Skin Appearance) Assessed No Abnormality No Abnormality -Color ([place]-wound Skin Appearance) Assessed No Abnormality No Abnormality -Temperature ([place]-wound Skin No Abnormality No Abnormality No Abnormality Appearance) (Pt Warm) (Pt Warm) (Pt Warm) -Tenderness on Palpation ([place]-wound No Skin Appearance) -Ulcer Cleansing Soap and Water Soap and Water Soap and Water -Foul Odor after Cleansing No No No -Anesthetic Used 4% Lidocaine 5% Lidocaine 5% Lidocaine Solution Gel Gel #1 Lower Abd -Combined with other wound No -Current Size (cm) - Length 0.2 0.7 0.1 -Current Size (cm) - Width 1.1 0.3 0.6 -Current Size (cm) - Depth 3.5 3.3 2.5 -Total Square Cm 0.22 0.21 0.06 -Date of Last Picture (Recall this field) -Photo Taken No -Epithelialization Small 1-33% -Tunneling -Undermining/Tunneling -Circular Undermining -Exudate Amt Small Medium Small -Exudate Type Serosanguineous Serosanguineous Serosanguineous -Wound Margin Distinct, Distinct, Distinct, Outline Outline Outline Attached Attached Attached -Granulation Amt Small (1-33%) Small (1-33%) -Granulation Quality [place] -Slough/Fibrin -Necrosis Amt Small (1-33%) Small (1-33%) -Necrotic Tissue Type Adherent Slough Eschar -Structure Exposed N/A N/A -Texture ([place]-wound Skin Appearance) Assessed, Scarring Scarring Scarring -Moisture ([place]-wound Skin Appearance) Assessed No Abnormality Dry/Scaly -Color ([place]-wound Skin Appearance) Assessed No Abnormality No Abnormality -Temperature ([place]-wound Skin No Abnormality No Abnormality No Abnormality Appearance) (Pt Warm) (Pt Warm) (Pt Warm) -Tenderness on Palpation ([place]-wound No Skin Appearance) -Ulcer Cleansing Soap and Water Soap and Water Soap and Water -Foul Odor after Cleansing No No No -Anesthetic Used 4% Lidocaine 5% Lidocaine 5% Lidocaine Solution Gel Gel 08/01/23 08/08/23 09:40 10:22 Wound Center Nurse 1 #2 L Groin cluster -Combined with other wound No -Current Size (cm) - Length 0.1 -Current Size (cm) - Width 0.1 -Current Size (cm) - Depth 0.1 -Total Square Cm 0.01 -Date of Last Picture (Recall this 08/01/23 field) -Photo Taken Yes -Epithelialization Large 67-100% -Tunneling No -Undermining/Tunneling No -Circular Undermining No -Exudate Amt -Exudate Type -Wound Margin -Granulation Amt -Granulation Quality -Slough/Fibrin -Necrosis Amt -Necrotic Tissue Type -Structure Exposed -Texture ([place]-wound Skin Appearance) Assessed, Scarring -Moisture ([place]-wound Skin Appearance) Assessed -Color ([place]-wound Skin Appearance) Assessed -Temperature ([place]-wound Skin No Abnormality Appearance) (Pt Warm) -Tenderness on Palpation ([place]-wound No Skin Appearance) -Ulcer Cleansing Rinsed/ Irrigated with Saline -Foul Odor after Cleansing No -Anesthetic Used #1 Lower Abd -Combined with other wound No No -Current Size (cm) - Length 0.9 0.1 -Current Size (cm) - Width 0.1 0.6 -Current Size (cm) - Depth 2.9 1.2 -Total Square Cm 0.09 0.06 -Date of Last Picture (Recall this 08/01/23 field) -Photo Taken Yes No -Epithelialization None Present None Present -Tunneling No -Undermining/Tunneling No No -Circular Undermining No No -Exudate Amt Medium Large -Exudate Type Serosanguineous Serosanguineous -Wound Margin Distinct, Distinct, Outline Outline Attached Attached -Granulation Amt Large (67-100%) Large (67-100%) -Granulation Quality Red Red -Slough/Fibrin No No -Necrosis Amt None Present (0 None Present (0 %) %) -Necrotic Tissue Type -Structure Exposed -Texture ([place]-wound Skin Appearance) Assessed, Assessed, Scarring Scarring -Moisture ([place]-wound Skin Appearance) Assessed,Dry/ Assessed Scaly -Color ([place]-wound Skin Appearance) Assessed Assessed -Temperature ([place]-wound Skin No Abnormality No Abnormality Appearance) (Pt Warm) (Pt Warm) -Tenderness on Palpation ([place]-wound No No Skin Appearance) -Ulcer Cleansing Rinsed/ Rinsed/ Irrigated with Irrigated with Saline Saline -Foul Odor after Cleansing No No -Anesthetic Used 5% Lidocaine 5% Lidocaine Gel Gel WC - Nurse 2 - General Ulcer CM Notes Start: 07/11/23 10:54 Freq: Status: Active Protocol: Activity Type Activity Date Activity User E-sign Co-sign Detail Recorded Client Recorded Date Recorded By Document 07/11/23 11:19 Laptop 07/11/23 11:23 Document 07/18/23 11:36 Laptop 07/18/23 11:40 Document 07/25/23 11:10 Laptop 07/25/23 11:14 Document 08/01/23 10:03 Desktop 08/01/23 10:06 Document 08/08/23 10:58 JF Laptop 08/08/23 11:02 07/11/23 07/18/23 07/25/23 11:19 11:36 11:10 Wound Center Nurse 2 #2 L Groin cluster -Time 11:37 11:10 -Correct Patient Yes Yes Yes -Correct Side, Site, Position Yes Yes Yes -Correct Procedure Yes Yes Yes -Procedure Performed Yes Yes Yes -Type of Procedure Debridement Debridement Debridement -Clinical Debridement Subcutaneous Subcutaneous Subcutaneous -Tissue Removed Subcutaneous Subcutaneous Subcutaneous -Post Debridement (cm) - Length 3.5 2.0 2.3 -Post Debridement (cm) - Width 3.0 2.0 1.0 -Post Debridement (cm) - Depth 0.2 0.1 0.1 -Total Square (Post) (cm) 10.50 4.00 2.30 -Area of Debridement (cm) - Length 3.5 2.0 2.3 -Area of Debridement (cm) - Width 3.0 2.0 1.0 -Total Square (Area) (cm) 10.50 4.00 2.30 -Tunneling No No No -Undermining/Tunneling No No No -Circular Undermining No No No -Wound/Ulcer Outcome Not Healed Not Healed Not Healed -Ulcer Cleansing Rinsed/ Rinsed/ Rinsed/ Irrigated with Irrigated with Irrigated with Saline Saline Saline -Foul Odor after Cleansing No No No -Bioengineered Tissue No No No -Bleeding Controlled with Pressure Pressure Pressure -Treatment Response Procedure Procedure Procedure Tolerated Well Tolerated Well Tolerated Well -Offloading No No No -Debridement - Subq, 1st 20sq cm No No No #1 Lower Abd -Time 11:37 11:11 -Correct Patient Yes Yes Yes -Correct Side, Site, Position Yes Yes Yes -Correct Procedure Yes Yes Yes -Procedure Performed Yes Yes Yes -Type of Procedure Debridement Debridement Debridement -Clinical Debridement Subcutaneous Subcutaneous Subcutaneous -Tissue Removed Subcutaneous Subcutaneous Subcutaneous -Post Debridement (cm) - Length 0.5 0.5 0.4 -Post Debridement (cm) - Width 1.1 1.0 1.0 -Post Debridement (cm) - Depth 3.5 2.7 2.1 -Total Square (Post) (cm) 0.55 0.50 0.40 -Area of Debridement (cm) - Length 0.5 0.5 0.4 -Area of Debridement (cm) - Width 1.1 1 1.0 -Total Square (Area) (cm) 0.55 0.5 0.40 -Tunneling No No No -Undermining/Tunneling No No No -Circular Undermining No No No -Wound/Ulcer Outcome Not Healed Not Healed Not Healed -Ulcer Cleansing Rinsed/ Rinsed/ Rinsed/ Irrigated with Irrigated with Irrigated with Saline Saline Saline -Foul Odor after Cleansing No No No -Bioengineered Tissue No No No -Bleeding Controlled with Pressure Pressure Pressure -Treatment Response Procedure Procedure Procedure Tolerated Well Tolerated Well Tolerated Well -Offloading No No No -Debridement - Subq, 1st 20sq cm Yes Yes Yes Pain Scale: 0-10 Numeric Is Patient Pain Free? Yes Yes Yes 08/01/23 08/08/23 10:03 10:58 Wound Center Nurse 2 #2 L Groin cluster -Time -Correct Patient No -Correct Side, Site, Position No -Correct Procedure No -Procedure Performed No -Type of Procedure -Clinical Debridement -Tissue Removed -Post Debridement (cm) - Length 0 -Post Debridement (cm) - Width 0 -Post Debridement (cm) - Depth 0 -Total Square (Post) (cm) 0 -Area of Debridement (cm) - Length 0 -Area of Debridement (cm) - Width 0 -Total Square (Area) (cm) 0 -Tunneling -Undermining/Tunneling -Circular Undermining -Wound/Ulcer Outcome Healed- Epithelialized -Ulcer Cleansing -Foul Odor after Cleansing -Bioengineered Tissue -Bleeding Controlled with -Treatment Response -Offloading -Debridement - Subq, 1st 20sq cm #1 Lower Abd -Time 10:05 10:59 -Correct Patient Yes Yes -Correct Side, Site, Position Yes Yes -Correct Procedure Yes Yes -Procedure Performed Yes Yes -Type of Procedure Debridement Debridement -Clinical Debridement Subcutaneous Subcutaneous -Tissue Removed Subcutaneous Subcutaneous -Post Debridement (cm) - Length 0.3 0.4 -Post Debridement (cm) - Width 0.7 0.5 -Post Debridement (cm) - Depth 3.0 3.2 -Total Square (Post) (cm) 0.21 0.20 -Area of Debridement (cm) - Length 0.3 0.4 -Area of Debridement (cm) - Width 0.7 0.5 -Total Square (Area) (cm) 0.21 0.20 -Tunneling No No -Undermining/Tunneling No No -Circular Undermining No No -Wound/Ulcer Outcome Not Healed Not Healed -Ulcer Cleansing Rinsed/ Rinsed/ Irrigated with Irrigated with Saline Saline -Foul Odor after Cleansing No No -Bioengineered Tissue No No -Bleeding Controlled with Pressure Pressure -Treatment Response Procedure Procedure Tolerated Well Tolerated Well -Offloading No No -Debridement - Subq, 1st 20sq cm Yes Yes Pain Scale: 0-10 Numeric Is Patient Pain Free? Yes Yes WC - Nurse 3 - General Ulcer D/C NN Start: 07/11/23 10:54 Freq: Status: Active Protocol: Activity Type Activity Date Activity User E-sign Co-sign Detail Recorded Client Recorded Date Recorded By Document 07/11/23 11:55 PL Tablet 07/11/23 11:57 PL Document 07/18/23 11:45 DL Desktop 07/18/23 11:49 DL Document 07/25/23 11:21 DL Desktop 07/25/23 11:24 DL Document 08/01/23 10:13 JF Desktop 08/01/23 10:14 JF Document 08/08/23 11:02 JF Laptop 08/08/23 11:02 JF 07/11/23 07/18/23 07/25/23 11:55 11:45 11:21 Wound Care Center Nurse 3 #2 L Groin cluster -Ulcer Cleansing Rinsed/ Rinsed/ Rinsed/ Irrigated with Irrigated with Irrigated with Saline Saline Saline -Foul Odor after Cleansing No No No -Primary Dressing Applied Aquacel AG 4x4 Aquacel AG 4x4 Aquacel AG 4x4 -Other Dressing ABD -Primary Dressing Covered/Secured with Secured with Dry Gauze, Dry Gauze, Tape Secured with Secured with Tape Tape -Aquacel AG 4x4 1 1 1 #1 Lower Abd -Ulcer Cleansing Rinsed/ Rinsed/ Rinsed/ Irrigated with Irrigated with Irrigated with Saline Saline Saline -Foul Odor after Cleansing No No No -Primary Dressing Applied Nugauze, Iodoform 1/2in -Other Dressing ABD aguacel ag aqaucel ag -Primary Dressing Covered/Secured with Secured with Dry Gauze, Dry Gauze, Tape Secured with Secured with Tape Tape -Nugauze, Iodoform 1/2in 1 Treatment Response Procedure Procedure Tolerated Well Tolerated Well Pain Scale: 0-10 Numeric Is Patient Pain Free? Yes Yes Yes WC - Visit Discharge Discharge Condition Stable Stable Stable Ambulatory Status Ambulatory Ambulatory Ambulatory Transportation Private [employer] Medication Reconcilliation completed & provided to patient/care provider Clinical Summary of Care Provided Facility Type [facility] Orders Sent Yes Yes 08/01/23 08/08/23 10:13 11:02 Wound Care Center Nurse 3 #2 L Groin cluster -Ulcer Cleansing -Foul Odor after Cleansing -Primary Dressing Applied -Other Dressing -Primary Dressing Covered/Secured with -Aquacel AG 4x4 #1 Lower Abd -Ulcer Cleansing Rinsed/ Rinsed/ Irrigated with Irrigated with Saline Saline -Foul Odor after Cleansing No No -Primary Dressing Applied -Other Dressing 1/2 inch iodoform iodoform packing-- packing patient's supply -Primary Dressing Covered/Secured with Dry Gauze, Dry Gauze, Secured with Secured with Tape Tape -Nugauze, Iodoform 1/2in Treatment Response Pain Scale: 0-10 Numeric Is Patient Pain Free? Yes Yes WC - Visit Discharge Discharge Condition Stable Stable Ambulatory Status Ambulatory Ambulatory Transportation [facility] [employer] Medication Reconcilliation completed & Yes Yes provided to patient/care provider Clinical Summary of Care Provided Yes Yes Facility Type Orders Sent Assessment/Plan Assessment/Plan (1) Open wound anterior abdominal wall: CODE(S): S31.109A - Unspecified open wound of abdominal wall, unspecified quadrant without penetration into peritoneal cavity, initial encounter (2) Other acute postprocedural pain: CODE(S): G89.18 - Other acute postprocedural pain (3) DM type 2, goal HbA1c < 7%: CODE(S): E11.9 - Type 2 diabetes mellitus without complications (4) Necrotizing soft tissue infection: CODE(S): M79.89 - Other specified soft tissue disorders (5) Abdominal wall abscess: CODE(S): L02.211 - Cutaneous abscess of abdominal wall (6) Hidradenitis suppurativa: CODE(S): L73.2 - Hidradenitis suppurativa (7) Hemoglobin A1c between 7.0% and 9.0%: CODE(S): R73.9 - Hyperglycemia, unspecified (8) Insulin dependent diabetes mellitus: (9) Smoker: CODE(S): F17.200 - Nicotine dependence, unspecified, uncomplicated (10) Vulval hidradenitis suppurativa: CODE(S): L73.2 - Hidradenitis suppurativa PLAN: Plan Patient evaluated at the wound healing center today. Wound care - Abdominal tunnel pack with Iodoform gauze and top with gauze after washing with soap and water at the time of the dressing change. May massage the healed abdominal and vulvar scars with lotion to help soften the scarring. Wound culture from 06/22/23 was positive for E.coli, Prevotella bivia, and Anaerobic cocci. Will stop the Doxycycline that she has been on since her discharge from the hospital and start her on Augmentin. 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 She sees Dr. Hoffman for these issues. Follow up two weeks.
== END 2023-08-09 23:59 | disposition home or self-care (01) ==
LOC: WC 10:30
PROVIDERS: PCP Family Medicine; Referring Provider Surgery; Visit Provider Nurse Practitioner Family
DX: L98.492 Non-pressure chronic ulcer of skin of other sites with fat layer exposed (principal); E11.65 Type 2 diabetes mellitus with hyperglycemia; Z79.4 Long term (current) use of insulin; G89.18 Other acute postprocedural pain; L73.2 Hidradenitis suppurativa; L02.211 Cutaneous abscess of abdominal wall; L02.214 Cutaneous abscess of groin; F17.200 Nicotine dependence, unspecified, uncomplicated; N76.4 Abscess of vulva; M79.89 Other specified soft tissue disorders; S31.109A Unspecified open wound of abdominal wall, unspecified quadrant without penetration into peritoneal cavity, initial encounter; S31.40XA Unspecified open wound of vagina and vulva, initial encounter; S31.104A Unspecified open wound of abdominal wall, left lower quadrant without penetration into peritoneal cavity, initial encounter
CPT/HCPCS: 11042

== ENCOUNTER 2023-09-05 10:45 | Outpatient (RCR) | payer MEDICARE, MEDICAID, SELFPAY ==
[2023-08-10 00:18] VITALS: BP 128/79; PULSE 103; RESP 18; TEMP 36.1; BMI 47.2
[2023-08-22 10:40] VITALS: BMI 47.2
--- NOTE | 2023-08-22 11:59 | PN.PCM_ITS ---
History of Present Illness Date of Service: 08/22/23 Chief Complaint: Left groin wound and lower abdominal wound History of Wound: 37 year old female with a 7 month history of hidradenitis suppurativa in her vulval area involving the mons pubis. She had an I&D once in the doctor's office. She has pain in her mons pubis. She denies fever. She denies trauma. She just finished antibiotics, Keflex and Bactrim. Patient has diabetes mellitus. Her last HgbA1c according to the patient is 7.3 few months ago at [facility] on 05/25/23 1. Surgical preparation left vulval area involving mons pubis and left genitocrural crease up to the labia with excision hidradenitis abscess and radical partial vulvectomy including deep subcutaneous tissue. 2. Surgical preparation left inguinal area with excision hidradenitis abscess. 3. Surgical preparation anterior abdominal wall with excisional debridement skin and subcutaneous tissue and fascia for necrotizing hidradenitis abscess. Operative cultures - Staphylococcus lugdunensis. She is being treated wt Cefdinir. Wound care - Wound VAC to the lower abdominal area and Dakins 0.25% moistened gauze to the left vulval area. Progress of Wound: Lower abdominal wound/tunnel is slightly smaller. Her left groin has a fissure in the scar tissue from moisture on the fragile scar tissue.. Objective Data Objective Data Vital Signs: Vital Signs Temp Pulse Resp BP 97 F L 103 H 18 128/79 H 08/10/23 00:18 08/10/23 00:18 08/10/23 00:18 08/10/23 00:18 Weight: 250 lb 2.49 oz Body Mass Index (BMI) 47.2 Charges/Coding Procedures Integumentary 111xxx-113xx: 34551 Global Visit Debridement Note Debridement Note Wound debrided: Lower abdominal wound Laterality: Not Applicable Type of Debridement: Excisional debridement Anesthesia Used: 4% Lidocaine Solution and 5% Lidocaine Gel Depth: Down to and including healthy tissue and in the subcutaneous layer Percentage of wound debrided: 100 Instrument Used: 3mm curette Tissue Removed: Non viable tissue and slough Severity: Fat Layer Exposed Amount of bleeding with debridement: Mild Bleeding Controlled with: Pressure and Compression and gauze Patient tolerated procedure: Patient tolerated procedure well Post-Debridement Measurements and Additional Note: Post-Debridement Measurements/Treatment CRISPIN - Nurse 1 - General Ulcer Assessment Start: 08/22/23 10:40 Freq: Status: Active Protocol: LAWSON Activity Type Activity Date Activity User E-sign Co-sign Detail Recorded Client Recorded Date Recorded By Document 08/22/23 10:40 [facility] [employer] 08/22/23 10:47 [facility] 08/22/23 10:40 WC - Today's Visit Information Type of service Follow-up Visit (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 Any new allergies or adverse reactions No Had a fall/change in ADL's that may No increase risk of falls Signs or symptoms of abuse and/or No neglect since last visit Have you been in the hospital since your No last visit? Has dressing in place as prescribed Yes Has compression in place as prescribed N/A Has offloadiing in place as prescribed N/A Experienced any changes in pain level or No management Left Footwear Regular Shoe Right Footwear Regular Shoe Pain Scale: 0-10 Numeric Is Patient Pain Free? Yes CRISPIN - Nurse 1 - General Ulcer Measurement Start: 08/22/23 10:40 Freq: Status: Active Protocol: Activity Type Activity Date Activity User E-sign Co-sign Detail Recorded Client Recorded Date Recorded By Document 08/22/23 10:40 [facility] [employer] 08/22/23 10:47 [facility] 08/22/23 10:40 Wound Center Nurse 1 #2 L Groin cluster -Combined with other wound No -Current Size (cm) - Length 2.7 -Current Size (cm) - Width 0.3 -Current Size (cm) - Depth 0.1 -Total Square Cm 0.81 -Photo Taken No -Tunneling No -Undermining/Tunneling No -Circular Undermining No -Exudate Amt Medium -Exudate Type Serosanguineous -Wound Margin Distinct, Outline Attached -Granulation Amt Large (67-100%) -Granulation Quality Red -Slough/Fibrin No -Necrosis Amt None Present (0 %) -Texture (Zenobia-wound Skin Appearance) Assessed, Scarring -Moisture (Zenobia-wound Skin Appearance) Assessed -Color (Zenobia-wound Skin Appearance) Assessed -Temperature (Zenobia-wound Skin No Abnormality Appearance) (Pt Warm) -Tenderness on Palpation (Zenobia-wound No Skin Appearance) -Ulcer Cleansing Rinsed/ Irrigated with Saline -Foul Odor after Cleansing No -Anesthetic Used 5% Lidocaine Gel #1 Lower Abd -Combined with other wound No -Current Size (cm) - Length 0.2 -Current Size (cm) - Width 0.4 -Current Size (cm) - Depth 3.4 -Total Square Cm 0.08 -Photo Taken No -Exudate Amt Large -Exudate Type Serosanguineous -Wound Margin Distinct, Outline Attached -Granulation Amt Large (67-100%) -Granulation Quality Red -Texture (Zenobia-wound Skin Appearance) Assessed, Scarring -Moisture (Zenobia-wound Skin Appearance) Assessed -Color (Zenobia-wound Skin Appearance) Assessed -Temperature (Zenobia-wound Skin No Abnormality Appearance) (Pt Warm) -Tenderness on Palpation (Zenobia-wound No Skin Appearance) -Ulcer Cleansing Rinsed/ Irrigated with Saline -Foul Odor after Cleansing No -Anesthetic Used 5% Lidocaine Gel WC - Nurse 2 - General Ulcer CM Notes Start: 08/22/23 10:40 Freq: Status: Active Protocol: Activity Type Activity Date Activity User E-sign Co-sign Detail Recorded Client Recorded Date Recorded By Document 08/22/23 11:13 Laptop 08/22/23 11:16 08/22/23 11:13 Wound Center Nurse 2 #2 L Groin cluster -Correct Patient No -Correct Side, Site, Position No -Correct Procedure No -Procedure Performed No -Wound/Ulcer Outcome Not Healed #1 Lower Abd -Time 11:14 -Correct Patient Yes -Correct Side, Site, Position Yes -Correct Procedure Yes -Procedure Performed Yes -Type of Procedure Debridement -Clinical Debridement Subcutaneous -Tissue Removed Subcutaneous -Post Debridement (cm) - Length 0.3 -Post Debridement (cm) - Width 0.7 -Post Debridement (cm) - Depth 3.8 -Total Square (Post) (cm) 0.21 -Area of Debridement (cm) - Length 0.3 -Area of Debridement (cm) - Width 0.7 -Total Square (Area) (cm) 0.21 -Tunneling No -Undermining/Tunneling No -Circular Undermining No -Wound/Ulcer Outcome Not Healed -Ulcer Cleansing Rinsed/ Irrigated with Saline -Foul Odor after Cleansing No -Bioengineered Tissue No -Bleeding Controlled with Pressure -Treatment Response Procedure Tolerated Well -Offloading No -Debridement - Subq, 1st 20sq cm Yes Pain Scale: 0-10 Numeric Is Patient Pain Free? Yes - Nurse 3 - General Ulcer D/C NN Start: 08/22/23 10:40 Freq: Status: Active Protocol: Activity Type Activity Date Activity User E-sign Co-sign Detail Recorded Client Recorded Date Recorded By Document 08/22/23 11:24 [facility] Desktop 08/22/23 11:25 [facility] 08/22/23 11:24 Wound Care Center Nurse 3 #2 L Groin cluster -Other Dressing PER GM RN -Primary Dressing Covered/Secured with Dry Gauze #1 Lower Abd -Ulcer Cleansing Rinsed/ Irrigated with Saline -Foul Odor after Cleansing No -Primary Dressing Applied Aquacel AG 4x4 -Other Dressing RIBBONED INTO SINUS TRACK; PER GM RN -Primary Dressing Covered/Secured with Dry Gauze, Secured with Tape -Aquacel AG 4x4 1 Treatment Response Procedure Tolerated Well Pain Scale: 0-10 Numeric Is Patient Pain Free? Yes - Visit Discharge Discharge Condition Stable Ambulatory Status Ambulatory Transportation Private Auto Assessment/Plan Assessment/Plan (1) Ulcer of abdomen wall with fat layer exposed: CODE(S): L98.492 - Non-pressure chronic ulcer of skin of other sites with fat layer exposed (2) Hidradenitis suppurativa: CODE(S): L73.2 - Hidradenitis suppurativa (3) Necrotizing soft tissue infection: CODE(S): M79.89 - Other specified soft tissue disorders (4) DM type 2, goal HbA1c < 7%: CODE(S): E11.9 - Type 2 diabetes mellitus without complications (5) Hemoglobin A1c between 7.0% and 9.0%: CODE(S): R73.9 - Hyperglycemia, unspecified (6) Insulin dependent diabetes mellitus: (7) Smoker: CODE(S): F17.200 - Nicotine dependence, unspecified, uncomplicated (8) Vulval hidradenitis suppurativa: CODE(S): L73.2 - Hidradenitis suppurativa (9) Other acute postprocedural pain: CODE(S): G89.18 - Other acute postprocedural pain PLAN: Plan Patient evaluated at the wound healing center today. Wound care - Abdominal tunnel pack with a strip of Aquacel-Ag topped with gauze after washing with soap and water at the time of the dressing change. Right groin fissure- keep area clean and dry. May need to place a piece of dry gauze in this area to prevent the skin from rubbing against skin until the scar has matured. May massage the healed abdominal and vulvar scars with lotion to help soften the scarring. Wound culture from 06/22/23 was positive for E.coli, Prevotella bivia, and Anaerobic cocci. Will stop the Doxycycline that she has been on since her discharge from the hospital and start her on Augmentin. 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 She sees Dr. Hoffman for these issues. Follow up two weeks.
[2023-09-05 10:41] VITALS: BP 131/77; PULSE 91; RESP 18; TEMP 36.4; BMI 47.2
--- NOTE | 2023-09-05 11:33 | PCM.WC.PN ---
History of Present Illness Date of Service: 09/05/23 Chief Complaint: Left groin wound and lower abdominal wound History of Wound: 37 year old female with a 7 month history of hidradenitis suppurativa in her vulval area involving the mons pubis. She had an I&D once in the doctor's office. She has pain in her mons pubis. She denies fever. She denies trauma. She just finished antibiotics, Keflex and Bactrim. Patient has diabetes mellitus. Her last HgbA1c according to the patient is 7.3 few months ago at [facility] on 05/25/23 1. Surgical preparation left vulval area involving mons pubis and left genitocrural crease up to the labia with excision hidradenitis abscess and radical partial vulvectomy including deep subcutaneous tissue. 2. Surgical preparation left inguinal area with excision hidradenitis abscess. 3. Surgical preparation anterior abdominal wall with excisional debridement skin and subcutaneous tissue and fascia for necrotizing hidradenitis abscess. Operative cultures - Staphylococcus lugdunensis. She is being treated wt Cefdinir. Wound care - Wound VAC to the lower abdominal area and Dakins 0.25% moistened gauze to the left vulval area. Progress of Wound: Lower abdominal wound/tunnel is stable. Her left groin fissure is healed. Objective Data Objective Data Vital Signs: Vital Signs Temp Pulse Resp BP 97.6 F L 91 18 131/77 H 09/05/23 10:41 09/05/23 10:41 09/05/23 10:41 09/05/23 10:41 Weight: 250 lb 2.49 oz Body Mass Index (BMI) 47.2 Charges/Coding Procedures Integumentary 111xxx-113xx: 05237 Global Visit Debridement Note Debridement Note Wound debrided: Lower abdominal wound Laterality: Not Applicable Type of Debridement: Excisional debridement Anesthesia Used: 4% Lidocaine Solution and 5% Lidocaine Gel Depth: Down to and including healthy tissue and in the subcutaneous layer Percentage of wound debrided: 100 Instrument Used: 3mm curette Tissue Removed: Non viable tissue and slough Severity: Fat Layer Exposed Amount of bleeding with debridement: Mild Bleeding Controlled with: Pressure and Compression and gauze Patient tolerated procedure: Patient tolerated procedure well Post-Debridement Measurements and Additional Note: Post-Debridement Measurements/Treatment WC - Nurse 1 - General Ulcer Assessment Start: 08/22/23 10:40 Freq: Status: Active Protocol: LAWSON Activity Type Activity Date Activity User E-sign Co-sign Detail Recorded Client Recorded Date Recorded By Document 08/22/23 10:40 [employer] Desktop 08/22/23 10:47 BM Document 09/05/23 10:41 PL Tablet 09/05/23 10:47 PL 08/22/23 09/05/23 10:40 10:41 WC - Today's Visit Information Type of service Follow-up Visit Follow-up Visit (Physician/WINDLASSER (Physician/WINDLASSER ) ) Arrival Mode Ambulatory Ambulatory Transfer Assistance None None Patient Identification Verified (Name & Yes Yes ) Patient Requires Transmission-Based No No Precautions Safety Precautions NA Height and Weight Body Mass Index (BMI) 47.2 47.2 BMI Classification Obese Obese Vital Signs Temperature (97.8 F-99.1 F) 97.6 F L Temperature Source Temporal Temporal Pulse Rate (60-100) 91 Pulse Location Monitor Respiratory Rate (12-18) 18 Blood Pressure (90/60-120/80) 131/77 H Blood Pressure Mean (mm Hg) 95 Source Monitor Position Sitting History Since Last Visit- (Skip if this is Patient's initial visit) Have you changed medications since your No last visit? Any new allergies or adverse reactions No Had a fall/change in ADL's that may No increase risk of falls Signs or symptoms of abuse and/or No neglect since last visit Have you been in the hospital since your No last visit? Has dressing in place as prescribed Yes Has compression in place as prescribed N/A Has offloadiing in place as prescribed N/A Experienced any changes in pain level or No management Left Footwear Regular Shoe Right Footwear Regular Shoe Pain Scale: 0-10 Numeric Is Patient Pain Free? Yes Yes - Nurse 1 - General Ulcer Measurement Start: 08/22/23 10:40 Freq: Status: Active Protocol: Activity Type Activity Date Activity User E-sign Co-sign Detail Recorded Client Recorded Date Recorded By Document 08/22/23 10:40 [facility] Desktop 08/22/23 10:47 F 08/22/23 10:40 Wound Center Nurse 1 #2 L Groin cluster -Combined with other wound No -Current Size (cm) - Length 2.7 -Current Size (cm) - Width 0.3 -Current Size (cm) - Depth 0.1 -Total Square Cm 0.81 -Photo Taken No -Tunneling No -Undermining/Tunneling No -Circular Undermining No -Exudate Amt Medium -Exudate Type Serosanguineous -Wound Margin Distinct, Outline Attached -Granulation Amt Large (67-100%) -Granulation Quality Red -Slough/Fibrin No -Necrosis Amt None Present (0 %) -Texture (Zenobia-wound Skin Appearance) Assessed, Scarring -Moisture (Zenobia-wound Skin Appearance) Assessed -Color (Zenobia-wound Skin Appearance) Assessed -Temperature (Zenobia-wound Skin No Abnormality Appearance) (Pt Warm) -Tenderness on Palpation (Zenobia-wound No Skin Appearance) -Ulcer Cleansing Rinsed/ Irrigated with Saline -Foul Odor after Cleansing No -Anesthetic Used 5% Lidocaine Gel #1 Lower Abd -Combined with other wound No -Current Size (cm) - Length 0.2 -Current Size (cm) - Width 0.4 -Current Size (cm) - Depth 3.4 -Total Square Cm 0.08 -Photo Taken No -Exudate Amt Large -Exudate Type Serosanguineous -Wound Margin Distinct, Outline Attached -Granulation Amt Large (67-100%) -Granulation Quality Red -Texture (Zenobia-wound Skin Appearance) Assessed, Scarring -Moisture (Zenobia-wound Skin Appearance) Assessed -Color (Zenobia-wound Skin Appearance) Assessed -Temperature (Zenobia-wound Skin No Abnormality Appearance) (Pt Warm) -Tenderness on Palpation (Zenobia-wound No Skin Appearance) -Ulcer Cleansing Rinsed/ Irrigated with Saline -Foul Odor after Cleansing No -Anesthetic Used 5% Lidocaine Gel WC - Nurse 2 - General Ulcer CM Notes Start: 08/22/23 10:40 Freq: Status: Active Protocol: Activity Type Activity Date Activity User E-sign Co-sign Detail Recorded Client Recorded Date Recorded By Document 08/22/23 11:13 Laptop 08/22/23 11:16 Document 09/05/23 10:54 Laptop 09/05/23 10:56 08/22/23 09/05/23 11:13 10:54 Wound Center Nurse 2 #2 L Groin cluster -Correct Patient No No -Correct Side, Site, Position No No -Correct Procedure No No -Procedure Performed No No -Post Debridement (cm) - Length 0 -Post Debridement (cm) - Width 0 -Post Debridement (cm) - Depth 0 -Total Square (Post) (cm) 0 -Area of Debridement (cm) - Length 0 -Area of Debridement (cm) - Width 0 -Total Square (Area) (cm) 0 -Wound/Ulcer Outcome Not Healed Healed- Epithelialized #1 Lower Abd -Time 11:14 10:55 -Correct Patient Yes Yes -Correct Side, Site, Position Yes Yes -Correct Procedure Yes Yes -Procedure Performed Yes Yes -Type of Procedure Debridement Debridement -Clinical Debridement Subcutaneous Subcutaneous -Tissue Removed Subcutaneous Subcutaneous -Post Debridement (cm) - Length 0.3 0.3 -Post Debridement (cm) - Width 0.7 0.7 -Post Debridement (cm) - Depth 3.8 3.4 -Total Square (Post) (cm) 0.21 0.21 -Area of Debridement (cm) - Length 0.3 0.3 -Area of Debridement (cm) - Width 0.7 0.7 -Total Square (Area) (cm) 0.21 0.21 -Tunneling No No -Undermining/Tunneling No No -Circular Undermining No No -Wound/Ulcer Outcome Not Healed Not Healed -Ulcer Cleansing Rinsed/ Rinsed/ Irrigated with Irrigated with Saline Saline -Foul Odor after Cleansing No No -Bioengineered Tissue No No -Bleeding Controlled with Pressure Pressure -Treatment Response Procedure Procedure Tolerated Well Tolerated Well -Offloading No No -Debridement - Subq, 1st 20sq cm Yes Yes Pain Scale: 0-10 Numeric Is Patient Pain Free? Yes Yes WC - Nurse 3 - General Ulcer D/C NN Start: 08/22/23 10:40 Freq: Status: Active Protocol: Activity Type Activity Date Activity User E-sign Co-sign Detail Recorded Client Recorded Date Recorded By Document 08/22/23 11:24 [facility] Desktop 08/22/23 11:25 [facility] Document 09/05/23 10:56 Laptop 09/05/23 10:57 08/22/23 09/05/23 11:24 10:56 Wound Care Center Nurse 3 #2 L Groin cluster -Other Dressing PER GM RN -Primary Dressing Covered/Secured with Dry Gauze #1 Lower Abd -Ulcer Cleansing Rinsed/ Rinsed/ Irrigated with Irrigated with Saline Saline -Foul Odor after Cleansing No No -Primary Dressing Applied Aquacel AG 4x4 Aquacel AG 4x4 -Other Dressing RIBBONED INTO SINUS TRACK; PER GM RN -Primary Dressing Covered/Secured with Dry Gauze, Dry Gauze, Secured with Secured with Tape Tape -Aquacel AG 4x4 1 0 Treatment Response Procedure Tolerated Well Pain Scale: 0-10 Numeric Is Patient Pain Free? Yes Yes WC - Visit Discharge Discharge Condition Stable Stable Ambulatory Status Ambulatory Ambulatory Transportation Private Auto Private Auto Accompanied by mother Medication Reconcilliation completed & Yes provided to patient/care provider Clinical Summary of Care Provided Yes Assessment/Plan Assessment/Plan (1) Ulcer of abdomen wall with fat layer exposed: CODE(S): L98.492 - Non-pressure chronic ulcer of skin of other sites with fat layer exposed (2) Hidradenitis suppurativa: CODE(S): L73.2 - Hidradenitis suppurativa (3) Necrotizing soft tissue infection: CODE(S): M79.89 - Other specified soft tissue disorders (4) DM type 2, goal HbA1c < 7%: CODE(S): E11.9 - Type 2 diabetes mellitus without complications (5) Hemoglobin A1c between 7.0% and 9.0%: CODE(S): R73.9 - Hyperglycemia, unspecified (6) Insulin dependent diabetes mellitus: (7) Smoker: CODE(S): F17.200 - Nicotine dependence, unspecified, uncomplicated (8) Vulval hidradenitis suppurativa: CODE(S): L73.2 - Hidradenitis suppurativa (9) Other acute postprocedural pain: CODE(S): G89.18 - Other acute postprocedural pain PLAN: Plan Patient evaluated at the wound healing center today. Wound care - Abdominal tunnel pack with a strip of Aquacel-Ag topped with gauze after washing with soap and water at the time of the dressing change. Right groin keep area clean and dry. May need to place a piece of dry gauze in this area to prevent the skin from rubbing against skin until the scar has matured. May massage the healed abdominal and vulvar scars with lotion to help soften the scarring. Wound culture from 06/22/23 was positive for E.coli, Prevotella bivia, and Anaerobic cocci. Will stop the Doxycycline that she has been on since her discharge from the hospital and start her on Augmentin. Follow up two weeks.
== END 2023-09-08 23:59 | disposition home or self-care (01) ==
LOC: WC 10:45
PROVIDERS: PCP Family Medicine; Referring Provider Surgery; Visit Provider Nurse Practitioner Family
DX: L98.492 Non-pressure chronic ulcer of skin of other sites with fat layer exposed (principal); E11.65 Type 2 diabetes mellitus with hyperglycemia; L73.2 Hidradenitis suppurativa; M79.89 Other specified soft tissue disorders; F17.200 Nicotine dependence, unspecified, uncomplicated; G89.18 Other acute postprocedural pain
CPT/HCPCS: 11042

== ENCOUNTER 2023-09-26 11:15 | Outpatient (RCR) | payer MEDICARE, MEDICAID, SELFPAY ==
[2023-09-09 00:35] VITALS: BP 131/77; PULSE 91; RESP 18; TEMP 36.4; BMI 47.2
[2023-09-19 10:39] VITALS: BP 158/96; PULSE 102; RESP 20; TEMP 35.8; BMI 47.2
--- NOTE | 2023-09-19 12:14 | PN.PCM_ITS ---
History of Present Illness Date of Service: 09/19/23 Chief Complaint: Left groin wound and lower abdominal wound History of Wound: 37 year old female with a 7 month history of hidradenitis suppurativa in her vulval area involving the mons pubis. She had an I&D once in the doctor's office. She has pain in her mons pubis. She denies fever. She denies trauma. She just finished antibiotics, Keflex and Bactrim. Patient has diabetes mellitus. Her last HgbA1c according to the patient is 7.3 few months ago at [facility] on 05/25/23 1. Surgical preparation left vulval area involving mons pubis and left genitocrural crease up to the labia with excision hidradenitis abscess and radical partial vulvectomy including deep subcutaneous tissue. 2. Surgical preparation left inguinal area with excision hidradenitis abscess. 3. Surgical preparation anterior abdominal wall with excisional debridement skin and subcutaneous tissue and fascia for necrotizing hidradenitis abscess. Operative cultures - Staphylococcus lugdunensis. She is being treated wt Cefdinir. Wound care - Wound VAC to the lower abdominal area and Dakins 0.25% moistened gauze to the left vulval area. Progress of Wound: Lower abdominal wound/tunnel is stable. Her left groin fissure remains healed. Objective Data Objective Data Vital Signs: Vital Signs Temp Pulse Resp BP 96.4 F L 102 H 20 H 158/96 H 09/19/23 10:39 09/19/23 10:39 09/19/23 10:39 09/19/23 10:39 Weight: 250 lb 2.49 oz Body Mass Index (BMI) 47.2 Charges/Coding Procedures Integumentary 111xxx-113xx: 02208 Mildred subq tissue 20 sq cm/< Debridement Note Debridement Note Wound debrided: Lower abdominal ulcer Laterality: Not Applicable Wound Grade/Stage: Stage III Type of Debridement: Excisional debridement Anesthesia Used: 4% Lidocaine Solution and 5% Lidocaine Gel Depth: Down to and including healthy tissue and in the subcutaneous layer Percentage of wound debrided: 100 Instrument Used: 3mm curette Tissue Removed: Non viable tissue and slough Severity: Fat Layer Exposed Amount of bleeding with debridement: Mild Bleeding Controlled with: Pressure and Compression and gauze Patient tolerated procedure: Patient tolerated procedure well Post-Debridement Measurements and Additional Note: Post-Debridement Measurements/Treatment CRISPIN - Nurse 1 - General Ulcer Assessment Start: 09/19/23 10:39 Freq: Status: Active Protocol: LAWSON Activity Type Activity Date Activity User E-sign Co-sign Detail Recorded Client Recorded Date Recorded By Document 09/19/23 10:39 DL [employer] 09/19/23 10:45 DL 09/19/23 10:39 WC - Today's Visit Information Type of service 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 ) Arrival Mode Ambulatory Transfer Assistance None Patient Identification Verified (Name & Yes ) Patient Requires Transmission-Based No Precautions Height and Weight Body Mass Index (BMI) 47.2 BMI Classification Obese Vital Signs Temperature (97.8 F-99.1 F) 96.4 F L Temperature Source Temporal Pulse Rate (60-100) 102 H Pulse Location Monitor Respiratory Rate (12-18) 20 H Respiratory rate source Observation Blood Pressure (90/60-120/80) 158/96 H Blood Pressure Mean (mm Hg) 116 Source Monitor History Since Last Visit- (Skip if this is Patient's initial visit) Have you changed medications since your No last visit? Any new allergies or adverse reactions No Had a fall/change in ADL's that may No increase risk of falls Signs or symptoms of abuse and/or No neglect since last visit Have you been in the hospital since your No last visit? Has dressing in place as prescribed Yes Has compression in place as prescribed N/A Has offloadiing in place as prescribed N/A Experienced any changes in pain level or No management Pain Scale: 0-10 Numeric Is Patient Pain Free? Yes CRISPIN - Nurse 1 - General Ulcer Measurement Start: 09/19/23 10:39 Freq: Status: Active Protocol: Activity Type Activity Date Activity User E-sign Co-sign Detail Recorded Client Recorded Date Recorded By Document 09/19/23 10:39 DL [employer] 09/19/23 10:45 DL 09/19/23 10:39 Wound Center Nurse 1 #1 Lower Abd -Current Size (cm) - Length 0.1 -Current Size (cm) - Width 0.6 -Current Size (cm) - Depth 0.8 -Total Square Cm 0.06 -Photo Taken Yes -Exudate Amt Large -Exudate Type Purulent -Wound Margin Distinct, Outline Attached -Granulation Amt None Present (0 %) -Necrosis Amt None Present (0 %) -Structure Exposed N/A -Texture ([place]-wound Skin Appearance) Scarring -Moisture ([place]-wound Skin Appearance) Dry/Scaly -Color ([place]-wound Skin Appearance) No Abnormality -Temperature ([place]-wound Skin No Abnormality Appearance) (Pt Warm) -Tenderness on Palpation ([place]-wound No Skin Appearance) -Ulcer Cleansing Soap and Water -Foul Odor after Cleansing No -Anesthetic Used 5% Lidocaine Gel WC - Nurse 2 - General Ulcer CM Notes Start: 09/19/23 10:39 Freq: Status: Active Protocol: Activity Type Activity Date Activity User E-sign Co-sign Detail Recorded Client Recorded Date Recorded By Document 09/19/23 10:57 Laptop 09/19/23 10:59 09/19/23 10:57 Wound Center Nurse 2 -Time 10:58 -Correct Patient Yes -Correct Side, Site, Position Yes -Correct Procedure Yes -Procedure Performed Yes -Type of Procedure Debridement -Clinical Debridement Subcutaneous -Tissue Removed Subcutaneous -Post Debridement (cm) - Length 0.4 -Post Debridement (cm) - Width 0.9 -Post Debridement (cm) - Depth 3.7 -Total Square (Post) (cm) 0.36 -Area of Debridement (cm) - Length 0.4 -Area of Debridement (cm) - Width 0.9 -Total Square (Area) (cm) 0.36 -Tunneling No -Undermining/Tunneling No -Circular Undermining No -Wound/Ulcer Outcome Not Healed -Ulcer Cleansing Rinsed/ Irrigated with Saline -Foul Odor after Cleansing No -Bioengineered Tissue No -Bleeding Controlled with Pressure -Treatment Response Procedure Tolerated Well -Offloading No -Debridement - Subq, 1st 20sq cm Yes Pain Scale: 0-10 Numeric Is Patient Pain Free? Yes Assessment/Plan Assessment/Plan (1) Ulcer of abdomen wall with fat layer exposed: CODE(S): L98.492 - Non-pressure chronic ulcer of skin of other sites with fat layer exposed (2) Hidradenitis suppurativa: CODE(S): L73.2 - Hidradenitis suppurativa (3) Necrotizing soft tissue infection: CODE(S): M79.89 - Other specified soft tissue disorders (4) DM type 2, goal HbA1c < 7%: CODE(S): E11.9 - Type 2 diabetes mellitus without complications (5) Hemoglobin A1c between 7.0% and 9.0%: CODE(S): R73.9 - Hyperglycemia, unspecified (6) Insulin dependent diabetes mellitus: (7) Smoker: CODE(S): F17.200 - Nicotine dependence, unspecified, uncomplicated (8) Vulval hidradenitis suppurativa: CODE(S): L73.2 - Hidradenitis suppurativa (9) Other acute postprocedural pain: CODE(S): G89.18 - Other acute postprocedural pain PLAN: Plan Patient evaluated at the wound healing center today. Wound care - Abdominal tunnel pack with a strip of Aquacel-Ag topped with gauze after washing with soap and water at the time of the dressing change. Right groin keep area clean and dry. May need to place a piece of dry gauze in this area to prevent the skin from rubbing against skin until the scar has matured. May massage the healed abdominal and vulvar scars with lotion to help soften the scarring. Wound culture from 06/22/23 was positive for E.coli, Prevotella bivia, and Anaerobic cocci. Will stop the Doxycycline that she has been on since her discharge from the hospital and start her on Augmentin. Follow up one week.
[2023-09-26 11:10] VITALS: BP 135/77; PULSE 95; RESP 16; TEMP 35.7; BMI 47.2
--- NOTE | 2023-09-26 11:50 | PN.PCM_ITS ---
History of Present Illness Date of Service: 09/26/23 Chief Complaint: Left groin wound and lower abdominal wound History of Wound: 37 year old female with a 7 month history of hidradenitis suppurativa in her vulval area involving the mons pubis. She had an I&D once in the doctor's office. She has pain in her mons pubis. She denies fever. She denies trauma. She just finished antibiotics, Keflex and Bactrim. Patient has diabetes mellitus. Her last HgbA1c according to the patient is 7.3 few months ago at [facility] on 05/25/23 1. Surgical preparation left vulval area involving mons pubis and left genitocrural crease up to the labia with excision hidradenitis abscess and radical partial vulvectomy including deep subcutaneous tissue. 2. Surgical preparation left inguinal area with excision hidradenitis abscess. 3. Surgical preparation anterior abdominal wall with excisional debridement skin and subcutaneous tissue and fascia for necrotizing hidradenitis abscess. Operative cultures - Staphylococcus lugdunensis. She is being treated wt Cefdinir. Wound care - Wound VAC to the lower abdominal area and Dakins 0.25% moistened gauze to the left vulval area. Progress of Wound: Lower abdominal wound/tunnel is slightly smaller. Objective Data Objective Data Vital Signs: Vital Signs Temp Pulse Resp BP O2 Del Method 96.3 F L 95 16 135/77 H Room Air 09/26/23 11:10 09/26/23 11:10 09/26/23 11:10 09/26/23 11:10 09/26/23 11:10 Oxygen Delivery Method Room Air Weight: 250 lb 2.49 oz Body Mass Index (BMI) 47.2 Charges/Coding Procedures Integumentary 111xxx-113xx: 79984 Mildred subq tissue 20 sq cm/< Debridement Note Debridement Note Wound debrided: Lower abdominal ulcer Laterality: Not Applicable Wound Grade/Stage: Stage III Type of Debridement: Excisional debridement Anesthesia Used: 4% Lidocaine Solution and 5% Lidocaine Gel Depth: Down to and including healthy tissue and in the subcutaneous layer Percentage of wound debrided: 100 Instrument Used: 3mm curette Tissue Removed: Non viable tissue and slough Severity: Fat Layer Exposed Amount of bleeding with debridement: Mild Bleeding Controlled with: Pressure and Compression and gauze Patient tolerated procedure: Patient tolerated procedure well Post-Debridement Measurements and Additional Note: Post-Debridement Measurements/Treatment WC - Nurse 1 - General Ulcer Assessment Start: 09/19/23 10:39 Freq: Status: Active Protocol: LAWSON Activity Type Activity Date Activity User E-sign Co-sign Detail Recorded Client Recorded Date Recorded By Document 09/19/23 10:39 DL Desktop 09/19/23 10:45 DL Document 09/26/23 11:10 BMF Desktop 09/26/23 11:16 BMF 09/19/23 09/26/23 10:39 11:10 WC - Today's Visit Information Type of service Follow-up Visit Follow-up 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 (Physician/BLANKET CUTTING MACHINE 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 ) ) Arrival Mode Ambulatory Ambulatory Transfer Assistance None None Accompanied by mom Patient Identification Verified (Name & Yes Yes ) Patient Requires Transmission-Based No No Precautions Height and Weight Body Mass Index (BMI) 47.2 47.2 BMI Classification Obese Obese Vital Signs Temperature (97.8 F-99.1 F) 96.4 F L 96.3 F L Temperature Source Temporal Temporal Pulse Rate (60-100) 102 H 95 Pulse Location Monitor Monitor Respiratory Rate (12-18) 20 H 16 Respiratory rate source Observation Observation Oxygen Delivery Method Room Air Blood Pressure (90/60-120/80) 158/96 H 135/77 H Blood Pressure Mean (mm Hg) 116 96 Source Monitor Monitor Position Sitting Blood Pressure Location Right Arm History Since Last Visit- (Skip if this is Patient's initial visit) Have you changed medications since your No No last visit? Any new allergies or adverse reactions No No Had a fall/change in ADL's that may No No increase risk of falls Signs or symptoms of abuse and/or No No neglect since last visit Have you been in the hospital since your No No last visit? Has dressing in place as prescribed Yes Yes Has compression in place as prescribed N/A N/A Has offloadiing in place as prescribed N/A N/A Experienced any changes in pain level or No No management Left Footwear Regular Shoe Right Footwear Regular Shoe Pain Scale: 0-10 Numeric Is Patient Pain Free? Yes Yes CRIPSIN - Nurse 1 - General Ulcer Measurement Start: 09/19/23 10:39 Freq: Status: Active Protocol: Activity Type Activity Date Activity User E-sign Co-sign Detail Recorded Client Recorded Date Recorded By Document 09/19/23 10:39 DL Desktop 09/19/23 10:45 Document 09/26/23 11:[address] [facility] Desktop 09/26/23 11:[address] [facility] 09/19/23 09/26/23 10:39 11:10 Wound Center Nurse 1 #1 Lower Abd -Combined with other wound No -Current Size (cm) - Length 0.1 0.2 -Current Size (cm) - Width 0.6 0.4 -Current Size (cm) - Depth 0.8 0.7 -Total Square Cm 0.06 0.08 -Date of Last Picture (Recall this 09/26/23 field) -Photo Taken Yes Yes -Tunneling No -Undermining/Tunneling No -Circular Undermining No -Exudate Amt Large Medium -Exudate Type Purulent Serosanguineous -Wound Margin Distinct, Distinct, Outline Outline Attached Attached -Granulation Amt None Present (0 Large (67-100%) %) -Granulation Quality [place] -Necrosis Amt None Present (0 %) -Structure Exposed N/A -Texture ([place]-wound Skin Appearance) Scarring Assessed, Scarring -Moisture ([place]-wound Skin Appearance) Dry/Scaly Assessed,Dry/ Scaly -Color ([place]-wound Skin Appearance) No Abnormality Assessed -Temperature ([place]-wound Skin No Abnormality No Abnormality Appearance) (Pt Warm) (Pt Warm) -Tenderness on Palpation ([place]-wound No No Skin Appearance) -Ulcer Cleansing Soap and Water Rinsed/ Irrigated with Saline -Foul Odor after Cleansing No No -Anesthetic Used 5% Lidocaine 5% Lidocaine Gel Gel WC - Nurse 2 - General Ulcer CM Notes Start: 09/19/23 10:39 Freq: Status: Active Protocol: Activity Type Activity Date Activity User E-sign Co-sign Detail Recorded Client Recorded Date Recorded By Document 09/19/23 10:57 Laptop 09/19/23 10:59 Document 09/26/23 11:42 Laptop 09/26/23 11:44 09/19/23 09/26/23 10:57 11:42 Wound Center Nurse 2 #1 Lower Abd -Time 10:58 11:43 -Correct Patient Yes Yes -Correct Side, Site, Position Yes Yes -Correct Procedure Yes Yes -Procedure Performed Yes Yes -Type of Procedure Debridement Debridement -Clinical Debridement Subcutaneous Subcutaneous -Tissue Removed Subcutaneous Subcutaneous -Post Debridement (cm) - Length 0.4 0.2 -Post Debridement (cm) - Width 0.9 0.6 -Post Debridement (cm) - Depth 3.7 1.7 -Total Square (Post) (cm) 0.36 0.12 -Area of Debridement (cm) - Length 0.4 0.2 -Area of Debridement (cm) - Width 0.9 0.6 -Total Square (Area) (cm) 0.36 0.12 -Tunneling No No -Undermining/Tunneling No No -Circular Undermining No No -Wound/Ulcer Outcome Not Healed Not Healed -Ulcer Cleansing Rinsed/ Rinsed/ Irrigated with Irrigated with Saline Saline -Foul Odor after Cleansing No No -Bioengineered Tissue No No -Bleeding Controlled with Pressure Pressure -Treatment Response Procedure Procedure Tolerated Well Tolerated Well -Offloading No No -Debridement - Subq, 1st 20sq cm Yes Yes Pain Scale: 0-10 Numeric Is Patient Pain Free? Yes Yes - Nurse 3 - General Ulcer D/C NN Start: 09/19/23 10:39 Freq: Status: Active Protocol: Activity Type Activity Date Activity User E-sign Co-sign Detail Recorded Client Recorded Date Recorded By Document 09/26/23 11:49 KW Desktop 09/26/23 11:50 KW 09/26/23 11:49 Wound Care Center Nurse 3 #1 Lower Abd -Primary Dressing Covered/Secured with Dry Gauze, Secured with Tape Pain Scale: 0-10 Numeric Is Patient Pain Free? Yes - Visit Discharge Discharge Condition Stable Ambulatory Status Ambulatory Transportation Private Auto Medication Reconcilliation completed & No provided to patient/care provider Clinical Summary of Care Provided Yes Assessment/Plan Assessment/Plan (1) Ulcer of abdomen wall with fat layer exposed: CODE(S): L98.492 - Non-pressure chronic ulcer of skin of other sites with fat layer exposed (2) Hidradenitis suppurativa: CODE(S): L73.2 - Hidradenitis suppurativa (3) Necrotizing soft tissue infection: CODE(S): M79.89 - Other specified soft tissue disorders (4) DM type 2, goal HbA1c < 7%: CODE(S): E11.9 - Type 2 diabetes mellitus without complications (5) Hemoglobin A1c between 7.0% and 9.0%: CODE(S): R73.9 - Hyperglycemia, unspecified (6) Insulin dependent diabetes mellitus: (7) Smoker: CODE(S): F17.200 - Nicotine dependence, unspecified, uncomplicated (8) Vulval hidradenitis suppurativa: CODE(S): L73.2 - Hidradenitis suppurativa (9) Other acute postprocedural pain: CODE(S): G89.18 - Other acute postprocedural pain PLAN: Plan Patient evaluated at the wound healing center today. Wound care - Abdominal tunnel pack with a strip of Aquacel-Ag topped with gauze after washing with soap and water at the time of the dressing change. Right groin keep area clean and dry. May need to place a piece of dry gauze in this area to prevent the skin from rubbing against skin until the scar has matured. May massage the healed abdominal and vulvar scars with lotion to help soften the scarring. Wound culture from 06/22/23 was positive for E.coli, Prevotella bivia, and Anaerobic cocci. Will stop the Doxycycline that she has been on since her discharge from the hospital and start her on Augmentin. Follow up two weeks due to the holidays.
== END 2023-10-09 23:59 | disposition home or self-care (01) ==
LOC: WC 11:15
PROVIDERS: PCP Family Medicine; Referring Provider Surgery; Visit Provider Nurse Practitioner Family
DX: E11.622 Type 2 diabetes mellitus with other skin ulcer (principal); L98.492 Non-pressure chronic ulcer of skin of other sites with fat layer exposed; E11.65 Type 2 diabetes mellitus with hyperglycemia; Z79.4 Long term (current) use of insulin; L73.2 Hidradenitis suppurativa; F17.200 Nicotine dependence, unspecified, uncomplicated; G89.18 Other acute postprocedural pain; M79.89 Other specified soft tissue disorders
CPT/HCPCS: 11042

== ENCOUNTER → 2023-09-28 | Outpatient (CLI) | payer MEDICARE, MEDICAID, SELFPAY ==
--- NOTE | 2023-09-28 13:26 | NEURO ---
NCS and/or EMG Patient Report Ordering Doctor: LINN APARICIO DATE OF SERVICE: 09/28/23 Jeniffer presents for electrodiagnostic testing of the upper limbs. She reports numbness and tingling in both hands, worse on the right side. Electrodiagnostic findings: Right median motor nerve demonstrates prolonged latency with normal amplitude and reduced conduction velocity. Left median motor nerve demonstrates prolonged latency with normal amplitude and reduced conduction velocity. Normal ulnar motor response bilaterally, including conduction across the elbow. Prolonged right median F?wave. Prolonged median sensory latency at the wrist, more so on the right side. Normal ulnar and radial sensory responses. Needle EMG testing was performed in the upper limbs. All muscles tested showed no evidence of denervation with normal motor unit action potentials. Electrodiagnostic impression: This is an abnormal study. 1. Electrodiagnostic findings suggestive of bilateral median mononeuropathy. This is consistent with a moderate to advanced right carpal tunnel syndrome and a mild left carpal tunnel syndrome. Multi Select Codes Neurology Neurology Interp Codes: 84099-62 Musc test done w/n test comp (interp) (2) and 32056-25 Nrv cndj test 11-12 studies (interp)
== END | disposition home or self-care (01) ==
LOC: PSN 11:55
PROVIDERS: PCP Family Medicine; Referring Provider Physician Assistant Medical; Visit Provider Physician Assistant Medical
DX: M79.601 Pain in right arm (principal); M79.602 Pain in left arm; G62.9 Polyneuropathy, unspecified
CPT/HCPCS: 95886; 95912

== ENCOUNTER 2023-11-07 09:45 | Outpatient (RCR) | payer MEDICARE, MEDICAID, SELFPAY ==
[2023-10-10 00:19] VITALS: BP 135/77; PULSE 95; RESP 16; TEMP 35.7; BMI 47.2
[2023-10-12 13:19] VITALS: BP 155/103; PULSE 112; RESP 20; TEMP 36.7; BMI 47.2
--- NOTE | 2023-10-12 22:34 | PN.PCM_ITS ---
History of Present Illness Date of Service: 10/12/23 Chief Complaint: Nonhealing ulcer lower anterior abdominal wall History of Wound: Surgery 05/25/23 1. Surgical preparation left vulval area involving mons pubis and left genitocrural crease up to the labia with excision hidradenitis abscess and radical partial vulvectomy including deep subcutaneous tissue. 2. Surgical preparation left inguinal area with excision hidradenitis abscess. 3. Surgical preparation anterior abdominal wall with excisional debridement skin and subcutaneous tissue and fascia for necrotizing hidradenitis abscess. Wound Care - Silver dressing to lower anterior abdominal wall ulcer. The left inguinal and left vulval areas are healed. Operative cultures (abdominal wall and left inguinal/vulval) from 05/25/23 were positive for Staphylococcus lugdunensis. She was treated with Cefdinir. Pathology was consistent with hidradenitis and abscess formation. Prealbumin from 05/28/23 was 11.8. Encourage nutritional supplementation with protein to help the healing process. Patient is diabetic, and her last HgbA1c from 05/13/23 was 6.1. For elective surgeries, the HgbA1c needs to be less than 8. Recently she had a lot of pain in the area of the ulcer as it developed some fullness and was bulging. It spontaneously drained and she felt better. Today she denies fever. Her appetite is good. Progress of Wound: Slowly improving. Objective Data Objective Data Vital Signs: Vital Signs Temp Pulse Resp BP 98.1 F 112 H 20 H 155/103 H 10/12/23 13:19 10/12/23 13:19 10/12/23 13:19 10/12/23 13:19 Weight: 250 lb 2.49 oz Body Mass Index (BMI) 47.2 Prealbumin from 05/28/23 was 11.8.? Encourage nutritional supplementation with protein to help the healing process. Lab / Micro Data Attestation: I reviewed the patient's lab results. Lab results narrative: Patient is diabetic, and her last HgbA1c from 05/13/23 was 6.1. ? For elective surgeries, the HgbA1c needs to be less than 8. Micro: A wound culture was obtained today. Charges/Coding Procedures Integumentary 111xxx-113xx: 39569 Mildred subq tissue 20 sq cm/< (ICD-10 - L98.492, L73.2, M79.89, E11.9, F17.200) Debridement Note Debridement Note Wound debrided: #1 Lower anterior abdominal wall Laterality: Not Applicable Wound Grade/Stage: 3 Type of Debridement: Excisional debridement Anesthesia Used: 5% Lidocaine Gel Depth: Down to and including healthy tissue and in the subcutaneous layer Percentage of wound debrided: 100 Instrument Used: 3mm curette Tissue Removed: subcutaneous tissue. Severity: Fat Layer Exposed Amount of bleeding with debridement: Mild Bleeding Controlled with: Pressure and Compression and gauze Patient tolerated procedure: Patient tolerated procedure well and - (A wound culture was obtained today.) Post-Debridement Measurements and Additional Note: Post-Debridement Measurements/Treatment WC - Nurse 1 - General Ulcer Assessment Start: 10/12/23 13:18 Freq: Status: Active Protocol: [facility]SON Activity Type Activity Date Activity User E-sign Co-sign Detail Recorded Client Recorded Date Recorded By Document 10/12/23 13:19 DL Desktop 10/12/23 13:21 DL 10/12/23 13:19 WC - Today's Visit Information Type of service Follow-up Visit (Physician/AUTO SERVICE REPRESENTATIVE ) Arrival Mode Cane Transfer Assistance None Patient Identification Verified (Name & Yes ) Patient Requires Transmission-Based No Precautions Finger Stick Blood Sugar(mg/dl) (if 93 indicated): Blood Sugar Stated by Patient Height and Weight Body Mass Index (BMI) 47.2 BMI Classification Obese Vital Signs Temperature (97.8 F-99.1 F) 98.1 F Temperature Source Temporal Pulse Rate (60-100) 112 H Pulse Location Monitor Respiratory Rate (12-18) 20 H Respiratory rate source Observation Blood Pressure (90/60-120/80) 155/103 H Blood Pressure Mean (mm Hg) 120 Source Monitor History Since Last Visit- (Skip if this is Patient's initial visit) Have you changed medications since your No last visit? Any new allergies or adverse reactions No Had a fall/change in ADL's that may No increase risk of falls Signs or symptoms of abuse and/or No neglect since last visit Have you been in the hospital since your No last visit? Has dressing in place as prescribed Yes Has compression in place as prescribed N/A Has offloadiing in place as prescribed N/A Experienced any changes in pain level or No management Pain Scale: 0-10 Numeric Is Patient Pain Free? Yes - Nurse 1 - General Ulcer Measurement Start: 10/12/23 13:18 Freq: Status: Active Protocol: Activity Type Activity Date Activity User E-sign Co-sign Detail Recorded Client Recorded Date Recorded By Document 10/12/23 13:19 DL Desktop 10/12/23 13:21 DL 10/12/23 13:19 Wound Center Nurse 1 #1 Lower Abd -Current Size (cm) - Length 0.3 -Current Size (cm) - Width 0.5 -Current Size (cm) - Depth 0.7 -Total Square Cm 0.15 -Photo Taken Yes -Exudate Amt Medium -Exudate Type Serosanguineous -Wound Margin Distinct, Outline Attached -Granulation Amt Medium (34-66%) -Granulation Quality Red -Necrosis Amt Medium (34-66%) -Necrotic Tissue Type Adherent Slough -Structure Exposed N/A -Texture ([place]obia-wound Skin Appearance) Scarring -Moisture ([place]-wound Skin Appearance) No Abnormality -Color ([place]-wound Skin Appearance) No Abnormality -Temperature ([place]-wound Skin No Abnormality Appearance) (Pt Warm) -Ulcer Cleansing Soap and Water -Foul Odor after Cleansing No -Anesthetic Used 5% Lidocaine Gel WC - Nurse 2 - General Ulcer CM Notes Start: 10/12/23 13:18 Freq: Status: Active Protocol: Activity Type Activity Date Activity User E-sign Co-sign Detail Recorded Client Recorded Date Recorded By Document 10/12/23 14:03 MW Desktop 10/12/23 14:11 MW 10/12/23 14:03 Wound Center Nurse 2 -Time 14:04 -Correct Patient Yes -Correct Side, Site, Position Yes -Correct Procedure Yes -Procedure Performed Yes -Type of Procedure Debridement -Clinical Debridement Subcutaneous -Tissue Removed Subcutaneous -Post Debridement (cm) - Length 0.5 -Post Debridement (cm) - Width 0.9 -Post Debridement (cm) - Depth 3.7 -Total Square (Post) (cm) 0.45 -Area of Debridement (cm) - Length 0.5 -Area of Debridement (cm) - Width 0.9 -Total Square (Area) (cm) 0.45 -Tunneling No -Undermining/Tunneling No -Circular Undermining No -Wound/Ulcer Outcome Not Healed -Ulcer Cleansing Rinsed/ Irrigated with Saline -Foul Odor after Cleansing No -Bioengineered Tissue No -Bleeding Controlled with Pressure -Treatment Response Procedure Tolerated Well -Offloading No -Debridement - Subq, 1st 20sq cm Yes Pain Scale: 0-10 Numeric Is Patient Pain Free? Yes - Nurse 3 - General Ulcer D/C NN Start: 10/12/23 13:18 Freq: Status: Active Protocol: Activity Type Activity Date Activity User E-sign Co-sign Detail Recorded Client Recorded Date Recorded By Document 10/12/23 14:17 [facility] Desktop 10/12/23 14:18 [facility] 10/12/23 14:17 Wound Care Center Nurse 3 #1 Lower Abd -Ulcer Cleansing Rinsed/ Irrigated with Saline -Foul Odor after Cleansing No -Primary Dressing Applied Aquacel Rope -Other Dressing drsg per dl senior stack engineer -Primary Dressing Covered/Secured with Dry Gauze, Secured with Tape -Aquacel Rope 1 Treatment Response Procedure Tolerated Well Pain Scale: 0-10 Numeric Is Patient Pain Free? Yes - Visit Discharge Discharge Condition Stable Ambulatory Status Ambulatory Transportation Private Auto Accompanied by [facility] [place] Facility Type Home Health Assessment/Plan Assessment/Plan (1) Ulcer of abdomen wall with fat layer exposed: CODE(S): L98.492 - Non-pressure chronic ulcer of skin of other sites with fat layer exposed (2) Hidradenitis suppurativa: CODE(S): L73.2 - Hidradenitis suppurativa (3) Vulval hidradenitis suppurativa: CODE(S): L73.2 - Hidradenitis suppurativa (4) Necrotizing soft tissue infection: CODE(S): M79.89 - Other specified soft tissue disorders (5) DM type 2, goal HbA1c < 7%: CODE(S): E11.9 - Type 2 diabetes mellitus without complications (6) Smoker: CODE(S): F17.200 - Nicotine dependence, unspecified, uncomplicated PLAN: Plan Continue Silver dressing changes to lower anterior abdominal wall ulcer. Right groin keep area clean and dry. May need to place a piece of dry gauze in this area to prevent the skin from rubbing against skin until the scar has ma tured. May massage the healed abdominal and left inguinal/vulval scars with lotion daily to help soften the scarring and help with lymphatic drainage. A wound culture was obtained today. A positive culture will necessitate antibiotic therapy. Prealbumin from 05/28/23 was 11.8. Encourage nutritional supplementation with protein to help the healing process. Patient is diabetic, and her last HgbA1c from 05/13/23 was 6.1. For elective surgeries, the HgbA1c needs to be less than 8. Followup one week. Encouraged patient to stop smoking as it may have deleterious effects on wound healing.
[2023-10-19 13:53] VITALS: BP 127/77; PULSE 105; RESP 22; TEMP 35.9; BMI 47.2
--- NOTE | 2023-10-19 14:41 | PN.PCM_ITS ---
History of Present Illness Date of Service: 10/19/23 Chief Complaint: Nonhealing ulcer lower anterior abdominal wall History of Wound: Surgery 05/25/23 1. Surgical preparation left vulval area involving mons pubis and left genitocrural crease up to the labia with excision hidradenitis abscess and radical partial vulvectomy including deep subcutaneous tissue. 2. Surgical preparation left inguinal area with excision hidradenitis abscess. 3. Surgical preparation anterior abdominal wall with excisional debridement skin and subcutaneous tissue and fascia for necrotizing hidradenitis abscess. Wound Care - Silver dressing to lower anterior abdominal wall ulcer. The left inguinal and left vulval areas are healed. Operative cultures (abdominal wall and left inguinal/vulval) from 05/25/23 were positive for Staphylococcus lugdunensis. She was treated with Cefdinir. Pathology was consistent with hidradenitis and abscess formation. Prealbumin from 05/28/23 was 11.8. Encourage nutritional supplementation with protein to help the healing process. Patient is diabetic, and her last HgbA1c from 05/13/23 was 6.1. For elective surgeries, the HgbA1c needs to be less than 8. Recently she had a lot of pain in the area of the ulcer as it developed some fullness and was bulging. It spontaneously drained and she felt better. A wound culture was obtained on 10/12/23. It was positive for Streptococcus agalactiae and Anaerobic cocci. She was started on Augmentin. Today she denies fever. Her appetite is good. Progress of Wound: Slowly improving. Objective Data Objective Data Vital Signs: Vital Signs Temp Pulse Resp BP 96.7 F L 105 H 22 H 127/77 H 10/19/23 13:53 10/19/23 13:53 10/19/23 13:53 10/19/23 13:53 Weight: 250 lb 2.49 oz Body Mass Index (BMI) 47.2 Prealbumin from 05/28/23 was 11.8.? Encourage nutritional supplementation with protein to help the healing process. Lab / Micro Data Attestation: I reviewed the patient's lab results. Lab results narrative: Patient is diabetic, and her last HgbA1c from 05/13/23 was 6.1. ? For elective surgeries, the HgbA1c needs to be less than 8. Micro: Microbiology 10/12/23 14:10 Wound - Abdominal Gram Stain - Final 10/12/23 14:10 Wound - Abdominal Wound Culture - Final Streptococcus agalactiae (B) 10/12/23 14:10 Wound - Abdominal Anaerobic Culture - Final Anaerobic cocci Charges/Coding Procedures Integumentary 111xxx-113xx: 41841 Mildred subq tissue 20 sq cm/< (ICD-10 - L98.492, L73.2, M79.89, E11.9, F17.200) Debridement Note Debridement Note Wound debrided: #1 Lower anterior abdominal wall Laterality: Not Applicable Wound Grade/Stage: 3 Type of Debridement: Excisional debridement Anesthesia Used: 5% Lidocaine Gel Depth: Down to and including healthy tissue and in the subcutaneous layer Percentage of wound debrided: 100 Instrument Used: 3mm curette Tissue Removed: subcutaneous tissue. Severity: Fat Layer Exposed Amount of bleeding with debridement: Mild Bleeding Controlled with: Pressure and Compression and gauze Patient tolerated procedure: Patient tolerated procedure well Post-Debridement Measurements and Additional Note: Post-Debridement Measurements/Treatment WC - Nurse 1 - General Ulcer Assessment Start: 10/12/23 13:18 Freq: Status: Active Protocol: .PopdustJORGE LUIS Activity Type Activity Date Activity User E-sign Co-sign Detail Recorded Client Recorded Date Recorded By Document 10/12/23 13:19 DL Desktop 10/12/23 13:21 DL Document 10/19/23 13:53 DL Desktop 10/19/23 14:02 DL 10/12/23 10/19/23 13:19 13:53 - Today's Visit Information Type of service Follow-up Visit Follow-up Visit (Physician/CONTINUOUS WASHER OPERATOR (Physician/CONTINUOUS WASHER OPERATOR ) ) Arrival Mode Cane Ambulatory Transfer Assistance None None Patient Identification Verified (Name & Yes Yes ) Patient Requires Transmission-Based No No Precautions Finger Stick Blood Sugar(mg/dl) (if 93 93 indicated): Blood Sugar Stated by Stated by Patient Patient Height and Weight Body Mass Index (BMI) 47.2 47.2 BMI Classification Obese Obese Vital Signs Temperature (97.8 F-99.1 F) 98.1 F 96.7 F L Temperature Source Temporal Temporal Pulse Rate (60-100) 112 H 105 H Pulse Location Monitor Monitor Respiratory Rate (12-18) 20 H 22 H Respiratory rate source Observation Observation Blood Pressure (90/60-120/80) 155/103 H 127/77 H Blood Pressure Mean (mm Hg) 120 93 Source Monitor Monitor History Since Last Visit- (Skip if this is Patient's initial visit) Have you changed medications since your No No last visit? Any new allergies or adverse reactions No No Had a fall/change in ADL's that may No No increase risk of falls Signs or symptoms of abuse and/or No No neglect since last visit Have you been in the hospital since your No No last visit? Has dressing in place as prescribed Yes Yes Has compression in place as prescribed N/A N/A Has offloadiing in place as prescribed N/A Yes Experienced any changes in pain level or No No management Pain Scale: 0-10 Numeric Is Patient Pain Free? Yes Yes WC - Nurse 1 - General Ulcer Measurement Start: 10/12/23 13:18 Freq: Status: Active Protocol: Activity Type Activity Date Activity User E-sign Co-sign Detail Recorded Client Recorded Date Recorded By Document 10/12/23 13:19 DL Desktop 10/12/23 13:21 DL Document 10/19/23 13:53 DL Desktop 10/19/23 14:02 DL 10/12/23 10/19/23 13:19 13:53 Wound Center Nurse 1 #1 Lower Abd -Current Size (cm) - Length 0.3 0.5 -Current Size (cm) - Width 0.5 0.6 -Current Size (cm) - Depth 0.7 2.8 -Total Square Cm 0.15 0.30 -Photo Taken Yes -Exudate Amt Medium Medium -Exudate Type Serosanguineous Serosanguineous -Wound Margin Distinct, Distinct, Outline Outline Attached Attached -Granulation Amt Medium (34-66%) Large (67-100%) -Granulation Quality Red Red -Necrosis Amt Medium (34-66%) None Present (0 %) -Necrotic Tissue Type Adherent Slough -Structure Exposed N/A N/A -Texture ([place]-wound Skin Appearance) Scarring Scarring -Moisture ([place]-wound Skin Appearance) No Abnormality No Abnormality -Color ([place]-wound Skin Appearance) No Abnormality No Abnormality -Temperature ([place]-wound Skin No Abnormality No Abnormality Appearance) (Pt Warm) (Pt Warm) -Tenderness on Palpation ([place]-wound No Skin Appearance) -Ulcer Cleansing Soap and Water Soap and Water -Foul Odor after Cleansing No No -Anesthetic Used 5% Lidocaine 5% Lidocaine Gel Gel - Nurse 2 - General Ulcer CM Notes Start: 10/12/23 13:18 Freq: Status: Active Protocol: Activity Type Activity Date Activity User E-sign Co-sign Detail Recorded Client Recorded Date Recorded By Document 10/12/23 14:03 MW Desktop 10/12/23 14:11 MW Document 10/19/23 14:26 MW Desktop 10/19/23 14:30 MW 10/12/23 10/19/23 14:03 14:26 Wound Center Nurse 2 #1 Lower Abd -Time 14:04 14:26 -Correct Patient Yes Yes -Correct Side, Site, Position Yes Yes -Correct Procedure Yes Yes -Procedure Performed Yes Yes -Type of Procedure Debridement Debridement -Clinical Debridement Subcutaneous Subcutaneous -Tissue Removed Subcutaneous Subcutaneous -Post Debridement (cm) - Length 0.5 0.5 -Post Debridement (cm) - Width 0.9 0.6 -Post Debridement (cm) - Depth 3.7 2.5 -Total Square (Post) (cm) 0.45 0.30 -Area of Debridement (cm) - Length 0.5 0.5 -Area of Debridement (cm) - Width 0.9 0.6 -Total Square (Area) (cm) 0.45 0.30 -Tunneling No No -Undermining/Tunneling No No -Circular Undermining No No -Wound/Ulcer Outcome Not Healed Not Healed -Ulcer Cleansing Rinsed/ Rinsed/ Irrigated with Irrigated with Saline Saline -Foul Odor after Cleansing No No -Bioengineered Tissue No No -Bleeding Controlled with Pressure Pressure -Treatment Response Procedure Procedure Tolerated Well Tolerated Well -Offloading No No -Debridement - Subq, 1st 20sq cm Yes Yes Pain Scale: 0-10 Numeric Is Patient Pain Free? Yes Yes WC - Nurse 3 - General Ulcer D/C NN Start: 10/12/23 13:18 Freq: Status: Active Protocol: Activity Type Activity Date Activity User E-sign Co-sign Detail Recorded Client Recorded Date Recorded By Document 10/12/23 14:17 BM[facility] Desktop 10/12/23 14:18 BMF Document 10/19/23 14:30 MW Desktop 10/19/23 14:31 MW 10/12/23 10/19/23 14:17 14:30 Wound Care Center Nurse 3 #1 Lower Abd -Ulcer Cleansing Rinsed/ Rinsed/ Irrigated with Irrigated with Saline Saline -Foul Odor after Cleansing No No -Negative Pressure Wound Therapy N/A -Primary Dressing Applied Aquacel Rope Aquacel AG 4x4 -Other Dressing drsg per dl composite assembler -Primary Dressing Covered/Secured with Dry Gauze, Dry Gauze, Secured with Secured with Tape Tape -Aquacel AG 4x4 1 -Aquacel Rope 1 Treatment Response Procedure Procedure Tolerated Well Tolerated Well Pain Scale: 0-10 Numeric Is Patient Pain Free? Yes Yes Teaching: Wound Center Dressing Your Wound -Person Taught Patient,Family -Teaching Method Discussion -Response to teaching Verbalize understanding WC - Visit Discharge Discharge Condition Stable Stable Ambulatory Status Ambulatory Ambulatory Transportation Private Auto Private Auto Accompanied by mom mom Medication Reconcilliation completed & No provided to patient/care provider Clinical Summary of Care Provided Yes Facility Type Home Health Assessment/Plan Assessment/Plan (1) Ulcer of abdomen wall with fat layer exposed: CODE(S): L98.492 - Non-pressure chronic ulcer of skin of other sites with fat layer exposed (2) Hidradenitis suppurativa: CODE(S): L73.2 - Hidradenitis suppurativa (3) Vulval hidradenitis suppurativa: CODE(S): L73.2 - Hidradenitis suppurativa (4) Necrotizing soft tissue infection: CODE(S): M79.89 - Other specified soft tissue disorders (5) DM type 2, goal HbA1c < 7%: CODE(S): E11.9 - Type 2 diabetes mellitus without complications (6) Smoker: CODE(S): F17.200 - Nicotine dependence, unspecified, uncomplicated PLAN: Plan Continue Silver dressing changes to lower anterior abdominal wall ulcer. May massage the healed remaining abdominal and left inguinal/vulval scars with lotion daily to help soften the scarring the scars and help with lymphatic drainage. A wound culture from 10/12/23 showed Streptococcus agalactiae and Anaerobic cocci. She was started on Augmentin. Prealbumin from 05/28/23 was 11.8. Encourage nutritional supplementation with protein to help the healing process. Patient is diabetic, and her last HgbA1c from 05/13/23 was 6.1. For elective surgeries, the HgbA1c needs to be less than 8. Followup one week. Encouraged patient to stop smoking as it may have deleterious effects on wound healing.
[2023-10-24 08:49] VITALS: BP 113/72; PULSE 88; RESP 18; TEMP 36.1; BMI 47.2
--- NOTE | 2023-10-24 09:56 | PN.PCM_ITS ---
History of Present Illness Date of Service: 10/24/23 Chief Complaint: Nonhealing ulcer lower anterior abdominal wall History of Wound: Surgery 05/25/23 1. Surgical preparation left vulval area involving mons pubis and left genitocrural crease up to the labia with excision hidradenitis abscess and radical partial vulvectomy including deep subcutaneous tissue. 2. Surgical preparation left inguinal area with excision hidradenitis abscess. 3. Surgical preparation anterior abdominal wall with excisional debridement skin and subcutaneous tissue and fascia for necrotizing hidradenitis abscess. Wound Care - Silver dressing to lower anterior abdominal wall ulcer. The left inguinal and left vulval areas are healed. Operative cultures (abdominal wall and left inguinal/vulval) from 05/25/23 were positive for Staphylococcus lugdunensis. She was treated with Cefdinir. Pathology was consistent with hidradenitis and abscess formation. Prealbumin from 05/28/23 was 11.8. Encourage nutritional supplementation with protein to help the healing process. Patient is diabetic, and her last HgbA1c from 05/13/23 was 6.1. For elective surgeries, the HgbA1c needs to be less than 8. Recently she had a lot of pain in the area of the ulcer as it developed some fullness and was bulging. It spontaneously drained and she felt better. A wound culture was obtained on 10/12/23. It was positive for Streptococcus agalactiae and Anaerobic cocci. She was started on Augmentin. Today she denies fever. Her appetite is good. Progress of Wound: Slowly improving. There is less depth this week. Objective Data Objective Data Vital Signs: Vital Signs Temp Pulse Resp BP O2 Del Method 97.0 F L 88 18 113/72 Room Air 10/24/23 08:49 10/24/23 08:49 10/24/23 08:49 10/24/23 08:49 10/24/23 08:49 Oxygen Delivery Method Room Air Weight: 250 lb 2.49 oz Body Mass Index (BMI) 47.2 Lab / Micro Data Micro: Microbiology 10/12/23 14:10 Wound - Abdominal Gram Stain - Final 10/12/23 14:10 Wound - Abdominal Wound Culture - Final Streptococcus agalactiae (B) 10/12/23 14:10 Wound - Abdominal Anaerobic Culture - Final Anaerobic cocci Charges/Coding Procedures Integumentary [id number]: [id number] Mlidred subq tissue 20 sq cm/< (ICD-10 - L98.492, L73.2, M79.89, E11.9, F17.200) Debridement Note Debridement Note Wound debrided: #1 Lower anterior abdominal wall Laterality: Not Applicable Wound Grade/Stage: 3 Type of Debridement: Excisional debridement Anesthesia Used: 5% Lidocaine Gel Depth: Down to and including healthy tissue and in the subcutaneous layer Percentage of wound debrided: 100 Instrument Used: 3mm curette Tissue Removed: subcutaneous tissue. Severity: Fat Layer Exposed Amount of bleeding with debridement: Mild Bleeding Controlled with: Pressure and Compression and gauze Patient tolerated procedure: Patient tolerated procedure well Post-Debridement Measurements and Additional Note: Post-Debridement Measurements/Treatment - Nurse 1 - General Ulcer Assessment Start: 10/12/23 13:18 Freq: Status: Active Protocol: [email or web address].[email or web address] Activity Type Activity Date Activity User E-sign Co-sign Detail Recorded Client Recorded Date Recorded By Document 10/12/23 13:19 DL [employer] 10/12/23 13:21 DL Document 10/19/23 13:53 DL Desktop 10/19/23 14:02 DL Document 10/24/23 08:49 KW Desktop 10/24/23 09:00 KW 10/12/23 10/19/23 10/24/23 13:19 13:53 08:49 - Today's Visit Information Type of service Follow-up Visit Follow-up Visit Follow-up Visit (Physician/WELDING MACHINE OPERATOR ELECTROSLAG (Physician/WELDING MACHINE OPERATOR ELECTROSLAG (Physician/WELDING MACHINE OPERATOR ELECTROSLAG ) ) ) Arrival Mode Cane Ambulatory Ambulatory Transfer Assistance None None Patient Identification Verified (Name & Yes Yes Yes ) Patient Requires Transmission-Based No No Precautions Finger Stick Blood Sugar(mg/dl) (if 93 93 110 indicated): Blood Sugar Stated by Stated by Stated by Patient Patient Patient Height and Weight Body Mass Index (BMI) 47.2 47.2 47.2 BMI Classification Obese Obese Obese Vital Signs Temperature (97.8 F-99.1 F) 98.1 F 96.7 F L 97.0 F L Temperature Source Temporal Temporal Temporal Pulse Rate (60-100) 112 H 105 H 88 Pulse Location Monitor Monitor Monitor Respiratory Rate (12-18) 20 H 22 H 18 Respiratory rate source Observation Observation Observation Oxygen Delivery Method Room Air Blood Pressure (90/60-120/80) 155/103 H 127/77 H 113/72 Blood Pressure Mean (mm Hg) 120 93 85 Source Monitor Monitor Monitor Position Sitting Blood Pressure Location Left Arm History Since Last Visit- (Skip if this is Patient's initial visit) Have you changed medications since your No No No last visit? Any new allergies or adverse reactions No No No Had a fall/change in ADL's that may No No No increase risk of falls Signs or symptoms of abuse and/or No No No neglect since last visit Have you been in the hospital since your No No No last visit? Has dressing in place as prescribed Yes Yes Yes Has compression in place as prescribed N/A N/A No Has offloadiing in place as prescribed N/A Yes No Experienced any changes in pain level or No No No management Left Footwear Regular Shoe Right Footwear Regular Shoe Pain Scale: 0-10 Numeric Is Patient Pain Free? Yes Yes No ABD -Description Burning -Intensity 6 -Alleviating Factors/Interventions Medication WC - Nurse 1 - General Ulcer Measurement Start: 10/12/23 13:18 Freq: Status: Active Protocol: Activity Type Activity Date Activity User E-sign Co-sign Detail Recorded Client Recorded Date Recorded By Document 10/12/23 13:19 DL Desktop 10/12/23 13:21 DL Document 10/19/23 13:53 DL Desktop 10/19/23 14:02 DL Document 10/24/23 08:49 KW Desktop 10/24/23 09:00 KW 10/12/23 10/19/23 10/24/23 13:19 13:53 08:49 Wound Center Nurse 1 #1 Lower Abd -Current Size (cm) - Length 0.3 0.5 0.3 -Current Size (cm) - Width 0.5 0.6 0.5 -Current Size (cm) - Depth 0.7 2.8 2.5 -Total Square Cm 0.15 0.30 0.15 -Date of Last Picture (Recall this 10/24/23 field) -Photo Taken Yes Yes -Exudate Amt Medium Medium Small -Exudate Type Serosanguineous Serosanguineous Serosanguineous -Wound Margin Distinct, Distinct, Thickened Outline Outline Attached Attached -Granulation Amt Medium (34-66%) Large (67-100%) Medium (34-66%) -Granulation Quality Red Red Pale,[place] -Necrosis Amt Medium (34-66%) None Present (0 %) -Necrotic Tissue Type Adherent Slough -Structure Exposed N/A N/A -Texture ([place]-wound Skin Appearance) Scarring Scarring Assessed -Moisture ([place]-wound Skin Appearance) No Abnormality No Abnormality Assessed, Maceration -Color ([place]-wound Skin Appearance) No Abnormality No Abnormality Assessed -Temperature ([place]-wound Skin No Abnormality No Abnormality No Abnormality Appearance) (Pt Warm) (Pt Warm) (Pt Warm) -Tenderness on Palpation ([place]-wound No Skin Appearance) -Ulcer Cleansing Soap and Water Soap and Water Rinsed/ Irrigated with Saline -Foul Odor after Cleansing No No -Anesthetic Used 5% Lidocaine 5% Lidocaine 5% Lidocaine Gel Gel Gel WC - Nurse 2 - General Ulcer CM Notes Start: 10/12/23 13:18 Freq: Status: Active Protocol: Activity Type Activity Date Activity User E-sign Co-sign Detail Recorded Client Recorded Date Recorded By Document 10/12/23 14:03 MW Desktop 10/12/23 14:11 MW Document 10/19/23 14:26 MW Desktop 10/19/23 14:30 MW Document 10/24/23 09:16 Laptop 10/24/23 09:16 10/12/23 10/19/23 10/24/23 14:03 14:26 09:16 Wound Center Nurse 2 #1 Lower Abd -Time 14:04 14:26 09:16 -Correct Patient Yes Yes Yes -Correct Side, Site, Position Yes Yes Yes -Correct Procedure Yes Yes Yes -Procedure Performed Yes Yes Yes -Type of Procedure Debridement Debridement Debridement -Clinical Debridement Subcutaneous Subcutaneous Subcutaneous -Tissue Removed Subcutaneous Subcutaneous Subcutaneous -Post Debridement (cm) - Length 0.5 0.5 0.5 -Post Debridement (cm) - Width 0.9 0.6 0.9 -Post Debridement (cm) - Depth 3.7 2.5 1.8 -Total Square (Post) (cm) 0.45 0.30 0.45 -Area of Debridement (cm) - Length 0.5 0.5 0.5 -Area of Debridement (cm) - Width 0.9 0.6 0.9 -Total Square (Area) (cm) 0.45 0.30 0.45 -Tunneling No No No -Undermining/Tunneling No No No -Circular Undermining No No No -Wound/Ulcer Outcome Not Healed Not Healed Not Healed -Ulcer Cleansing Rinsed/ Rinsed/ Rinsed/ Irrigated with Irrigated with Irrigated with Saline Saline Saline -Foul Odor after Cleansing No No No -Bioengineered Tissue No No No -Bleeding Controlled with Pressure Pressure Pressure -Treatment Response Procedure Procedure Procedure Tolerated Well Tolerated Well Tolerated Well -Offloading No No No -Debridement - Subq, 1st 20sq cm Yes Yes Yes Pain Scale: 0-10 Numeric Is Patient Pain Free? Yes Yes Yes - Nurse 3 - General Ulcer D/C NN Start: 10/12/23 13:18 Freq: Status: Active Protocol: Activity Type Activity Date Activity User E-sign Co-sign Detail Recorded Client Recorded Date Recorded By Document 10/12/23 14:17 BMF Desktop 10/12/23 14:18 BMF Document 10/19/23 14:30 MW Desktop 10/19/23 14:31 MW Document 10/24/23 09:19 KW Desktop 10/24/23 09:19 KW 10/12/23 10/19/23 10/24/23 14:17 14:30 09:19 Wound Care Center Nurse 3 #1 Lower Abd -Ulcer Cleansing Rinsed/ Rinsed/ Rinsed/ Irrigated with Irrigated with Irrigated with Saline Saline Saline -Foul Odor after Cleansing No No -Negative Pressure Wound Therapy N/A -Primary Dressing Applied Aquacel Rope Aquacel AG 4x4 Aquacel AG 4x4 -Other Dressing drsg per dl installment loan collector -Primary Dressing Covered/Secured with Dry Gauze, Dry Gauze, Dry Gauze, Secured with Secured with Secured with Tape Tape Tape -Aquacel AG 4x4 1 1 -Aquacel Rope 1 Treatment Response Procedure Procedure Tolerated Well Tolerated Well Pain Scale: 0-10 Numeric Is Patient Pain Free? Yes Yes Yes Teaching: Wound Center Dressing Your Wound -Person Taught Patient,Family -Teaching Method Discussion -Response to teaching Verbalize understanding WC - Visit Discharge Discharge Condition Stable Stable Stable Ambulatory Status Ambulatory Ambulatory Ambulatory Transportation Private Auto Private Auto Private Auto Accompanied by mom mom Medication Reconcilliation completed & No No provided to patient/care provider Clinical Summary of Care Provided Yes Yes Facility Type Home Health Assessment/Plan Assessment/Plan (1) Ulcer of abdomen wall with fat layer exposed: CODE(S): L98.492 - Non-pressure chronic ulcer of skin of other sites with fat layer exposed (2) Hidradenitis suppurativa: CODE(S): L73.2 - Hidradenitis suppurativa (3) Vulval hidradenitis suppurativa: CODE(S): L73.2 - Hidradenitis suppurativa (4) Necrotizing soft tissue infection: CODE(S): M79.89 - Other specified soft tissue disorders (5) DM type 2, goal HbA1c < 7%: CODE(S): E11.9 - Type 2 diabetes mellitus without complications (6) Smoker: CODE(S): F17.200 - Nicotine dependence, unspecified, uncomplicated PLAN: Plan Continue Silver dressing changes to lower anterior abdominal wall ulcer. May massage the healed remaining abdominal and left inguinal/vulval scars with lotion daily to help soften the scarring the scars and help with lymphatic drainage. A wound culture from 10/12/23 showed Streptococcus agalactiae and Anaerobic cocci. She was started on Augmentin. Prealbumin from 05/28/23 was 11.8. Encourage nutritional supplementation with protein to help the healing process. She states she has been using protein powder in almond milk to supplement her protein intake. Patient is diabetic, and her last HgbA1c from 05/13/23 was 6.1. For elective surgeries, the HgbA1c needs to be less than 8. Followup one week. Encouraged patient to stop smoking as it may have deleterious effects on wound healing.
[2023-10-31 14:06] VITALS: BP 115/82; PULSE 87; RESP 16; TEMP 36.3; BMI 47.2
--- NOTE | 2023-10-31 15:59 | PN.PCM_ITS ---
History of Present Illness Date of Service: 10/31/23 Chief Complaint: Nonhealing ulcer lower anterior abdominal wall History of Wound: Surgery 05/25/23 1. Surgical preparation left vulval area involving mons pubis and left genitocrural crease up to the labia with excision hidradenitis abscess and radical partial vulvectomy including deep subcutaneous tissue. 2. Surgical preparation left inguinal area with excision hidradenitis abscess. 3. Surgical preparation anterior abdominal wall with excisional debridement skin and subcutaneous tissue and fascia for necrotizing hidradenitis abscess. Wound Care - Silver dressing to lower anterior abdominal wall ulcer. The left inguinal and left vulval areas are healed. Operative cultures (abdominal wall and left inguinal/vulval) from 05/25/23 were positive for Staphylococcus lugdunensis. She was treated with Cefdinir. Pathology was consistent with hidradenitis and abscess formation. Prealbumin from 05/28/23 was 11.8. Encourage nutritional supplementation with protein to help the healing process. Patient is diabetic, and her last HgbA1c from 05/13/23 was 6.1. For elective surgeries, the HgbA1c needs to be less than 8. Recently she had a lot of pain in the area of the ulcer as it developed some fullness and was bulging. It spontaneously drained and she felt better. A wound culture was obtained on 10/12/23. It was positive for Streptococcus agalactiae and Anaerobic cocci. She was started on Augmentin. She started having stomach issues over the weekend and stopped the Augmentin. Today she denies fever. Her appetite is good. Progress of Wound: Slowly improving. There is less depth this week. Objective Data Objective Data Vital Signs: Vital Signs Temp Pulse Resp BP O2 Del Method 97.3 F L 87 16 115/82 H Room Air 10/31/23 14:06 10/31/23 14:06 10/31/23 14:06 10/31/23 14:06 10/31/23 14:06 Oxygen Delivery Method Room Air Weight: 250 lb 2.49 oz Body Mass Index (BMI) 47.2 Prealbumin from 05/28/23 was 11.8.? Encourage nutritional supplementation with protein to help the healing process. Lab / Micro Data Attestation: I reviewed the patient's lab results. Lab results narrative: Patient is diabetic, and her last HgbA1c from 05/13/23 was 6.1. ? For elective surgeries, the HgbA1c needs to be less than 8. Micro: Microbiology 10/12/23 14:10 Wound - Abdominal Gram Stain - Final 10/12/23 14:10 Wound - Abdominal Wound Culture - Final Streptococcus agalactiae (B) 10/12/23 14:10 Wound - Abdominal Anaerobic Culture - Final Anaerobic cocci Charges/Coding Procedures Integumentary [id number]: [id number] Mildred subq tissue 20 sq cm/< (ICD-10 - L98.492, L73.2, M79.89, E11.9, F17.200) Debridement Note Debridement Note Wound debrided: #1 Lower anterior abdominal wall Laterality: Not Applicable Wound Grade/Stage: 3 Type of Debridement: Excisional debridement Anesthesia Used: 5% Lidocaine Gel Depth: Down to and including healthy tissue and in the subcutaneous layer Percentage of wound debrided: 100 Instrument Used: 3mm curette Tissue Removed: subcutaneous tissue. Severity: Fat Layer Exposed Amount of bleeding with debridement: Mild Bleeding Controlled with: Pressure and Compression and gauze Patient tolerated procedure: Patient tolerated procedure well Post-Debridement Measurements and Additional Note: Post-Debridement Measurements/Treatment - Nurse 1 - General Ulcer Assessment Start: 10/12/23 13:18 Freq: Status: Active Protocol: LAWSON Activity Type Activity Date Activity User E-sign Co-sign Detail Recorded Client Recorded Date Recorded By Document 10/12/23 13:19 DL Desktop 10/12/23 13:21 DL Document 10/19/23 13:53 DL Desktop 10/19/23 14:02 DL Document 10/24/23 08:49 KW Desktop 10/24/23 09:00 KW Document 10/31/23 14:06 BMF Desktop 10/31/23 14:12 BMF 10/12/23 10/19/23 10/24/23 13:19 13:53 08:49 - Today's Visit Information Type of service Follow-up Visit Follow-up Visit Follow-up Visit (Physician/DIMENSIONAL ENGINEER (Physician/DIMENSIONAL ENGINEER (Physician/DIMENSIONAL ENGINEER ) ) ) Arrival Mode Cane Ambulatory Ambulatory Transfer Assistance None None Patient Identification Verified (Name & Yes Yes Yes ) Patient Requires Transmission-Based No No Precautions Finger Stick Blood Sugar(mg/dl) (if 93 93 110 indicated): Blood Sugar Stated by Stated by Stated by Patient Patient Patient Height and Weight Body Mass Index (BMI) 47.2 47.2 47.2 BMI Classification Obese Obese Obese Vital Signs Temperature (97.8 F-99.1 F) 98.1 F 96.7 F L 97.0 F L Temperature Source Temporal Temporal Temporal Pulse Rate (60-100) 112 H 105 H 88 Pulse Location Monitor Monitor Monitor Respiratory Rate (12-18) 20 H 22 H 18 Respiratory rate source Observation Observation Observation Oxygen Delivery Method Room Air Blood Pressure (90/60-120/80) 155/103 H 127/77 H 113/72 Blood Pressure Mean (mm Hg) 120 93 85 Source Monitor Monitor Monitor Position Sitting Blood Pressure Location Left Arm History Since Last Visit- (Skip if this is Patient's initial visit) Have you changed medications since your No No No last visit? Any new allergies or adverse reactions No No No Had a fall/change in ADL's that may No No No increase risk of falls Signs or symptoms of abuse and/or No No No neglect since last visit Have you been in the hospital since your No No No last visit? Has dressing in place as prescribed Yes Yes Yes Has compression in place as prescribed N/A N/A No Has offloadiing in place as prescribed N/A Yes No Experienced any changes in pain level or No No No management Left Footwear Regular Shoe Right Footwear Regular Shoe Pain Scale: 0-10 Numeric Is Patient Pain Free? Yes Yes No ABD -Description Burning -Intensity 6 -Alleviating Factors/Interventions Medication 10/31/23 14:06 WC - Today's Visit Information Type of service Follow-up Visit (Physician/DIMENSIONAL ENGINEER ) Arrival Mode Ambulatory Transfer Assistance None Patient Identification Verified (Name & Yes ) Patient Requires Transmission-Based No Precautions Finger Stick Blood Sugar(mg/dl) (if indicated): Blood Sugar Height and Weight Body Mass Index (BMI) 47.2 BMI Classification Obese Vital Signs Temperature (97.8 F-99.1 F) 97.3 F L Temperature Source Temporal Pulse Rate (60-100) 87 Pulse Location Monitor Respiratory Rate (12-18) 16 Respiratory rate source Observation Oxygen Delivery Method Room Air Blood Pressure (90/60-120/80) 115/82 H Blood Pressure Mean (mm Hg) 93 Source Monitor Position Sitting Blood Pressure Location Left Forearm History Since Last Visit- (Skip if this is Patient's initial visit) Have you changed medications since your No last visit? Any new allergies or adverse reactions No Had a fall/change in ADL's that may No increase risk of falls Signs or symptoms of abuse and/or No neglect since last visit Have you been in the hospital since your No last visit? Has dressing in place as prescribed Yes Has compression in place as prescribed N/A Has offloadiing in place as prescribed N/A Experienced any changes in pain level or No management Left Footwear Regular Shoe Right Footwear Regular Shoe Pain Scale: 0-10 Numeric Is Patient Pain Free? Yes ABD -Description -Intensity -Alleviating Factors/Interventions WC - Nurse 1 - General Ulcer Measurement Start: 10/12/23 13:18 Freq: Status: Active Protocol: Activity Type Activity Date Activity User E-sign Co-sign Detail Recorded Client Recorded Date Recorded By Document 10/12/23 13:19 DL Desktop 10/12/23 13:21 DL Document 10/19/23 13:53 DL Desktop 10/19/23 14:02 DL Document 10/24/23 08:49 KW Desktop 10/24/23 09:00 KW Document 10/31/23 14:06 BMF Desktop 10/31/23 14:12 BMF 10/12/23 10/19/23 10/24/23 13:19 13:53 08:49 Wound Center Nurse 1 #1 Lower Abd -Combined with other wound -Current Size (cm) - Length 0.3 0.5 0.3 -Current Size (cm) - Width 0.5 0.6 0.5 -Current Size (cm) - Depth 0.7 2.8 2.5 -Total Square Cm 0.15 0.30 0.15 -Date of Last Picture (Recall this 10/24/23 field) -Photo Taken Yes Yes -Epithelialization -Tunneling -Undermining/Tunneling -Circular Undermining -Exudate Amt Medium Medium Small -Exudate Type Serosanguineous Serosanguineous Serosanguineous -Wound Margin Distinct, Distinct, Thickened Outline Outline Attached Attached -Granulation Amt Medium (34-66%) Large (67-100%) Medium (34-66%) -Granulation Quality Red Red Pale,[place] -Slough/Fibrin -Necrosis Amt Medium (34-66%) None Present (0 %) -Necrotic Tissue Type Adherent Slough -Structure Exposed N/A N/A -Texture ([place]-wound Skin Appearance) Scarring Scarring Assessed -Moisture ([place]-wound Skin Appearance) No Abnormality No Abnormality Assessed, Maceration -Color ([place]-wound Skin Appearance) No Abnormality No Abnormality Assessed -Temperature ([place]-wound Skin No Abnormality No Abnormality No Abnormality Appearance) (Pt Warm) (Pt Warm) (Pt Warm) -Tenderness on Palpation ([place]-wound No Skin Appearance) -Ulcer Cleansing Soap and Water Soap and Water Rinsed/ Irrigated with Saline -Foul Odor after Cleansing No No -Anesthetic Used 5% Lidocaine 5% Lidocaine 5% Lidocaine Gel Gel Gel 10/31/23 14:06 Wound Center Nurse 1 #1 Lower Abd -Combined with other wound No -Current Size (cm) - Length 0.2 -Current Size (cm) - Width 0.4 -Current Size (cm) - Depth 0.3 -Total Square Cm 0.08 -Date of Last Picture (Recall this 10/31/23 field) -Photo Taken Yes -Epithelialization None Present -Tunneling No -Undermining/Tunneling No -Circular Undermining No -Exudate Amt Medium -Exudate Type Serosanguineous -Wound Margin Distinct, Outline Attached -Granulation Amt Large (67-100%) -Granulation Quality [place] -Slough/Fibrin No -Necrosis Amt None Present (0 %) -Necrotic Tissue Type -Structure Exposed -Texture ([place]-wound Skin Appearance) Assessed, Scarring -Moisture ([place]-wound Skin Appearance) Assessed, Maceration -Color ([place]-wound Skin Appearance) Assessed -Temperature ([place]-wound Skin No Abnormality Appearance) (Pt Warm) -Tenderness on Palpation ([place]-wound No Skin Appearance) -Ulcer Cleansing Soap and Water -Foul Odor after Cleansing No -Anesthetic Used 5% Lidocaine Gel WC - Nurse 2 - General Ulcer CM Notes Start: 10/12/23 13:18 Freq: Status: Active Protocol: Activity Type Activity Date Activity User E-sign Co-sign Detail Recorded Client Recorded Date Recorded By Document 10/12/23 14:03 MW Desktop 10/12/23 14:11 MW Document 10/19/23 14:26 MW Desktop 10/19/23 14:30 MW Document 10/24/23 09:16 JF Laptop 10/24/23 09:16 Document 10/31/23 14:29 Laptop 10/31/23 14:31 10/12/23 10/19/23 10/24/23 14:03 14:26 09:16 Wound Center Nurse 2 #1 Lower Abd -Time 14:04 14:26 09:16 -Correct Patient Yes Yes Yes -Correct Side, Site, Position Yes Yes Yes -Correct Procedure Yes Yes Yes -Procedure Performed Yes Yes Yes -Type of Procedure Debridement Debridement Debridement -Clinical Debridement Subcutaneous Subcutaneous Subcutaneous -Tissue Removed Subcutaneous Subcutaneous Subcutaneous -Post Debridement (cm) - Length 0.5 0.5 0.5 -Post Debridement (cm) - Width 0.9 0.6 0.9 -Post Debridement (cm) - Depth 3.7 2.5 1.8 -Total Square (Post) (cm) 0.45 0.30 0.45 -Area of Debridement (cm) - Length 0.5 0.5 0.5 -Area of Debridement (cm) - Width 0.9 0.6 0.9 -Total Square (Area) (cm) 0.45 0.30 0.45 -Tunneling No No No -Undermining/Tunneling No No No -Circular Undermining No No No -Wound/Ulcer Outcome Not Healed Not Healed Not Healed -Ulcer Cleansing Rinsed/ Rinsed/ Rinsed/ Irrigated with Irrigated with Irrigated with Saline Saline Saline -Foul Odor after Cleansing No No No -Bioengineered Tissue No No No -Bleeding Controlled with Pressure Pressure Pressure -Treatment Response Procedure Procedure Procedure Tolerated Well Tolerated Well Tolerated Well -Offloading No No No -Debridement - Subq, 1st 20sq cm Yes Yes Yes Pain Scale: 0-10 Numeric Is Patient Pain Free? Yes Yes Yes 10/31/23 14:29 Wound Center Nurse 2 #1 Lower Abd -Time 14:29 -Correct Patient Yes -Correct Side, Site, Position Yes -Correct Procedure Yes -Procedure Performed Yes -Type of Procedure Debridement -Clinical Debridement Subcutaneous -Tissue Removed Subcutaneous -Post Debridement (cm) - Length 0.4 -Post Debridement (cm) - Width 0.7 -Post Debridement (cm) - Depth 1.5 -Total Square (Post) (cm) 0.28 -Area of Debridement (cm) - Length 0.4 -Area of Debridement (cm) - Width 0.7 -Total Square (Area) (cm) 0.28 -Tunneling No -Undermining/Tunneling No -Circular Undermining No -Wound/Ulcer Outcome Not Healed -Ulcer Cleansing Rinsed/ Irrigated with Saline -Foul Odor after Cleansing No -Bioengineered Tissue No -Bleeding Controlled with Pressure -Treatment Response Procedure Tolerated Well -Offloading No -Debridement - Subq, 1st 20sq cm Yes Pain Scale: 0-10 Numeric Is Patient Pain Free? Yes - Nurse 3 - General Ulcer D/C NN Start: 10/12/23 13:18 Freq: Status: Active Protocol: Activity Type Activity Date Activity User E-sign Co-sign Detail Recorded Client Recorded Date Recorded By Document 10/12/23 14:17 BMF Desktop 10/12/23 14:18 BMF Document 10/19/23 14:30 MW Desktop 10/19/23 14:31 MW Document 10/24/23 09:19 KW Desktop 10/24/23 09:19 KW Document 10/31/23 14:35 BMF Desktop 10/31/23 14:37 BMF 10/12/23 10/19/23 10/24/23 14:17 14:30 09:19 Wound Care Center Nurse 3 #1 Lower Abd -Ulcer Cleansing Rinsed/ Rinsed/ Rinsed/ Irrigated with Irrigated with Irrigated with Saline Saline Saline -Foul Odor after Cleansing No No -Negative Pressure Wound Therapy N/A -Primary Dressing Applied Aquacel Rope Aquacel AG 4x4 Aquacel AG 4x4 -Other Dressing drsg per dl deburring machine operator -Primary Dressing Covered/Secured with Dry Gauze, Dry Gauze, Dry Gauze, Secured with Secured with Secured with Tape Tape Tape -Aquacel AG 4x4 1 1 -Aquacel Rope 1 Treatment Response Procedure Procedure Tolerated Well Tolerated Well Pain Scale: 0-10 Numeric Is Patient Pain Free? Yes Yes Yes Teaching: Wound Center Dressing Your Wound -Person Taught Patient,Family -Teaching Method Discussion -Response to teaching Verbalize understanding WC - Visit Discharge Discharge Condition Stable Stable Stable Ambulatory Status Ambulatory Ambulatory Ambulatory Transportation Private Auto Private Auto Private Auto Accompanied by mom mom Medication Reconcilliation completed & No No provided to patient/care provider Clinical Summary of Care Provided Yes Yes Facility Type Home Health 10/31/23 14:35 Wound Care Center Nurse 3 #1 Lower Abd -Ulcer Cleansing Rinsed/ Irrigated with Saline -Foul Odor after Cleansing No -Negative Pressure Wound Therapy -Primary Dressing Applied Aquacel AG 4x4 -Other Dressing DRSG PER DL AIRPORT OPERATIONS SPECIALIST -Primary Dressing Covered/Secured with Dry Gauze, Secured with Tape -Aquacel AG 4x4 1 -Aquacel Rope Treatment Response Procedure Tolerated Well Pain Scale: 0-10 Numeric Is Patient Pain Free? Yes Teaching: Wound Center Dressing Your Wound -Person Taught -Teaching Method -Response to teaching WC - Visit Discharge Discharge Condition Stable Ambulatory Status Ambulatory Transportation Private Auto Accompanied by Medication Reconcilliation completed & provided to patient/care provider Clinical Summary of Care Provided Facility Type Assessment/Plan Assessment/Plan (1) Ulcer of abdomen wall with fat layer exposed: CODE(S): L98.492 - Non-pressure chronic ulcer of skin of other sites with fat layer exposed (2) Hidradenitis suppurativa: CODE(S): L73.2 - Hidradenitis suppurativa (3) Vulval hidradenitis suppurativa: CODE(S): L73.2 - Hidradenitis suppurativa (4) Necrotizing soft tissue infection: CODE(S): M79.89 - Other specified soft tissue disorders (5) DM type 2, goal HbA1c < 7%: CODE(S): E11.9 - Type 2 diabetes mellitus without complications (6) Smoker: CODE(S): F17.200 - Nicotine dependence, unspecified, uncomplicated PLAN: Plan Continue Silver dressing changes to lower anterior abdominal wall ulcer. May massage the healed remaining abdominal and left inguinal/vulval scars with lotion daily to help soften the scarring the scars and help with lymphatic drainage. A wound culture from 10/12/23 showed Streptococcus agalactiae and Anaerobic cocci. She was started on Augmentin. Over the weekend she had stomach issues and stopped the Augmentin. Will reassess next week to see if we need to restart them. Prealbumin from 05/28/23 was 11.8. Encourage nutritional supplementation with protein to help the healing process. Patient is diabetic, and her last HgbA1c from 05/13/23 was 6.1. For elective surgeries, the HgbA1c needs to be less than 8. Followup one week. Encouraged patient to stop smoking as it may have deleterious effects on wound healing.
[2023-11-07 09:31] VITALS: BP 110/79; PULSE 112; RESP 16; TEMP 36.6; BMI 47.2
--- NOTE | 2023-11-07 10:13 | PCM.WC.PN ---
History of Present Illness Date of Service: 11/07/23 Chief Complaint: Nonhealing ulcer lower anterior abdominal wall History of Wound: Surgery 05/25/23 1. Surgical preparation left vulval area involving mons pubis and left genitocrural crease up to the labia with excision hidradenitis abscess and radical partial vulvectomy including deep subcutaneous tissue. 2. Surgical preparation left inguinal area with excision hidradenitis abscess. 3. Surgical preparation anterior abdominal wall with excisional debridement skin and subcutaneous tissue and fascia for necrotizing hidradenitis abscess. Wound Care - Silver dressing to lower anterior abdominal wall ulcer. The left inguinal and left vulval areas are healed. Operative cultures (abdominal wall and left inguinal/vulval) from 05/25/23 were positive for Staphylococcus lugdunensis. She was treated with Cefdinir. Pathology was consistent with hidradenitis and abscess formation. Prealbumin from 05/28/23 was 11.8. Encourage nutritional supplementation with protein to help the healing process. Patient is diabetic, and her last HgbA1c from 05/13/23 was 6.1. For elective surgeries, the HgbA1c needs to be less than 8. Recently she had a lot of pain in the area of the ulcer as it developed some fullness and was bulging. It spontaneously drained and she felt better. A wound culture was obtained on 10/12/23. It was positive for Streptococcus agalactiae and Anaerobic cocci. She was started on Augmentin. She started having stomach issues over the weekend and stopped the Augmentin. Today she denies fever. Her appetite is good. Progress of Wound: Ulcer is stable this week. Objective Data Objective Data Vital Signs: Vital Signs Temp Pulse Resp BP O2 Del Method 97.9 F 112 H 16 110/79 Room Air 11/07/23 09:31 11/07/23 09:31 11/07/23 09:31 11/07/23 09:31 11/07/23 09:31 Oxygen Delivery Method Room Air Weight: 250 lb 2.49 oz Body Mass Index (BMI) 47.2 Lab / Micro Data Micro: Microbiology 10/12/23 14:10 Wound - Abdominal Gram Stain - Final 10/12/23 14:10 Wound - Abdominal Wound Culture - Final Streptococcus agalactiae (B) 10/12/23 14:10 Wound - Abdominal Anaerobic Culture - Final Anaerobic cocci Charges/Coding Procedures Integumentary [id number]: [id number] Mildred subq tissue 20 sq cm/< Debridement Note Debridement Note Wound debrided: #1 Lower anterior abdominal wall Laterality: Not Applicable Wound Grade/Stage: 3 Type of Debridement: Excisional debridement Anesthesia Used: 5% Lidocaine Gel Depth: Down to and including healthy tissue and in the subcutaneous layer Percentage of wound debrided: 100 Instrument Used: 3mm curette Tissue Removed: subcutaneous tissue. Severity: Fat Layer Exposed Amount of bleeding with debridement: Mild Bleeding Controlled with: Pressure and Compression and gauze Patient tolerated procedure: Patient tolerated procedure well Post-Debridement Measurements and Additional Note: Post-Debridement Measurements/Treatment - Nurse 1 - General Ulcer Assessment Start: 10/12/23 13:18 Freq: Status: Active Protocol: [facility] Activity Type Activity Date Activity User E-sign Co-sign Detail Recorded Client Recorded Date Recorded By Document 10/12/23 13:19 DL Desktop 10/12/23 13:21 DL Document 10/19/23 13:53 DL Desktop 10/19/23 14:02 DL Document 10/24/23 08:49 KW Desktop 10/24/23 09:00 KW Document 10/31/23 14:06 BMF Desktop 10/31/23 14:12 BMF Document 11/07/23 09:31 BMF Desktop 11/07/23 09:36 BMF 10/12/23 10/19/23 10/24/23 13:19 13:53 08:49 - Today's Visit Information Type of service Follow-up Visit Follow-up Visit Follow-up Visit (Physician/MEDICAL SOCIAL WORKER (Physician/MEDICAL SOCIAL WORKER (Physician/MEDICAL SOCIAL WORKER ) ) ) Arrival Mode Cane Ambulatory Ambulatory Transfer Assistance None None Patient Identification Verified (Name & Yes Yes Yes ) Patient Requires Transmission-Based No No Precautions Finger Stick Blood Sugar(mg/dl) (if 93 93 110 indicated): Blood Sugar Stated by Stated by Stated by Patient Patient Patient Height and Weight Body Mass Index (BMI) 47.2 47.2 47.2 BMI Classification Obese Obese Obese Vital Signs Temperature (97.8 F-99.1 F) 98.1 F 96.7 F L 97.0 F L Temperature Source Temporal Temporal Temporal Pulse Rate (60-100) 112 H 105 H 88 Pulse Location Monitor Monitor Monitor Respiratory Rate (12-18) 20 H 22 H 18 Respiratory rate source Observation Observation Observation Oxygen Delivery Method Room Air Blood Pressure (90/60-120/80) 155/103 H 127/77 H 113/72 Blood Pressure Mean (mm Hg) 120 93 85 Source Monitor Monitor Monitor Position Sitting Blood Pressure Location Left Arm History Since Last Visit- (Skip if this is Patient's initial visit) Have you changed medications since your No No No last visit? Any new allergies or adverse reactions No No No Had a fall/change in ADL's that may No No No increase risk of falls Signs or symptoms of abuse and/or No No No neglect since last visit Have you been in the hospital since your No No No last visit? Has dressing in place as prescribed Yes Yes Yes Has compression in place as prescribed N/A N/A No Has offloadiing in place as prescribed N/A Yes No Experienced any changes in pain level or No No No management Left Footwear Regular Shoe Right Footwear Regular Shoe Pain Scale: 0-10 Numeric Is Patient Pain Free? Yes Yes No ABD -Description Burning -Intensity 6 -Alleviating Factors/Interventions Medication 10/31/23 11/07/23 14:06 09:31 WC - Today's Visit Information Type of service Follow-up Visit Follow-up Visit (Physician/MEDICAL SOCIAL WORKER (Physician/MEDICAL SOCIAL WORKER ) ) Arrival Mode Ambulatory Ambulatory Transfer Assistance None None Patient Identification Verified (Name & Yes Yes ) Patient Requires Transmission-Based No No Precautions Finger Stick Blood Sugar(mg/dl) (if indicated): Blood Sugar Height and Weight Body Mass Index (BMI) 47.2 47.2 BMI Classification Obese Obese Vital Signs Temperature (97.8 F-99.1 F) 97.3 F L 97.9 F Temperature Source Temporal Temporal Pulse Rate (60-100) 87 112 H Pulse Location Monitor Monitor Respiratory Rate (12-18) 16 16 Respiratory rate source Observation Observation Oxygen Delivery Method Room Air Room Air Blood Pressure (90/60-120/80) 115/82 H 110/79 Blood Pressure Mean (mm Hg) 93 89 Source Monitor Monitor Position Sitting Sitting Blood Pressure Location Left Forearm History Since Last Visit- (Skip if this is Patient's initial visit) Have you changed medications since your No No last visit? Any new allergies or adverse reactions No No Had a fall/change in ADL's that may No No increase risk of falls Signs or symptoms of abuse and/or No No neglect since last visit Have you been in the hospital since your No No last visit? Has dressing in place as prescribed Yes Yes Has compression in place as prescribed N/A N/A Has offloadiing in place as prescribed N/A N/A Experienced any changes in pain level or No No management Left Footwear Regular Shoe Regular Shoe Right Footwear Regular Shoe Regular Shoe Pain Scale: 0-10 Numeric Is Patient Pain Free? Yes Yes ABD -Description -Intensity -Alleviating Factors/Interventions WC - Nurse 1 - General Ulcer Measurement Start: 10/12/23 13:18 Freq: Status: Active Protocol: Activity Type Activity Date Activity User E-sign Co-sign Detail Recorded Client Recorded Date Recorded By Document 10/12/23 13:19 DL Desktop 10/12/23 13:21 DL Document 10/19/23 13:53 DL Desktop 10/19/23 14:02 DL Document 10/24/23 08:49 KW Desktop 10/24/23 09:00 KW Document 10/31/23 14:06 BMF Desktop 10/31/23 14:12 BMF Document 11/07/23 09:31 BMF Desktop 11/07/23 09:36 BMF 10/12/23 10/19/23 10/24/23 13:19 13:53 08:49 Wound Center Nurse 1 #1 Lower Abd -Combined with other wound -Current Size (cm) - Length 0.3 0.5 0.3 -Current Size (cm) - Width 0.5 0.6 0.5 -Current Size (cm) - Depth 0.7 2.8 2.5 -Total Square Cm 0.15 0.30 0.15 -Date of Last Picture (Recall this 10/24/23 field) -Photo Taken Yes Yes -Epithelialization -Tunneling -Undermining/Tunneling -Circular Undermining -Exudate Amt Medium Medium Small -Exudate Type Serosanguineous Serosanguineous Serosanguineous -Wound Margin Distinct, Distinct, Thickened Outline Outline Attached Attached -Granulation Amt Medium (34-66%) Large (67-100%) Medium (34-66%) -Granulation Quality Red Red Pale,[place] -Slough/Fibrin -Necrosis Amt Medium (34-66%) None Present (0 %) -Necrotic Tissue Type Adherent Slough -Structure Exposed N/A N/A -Texture ([place]-wound Skin Appearance) Scarring Scarring Assessed -Moisture ([place]-wound Skin Appearance) No Abnormality No Abnormality Assessed, Maceration -Color ([place]-wound Skin Appearance) No Abnormality No Abnormality Assessed -Temperature ([place]-wound Skin No Abnormality No Abnormality No Abnormality Appearance) (Pt Warm) (Pt Warm) (Pt Warm) -Tenderness on Palpation ([place]-wound No Skin Appearance) -Ulcer Cleansing Soap and Water Soap and Water Rinsed/ Irrigated with Saline -Foul Odor after Cleansing No No -Anesthetic Used 5% Lidocaine 5% Lidocaine 5% Lidocaine Gel Gel Gel 10/31/23 11/07/23 14:06 09:31 Wound Center Nurse 1 #1 Lower Abd -Combined with other wound No No -Current Size (cm) - Length 0.2 0.3 -Current Size (cm) - Width 0.4 0.4 -Current Size (cm) - Depth 0.3 0.5 -Total Square Cm 0.08 0.12 -Date of Last Picture (Recall this 10/31/23 11/07/23 field) -Photo Taken Yes Yes -Epithelialization None Present Small 1-33% -Tunneling No No -Undermining/Tunneling No No -Circular Undermining No No -Exudate Amt Medium Medium -Exudate Type Serosanguineous Serosanguineous -Wound Margin Distinct, Distinct, Outline Outline Attached Attached -Granulation Amt Large (67-100%) Large (67-100%) -Granulation Quality [place] -Slough/Fibrin No Yes -Necrosis Amt None Present (0 Small (1-33%) %) -Necrotic Tissue Type Adherent Slough -Structure Exposed -Texture ([place]-wound Skin Appearance) Assessed, Assessed, Scarring Scarring -Moisture ([place]-wound Skin Appearance) Assessed, Assessed Maceration -Color ([place]-wound Skin Appearance) Assessed Assessed -Temperature ([place]-wound Skin No Abnormality No Abnormality Appearance) (Pt Warm) (Pt Warm) -Tenderness on Palpation ([place]-wound No No Skin Appearance) -Ulcer Cleansing Soap and Water Rinsed/ Irrigated with Saline -Foul Odor after Cleansing No No -Anesthetic Used 5% Lidocaine 5% Lidocaine Gel Gel WC - Nurse 2 - General Ulcer CM Notes Start: 10/12/23 13:18 Freq: Status: Active Protocol: Activity Type Activity Date Activity User E-sign Co-sign Detail Recorded Client Recorded Date Recorded By Document 10/12/23 14:03 MW Desktop 10/12/23 14:11 MW Document 10/19/23 14:26 MW Desktop 10/19/23 14:30 MW Document 10/24/23 09:16 JF Laptop 10/24/23 09:16 JF Document 10/31/23 14:29 JF Laptop 10/31/23 14:31 JF Document 11/07/23 09:46 JF Laptop 11/07/23 09:48 JF 10/12/23 10/19/23 10/24/23 14:03 14:26 09:16 Wound Center Nurse 2 #1 Lower Abd -Time 14:04 14:26 09:16 -Correct Patient Yes Yes Yes -Correct Side, Site, Position Yes Yes Yes -Correct Procedure Yes Yes Yes -Procedure Performed Yes Yes Yes -Type of Procedure Debridement Debridement Debridement -Clinical Debridement Subcutaneous Subcutaneous Subcutaneous -Tissue Removed Subcutaneous Subcutaneous Subcutaneous -Post Debridement (cm) - Length 0.5 0.5 0.5 -Post Debridement (cm) - Width 0.9 0.6 0.9 -Post Debridement (cm) - Depth 3.7 2.5 1.8 -Total Square (Post) (cm) 0.45 0.30 0.45 -Area of Debridement (cm) - Length 0.5 0.5 0.5 -Area of Debridement (cm) - Width 0.9 0.6 0.9 -Total Square (Area) (cm) 0.45 0.30 0.45 -Tunneling No No No -Undermining/Tunneling No No No -Circular Undermining No No No -Wound/Ulcer Outcome Not Healed Not Healed Not Healed -Ulcer Cleansing Rinsed/ Rinsed/ Rinsed/ Irrigated with Irrigated with Irrigated with Saline Saline Saline -Foul Odor after Cleansing No No No -Bioengineered Tissue No No No -Bleeding Controlled with Pressure Pressure Pressure -Treatment Response Procedure Procedure Procedure Tolerated Well Tolerated Well Tolerated Well -Offloading No No No -Debridement - Subq, 1st 20sq cm Yes Yes Yes Pain Scale: 0-10 Numeric Is Patient Pain Free? Yes Yes Yes 10/31/23 11/07/23 14:29 09:46 Wound Center Nurse 2 #1 Lower Abd -Time 14:29 09:46 -Correct Patient Yes Yes -Correct Side, Site, Position Yes Yes -Correct Procedure Yes Yes -Procedure Performed Yes Yes -Type of Procedure Debridement Debridement -Clinical Debridement Subcutaneous Subcutaneous -Tissue Removed Subcutaneous Subcutaneous -Post Debridement (cm) - Length 0.4 0.5 -Post Debridement (cm) - Width 0.7 0.5 -Post Debridement (cm) - Depth 1.5 1.8 -Total Square (Post) (cm) 0.28 0.25 -Area of Debridement (cm) - Length 0.4 0.5 -Area of Debridement (cm) - Width 0.7 0.5 -Total Square (Area) (cm) 0.28 0.25 -Tunneling No No -Undermining/Tunneling No No -Circular Undermining No No -Wound/Ulcer Outcome Not Healed Not Healed -Ulcer Cleansing Rinsed/ Rinsed/ Irrigated with Irrigated with Saline Saline -Foul Odor after Cleansing No No -Bioengineered Tissue No No -Bleeding Controlled with Pressure Pressure -Treatment Response Procedure Procedure Tolerated Well Tolerated Well -Offloading No No -Debridement - Subq, 1st 20sq cm Yes Yes Pain Scale: 0-10 Numeric Is Patient Pain Free? Yes Yes WC - Nurse 3 - General Ulcer D/C NN Start: 10/12/23 13:18 Freq: Status: Active Protocol: Activity Type Activity Date Activity User E-sign Co-sign Detail Recorded Client Recorded Date Recorded By Document 10/12/23 14:17 BMF Desktop 10/12/23 14:18 BMF Document 10/19/23 14:30 MW Desktop 10/19/23 14:31 MW Document 10/24/23 09:19 KW Desktop 10/24/23 09:19 KW Document 10/31/23 14:35 BMF Desktop 10/31/23 14:37 BMF Document 11/07/23 09:59 KW Desktop 11/07/23 10:00 KW 10/12/23 10/19/23 10/24/23 14:17 14:30 09:19 Wound Care Center Nurse 3 #1 Lower Abd -Ulcer Cleansing Rinsed/ Rinsed/ Rinsed/ Irrigated with Irrigated with Irrigated with Saline Saline Saline -Foul Odor after Cleansing No No -Negative Pressure Wound Therapy N/A -Primary Dressing Applied Aquacel Rope Aquacel AG 4x4 Aquacel AG 4x4 -Other Dressing drsg per dl sandblaster stone -Primary Dressing Covered/Secured with Dry Gauze, Dry Gauze, Dry Gauze, Secured with Secured with Secured with Tape Tape Tape -Aquacel AG 4x4 1 1 -Aquacel Rope 1 -Nugauze, Plain 1/4in Treatment Response Procedure Procedure Tolerated Well Tolerated Well Pain Scale: 0-10 Numeric Is Patient Pain Free? Yes Yes Yes Teaching: Wound Center Dressing Your Wound -Person Taught Patient,Family -Teaching Method Discussion -Response to teaching Verbalize understanding WC - Visit Discharge Discharge Condition Stable Stable Stable Ambulatory Status Ambulatory Ambulatory Ambulatory Transportation Private Auto Private Auto Private Auto Accompanied by mom mom Medication Reconcilliation completed & No No provided to patient/care provider Clinical Summary of Care Provided Yes Yes Facility Type Home Health 10/31/23 11/07/23 14:35 09:59 Wound Care Center Nurse 3 #1 Lower Abd -Ulcer Cleansing Rinsed/ Rinsed/ Irrigated with Irrigated with Saline Saline -Foul Odor after Cleansing No -Negative Pressure Wound Therapy -Primary Dressing Applied Aquacel AG 4x4 Hysept ($), Nugauze, Plain 1/4in -Other Dressing DRSG PER DL CRIMINAL JUSTICE PROFESSOR -Primary Dressing Covered/Secured with Dry Gauze, Dry Gauze, Secured with Secured with Tape Tape -Aquacel AG 4x4 1 -Aquacel Rope -Nugauze, Plain 1/4in 1 Treatment Response Procedure Tolerated Well Pain Scale: 0-10 Numeric Is Patient Pain Free? Yes Yes Teaching: Wound Center Dressing Your Wound -Person Taught -Teaching Method -Response to teaching WC - Visit Discharge Discharge Condition Stable Stable Ambulatory Status Ambulatory Ambulatory Transportation Private Auto Private Auto Accompanied by Medication Reconcilliation completed & No provided to patient/care provider Clinical Summary of Care Provided Yes Facility Type Assessment/Plan Assessment/Plan (1) Ulcer of abdomen wall with fat layer exposed: CODE(S): L98.492 - Non-pressure chronic ulcer of skin of other sites with fat layer exposed (2) Hidradenitis suppurativa: CODE(S): L73.2 - Hidradenitis suppurativa (3) Vulval hidradenitis suppurativa: CODE(S): L73.2 - Hidradenitis suppurativa (4) Necrotizing soft tissue infection: CODE(S): M79.89 - Other specified soft tissue disorders (5) DM type 2, goal HbA1c < 7%: CODE(S): E11.9 - Type 2 diabetes mellitus without complications (6) Smoker: CODE(S): F17.200 - Nicotine dependence, unspecified, uncomplicated PLAN: Plan Wound care - Stop Silver dressing and start 10/13 Nugauze moistened with Dakins 0.25% packed into the base of the ulcer topped with gauze/ABD daily after washing with soap and water. May massage the healed remaining abdominal and left inguinal/vulval scars with lotion daily to help soften the scarring the scars and help with lymphatic drainage. A wound culture from 10/12/23 showed Streptococcus agalactiae and Anaerobic cocci. She was started on Augmentin. Over the weekend she had stomach issues and stopped the Augmentin. The ulcer is stable, therefore there is no need to restart the antibiotics. Prealbumin from 05/28/23 was 11.8. Encourage nutritional supplementation with protein to help the healing process. Patient is diabetic, and her last HgbA1c from 05/13/23 was 6.1. For elective surgeries, the HgbA1c needs to be less than 8. Encouraged patient to stop smoking as it may have deleterious effects on wound healing. Followup one week.
== END 2023-11-09 23:59 | disposition home or self-care (01) ==
LOC: WC 09:45
PROVIDERS: PCP Family Medicine; Referring Provider Surgery; Visit Provider Surgery
DX: L98.492 Non-pressure chronic ulcer of skin of other sites with fat layer exposed (principal); E11.9 Type 2 diabetes mellitus without complications; L73.2 Hidradenitis suppurativa; M79.89 Other specified soft tissue disorders; F17.200 Nicotine dependence, unspecified, uncomplicated
CPT/HCPCS: 11042; 87070; 87075; 87077; 87186; 87205

== ENCOUNTER 2023-12-05 13:30 | Outpatient (RCR) | payer MEDICARE, MEDICAID, SELFPAY ==
[2023-11-10 00:48] VITALS: BP 110/79; PULSE 112; RESP 16; TEMP 36.6; BMI 47.2
[2023-11-16 13:05] VITALS: BP 118/77; PULSE 77; RESP 16; TEMP 36.3; BMI 47.2
--- NOTE | 2023-11-16 13:49 | PCM.WC.PN ---
History of Present Illness Date of Service: 11/16/23 Chief Complaint: Nonhealing ulcer lower anterior abdominal wall History of Wound: Surgery 05/25/23 1. Surgical preparation left vulval area involving mons pubis and left genitocrural crease up to the labia with excision hidradenitis abscess and radical partial vulvectomy including deep subcutaneous tissue. 2. Surgical preparation left inguinal area with excision hidradenitis abscess. 3. Surgical preparation anterior abdominal wall with excisional debridement skin and subcutaneous tissue and fascia for necrotizing hidradenitis abscess. Wound Care - Silver dressing to lower anterior abdominal wall ulcer. The left inguinal and left vulval areas are healed. Operative cultures (abdominal wall and left inguinal/vulval) from 05/25/23 were positive for Staphylococcus lugdunensis. She was treated with Cefdinir. Pathology was consistent with hidradenitis and abscess formation. Prealbumin from 05/28/23 was 11.8. Encourage nutritional supplementation with protein to help the healing process. Patient is diabetic, and her last HgbA1c from 05/13/23 was 6.1. For elective surgeries, the HgbA1c needs to be less than 8. Recently she had a lot of pain in the area of the ulcer as it developed some fullness and was bulging. It spontaneously drained and she felt better. A wound culture was obtained on 10/12/23. It was positive for Streptococcus agalactiae and Anaerobic cocci. She was started on Augmentin. She started having stomach issues over the weekend and stopped the Augmentin. Today she denies fever. Her appetite is good. Progress of Wound: Improved. Objective Data Objective Data Vital Signs: Vital Signs Temp Pulse Resp BP O2 Del Method 97.4 F L 77 16 118/77 Room Air 11/16/23 13:05 11/16/23 13:05 11/16/23 13:05 11/16/23 13:05 11/16/23 13:05 Oxygen Delivery Method Room Air Weight: 250 lb 2.49 oz Body Mass Index (BMI) 47.2 Prealbumin from 05/28/23 was 11.8.? Encourage nutritional supplementation with protein to help the healing process. Lab / Micro Data Attestation: I reviewed the patient's lab results. Lab results narrative: Patient is diabetic, and her last HgbA1c from 05/13/23 was 6.1. ? For elective surgeries, the HgbA1c needs to be less than 8. Micro: Microbiology 10/12/23 14:10 Wound - Abdominal Gram Stain - Final 10/12/23 14:10 Wound - Abdominal Wound Culture - Final Streptococcus agalactiae (B) 10/12/23 14:10 Wound - Abdominal Anaerobic Culture - Final Anaerobic cocci Charges/Coding Procedures Integumentary 111xxx-113xx: 62913 Mildred subq tissue 20 sq cm/< (ICD-10 - L98.492, L73.2, M79.89, E11.9, F17.200) Debridement Note Debridement Note Wound debrided: #1 Lower anterior abdominal wall Laterality: Not Applicable Wound Grade/Stage: 3 Type of Debridement: Excisional debridement Anesthesia Used: 5% Lidocaine Gel Depth: Down to and including healthy tissue and in the subcutaneous layer Percentage of wound debrided: 100 Instrument Used: 3mm curette Tissue Removed: subcutaneous tissue. Severity: Fat Layer Exposed Amount of bleeding with debridement: Mild Bleeding Controlled with: Pressure and Compression and gauze Patient tolerated procedure: Patient tolerated procedure well Post-Debridement Measurements and Additional Note: Post-Debridement Measurements/Treatment - Nurse 1 - General Ulcer Assessment Start: 11/16/23 13:04 Freq: Status: Active Protocol: LAWSON Activity Type Activity Date Activity User E-sign Co-sign Detail Recorded Client Recorded Date Recorded By Document 11/16/23 13:05 [facility] Desktop 11/16/23 13:11 [facility] 11/16/23 13:05 - Today's Visit Information Type of service Follow-up Visit (Physician/[facility] ) Arrival Mode Ambulatory Transfer Assistance None Accompanied by mom Patient Identification Verified (Name & Yes ) Patient Requires Transmission-Based No Precautions Height and Weight Body Mass Index (BMI) 47.2 BMI Classification Obese Vital Signs Temperature (97.8 F-99.1 F) 97.4 F L Temperature Source Temporal Pulse Rate (60-100) 77 Pulse Location Monitor Respiratory Rate (12-18) 16 Respiratory rate source Observation Oxygen Delivery Method Room Air Blood Pressure (90/60-120/80) 118/77 Blood Pressure Mean (mm Hg) 90 Source Monitor Position Sitting Blood Pressure Location Left Arm History Since Last Visit- (Skip if this is Patient's initial visit) Have you changed medications since your No last visit? Any new allergies or adverse reactions No Had a fall/change in ADL's that may No increase risk of falls Signs or symptoms of abuse and/or No neglect since last visit Have you been in the hospital since your No last visit? Has dressing in place as prescribed Yes Has compression in place as prescribed N/A Has offloadiing in place as prescribed N/A Experienced any changes in pain level or No management Left Footwear Regular Shoe Right Footwear Regular Shoe Pain Scale: 0-10 Numeric Is Patient Pain Free? Yes WC - Nurse 1 - General Ulcer Measurement Start: 11/16/23 13:04 Freq: Status: Active Protocol: Activity Type Activity Date Activity User E-sign Co-sign Detail Recorded Client Recorded Date Recorded By Document 11/16/23 13:05 [facility] Desktop 11/16/23 13:11 [facility] 11/16/23 13:05 Wound Center Nurse 1 #1 Lower Abd -Combined with other wound No -Current Size (cm) - Length 0.1 -Current Size (cm) - Width 0.3 -Current Size (cm) - Depth 0.6 -Total Square Cm 0.03 -Date of Last Picture (Recall this 11/16/23 field) -Photo Taken Yes -Epithelialization Small 1-33% -Tunneling No -Undermining/Tunneling No -Circular Undermining No -Exudate Amt Medium -Exudate Type Serosanguineous -Wound Margin Distinct, Outline Attached -Granulation Amt Large (67-100%) -Granulation Quality Red -Texture (Zenobia-wound Skin Appearance) Assessed, Scarring -Moisture (Zenobia-wound Skin Appearance) Assessed -Color (Zenobia-wound Skin Appearance) Assessed -Temperature (Zenobia-wound Skin No Abnormality Appearance) (Pt Warm) -Tenderness on Palpation (Zenobia-wound No Skin Appearance) -Ulcer Cleansing Rinsed/ Irrigated with Saline -Foul Odor after Cleansing No -Anesthetic Used 5% Lidocaine Gel WC - Nurse 2 - General Ulcer CM Notes Start: 11/16/23 13:04 Freq: Status: Active Protocol: Activity Type Activity Date Activity User E-sign Co-sign Detail Recorded Client Recorded Date Recorded By Document 11/16/23 13:33 [facility] Desktop 11/16/23 13:35 MW 11/16/23 13:33 Wound Center Nurse 2 -Time 13:33 -Correct Patient Yes -Correct Side, Site, Position Yes -Correct Procedure Yes -Procedure Performed Yes -Type of Procedure Debridement -Clinical Debridement Subcutaneous -Tissue Removed Subcutaneous -Post Debridement (cm) - Length 1.0 -Post Debridement (cm) - Width 0.7 -Post Debridement (cm) - Depth 1.4 -Total Square (Post) (cm) 0.70 -Area of Debridement (cm) - Length 1.0 -Area of Debridement (cm) - Width 0.7 -Total Square (Area) (cm) 0.70 -Tunneling No -Undermining/Tunneling No -Circular Undermining No -Wound/Ulcer Outcome Not Healed -Ulcer Cleansing Rinsed/ Irrigated with Saline -Foul Odor after Cleansing No -Bioengineered Tissue No -Bleeding Controlled with Pressure -Treatment Response Procedure Tolerated Well -Offloading No -Debridement - Subq, 1st 20sq cm Yes Pain Scale: 0-10 Numeric Is Patient Pain Free? Yes - Nurse 3 - General Ulcer D/C NN Start: 11/16/23 13:04 Freq: Status: Active Protocol: Activity Type Activity Date Activity User E-sign Co-sign Detail Recorded Client Recorded Date Recorded By Document 11/16/23 13:42 [facility] Desktop 11/16/23 13:43 [facility] 11/16/23 13:42 Wound Care Center Nurse 3 #1 Lower Abd -Ulcer Cleansing Rinsed/ Irrigated with Saline -Foul Odor after Cleansing No -Other Dressing 1/4 in nugauze soaked in dakins -Primary Dressing Covered/Secured with Dry Gauze, Secured with Tape Treatment Response Procedure Tolerated Well Pain Scale: 0-10 Numeric Is Patient Pain Free? Yes - Visit Discharge Discharge Condition Stable Ambulatory Status Ambulatory Transportation Private Auto Accompanied by mom Assessment/Plan Assessment/Plan (1) Ulcer of abdomen wall with fat layer exposed: CODE(S): L98.492 - Non-pressure chronic ulcer of skin of other sites with fat layer exposed (2) Hidradenitis suppurativa: CODE(S): L73.2 - Hidradenitis suppurativa (3) Vulval hidradenitis suppurativa: CODE(S): L73.2 - Hidradenitis suppurativa (4) Necrotizing soft tissue infection: CODE(S): M79.89 - Other specified soft tissue disorders (5) DM type 2, goal HbA1c < 7%: CODE(S): E11.9 - Type 2 diabetes mellitus without complications (6) Smoker: CODE(S): F17.200 - Nicotine dependence, unspecified, uncomplicated PLAN: Plan Wound care - Continue Dakin's 0.25% packed into the base of the ulcer topped with gauze/ABD daily after washing with soap and water. May massage the healed remaining abdominal and left inguinal/vulval scars with lotion daily to help soften the scarring the scars and help with lymphatic drainage. A wound culture from 10/12/23 showed Streptococcus agalactiae and Anaerobic cocci. She was started on Augmentin. Over the weekend she had stomach issues and stopped the Augmentin. The ulcer is stable, therefore there is no need to restart the antibiotics. Prealbumin from 05/28/23 was 11.8. Encourage nutritional supplementation with protein to help the healing process. Patient is diabetic, and her last HgbA1c from 05/13/23 was 6.1. For elective surgeries, the HgbA1c needs to be less than 8. Encouraged patient to stop smoking as it may have deleterious effects on wound healing. Followup one week.
[2023-11-22 14:29] VITALS: BP 112/62; PULSE 93; RESP 18; TEMP 36.1; BMI 47.2
--- NOTE | 2023-11-22 14:52 | PCM.WC.PN ---
History of Present Illness Date of Service: 11/22/23 Chief Complaint: Nonhealing ulcer lower anterior abdominal wall History of Wound: Surgery 05/25/23 1. Surgical preparation left vulval area involving mons pubis and left genitocrural crease up to the labia with excision hidradenitis abscess and radical partial vulvectomy including deep subcutaneous tissue. 2. Surgical preparation left inguinal area with excision hidradenitis abscess. 3. Surgical preparation anterior abdominal wall with excisional debridement skin and subcutaneous tissue and fascia for necrotizing hidradenitis abscess. Wound Care - Silver dressing to lower anterior abdominal wall ulcer. The left inguinal and left vulval areas are healed. Operative cultures (abdominal wall and left inguinal/vulval) from 05/25/23 were positive for Staphylococcus lugdunensis. She was treated with Cefdinir. Pathology was consistent with hidradenitis and abscess formation. Prealbumin from 05/28/23 was 11.8. Encourage nutritional supplementation with protein to help the healing process. Patient is diabetic, and her last HgbA1c from 05/13/23 was 6.1. For elective surgeries, the HgbA1c needs to be less than 8. Recently she had a lot of pain in the area of the ulcer as it developed some fullness and was bulging. It spontaneously drained and she felt better. A wound culture was obtained on 10/12/23. It was positive for Streptococcus agalactiae and Anaerobic cocci. She was started on Augmentin. She started having stomach issues over the weekend and stopped the Augmentin. Today she denies fever. Her appetite is good. Progress of Wound: Improved. Objective Data Objective Data Vital Signs: Vital Signs Temp Pulse Resp BP O2 Del Method 96.9 F L 93 18 112/62 Room Air 11/22/23 14:29 11/22/23 14:29 11/22/23 14:29 11/22/23 14:29 11/22/23 14:29 Oxygen Delivery Method Room Air Weight: 250 lb 2.49 oz Body Mass Index (BMI) 47.2 Prealbumin from 05/28/23 was 11.8.? Encourage nutritional supplementation with protein to help the healing process. Lab / Micro Data Attestation: I reviewed the patient's lab results. Lab results narrative: Patient is diabetic, and her last HgbA1c from 05/13/23 was 6.1. ? For elective surgeries, the HgbA1c needs to be less than 8. Micro: Microbiology 10/12/23 14:10 Wound - Abdominal Gram Stain - Final 10/12/23 14:10 Wound - Abdominal Wound Culture - Final Streptococcus agalactiae (B) 10/12/23 14:10 Wound - Abdominal Anaerobic Culture - Final Anaerobic cocci Charges/Coding Procedures Integumentary 111xxx-113xx: [id number] Mildred subq tissue 20 sq cm/< (ICD-10 - L98.492, L73.2, M79.89, E11.9, F17.200) Debridement Note Debridement Note Wound debrided: #1 Lower anterior abdominal wall Laterality: Not Applicable Wound Grade/Stage: 3 Type of Debridement: Excisional debridement Anesthesia Used: 5% Lidocaine Gel Depth: Down to and including healthy tissue and in the subcutaneous layer Percentage of wound debrided: 100 Instrument Used: 3mm curette Tissue Removed: subcutaneous tissue. Severity: Fat Layer Exposed Amount of bleeding with debridement: Mild Bleeding Controlled with: Pressure and Compression and gauze Patient tolerated procedure: Patient tolerated procedure well Post-Debridement Measurements and Additional Note: Post-Debridement Measurements/Treatment - Nurse 1 - General Ulcer Assessment Start: 11/16/23 13:04 Freq: Status: Active Protocol: LAWSON Activity Type Activity Date Activity User E-sign Co-sign Detail Recorded Client Recorded Date Recorded By Document 11/16/23 13:05 [facility] Desktop 11/16/23 13:11 [facility] Document 11/22/23 14:29 [facility] Desktop 11/22/23 14:35 KW 11/16/23 11/22/23 13:05 14:29 - Today's Visit Information Type of service Follow-up Visit Follow-up Visit (Physician/[facility] (Physician/[facility] ) ) Arrival Mode Ambulatory Ambulatory Transfer Assistance None Accompanied by mom Patient Identification Verified (Name & Yes Yes ) Patient Requires Transmission-Based No Precautions Height and Weight Body Mass Index (BMI) 47.2 47.2 BMI Classification Obese Obese Vital Signs Temperature (97.8 F-99.1 F) 97.4 F L 96.9 F L Temperature Source Temporal Temporal Pulse Rate (60-100) 77 93 Pulse Location Monitor Monitor Respiratory Rate (12-18) 16 18 Respiratory rate source Observation Observation Oxygen Delivery Method Room Air Room Air Blood Pressure (90/60-120/80) 118/77 112/62 Blood Pressure Mean (mm Hg) 90 78 Source Monitor Monitor Position Sitting Sitting Blood Pressure Location Left Arm Right Arm History Since Last Visit- (Skip if this is Patient's initial visit) Have you changed medications since your No No last visit? Any new allergies or adverse reactions No No Had a fall/change in ADL's that may No No increase risk of falls Signs or symptoms of abuse and/or No No neglect since last visit Have you been in the hospital since your No No last visit? Has dressing in place as prescribed Yes Yes Has compression in place as prescribed N/A N/A Has offloadiing in place as prescribed N/A N/A Experienced any changes in pain level or No No management Left Footwear Regular Shoe Regular Shoe Right Footwear Regular Shoe Regular Shoe Pain Scale: 0-10 Numeric Is Patient Pain Free? Yes Yes WC - Nurse 1 - General Ulcer Measurement Start: 11/16/23 13:04 Freq: Status: Active Protocol: Activity Type Activity Date Activity User E-sign Co-sign Detail Recorded Client Recorded Date Recorded By Document 11/16/23 13:05 [employer] 11/16/23 13:11 [employer] Document 11/22/23 14:29 [employer] Desktop 11/22/23 14:35 KW 11/16/23 11/22/23 13:05 14:29 Wound Center Nurse 1 #1 Lower Abd -Combined with other wound No -Current Size (cm) - Length 0.1 0.3 -Current Size (cm) - Width 0.3 0.4 -Current Size (cm) - Depth 0.6 1 -Total Square Cm 0.03 0.12 -Date of Last Picture (Recall this 11/16/23 field) -Photo Taken Yes -Epithelialization Small 1-33% -Tunneling No -Undermining/Tunneling No -Circular Undermining No -Exudate Amt Medium Medium -Exudate Type Serosanguineous Serosanguineous -Wound Margin Distinct, Distinct, Outline Outline Attached Attached -Granulation Amt Large (67-100%) Large (67-100%) -Granulation Quality Red [place] -Texture (Zenobia-wound Skin Appearance) Assessed, Assessed Scarring -Moisture (Zenobia-wound Skin Appearance) Assessed Assessed, Maceration -Color (Zenobia-wound Skin Appearance) Assessed Assessed -Temperature (Zenobia-wound Skin No Abnormality No Abnormality Appearance) (Pt Warm) (Pt Warm) -Tenderness on Palpation (Zenobia-wound No Skin Appearance) -Ulcer Cleansing Rinsed/ Rinsed/ Irrigated with Irrigated with Saline Saline -Foul Odor after Cleansing No -Anesthetic Used 5% Lidocaine 5% Lidocaine Gel Gel WC - Nurse 2 - General Ulcer CM Notes Start: 11/16/23 13:04 Freq: Status: Active Protocol: Activity Type Activity Date Activity User E-sign Co-sign Detail Recorded Client Recorded Date Recorded By Document 11/16/23 13:33 MW Desktop 11/16/23 13:35 MW Document 11/22/23 14:43 Laptop 11/22/23 14:46 11/16/23 11/22/23 13:33 14:43 Wound Center Nurse 2 #1 Lower Abd -Time 13:33 14:43 -Correct Patient Yes Yes -Correct Side, Site, Position Yes Yes -Correct Procedure Yes Yes -Procedure Performed Yes Yes -Type of Procedure Debridement Debridement -Clinical Debridement Subcutaneous Subcutaneous -Tissue Removed Subcutaneous Subcutaneous -Post Debridement (cm) - Length 1.0 0.5 -Post Debridement (cm) - Width 0.7 0.8 -Post Debridement (cm) - Depth 1.4 1.1 -Total Square (Post) (cm) 0.70 0.40 -Area of Debridement (cm) - Length 1.0 0.5 -Area of Debridement (cm) - Width 0.7 0.8 -Total Square (Area) (cm) 0.70 0.40 -Tunneling No No -Undermining/Tunneling No No -Circular Undermining No No -Wound/Ulcer Outcome Not Healed Not Healed -Ulcer Cleansing Rinsed/ Rinsed/ Irrigated with Irrigated with Saline Saline -Foul Odor after Cleansing No No -Bioengineered Tissue No No -Bleeding Controlled with Pressure Pressure -Treatment Response Procedure Procedure Tolerated Well Tolerated Well -Offloading No No -Debridement - Subq, 1st 20sq cm Yes Yes Pain Scale: 0-10 Numeric Is Patient Pain Free? Yes Yes CRISPIN - Nurse 3 - General Ulcer D/C NN Start: 11/16/23 13:04 Freq: Status: Active Protocol: Activity Type Activity Date Activity User E-sign Co-sign Detail Recorded Client Recorded Date Recorded By Document 11/16/23 13:42 [facility] Desktop 11/16/23 13:43 [facility] Document 11/22/23 14:49 Laptop 11/22/23 14:50 11/16/23 11/22/23 13:42 14:49 Wound Care Center Nurse 3 #1 Lower Abd -Ulcer Cleansing Rinsed/ Rinsed/ Irrigated with Irrigated with Saline Saline -Foul Odor after Cleansing No No -Primary Dressing Applied C Hydrogel ($) -Other Dressing 1/4 in nugauze soaked in dakins -Primary Dressing Covered/Secured with Dry Gauze, Dry Gauze, Secured with Secured with Tape Tape Treatment Response Procedure Tolerated Well Pain Scale: 0-10 Numeric Is Patient Pain Free? Yes Yes WC - Visit Discharge Discharge Condition Stable Stable Ambulatory Status Ambulatory Ambulatory Transportation Private Auto Private Auto Accompanied by mom Medication Reconcilliation completed & Yes provided to patient/care provider Clinical Summary of Care Provided Yes Assessment/Plan Assessment/Plan (1) Ulcer of abdomen wall with fat layer exposed: CODE(S): L98.492 - Non-pressure chronic ulcer of skin of other sites with fat layer exposed (2) Hidradenitis suppurativa: CODE(S): L73.2 - Hidradenitis suppurativa (3) Vulval hidradenitis suppurativa: CODE(S): L73.2 - Hidradenitis suppurativa (4) Necrotizing soft tissue infection: CODE(S): M79.89 - Other specified soft tissue disorders (5) DM type 2, goal HbA1c < 7%: CODE(S): E11.9 - Type 2 diabetes mellitus without complications (6) Smoker: CODE(S): F17.200 - Nicotine dependence, unspecified, uncomplicated PLAN: Plan Wound care - The ulcer is more shallow. Will stop the Dakin's and start Hydrogel daily. May massage the healed remaining abdominal and left inguinal/vulval scars with lotion daily to help soften the scarring the scars and help with lymphatic drainage. A wound culture from 10/12/23 showed Streptococcus agalactiae and Anaerobic cocci. She was started on Augmentin. Over the weekend she had stomach issues and stopped the Augmentin. The ulcer is stable, therefore there is no need to restart the antibiotics. Prealbumin from 05/28/23 was 11.8. Encourage nutritional supplementation with protein to help the healing process. Patient is diabetic, and her last HgbA1c from 05/13/23 was 6.1. For elective surgeries, the HgbA1c needs to be less than 8. Encouraged patient to stop smoking as it may have deleterious effects on wound healing. Followup one week.
[2023-11-28 14:23] VITALS: BP 122/76; PULSE 91; RESP 20; TEMP 36.3; BMI 47.2
--- NOTE | 2023-11-28 14:47 | PN.PCM_ITS ---
History of Present Illness Date of Service: 11/28/23 Chief Complaint: Nonhealing ulcer lower anterior abdominal wall History of Wound: Surgery 05/25/23 1. Surgical preparation left vulval area involving mons pubis and left genitocrural crease up to the labia with excision hidradenitis abscess and radical partial vulvectomy including deep subcutaneous tissue. 2. Surgical preparation left inguinal area with excision hidradenitis abscess. 3. Surgical preparation anterior abdominal wall with excisional debridement skin and subcutaneous tissue and fascia for necrotizing hidradenitis abscess. Wound Care - Hydrogel. Operative cultures (abdominal wall and left inguinal/vulval) from 05/25/23 were positive for Staphylococcus lugdunensis. She was treated with Cefdinir. Pathology was consistent with hidradenitis and abscess formation. Prealbumin from 05/28/23 was 11.8. Encourage nutritional supplementation with protein to help the healing process. Patient is diabetic, and her last HgbA1c from 05/13/23 was 6.1. For elective surgeries, the HgbA1c needs to be less than 8. Recently she had a lot of pain in the area of the ulcer as it developed some fullness and was bulging. It spontaneously drained and she felt better. A wound culture was obtained on 10/12/23. It was positive for Streptococcus agalactiae and Anaerobic cocci. She was started on Augmentin. She started having stomach issues and stopped the Augmentin. Today she denies fever. Her appetite is good. Progress of Wound: Improved. Objective Data Objective Data Vital Signs: Vital Signs Temp Pulse Resp BP O2 Del Method 97.4 F L 91 20 H 122/76 H Room Air 11/28/23 14:23 11/28/23 14:23 11/28/23 14:23 11/28/23 14:23 11/22/23 14:29 Oxygen Delivery Method Room Air Weight: 250 lb 2.49 oz Body Mass Index (BMI) 47.2 Prealbumin from 05/28/23 was 11.8.? Encourage nutritional supplementation with protein to help the healing process. Lab / Micro Data Attestation: I reviewed the patient's lab results. Lab results narrative: Patient is diabetic, and her last HgbA1c from 05/13/23 was 6.1. ? For elective surgeries, the HgbA1c needs to be less than 8. Micro: Microbiology 10/12/23 14:10 Wound - Abdominal Gram Stain - Final 10/12/23 14:10 Wound - Abdominal Wound Culture - Final Streptococcus agalactiae (B) 10/12/23 14:10 Wound - Abdominal Anaerobic Culture - Final Anaerobic cocci Charges/Coding Procedures Integumentary [id number]: 11622 Mildred subq tissue 20 sq cm/< (ICD-10 - L98.492, L73.2, M79.89, E11.9, F17.200) Debridement Note Debridement Note Wound debrided: #1 Lower anterior abdominal wall Laterality: Not Applicable Wound Grade/Stage: 3 Type of Debridement: Excisional debridement Anesthesia Used: 5% Lidocaine Gel Depth: Down to and including healthy tissue and in the subcutaneous layer Percentage of wound debrided: 100 Instrument Used: 3mm curette Tissue Removed: subcutaneous tissue. Severity: Fat Layer Exposed Amount of bleeding with debridement: Mild Bleeding Controlled with: Pressure and Compression and gauze Patient tolerated procedure: Patient tolerated procedure well Post-Debridement Measurements and Additional Note: Post-Debridement Measurements/Treatment - Nurse 1 - General Ulcer Assessment Start: 11/16/23 13:04 Freq: Status: Active Protocol: [email or web address].[email or web address] Activity Type Activity Date Activity User E-sign Co-sign Detail Recorded Client Recorded Date Recorded By Document 11/16/23 13:05 BMF Desktop 11/16/23 13:11 BMF Document 11/22/23 14:29 KW Desktop 11/22/23 14:35 KW Document 11/28/23 14:23 DL Desktop 11/28/23 14:29 DL 11/16/23 11/22/23 11/28/23 13:05 14:29 14:23 - Today's Visit Information Type of service Follow-up Visit Follow-up Visit Follow-up Visit (Physician/DENTAL PRACTITIONER (Physician/DENTAL PRACTITIONER (Physician/DENTAL PRACTITIONER ) ) ) Arrival Mode Ambulatory Ambulatory Ambulatory Transfer Assistance None None Accompanied by mom Patient Identification Verified (Name & Yes Yes Yes ) Patient Requires Transmission-Based No No Precautions Safety Precautions NA Height and Weight Body Mass Index (BMI) 47.2 47.2 47.2 BMI Classification Obese Obese Obese Vital Signs Temperature (97.8 F-99.1 F) 97.4 F L 96.9 F L 97.4 F L Temperature Source Temporal Temporal Temporal Pulse Rate (60-100) 77 93 91 Pulse Location Monitor Monitor Monitor Respiratory Rate (12-18) 16 18 20 H Respiratory rate source Observation Observation Observation Oxygen Delivery Method Room Air Room Air Blood Pressure (90/60-120/80) 118/77 112/62 122/76 H Blood Pressure Mean (mm Hg) 90 78 91 Source Monitor Monitor Monitor Position Sitting Sitting Blood Pressure Location Left Arm Right Arm History Since Last Visit- (Skip if this is Patient's initial visit) Have you changed medications since your No No No last visit? Any new allergies or adverse reactions No No No Had a fall/change in ADL's that may No No No increase risk of falls Signs or symptoms of abuse and/or No No No neglect since last visit Have you been in the hospital since your No No No last visit? Has dressing in place as prescribed Yes Yes Yes Has compression in place as prescribed N/A N/A N/A Has offloadiing in place as prescribed N/A N/A N/A Experienced any changes in pain level or No No No management Left Footwear Regular Shoe Regular Shoe Right Footwear Regular Shoe Regular Shoe Pain Scale: 0-10 Numeric Is Patient Pain Free? Yes Yes Yes WC - Nurse 1 - General Ulcer Measurement Start: 11/16/23 13:04 Freq: Status: Active Protocol: Activity Type Activity Date Activity User E-sign Co-sign Detail Recorded Client Recorded Date Recorded By Document 11/16/23 13:05 [facility] Desktop 11/16/23 13:11 [facility] Document 11/22/23 14:29 KW Desktop 11/22/23 14:35 KW Document 11/28/23 14:23 DL Desktop 11/28/23 14:29 DL 11/16/23 11/22/23 11/28/23 13:05 14:29 14:23 Wound Center Nurse 1 #1 Lower Abd -Combined with other wound No -Current Size (cm) - Length 0.1 0.3 0.1 -Current Size (cm) - Width 0.3 0.4 0.1 -Current Size (cm) - Depth 0.6 1 0.2 -Total Square Cm 0.03 0.12 0.01 -Date of Last Picture (Recall this 11/16/23 field) -Photo Taken Yes -Epithelialization Small 1-33% -Tunneling No -Undermining/Tunneling No -Circular Undermining No -Exudate Amt Medium Medium None Present -Exudate Type Serosanguineous Serosanguineous -Wound Margin Distinct, Distinct, Indistinct, Non Outline Outline -Visible Attached Attached -Granulation Amt Large (67-100%) Large (67-100%) Small (1-33%) -Granulation Quality [place] -Necrosis Amt None Present (0 %) -Structure Exposed N/A -Texture ([place]-wound Skin Appearance) Assessed, Assessed Scarring Scarring -Moisture ([place]-wound Skin Appearance) Assessed Assessed, No Abnormality Maceration -Color ([place]-wound Skin Appearance) Assessed Assessed No Abnormality -Temperature ([place]-wound Skin No Abnormality No Abnormality No Abnormality Appearance) (Pt Warm) (Pt Warm) (Pt Warm) -Tenderness on Palpation ([place]-wound No No Skin Appearance) -Ulcer Cleansing Rinsed/ Rinsed/ Rinsed/ Irrigated with Irrigated with Irrigated with Saline Saline Saline -Foul Odor after Cleansing No No -Anesthetic Used 5% Lidocaine 5% Lidocaine 5% Lidocaine Gel Gel Gel WC - Nurse 2 - General Ulcer CM Notes Start: 11/16/23 13:04 Freq: Status: Active Protocol: Activity Type Activity Date Activity User E-sign Co-sign Detail Recorded Client Recorded Date Recorded By Document 11/16/23 13:33 MW Desktop 11/16/23 13:35 MW Document 11/22/23 14:43 [employer] Laptop 11/22/23 14:46 Document 11/28/23 14:43 Laptop 11/28/23 14:43 11/16/23 11/22/23 11/28/23 13:33 14:43 14:43 Wound Center Nurse 2 #1 Lower Abd -Time 13:33 14:43 14:43 -Correct Patient Yes Yes Yes -Correct Side, Site, Position Yes Yes Yes -Correct Procedure Yes Yes Yes -Procedure Performed Yes Yes Yes -Type of Procedure Debridement Debridement Debridement -Clinical Debridement Subcutaneous Subcutaneous Subcutaneous -Tissue Removed Subcutaneous Subcutaneous Subcutaneous -Post Debridement (cm) - Length 1.0 0.5 0.5 -Post Debridement (cm) - Width 0.7 0.8 0.3 -Post Debridement (cm) - Depth 1.4 1.1 0.4 -Total Square (Post) (cm) 0.70 0.40 0.15 -Area of Debridement (cm) - Length 1.0 0.5 0.5 -Area of Debridement (cm) - Width 0.7 0.8 0.3 -Total Square (Area) (cm) 0.70 0.40 0.15 -Tunneling No No No -Undermining/Tunneling No No No -Circular Undermining No No No -Wound/Ulcer Outcome Not Healed Not Healed Not Healed -Ulcer Cleansing Rinsed/ Rinsed/ Rinsed/ Irrigated with Irrigated with Irrigated with Saline Saline Saline -Foul Odor after Cleansing No No No -Bioengineered Tissue No No No -Bleeding Controlled with Pressure Pressure Pressure -Treatment Response Procedure Procedure Procedure Tolerated Well Tolerated Well Tolerated Well -Offloading No No No -Debridement - Subq, 1st 20sq cm Yes Yes Yes Pain Scale: 0-10 Numeric Is Patient Pain Free? Yes Yes Yes - Nurse 3 - General Ulcer D/C NN Start: 11/16/23 13:04 Freq: Status: Active Protocol: Activity Type Activity Date Activity User E-sign Co-sign Detail Recorded Client Recorded Date Recorded By Document 11/16/23 13:42 [employer] Desktop 11/16/23 13:43 [employer] Document 11/22/23 14:49 Laptop 11/22/23 14:50 Document 11/28/23 14:43 Laptop 11/28/23 14:44 11/16/23 11/22/23 11/28/23 13:42 14:49 14:43 Wound Care Center Nurse 3 #1 Lower Abd -Ulcer Cleansing Rinsed/ Rinsed/ Rinsed/ Irrigated with Irrigated with Irrigated with Saline Saline Saline -Foul Odor after Cleansing No No No -Primary Dressing Applied C Hydrogel ($) -Other Dressing 1/4 in nugauze hydrogel soaked in dakins -Primary Dressing Covered/Secured with Dry Gauze, Dry Gauze, Dry Gauze, Secured with Secured with Secured with Tape Tape Tape Treatment Response Procedure Tolerated Well Pain Scale: 0-10 Numeric Is Patient Pain Free? Yes Yes Yes - Visit Discharge Discharge Condition Stable Stable Stable Ambulatory Status Ambulatory Ambulatory Ambulatory Transportation Private Auto Private Auto Private Auto Accompanied by mom mom Medication Reconcilliation completed & Yes No provided to patient/care provider Clinical Summary of Care Provided Yes No Assessment/Plan Assessment/Plan (1) Ulcer of abdomen wall with fat layer exposed: CODE(S): L98.492 - Non-pressure chronic ulcer of skin of other sites with fat layer exposed (2) Hidradenitis suppurativa: CODE(S): L73.2 - Hidradenitis suppurativa (3) Vulval hidradenitis suppurativa: CODE(S): L73.2 - Hidradenitis suppurativa (4) Necrotizing soft tissue infection: CODE(S): M79.89 - Other specified soft tissue disorders (5) DM type 2, goal HbA1c < 7%: CODE(S): E11.9 - Type 2 diabetes mellitus without complications (6) Smoker: CODE(S): F17.200 - Nicotine dependence, unspecified, uncomplicated PLAN: Plan Wound care - The ulcer continues to improve and get smaller. Continue Hydrogel daily. May massage the healed remaining abdominal and left inguinal/vulval scars with lotion daily to help soften the scarring and help with lymphatic drainage. A wound culture from 10/12/23 showed Streptococcus agalactiae and Anaerobic cocci. She was started on Augmentin. Over the weekend she had stomach issues and stopped the Augmentin. The ulcer is healing and getting smaller, therefore there is no need to restart the antibiotics at this time. Prealbumin from 05/28/23 was 11.8. Encourage nutritional supplementation with protein to help the healing process. Patient is diabetic, and her last HgbA1c from 05/13/23 was 6.1. For elective surgeries, the HgbA1c needs to be less than 8. Encouraged patient to stop smoking as it may have deleterious effects on wound healing. Followup one week.
[2023-12-05 13:29] VITALS: BP 137/82; PULSE 102; RESP 16; TEMP 36.8; BMI 47.2
--- NOTE | 2023-12-05 13:57 | PN.PCM_ITS ---
History of Present Illness Date of Service: 12/05/23 Chief Complaint: Nonhealing ulcer lower anterior abdominal wall History of Wound: Surgery 05/25/23 1. Surgical preparation left vulval area involving mons pubis and left genitocrural crease up to the labia with excision hidradenitis abscess and radical partial vulvectomy including deep subcutaneous tissue. 2. Surgical preparation left inguinal area with excision hidradenitis abscess. 3. Surgical preparation anterior abdominal wall with excisional debridement skin and subcutaneous tissue and fascia for necrotizing hidradenitis abscess. Wound Care - Hydrogel. Operative cultures (abdominal wall and left inguinal/vulval) from 05/25/23 were positive for Staphylococcus lugdunensis. She was treated with Cefdinir. Pathology was consistent with hidradenitis and abscess formation. Prealbumin from 05/28/23 was 11.8. Encourage nutritional supplementation with protein to help the healing process. Patient is diabetic, and her last HgbA1c from 05/13/23 was 6.1. For elective surgeries, the HgbA1c needs to be less than 8. Recently she had a lot of pain in the area of the ulcer as it developed some fullness and was bulging. It spontaneously drained and she felt better. A wound culture was obtained on 10/12/23. It was positive for Streptococcus agalactiae and Anaerobic cocci. She was started on Augmentin. She started having stomach issues and stopped the Augmentin. Today she denies fever. Her appetite is good. Progress of Wound: Improved. Objective Data Objective Data Vital Signs: Vital Signs Temp Pulse Resp BP O2 Del Method 98.2 F 102 H 16 137/82 H Room Air 12/05/23 13:29 12/05/23 13:29 12/05/23 13:29 12/05/23 13:29 12/05/23 13:29 Oxygen Delivery Method Room Air Weight: 250 lb 2.49 oz Body Mass Index (BMI) 47.2 Prealbumin from 05/28/23 was 11.8.? Encourage nutritional supplementation with protein to help the healing process. Lab / Micro Data Attestation: I reviewed the patient's lab results. Lab results narrative: Patient is diabetic, and her last HgbA1c from 05/13/23 was 6.1. ? For elective surgeries, the HgbA1c needs to be less than 8. Micro: Microbiology 10/12/23 14:10 Wound - Abdominal Gram Stain - Final 10/12/23 14:10 Wound - Abdominal Wound Culture - Final Streptococcus agalactiae (B) 10/12/23 14:10 Wound - Abdominal Anaerobic Culture - Final Anaerobic cocci She was treated with Augmentin. Had some stomach issues and stopped the antibiotic. Charges/Coding Procedures Integumentary [id number]: 11824 Mildred subq tissue 20 sq cm/< (ICD-10 - L98.492, L73.2, M79.89, E11.9, F17.200) Debridement Note Debridement Note Wound debrided: #1 Lower anterior abdominal wall Laterality: Not Applicable Wound Grade/Stage: 3 Type of Debridement: Excisional debridement Anesthesia Used: 5% Lidocaine Gel Depth: Down to and including healthy tissue and in the subcutaneous layer Percentage of wound debrided: 100 Instrument Used: 3mm curette Tissue Removed: subcutaneous tissue. Severity: Fat Layer Exposed Amount of bleeding with debridement: Mild Bleeding Controlled with: Pressure and Compression and gauze Patient tolerated procedure: Patient tolerated procedure well Post-Debridement Measurements and Additional Note: Post-Debridement Measurements/Treatment - Nurse 1 - General Ulcer Assessment Start: 11/16/23 13:04 Freq: Status: Active Protocol: .BEV Activity Type Activity Date Activity User E-sign Co-sign Detail Recorded Client Recorded Date Recorded By Document 11/16/23 13:05 [facility] Desktop 11/16/23 13:11 [facility] Document 11/22/23 14:29 KW Desktop 11/22/23 14:35 KW Document 11/28/23 14:23 DL Desktop 11/28/23 14:29 DL Document 12/05/23 13:29 [facility] Desktop 12/05/23 13:35 [facility] 11/16/23 11/22/23 11/28/23 13:05 14:29 14:23 - Today's Visit Information Type of service Follow-up Visit Follow-up Visit Follow-up Visit (Physician/COMMERCIAL ILLUSTRATOR (Physician/COMMERCIAL ILLUSTRATOR (Physician/COMMERCIAL ILLUSTRATOR ) ) ) Arrival Mode Ambulatory Ambulatory Ambulatory Transfer Assistance None None Accompanied by mom Patient Identification Verified (Name & Yes Yes Yes ) Patient Requires Transmission-Based No No Precautions Safety Precautions NA Height and Weight Body Mass Index (BMI) 47.2 47.2 47.2 BMI Classification Obese Obese Obese Vital Signs Temperature (97.8 F-99.1 F) 97.4 F L 96.9 F L 97.4 F L Temperature Source Temporal Temporal Temporal Pulse Rate (60-100) 77 93 91 Pulse Location Monitor Monitor Monitor Respiratory Rate (12-18) 16 18 20 H Respiratory rate source Observation Observation Observation Oxygen Delivery Method Room Air Room Air Blood Pressure (90/60-120/80) 118/77 112/62 122/76 H Blood Pressure Mean (mm Hg) 90 78 91 Source Monitor Monitor Monitor Position Sitting Sitting Blood Pressure Location Left Arm Right Arm History Since Last Visit- (Skip if this is Patient's initial visit) Have you changed medications since your No No No last visit? Any new allergies or adverse reactions No No No Had a fall/change in ADL's that may No No No increase risk of falls Signs or symptoms of abuse and/or No No No neglect since last visit Have you been in the hospital since your No No No last visit? Has dressing in place as prescribed Yes Yes Yes Has compression in place as prescribed N/A N/A N/A Has offloadiing in place as prescribed N/A N/A N/A Experienced any changes in pain level or No No No management Left Footwear Regular Shoe Regular Shoe Right Footwear Regular Shoe Regular Shoe Pain Scale: 0-10 Numeric Is Patient Pain Free? Yes Yes Yes 12/05/23 13:29 WC - Today's Visit Information Type of service Follow-up Visit (Physician/COMMERCIAL ILLUSTRATOR ) Arrival Mode Ambulatory Transfer Assistance None Accompanied by Patient Identification Verified (Name & Yes ) Patient Requires Transmission-Based No Precautions Safety Precautions Height and Weight Body Mass Index (BMI) 47.2 BMI Classification Obese Vital Signs Temperature (97.8 F-99.1 F) 98.2 F Temperature Source Temporal Pulse Rate (60-100) 102 H Pulse Location Monitor Respiratory Rate (12-18) 16 Respiratory rate source Observation Oxygen Delivery Method Room Air Blood Pressure (90/60-120/80) 137/82 H Blood Pressure Mean (mm Hg) 100 Source Monitor Position Sitting Blood Pressure Location History Since Last Visit- (Skip if this is Patient's initial visit) Have you changed medications since your No last visit? Any new allergies or adverse reactions No Had a fall/change in ADL's that may No increase risk of falls Signs or symptoms of abuse and/or No neglect since last visit Have you been in the hospital since your No last visit? Has dressing in place as prescribed Yes Has compression in place as prescribed N/A Has offloadiing in place as prescribed N/A Experienced any changes in pain level or No management Left Footwear Regular Shoe Right Footwear Regular Shoe Pain Scale: 0-10 Numeric Is Patient Pain Free? Yes WC - Nurse 1 - General Ulcer Measurement Start: 11/16/23 13:04 Freq: Status: Active Protocol: Activity Type Activity Date Activity User E-sign Co-sign Detail Recorded Client Recorded Date Recorded By Document 11/16/23 13:05 [facility] Desktop 11/16/23 13:11 [facility] Document 11/22/23 14:29 KW Desktop 11/22/23 14:35 KW Document 11/28/23 14:23 DL Desktop 11/28/23 14:29 DL Document 12/05/23 13:29 [facility] Desktop 12/05/23 13:35 [facility] 11/16/23 11/22/23 11/28/23 13:05 14:29 14:23 Wound Center Nurse 1 #1 Lower Abd -Combined with other wound No -Current Size (cm) - Length 0.1 0.3 0.1 -Current Size (cm) - Width 0.3 0.4 0.1 -Current Size (cm) - Depth 0.6 1 0.2 -Total Square Cm 0.03 0.12 0.01 -Date of Last Picture (Recall this 11/16/23 field) -Photo Taken Yes -Epithelialization Small 1-33% -Tunneling No -Undermining/Tunneling No -Circular Undermining No -Exudate Amt Medium Medium None Present -Exudate Type Serosanguineous Serosanguineous -Wound Margin Distinct, Distinct, Indistinct, Non Outline Outline -Visible Attached Attached -Granulation Amt Large (67-100%) Large (67-100%) Small (1-33%) -Granulation Quality Red Bright Bright -Necrosis Amt None Present (0 %) -Structure Exposed N/A -Texture ([place]-wound Skin Appearance) Assessed, Assessed Scarring Scarring -Moisture ([place]-wound Skin Appearance) Assessed Assessed, No Abnormality Maceration -Color ([place]-wound Skin Appearance) Assessed Assessed No Abnormality -Temperature ([place]-wound Skin No Abnormality No Abnormality No Abnormality Appearance) (Pt Warm) (Pt Warm) (Pt Warm) -Tenderness on Palpation ([place]-wound No No Skin Appearance) -Ulcer Cleansing Rinsed/ Rinsed/ Rinsed/ Irrigated with Irrigated with Irrigated with Saline Saline Saline -Foul Odor after Cleansing No No -Anesthetic Used 5% Lidocaine 5% Lidocaine 5% Lidocaine Gel Gel Gel 12/05/23 13:29 Wound Center Nurse 1 #1 Lower Abd -Combined with other wound No -Current Size (cm) - Length 0.1 -Current Size (cm) - Width 0.1 -Current Size (cm) - Depth 0.1 -Total Square Cm 0.01 -Date of Last Picture (Recall this 12/05/23 field) -Photo Taken Yes -Epithelialization Large 67-100% -Tunneling No -Undermining/Tunneling No -Circular Undermining No -Exudate Amt None Present -Exudate Type -Wound Margin -Granulation Amt -Granulation Quality -Necrosis Amt -Structure Exposed -Texture ([place]-wound Skin Appearance) Assessed, Scarring -Moisture ([place]-wound Skin Appearance) Assessed -Color ([place]-wound Skin Appearance) Assessed -Temperature ([place]-wound Skin No Abnormality Appearance) (Pt Warm) -Tenderness on Palpation ([place]-wound No Skin Appearance) -Ulcer Cleansing Rinsed/ Irrigated with Saline -Foul Odor after Cleansing No -Anesthetic Used 5% Lidocaine Gel WC - Nurse 2 - General Ulcer CM Notes Start: 11/16/23 13:04 Freq: Status: Active Protocol: Activity Type Activity Date Activity User E-sign Co-sign Detail Recorded Client Recorded Date Recorded By Document 11/16/23 13:33 [facility] Desktop 11/16/23 13:35 [facility] Document 11/22/23 14:43 [place] Laptop 11/22/23 14:46 Document 11/28/23 14:43 Laptop 11/28/23 14:43 Document 12/05/23 13:49 Laptop 12/05/23 13:50 11/16/23 11/22/23 11/28/23 13:33 14:43 14:43 Wound Center Nurse 2 #1 Lower Abd -Time 13:33 14:43 14:43 -Correct Patient Yes Yes Yes -Correct Side, Site, Position Yes Yes Yes -Correct Procedure Yes Yes Yes -Procedure Performed Yes Yes Yes -Type of Procedure Debridement Debridement Debridement -Clinical Debridement Subcutaneous Subcutaneous Subcutaneous -Tissue Removed Subcutaneous Subcutaneous Subcutaneous -Post Debridement (cm) - Length 1.0 0.5 0.5 -Post Debridement (cm) - Width 0.7 0.8 0.3 -Post Debridement (cm) - Depth 1.4 1.1 0.4 -Total Square (Post) (cm) 0.70 0.40 0.15 -Area of Debridement (cm) - Length 1.0 0.5 0.5 -Area of Debridement (cm) - Width 0.7 0.8 0.3 -Total Square (Area) (cm) 0.70 0.40 0.15 -Tunneling No No No -Undermining/Tunneling No No No -Circular Undermining No No No -Wound/Ulcer Outcome Not Healed Not Healed Not Healed -Ulcer Cleansing Rinsed/ Rinsed/ Rinsed/ Irrigated with Irrigated with Irrigated with Saline Saline Saline -Foul Odor after Cleansing No No No -Bioengineered Tissue No No No -Bleeding Controlled with Pressure Pressure Pressure -Treatment Response Procedure Procedure Procedure Tolerated Well Tolerated Well Tolerated Well -Offloading No No No -Debridement - Subq, 1st 20sq cm Yes Yes Yes Pain Scale: 0-10 Numeric Is Patient Pain Free? Yes Yes Yes 12/05/23 13:49 Wound Center Nurse 2 #1 Lower Abd -Time 13:50 -Correct Patient Yes -Correct Side, Site, Position Yes -Correct Procedure Yes -Procedure Performed Yes -Type of Procedure Debridement -Clinical Debridement Subcutaneous -Tissue Removed Subcutaneous -Post Debridement (cm) - Length 0.2 -Post Debridement (cm) - Width 0.1 -Post Debridement (cm) - Depth 0.1 -Total Square (Post) (cm) 0.02 -Area of Debridement (cm) - Length 0.2 -Area of Debridement (cm) - Width 0.1 -Total Square (Area) (cm) 0.02 -Tunneling No -Undermining/Tunneling No -Circular Undermining No -Wound/Ulcer Outcome Not Healed -Ulcer Cleansing Rinsed/ Irrigated with Saline -Foul Odor after Cleansing No -Bioengineered Tissue No -Bleeding Controlled with Pressure -Treatment Response Procedure Tolerated Well -Offloading No -Debridement - Subq, 1st 20sq cm Yes Pain Scale: 0-10 Numeric Is Patient Pain Free? Yes - Nurse 3 - General Ulcer D/C NN Start: 11/16/23 13:04 Freq: Status: Active Protocol: Activity Type Activity Date Activity User E-sign Co-sign Detail Recorded Client Recorded Date Recorded By Document 11/16/23 13:42 [facility] Desktop 11/16/23 13:43 [facility] Document 11/22/23 14:49 Laptop 11/22/23 14:50 Document 11/28/23 14:43 Laptop 11/28/23 14:44 Document 12/05/23 13:51 Laptop 12/05/23 13:51 11/16/23 11/22/23 11/28/23 13:42 14:49 14:43 Wound Care Center Nurse 3 #1 Lower Abd -Ulcer Cleansing Rinsed/ Rinsed/ Rinsed/ Irrigated with Irrigated with Irrigated with Saline Saline Saline -Foul Odor after Cleansing No No No -Primary Dressing Applied C Hydrogel ($) -Other Dressing 1/4 in nugauze hydrogel soaked in dakins -Primary Dressing Covered/Secured with Dry Gauze, Dry Gauze, Dry Gauze, Secured with Secured with Secured with Tape Tape Tape Treatment Response Procedure Tolerated Well Pain Scale: 0-10 Numeric Is Patient Pain Free? Yes Yes Yes WC - Visit Discharge Discharge Condition Stable Stable Stable Ambulatory Status Ambulatory Ambulatory Ambulatory Transportation Private Auto Private Auto Private Auto Accompanied by mom mom Medication Reconcilliation completed & Yes No provided to patient/care provider Clinical Summary of Care Provided Yes No 12/05/23 13:51 Wound Care Center Nurse 3 #1 Lower Abd -Ulcer Cleansing Rinsed/ Irrigated with Saline -Foul Odor after Cleansing No -Primary Dressing Applied -Other Dressing hydrogel -Primary Dressing Covered/Secured with Dry Gauze, Secured with Tape Treatment Response Pain Scale: 0-10 Numeric Is Patient Pain Free? Yes WC - Visit Discharge Discharge Condition Stable Ambulatory Status Ambulatory Transportation Private Auto Accompanied by Medication Reconcilliation completed & Yes provided to patient/care provider Clinical Summary of Care Provided Yes Assessment/Plan Assessment/Plan (1) Ulcer of abdomen wall with fat layer exposed: CODE(S): L98.492 - Non-pressure chronic ulcer of skin of other sites with fat layer exposed (2) Hidradenitis suppurativa: CODE(S): L73.2 - Hidradenitis suppurativa (3) Vulval hidradenitis suppurativa: CODE(S): L73.2 - Hidradenitis suppurativa (4) Necrotizing soft tissue infection: CODE(S): M79.89 - Other specified soft tissue disorders (5) DM type 2, goal HbA1c < 7%: CODE(S): E11.9 - Type 2 diabetes mellitus without complications (6) Smoker: CODE(S): F17.200 - Nicotine dependence, unspecified, uncomplicated PLAN: Plan Wound care - The ulcer continues to improve and get smaller. Continue Hydrogel daily. May massage the healed remaining abdominal and left inguinal/vulval scars with lotion daily to help soften the scarring and help with lymphatic drainage. A wound culture from 10/12/23 showed Streptococcus agalactiae and Anaerobic cocci. She was started on Augmentin. Over the weekend she had stomach issues and stopped the Augmentin. The ulcer is healing and getting smaller, therefore there is no need to restart the antibiotics at this time. Prealbumin from 05/28/23 was 11.8. Encourage nutritional supplementation with protein to help the healing process. Patient is diabetic, and her last HgbA1c from 05/13/23 was 6.1. For elective surgeries, the HgbA1c needs to be less than 8. Encouraged patient to stop smoking as it may have deleterious effects on wound healing. Followup one week. The ulceration may recur after it is healed because of the weight of the abdominal panniculus and associated dependent edema that is causing friction and increasing moisture in the abdominal wall skin crease which can lead to further ulceration. The dependent edema can also lead to ulceration on the abdominal wall. She would benefit from an abdominal panniculectomy.
== END 2023-12-08 23:59 | disposition home or self-care (01) ==
LOC: WC 13:30
PROVIDERS: PCP Family Medicine; Referring Provider Surgery; Visit Provider Surgery
DX: L98.492 Non-pressure chronic ulcer of skin of other sites with fat layer exposed (principal); E11.9 Type 2 diabetes mellitus without complications; L73.2 Hidradenitis suppurativa; M79.89 Other specified soft tissue disorders; F17.200 Nicotine dependence, unspecified, uncomplicated
CPT/HCPCS: 11042

== ENCOUNTER 2023-12-12 13:19 | Outpatient (RCR) | payer MEDICARE, MEDICAID, SELFPAY ==
[2023-12-09 00:34] VITALS: BP 137/82; PULSE 102; RESP 16; TEMP 36.8; BMI 47.2
[2023-12-12 13:25] VITALS: BP 153/83; PULSE 95; RESP 18; TEMP 37; BMI 47.2
--- NOTE | 2023-12-12 14:09 | PN.PCM_ITS ---
History of Present Illness Date of Service: 12/12/23 Chief Complaint: Nonhealing ulcer right lower anterior abdominal wall and small boil (folliculitis) left abdominal wall skin crease History of Wound: Surgery 05/25/23 1. Surgical preparation left vulval area involving mons pubis and left genitocrural crease up to the labia with excision hidradenitis abscess and radical partial vulvectomy including deep subcutaneous tissue. 2. Surgical preparation left inguinal area with excision hidradenitis abscess. 3. Surgical preparation anterior abdominal wall with excisional debridement skin and subcutaneous tissue and fascia for necrotizing hidradenitis abscess. Wound Care - Hydrogel. Operative cultures (abdominal wall and left inguinal/vulval) from 05/25/23 were positive for Staphylococcus lugdunensis. She was treated with Cefdinir. Pathology was consistent with hidradenitis and abscess formation. Prealbumin from 05/28/23 was 11.8. Encourage nutritional supplementation with protein to help the healing process. Patient is diabetic, and her last HgbA1c from 05/13/23 was 6.1. For elective surgeries, the HgbA1c needs to be less than 8. Recently she had a lot of pain in the area of the ulcer as it developed some fullness and was bulging. It spontaneously drained and she felt better. A wound culture was obtained on 10/12/23. It was positive for Streptococcus agalactiae and Anaerobic cocci. She was started on Augmentin. She started having stomach issues and stopped the Augmentin. Within the past week, she noticed a red area in the left abdominal wall skin crease. She states it is painful to the touch. Today she denies fever. Her appetite is good. Progress of Wound: Ulcer right lower anterior abdominal wall has healed. Has new onset boil (folliculitis) left abdominal wall skin crease. Objective Data Objective Data Vital Signs: Vital Signs Temp Pulse Resp BP O2 Del Method 98.6 F 95 18 153/83 H Room Air 12/12/23 13:25 12/12/23 13:25 12/12/23 13:25 12/12/23 13:25 12/12/23 13:25 Oxygen Delivery Method Room Air Weight: 250 lb 2.49 oz Body Mass Index (BMI) 47.2 Prealbumin from 05/28/23 was 11.8.? Encourage nutritional supplementation with protein to help the healing process. Lab / Micro Data Attestation: I reviewed the patient's lab results. Lab results narrative: Patient is diabetic, and her last HgbA1c from 05/13/23 was 6.1. ? For elective surgeries, the HgbA1c needs to be less than 8. Micro: Microbiology 10/12/23 14:10 Wound - Abdominal Gram Stain - Final 10/12/23 14:10 Wound - Abdominal Wound Culture - Final Streptococcus agalactiae (B) 10/12/23 14:10 Wound - Abdominal Anaerobic Culture - Final Anaerobic cocci She was treated with Augmentin. Had some stomach issues and stopped the antibiotic. Charges/Coding Visit Charges Office Visits / Consults: 28681 OV L3 Est 20min (ICD-10 - L02.229, L73.9, E65, L30.4, E11.9, L98.492, L73.2, F17.200) Physical Exam Narrative General - Alert and Oriented HEENT - PERRL. EOMI. Neck - Supple and nontender. No cervical adenopathy. Lungs - Clear to auscultation. Heart - Regular rate and rhythm. Abdomen - Soft and nondistended. The right lower anterior abdominal wall ulcer has healed. Has new onset boil (folliculitis) left abdominal wall skin crease. Tender to palpation. Erythematous. No erythematous spread noted. No fluctuance. No purulent drainage. Measures 0.8 cm. Located in the area of abdominal wall skin crease with history of intertrigo. Extremities - FROM. No axillary adenopathy. Radial pulses are palpable. Neuro - CN II-XII grossly intact. Psych - Normal mood and affect. Debridement Note Debridement Note Wound debrided: #1 Right lower anterior abdominal wall Laterality: Right Wound Grade/Stage: 3 Tissue Removed: subcutaneous tissue. No debridement was completed: No debridement was completed today (The ulcer has healed.) Post-Debridement Measurements and Additional Note: Post-Debridement Measurements/Treatment - Nurse 1 - General Ulcer Assessment Start: 12/12/23 13:24 Freq: Status: Active Protocol: CRISPIN.LOWEXT Activity Type Activity Date Activity User E-sign Co-sign Detail Recorded Client Recorded Date Recorded By Document 12/12/23 13:25 KW Desktop 12/12/23 13:34 KW 12/12/23 13:25 WC - Today's Visit Information Type of service Follow-up Visit (Physician/VENEER JOINER ) Arrival Mode Ambulatory Accompanied by mom Patient Identification Verified (Name & Yes ) Finger Stick Blood Sugar(mg/dl) (if 115 indicated): Blood Sugar Stated by Patient Height and Weight Body Mass Index (BMI) 47.2 BMI Classification Obese Vital Signs Temperature (97.8 F-99.1 F) 98.6 F Temperature Source Temporal Pulse Rate (60-100) 95 Pulse Location Monitor Respiratory Rate (12-18) 18 Respiratory rate source Observation Oxygen Delivery Method Room Air Blood Pressure (90/60-120/80) 153/83 H Blood Pressure Mean (mm Hg) 106 Source Monitor Position Semi-Fowlers Blood Pressure Location Left Arm History Since Last Visit- (Skip if this is Patient's initial visit) Have you changed medications since your No last visit? Any new allergies or adverse reactions No Had a fall/change in ADL's that may No increase risk of falls Signs or symptoms of abuse and/or No neglect since last visit Have you been in the hospital since your No last visit? Has dressing in place as prescribed Yes Has compression in place as prescribed N/A Has offloadiing in place as prescribed N/A Experienced any changes in pain level or No management Left Footwear Regular Shoe Right Footwear Regular Shoe Pain Scale: 0-10 Numeric Is Patient Pain Free? Yes - Nurse 1 - General Ulcer Measurement Start: 12/12/23 13:24 Freq: Status: Active Protocol: Activity Type Activity Date Activity User E-sign Co-sign Detail Recorded Client Recorded Date Recorded By Document 12/12/23 13:25 KW Desktop 12/12/23 13:34 KW 12/12/23 13:25 Wound Center Nurse 1 #1 Lower Abd -Current Size (cm) - Length 0 -Current Size (cm) - Width 0 -Current Size (cm) - Depth 0 -Total Square Cm 0 -Exudate Amt None Present -Texture ([place]-wound Skin Appearance) Assessed, Scarring -Moisture ([place]-wound Skin Appearance) Assessed -Color ([place]-wound Skin Appearance) Assessed -Temperature ([place]-wound Skin No Abnormality Appearance) (Pt Warm) -Ulcer Cleansing Soap and Water - Nurse 2 - General Ulcer CM Notes Start: 12/12/23 13:24 Freq: Status: Active Protocol: Activity Type Activity Date Activity User E-sign Co-sign Detail Recorded Client Recorded Date Recorded By Document 12/12/23 13:41 Laptop 12/12/23 13:43 12/12/23 13:41 Wound Center Nurse 2 -Correct Patient No -Correct Side, Site, Position No -Correct Procedure No -Procedure Performed No -Post Debridement (cm) - Length 0 -Post Debridement (cm) - Width 0 -Post Debridement (cm) - Depth 0 -Total Square (Post) (cm) 0 -Area of Debridement (cm) - Length 0 -Area of Debridement (cm) - Width 0 -Total Square (Area) (cm) 0 -Wound/Ulcer Outcome Healed- Epithelialized Pain Scale: 0-10 Numeric Is Patient Pain Free? Yes - Nurse 3 - General Ulcer D/C NN Start: 12/12/23 13:24 Freq: Status: Active Protocol: Activity Type Activity Date Activity User E-sign Co-sign Detail Recorded Client Recorded Date Recorded By Document 12/12/23 13:43 [employer] 12/12/23 13:45 12/12/23 13:43 Is Patient Pain Free? Yes - Visit Discharge Discharge Condition Stable Ambulatory Status Ambulatory Transportation Private Auto Accompanied by Medication Reconcilliation completed & Yes provided to patient/care provider Clinical Summary of Care Provided Yes Notes: patient healed and discharged from wound center. Patient can follow-up as needed. Assessment/Plan Assessment/Plan (1) Boil of trunk: CODE(S): L02.229 - Furuncle of trunk, unspecified (2) Folliculitis: CODE(S): L73.9 - Follicular disorder, unspecified (3) Abdominal panniculus: CODE(S): E65 - Localized adiposity (4) Intertrigo: CODE(S): L30.4 - Erythema intertrigo (5) DM type 2, goal HbA1c < 7%: CODE(S): E11.9 - Type 2 diabetes mellitus without complications (6) Ulcer of abdomen wall with fat layer exposed: CODE(S): L98.492 - Non-pressure chronic ulcer of skin of other sites with fat layer exposed (7) Hidradenitis suppurativa: CODE(S): L73.2 - Hidradenitis suppurativa (8) Smoker: CODE(S): F17.200 - Nicotine dependence, unspecified, uncomplicated PLAN: Plan Wound care - The ulcer has healed. Massage the scar with skin lotion daily to help soften up the scar. A wound culture from 10/12/23 showed Streptococcus agalactiae and Anaerobic cocci. She was started on Augmentin. During is course, she had stomach issues and stopped the Augmentin. The ulcer has healed, therefore there is no need to restart the antibiotics at this time. Prealbumin from 05/28/23 was 11.8. Encourage nutritional supplementation with protein to help the healing process. Patient is diabetic, and her last HgbA1c from 05/13/23 was 6.1. For elective surgeries, the HgbA1c needs to be less than 8. Encouraged patient to stop smoking as it may have deleterious effects on wound healing. She has a new onset boil (folliculitis) left abdominal wall skin crease. It is small measuring 0.8 cm. No fluctuance was noted. No purulent drainage was noted. No erythematous spread noted. Recommend warm compresses to see if it spontaneously drains on its own. If not, when I see her next week in the office, I can proceed with an I&D. Will also order Doxycycline to help temporize and minimize worsening of the infection. Staphylococcus aureus is common in this condition. Followup one week. The ulceration may recur after it is healed because of the weight of the abdominal panniculus and associated dependent edema that is causing friction and increasing moisture in the abdominal wall skin crease which can lead to further ulceration. The dependent edema can also lead to ulceration on the abdominal wall. She would benefit from an abdominal panniculectomy.
== END 2023-12-12 15:56 | disposition home or self-care (01) ==
LOC: WC 13:19
PROVIDERS: PCP Family Medicine; Referring Provider Surgery; Visit Provider Surgery
DX: L02.221 Furuncle of abdominal wall (principal); L98.492 Non-pressure chronic ulcer of skin of other sites with fat layer exposed; E11.9 Type 2 diabetes mellitus without complications; E65 Localized adiposity; L30.4 Erythema intertrigo; L73.2 Hidradenitis suppurativa; F17.200 Nicotine dependence, unspecified, uncomplicated
CPT/HCPCS: 99213; G0463

== ENCOUNTER → 2025-03-27 | Outpatient (CLI) | payer MEDICARE, MEDICAID, SELFPAY ==
--- NOTE | 2025-03-27 13:41 | NEURO_ITS ---
NCS and/or EMG Patient Report Ordering Doctor: LINN APARICIO DATE OF SERVICE: 03/27/25 Jeniffer presents with complaints of weakness in the right leg. She also reports numbness in the right lateral thigh and pain in the lower back. Electrodiagnostic findings: Right peroneal motor nerve demonstrates normal dista l latency, amplitude and conduction velocity. Normal right tibial motor response. Normal peroneal and tibial F?waves on the right side. H?reflex normal bilaterally. Sensory responses are normal. Also tested with right lateral femoral cutaneous nerve, which demonstrated normal response. Needle EMG testing was performed the right lower limb. All muscles tested showed no evidence of denervation with normal motor unit action potentials Electrodiagnostic impression: This is a normal electrodiagnostic study of the right lower limb. There is no electrodiagnostic evidence for lumbosacral radi culopathy or peripheral neuropathy. Multi Select Codes Neurology Neurology Interp Codes: 81992-04 Musc test done w/n test comp (interp) and 00418-74 Nrv cndj test 7-8 studies (interp)
== END | disposition home or self-care (01) ==
PROVIDERS: PCP Family Medicine; Referring Provider Physician Assistant Medical; Visit Provider Physician Assistant Medical
DX: R29.898 Other symptoms and signs involving the musculoskeletal system (principal)
CPT/HCPCS: 95886; 95910

== ENCOUNTER → 2025-04-04 | Outpatient (CLI) | payer MEDICARE, MEDICAID, SELFPAY ==
--- NOTE | 2025-04-04 12:31 | MRI_ITS ---
PROCEDURE: LOWER EXT JOINT ONLY (ROUTINE) 04/04/2025 REASON FOR EXAM: RT ACHILLES TENDINITIS TECHNIQUE: LOWER EXT JOINT ONLY (ROUTINE) Multiplanar and multisequence images were obtained without IV contrast administration. COMPARISON: COMPARISON : None provided. FINDINGS: Previous calcaneal osteotomy noted. No acute osseous signal changes seen. No talar dome osteonecrosis is seen No joint effusion is evident. Normal appearance of the Achilles tendon is seen all pulse sequences. No tendon pathology is noted. Thickening and inhomogeneous signal of the proximal plantar fascia, most prominent medially, consistent with plantar fasciitis. MRI/Lower Ext Joint Only (Routine) IMPRESSION: 1. Plantar fasciitis. 2. No tendon pathology is noted. Reading Location: [place] [id number]
== END | disposition home or self-care (01) ==
LOC: MRI 12:19
PROVIDERS: PCP Family Medicine; Referring Provider Podiatrist; Visit Provider Podiatrist
DX: M76.61 Achilles tendinitis, right leg (principal)
CPT/HCPCS: 73721

== ENCOUNTER 2025-05-27 13:25 | Outpatient (RCR) | payer MEDICARE, MEDICAID, SELFPAY | END 2025-06-09 23:59 | LOC: NS 13:25 | PROVIDERS: PCP Family Medicine; Referring Provider Surgery Plastic and Reconstructive Surgery; Visit Provider Surgery Plastic and Reconstructive Surgery | DX: Z71.3 Dietary counseling and surveillance (principal); E11.9 Type 2 diabetes mellitus without complications; Z68.36 Body mass index [BMI] 36.0-36.9, adult | CPT/HCPCS: 97802 ==

== ENCOUNTER 2025-06-28 11:50 | Day surgery (SDC) | payer MEDICARE, MEDICAID, SELFPAY ==
--- NOTE | 2025-06-14 20:42 | PAT.ANESEVAL ---
Pre-Assessment Diagnosis/Proposed Procedure Planned Operative Procedure(s): (R) Endoscopic Gastrocnemius Recession of the right foot, Loiza of bone marrow aspirate concentrate, Plantar fascia injection and application of a posterior splint. Anesthesia History Anesthesia History - digital media buyer: Anesthesia History - digital media buyer Hx Hospitalization Yes: PSYCH STAY TO ADJUST 06/14/25 11:41 MEDS Any Problems With Anesthesia No 06/14/25 11:41 Cholinesterase deficiency No 06/14/25 11:41 You/Your Family Experience No 06/14/25 11:41 fever (hyperthermia) with Relationship Recent Exposure to Contagious No 05/25/23 06:26 Disease Does patient have nerve No 06/14/25 11:41 stimulator Patient instructed to have device shut off --Does patient have Pacemaker or ICD? When Was Last Pacemaker Check QUESTION #4 FULL TEXT: You/Your Family Experience fever (hyperthermia) with Anesthesia Last Oral Intake Last Oral intake: Last Oral Intake NPO since Meds taken in AM with sips of water? Meds patient instructed to take am of surgery PONV PONV - digital media buyer: PONV - digital media buyer Female Yes 06/14/25 11:41 HX of Motion Sickness No 06/14/25 11:41 HX of N/V After Surgery Yes 06/14/25 11:41 Non-Smoker No 06/14/25 11:41 Duration of Surgery greater Yes 06/14/25 11:41 than 60 minutes Number of Risk Factors 3 06/14/25 11:41 PONV Score Moderate Risk 06/14/25 11:41 Height & Weight Height & Weight: Anesthesia: Height & Weight Height 5 ft 1 in 05/28/25 08:06 Respiratory Assessment Respiratory Assessment - digital media buyer: Respiratory Tract Infection Hx - digital media buyer Hx Respiratory Tract Infection No 06/14/25 11:41 STOP Sleep Apnea STOP Sleep Apnea - digital media buyer: STOP Sleep Apnea - digital media buyer Hx Hypertension No 06/14/25 11:41 Hx Sleep Apnea No 06/14/25 11:41 CPAP Yes 06/22/23 17:33 BIPAP No 06/22/23 17:33 Do you snore loudly (louder No 06/14/25 11:41 than talking or can be heard Do you often feel tired/ No 06/14/25 11:41 fatigued/ sleepy during daytime? Has anyone observed you stop No 06/14/25 11:41 breathing during sleep? STOP Results Negative 06/14/25 11:41 QUESTION #5 FULL TEXT : Do you snore loudly (louder than talking or can be heard through closed doors)? Tobacco Use History Tobacco Use History - digital media buyer: Tobacco Use History - digital media buyer Tobacco Use Smoking Status Current every day smoker 06/14/25 11:41 Hx Tobacco Use Yes 06/14/25 11:41 Years Smoking Packs Smoked per Day Smoking Cessation Date was within the last 15 years Hx Smoking Cessation Date Hx Smoking Cessation Counseling Hematologic Medial History Hematologic Hx - digital media buyer: Hematologic Medical Hx - lockstitch waistband setter Hx of Blood Transfusion No 06/14/25 11:41 Hx of Transfusion in last 3 No 06/14/25 11:41 Months Date of Last Transfusion (if within last 3 months) Ever experience any problems No 06/14/25 11:41 with transfusion(s)? Specify any problems Hx of Preganancy in last 3 No 06/14/25 11:41 Months Nurse Filling Out Transfusion [facility] 06/14/25 11:41 & Questions: Date: 06/14/25 06/14/25 11:41 Time: 11:44 06/14/25 11:41 Patient unable to answer at this time (ie. confused, unrespo /Reproduction History /Reproductive History - digital media buyer: /Reproductive Hx- digital media buyer Hx Now No 06/14/25 11:41 Gestational Age (in weeks): EDC: Hx Hx Para Hx Section SAB No 06/14/25 11:41 [facility] Medical History (Updated 06/14/25 @ 12:56 by Antonia Lewis) History of echocardiogram Thyroid disease History of hiatal hernia History of diverticulitis History of irregular heartbeat Folliculitis Boil of trunk Intertrigo Abdominal panniculus Non-healing open wound of left groin Open wound of vulva with complication Abscess of vulva Abscess of groin, left DM type 2, goal HbA1c < 7% Necrotizing soft tissue infection Abdominal wall abscess Hidradenitis suppurativa History of Clostridium difficile infection MRSA infection History of steroid therapy Sleep apnea Hemoglobin A1c between 7.0% and 9.0% Diabetes mellitus Vulval hidradenitis suppurativa Urinary retention Insulin dependent diabetes mellitus Bladder disease High cholesterol Dietary restriction Gastric reflux CPAP (continuous positive airway pressure) dependence Cardiology follow-up encounter Wears glasses Wound abscess Fatty liver Gastroparesis Nausea Smoker History of stress test Hypothyroid Schizoaffective disorder PCOS (polycystic ovarian syndrome) Anxiety HPV (human papilloma virus) infection Depression Home Medications ?Medication ?Instructions ?Recorded ?Last Taken ?Type cholecalciferol (vitamin D3) 25 1,000 unit PO DAILY vitamin 03/14/20 05/24/23 History mcg (1,000 unit) tablet ondansetron 4 mg disintegrating 8 mg PO BID nausea 03/14/20 05/24/23 History tablet fenofibrate 160 mg tablet 160 mg PO DAILY o 10/07/20 05/24/23 History multivitamin with minerals 1 ea PO DAILY preventative 10/07/20 05/24/23 History cyclobenzaprine 10 mg tablet 10 mg PO TID PRN Muscle Spasm 02/08/22 05/21/23 History colestipol 1 gram tablet 1 g PO BID bile 04/05/23 05/24/23 History metoprolol succinate 50 mg 50 mg PO DAILY htn 04/05/23 05/25/23 History tablet,extended release 24 hr atorvastatin 10 mg tablet 10 mg PO DAILY 05/02/25 Unknown History gabapentin 300 mg capsule 300 mg PO BID 05/02/25 Unknown History levothyroxine 112 mcg tablet 112 mcg PO DAILY 05/02/25 Unknown History ondansetron HCl 8 mg tablet 8 mg PO Q8H PRN nausea and vomiting 05/02/25 Unknown History tizanidine 4 mg tablet 4 mg PO Q8H PRN PRN muscle 05/02/25 Unknown History spasticity xanomeline 100 mg-trospium 20 mg 1 cap PO BID 05/02/25 Unknown History capsule (Cobenfy) Lactobacillus acidophilus 1 tab PO DAILY 06/14/25 Unknown History (Acidophilus chewable tablet) alpha lipoic acid 600 mg capsule 600 mg PO DAILY 06/14/25 Unknown History calcium carbonate (Calcium 600) 1,200 mg PO DAILY 06/14/25 Unknown History cholecalciferol (vitamin D3) 50 50 mcg PO DAILY 06/14/25 Unknown History mcg (2,000 unit) tablet (D3 DOTS) clonazepam 0.5 mg tablet 0.5 mg PO BID 06/14/25 Unknown History cyanocobalamin (vitamin B-12) 1,000 mcg PO DAILY 06/14/25 Unknown History 1,000 mcg tablet (Vitamin B-12) folic acid 0.8 mg capsule 800 mcg PO DAILY 06/14/25 Unknown History levothyroxine 200 mcg tablet 200 mcg PO DAILY 06/14/25 Unknown History magnesium 250 mg tablet 250 mg PO DAILY 06/14/25 Unknown History nystatin 100,000 unit/gram topical 1 applic topical TID 06/14/25 Unknown History powder pantoprazole 40 mg tablet,delayed 40 mg PO BID 06/14/25 Unknown History release scopolamine base 1 mg over 3 days 1 patch topical DAILY 06/14/25 Unknown History transdermal patch tirzepatide 12.5 mg/0.5 mL 7.5 mg subcut TU 06/14/25 06/11/25 History subcutaneous pen injector (Kurtuntamikoro) Allergy/AdvReac Type Severity Reaction Status Date / Time etodolac Allergy Swelling Verified 06/14/25 11:25 Iodinated Contrast Media Allergy Hives Verified 06/14/25 11:25 (CONTRASTS) tramadol AdvReac Other Verified 06/14/25 11:25 Family History Other Cancer Surgical History History of surgery History of incision and drainage History of hysteroscopy History of tonsillectomy History of salpingo-oophorectomy Hx of cholecystectomy H/O foot surgery History of esophagogastroduodenoscopy (EGD) Social History Smoking Status: Current every day smoker tobacco type: cigarettes alcohol intake: never substance use type: does not use additional social history: pt is a smoker3-4 cigs a day, pt denies vaping, denies edibles, denies marijuana use, denies aspirin uses ibuprofen as needed pt denies blood clots Audit: Pertinent Findings Pertinent Findings EKG Perinent findings: 08/27/2024. Normal sinus rhythm. Incomplete right bundle branch block. Inferior infarct, age undetermined. Stress test pertinent findings: November 08, 2022. Normal SPECT perfusion study. No ischemia. No infarct. EF of 80% at rest and 90% with stress. Echo (EF%) pertinent findings: 04/13/2022. LV systolic function is normal EF of 62%. No aortic stenosis. No significant valvular abnormalities. Consult pertinent findings: 12/03/2024. Dr. Guzman. 1. Chest pain?atypical. Asymptomatic since her last visit. 2. Hypertension?controlled 3. Orthostatic hypotension-asymptomatic. Recommendation Anesthesia Recommendation Anesthesia recommendation: OPTIMIZED for anesthesia
[2025-06-17 14:20] LABS: Magnesium 2.1 mg/dL (1.5-2.2)
[2025-06-28] VITALS (12 sets, daily range): BP systolic 102–130; BP diastolic 64–82; PULSE 73–96; RESP 16–18; TEMP 36.4–37; O2SAT 94–100; BMI 34.1
[2025-06-28 12:43] LABS: Internal QC Validated? YES +Cl - CLEAR BKGD; Pregnancy, Urine Negative Negative; Record Kit Lot#,Urine Preg 964736
[2025-06-28] MEDS: Lactated Ringers 1,000 ML 15 ML IV (12:49)
[2025-06-28] MEDS: Magnesium 1 GM over 15 mins IV (12:49)
--- NOTE | 2025-06-28 13:08 | PCM.PRE.AN2 ---
ASA Classification* ASA Classification ASA Classification: 3 Assessment & Plan Anesthesia* Anesthesia Assessment Anesthesia Assessment: Discussed sedation and/or anesthesia options, risks, benefits, and alternatives with patient/parents/legal guardian/POA. Questions invited. The patient/parents/legal guardian/POA seems to understand and agrees to proceed with anesthesia plan. Reviewed the physical assessment, medical history, allergy history and patient home medications list prior to surgery/procedure/anesthetic and documented any changes. Performed airway and anesthesia risk assessments. Anesthesia Type Anesthesia Type: General and Block Anesthesia Focused Assessment* Temperature: 98.6 F Pulse Rate: 73 Blood Pressure: 130/82 Respiratory Rate: 18 Pulse Ox: 99 Airway Assessment Mouth opens: >3 cm Mallampati Score: II Labs Anesthesia Preop lab: CBC WBC, (4.4-11.0) 10.3 K/mm3 06/24/23, 04:30 RBC, (4.2-5.4) 3.55 M/mm3 L 06/24/23, 04:30 Hgb, (12.0-15.0) 11.1 g/dL L 06/24/23, 04:30 Hct, (37-47) 34.9 % L 06/24/23, 04:30 Plt Count, (150-450) 248 K/mm3 06/24/23, 04:30 CHEMISTRY Potassium, (3.5-5.1) 3.8 mmol/L 06/24/23, 04:30 Sodium, (136-145) 143 mmol/L 06/24/23, 04:30 Magnesium, (1.5-2.2) 2.1 mg/dL 06/17/25, 13:35 BUN, (7-18) 14 mg/dL 06/24/23, 04:30 Creatinine, (0.55-1.02) 0.85 mg/dL 06/24/23, 04:30 Glucose, (74-106) 84 mg/dL 06/24/23, 04:30 POC Glucose, (74-106) 78 mg/dL 06/24/23, 08:16 TSH, (0.358-3.74) 3.56 uIU/mL 06/23/23, 04:44 COAG Urine Test Negative Negative Today, 12:20 Pre-Assessment Diagnosis/Proposed Procedure Planned Operative Procedure(s): (R) Endoscopic Gastrocnemius Recession of the right foot, Thornton of bone marrow aspirate concentrate, Plantar fascia injection and application of a posterior splint. 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 When Was Last Pacemaker Check QUESTION #4 FULL TEXT: You/Your Family Experience fever (hyperthermia) with Anesthesia Last Oral Intake Last Oral intake: Last Oral Intake NPO since 22:30 06/28/25 12:40 Meds taken in AM with sips of Yes 06/28/25 12:40 water? Meds patient instructed to LEVOTYROXINE 06/28/25 12:40 take am of surgery METOPROLOL GABAPENTIN PANTOPRAZOLE CLONAZEPAM PONV PONV - limousine driver: PONV - limousine driver Female Yes 06/14/25 11:41 HX of Motion Sickness No 06/14/25 11:41 HX of N/V After Surgery Yes 06/14/25 11:41 Non-Smoker No 06/14/25 11:41 Duration of Surgery greater Yes 06/14/25 11:41 than 60 minutes Number of Risk Factors 3 06/14/25 11:41 PONV Score Moderate Risk 06/14/25 11:41 Height & Weight Height & Weight: Anesthesia: Height & Weight Height 5 ft 2 in 06/28/25 12:40 Weight: 84.7 kg 06/28/25 12:40 Body Mass Index (BMI) 34.1 06/28/25 12:40 Respiratory Assessment Respiratory Assessment - limousine driver: Respiratory Tract Infection Hx - limousine driver Hx Respiratory Tract Infection No 06/14/25 11:41 STOP Sleep Apnea STOP Sleep Apnea - limousine driver: STOP Sleep Apnea - limousine driver Hx Hypertension No 06/14/25 11:41 Hx Sleep Apnea No 06/14/25 11:41 CPAP Yes 06/22/23 17:33 BIPAP No 06/22/23 17:33 Do you snore loudly (louder No 06/14/25 11:41 than talking or can be heard Do you often feel tired/ No 06/14/25 11:41 fatigued/ sleepy during daytime? Has anyone observed you stop No 06/14/25 11:41 breathing during sleep? STOP Results Negative 06/14/25 11:41 QUESTION #5 FULL TEXT : Do you snore loudly (louder than talking or can be heard through closed doors)? 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 Specify any problems Hx of Preganancy in last 3 No 06/14/25 11:41 Months Nurse Filling Out Transfusion [facility] 06/14/25 11:41 & Questions: Date: 06/14/25 06/14/25 11:41 Time: 11:44 06/14/25 11:41 Patient unable to answer at this time (ie. confused, unrespo /Reproduction History /Reproductive History - limousine driver: /Reproductive Hx- limousine driver Hx Now No 06/14/25 11:41 Gestational Age (in weeks): EDC: Hx Hx Para Hx Section SAB No 06/14/25 11:41 Active Medications Active Medications: Current Medications Generic Name Dose Route Start Last Admin Trade Name Freq PRN Reason Stop Dose Admin Cefazolin Sodium 2 gm/ Sodium 110 mls @ 200 mls/hr 06/28/25 14:10 Chloride IV 06/28/25 14:42 INTRAOP ONE Magnesium Sulfate 1 gm/ 102 mls @ 408 mls/hr 06/28/25 14:10 06/28/25 12:49 Dextrose IV 06/28/25 14:24 408 mls/hr PREOP ONE Administration Lactated Ringer's 1,000 mls @ 15 mls/hr 06/28/25 12:00 06/28/25 12:49 IV 15 mls/hr .Q48H JONAH Administration Insulin Human Lispro 1 - 6 unit 06/28/25 12:20 Insulin Lispro 100 Unit/Ml Insuln.Pen SC 06/29/25 12:21 Q4H PRN PRN BG>/= 180, SEE PROTOCOL Protocol PFSH Medical History History of echocardiogram Thyroid disease History of hiatal hernia History of diverticulitis History of irregular heartbeat Folliculitis Boil of trunk Intertrigo Abdominal panniculus Non-healing open wound of left groin Open wound of vulva with complication Abscess of vulva Abscess of groin, left DM type 2, goal HbA1c < 7% Necrotizing soft tissue infection Abdominal wall abscess Hidradenitis suppurativa History of Clostridium difficile infection MRSA infection History of steroid therapy Sleep apnea Hemoglobin A1c between 7.0% and 9.0% Diabetes mellitus Vulval hidradenitis suppurativa Urinary retention Insulin dependent diabetes mellitus Bladder disease High cholesterol Dietary restriction Gastric reflux CPAP (continuous positive airway pressure) dependence Cardiology follow-up encounter Wears glasses Wound abscess Fatty liver Gastroparesis Nausea Smoker History of stress test Hypothyroid Schizoaffective disorder PCOS (polycystic ovarian syndrome) Anxiety HPV (human papilloma virus) infection Depression Home Medications ?Medication ?Instructions ?Recorded ?Last Taken ?Type cholecalciferol (vitamin D3) 25 1,000 unit PO DAILY vitamin 03/14/20 05/24/23 History mcg (1,000 unit) tablet ondansetron 4 mg disintegrating 8 mg PO BID nausea 03/14/20 05/24/23 History tablet fenofibrate 160 mg tablet 160 mg PO DAILY o 10/07/20 05/24/23 History multivitamin with minerals 1 ea PO DAILY preventative 10/07/20 05/24/23 History cyclobenzaprine 10 mg tablet 10 mg PO TID PRN Muscle Spasm 02/08/22 05/21/23 History colestipol 1 gram tablet 1 g PO BID bile 04/05/23 05/24/23 History metoprolol succinate 50 mg 50 mg PO DAILY htn 04/05/23 06/28/25 History tablet,extended release 24 hr atorvastatin 10 mg tablet 10 mg PO DAILY 05/02/25 Unknown History gabapentin 300 mg capsule 300 mg PO BID 05/02/25 06/28/25 History levothyroxine 112 mcg tablet 112 mcg PO DAILY 05/02/25 06/28/25 History ondansetron HCl 8 mg tablet 8 mg PO Q8H PRN nausea and vomiting 05/02/25 Unknown History tizanidine 4 mg tablet 4 mg PO Q8H PRN PRN muscle 05/02/25 Unknown History spasticity xanomeline 100 mg-trospium 20 mg 1 cap PO BID 05/02/25 Unknown History capsule (Cobenfy) Lactobacillus acidophilus 1 tab PO DAILY 06/14/25 Unknown History (Acidophilus chewable tablet) alpha lipoic acid 600 mg capsule 600 mg PO DAILY 06/14/25 Unknown History calcium carbonate (Calcium 600) 1,200 mg PO DAILY 06/14/25 Unknown History cholecalciferol (vitamin D3) 50 50 mcg PO DAILY 06/14/25 Unknown History mcg (2,000 unit) tablet (D3 DOTS) clonazepam 0.5 mg tablet 0.5 mg PO BID 06/14/25 06/28/25 History cyanocobalamin (vitamin B-12) 1,000 mcg PO DAILY 06/14/25 Unknown History 1,000 mcg tablet (Vitamin B-12) folic acid 0.8 mg capsule 800 mcg PO DAILY 06/14/25 Unknown History levothyroxine 200 mcg tablet 200 mcg PO DAILY 06/14/25 06/28/25 History magnesium 250 mg tablet 250 mg PO DAILY 06/14/25 Unknown History nystatin 100,000 unit/gram topical 1 applic topical TID 06/14/25 Unknown History powder pantoprazole 40 mg tablet,delayed 40 mg PO BID 06/14/25 06/28/25 History release scopolamine base 1 mg over 3 days 1 patch topical DAILY 06/14/25 Unknown History transdermal patch tirzepatide 12.5 mg/0.5 mL 7.5 mg subcut TU 06/14/25 06/11/25 History subcutaneous pen injector (Hector) Allergy/AdvReac Type Severity Reaction Status Date / Time etodolac Allergy Swelling Verified 06/28/25 12:32 Iodinated Contrast Media Allergy Hives Verified 06/28/25 12:32 (CONTRASTS) tramadol AdvReac Other Verified 06/28/25 12:32 Family History Other Cancer Surgical History History of surgery History of incision and drainage History of hysteroscopy History of tonsillectomy History of salpingo-oophorectomy Hx of cholecystectomy H/O foot surgery History of esophagogastroduodenoscopy (EGD) Social History Smoking Status: Current every day smoker tobacco type: cigarettes alcohol intake: never substance use type: does not use additional social history: pt is a smoker3-4 cigs a day, pt denies vaping, denies edibles, denies marijuana use, denies aspirin uses ibuprofen as needed pt denies blood clots Review of Systems (Anesthesia) ROS Narrative System reviewed and no additional complaints, except as documented.
--- NOTE | 2025-06-28 13:52 | OP.PCM_ITS ---
Operative Report (Standard) Operative Information Date of Procedure: 06/28/25 Pre-Operative Diagnosis: 1. Achilles tendonitis, right lower extremity 2. Plantar fascial fibromatosis, right lower extremity 3. Short Achilles tendon, right lower extremity 4. Pain, right foot Post-Operative Diagnosis: Same as preoperative diagnosis Surgery/Procedure Performed: Procedure #1: Endoscopic gastroc recession, right lower extremity Procedure #2: Plantar fascial injection, right foot Procedure #3: Application posterior splint, right lower extremity composition weatherboard applier: Yes Gastroenterology Teacher: Jose Rafael Reyes PGY1 Tasks completed by production assistant: Retracting Additional assistant hvac mechanic?: No Type of Anesthesia: General/Regional RN Documented Start/Stop Times: Operation Date: 06/28/25 14:10 Case Time Into Pre-Op 06/28/25 11:56 Anesthesia Start 06/28/25 13:58 Into Room 06/28/25 13:58 Procedure Start 06/28/25 14:20 Procedure End 06/28/25 14:38 Anesthesia End 06/28/25 14:41 Out of Room 06/28/25 14:41 Into Recovery 06/28/25 14:43 Out of Recovery 06/28/25 15:46 Into Phase II Recovery 06/28/25 15:47 Out of Phase II 06/28/25 16:27 Procedure Start Time: 14:20 Procedure Stop Time: 14:38 Select all DRAINS/GRAFTS/IMPLANTS that apply: Tissue Tissue details: Bone marrow aspirate concentrate injection Special Medications: For anesthesia Estimated Blood Loss: 5 cc Fluids Replaced: Per anesthesia Specimen collected: No Description of surgery: Indications For Operation: Mr. Mabry is a 39-year-old female who was admitted to [facility] for right lower extremity surgery consisting of endoscopic gastroc recession with plantar fascial injection and posterior splint application to the right lower extremity. Patient is well-known to my practice and has failed conservative treatment as an outpatient due to her equinus contracture and heel pain to the right lower extremity. We have discussed surgical intervention and have exhausted conservative treatment for the past 2 months during my clinic and has exhausted the treatment greater than 6 months during her previous partner's practice. Patient was seen in office for surgical consultation which I reviewed consent signed. Due to equinus contracture to right lower extremity was to be necessary at this time to take the patient to the operating room to perform the above procedure to help reduce her equinus contracture and heal her continued pain to the right lower extremity. The nature of the problem, anticipated procedures, postop recovery/convalences and risk/complications include but not limited to infection, wound healing complications, digital amputation, hypertrophic scarring, numbness, tingling, chronic pain, CRPS, over and under correction, recurrence of deformity, DVT and or PE and the need for further surgery have been discussed in great detail with the patient. All questions have been answered to the patient's satisfaction. There are no guarantees given as to the outcome of the procedure. Description of Procedure: Under mild sedation, the patient was brought into the operating room and placed on the operating table in supine position. Once the patient was under general anesthesia with laryngeal mask airway, the right lower extremity was blocked using approximately 10 cc 0.5% Marcaine plain to the saphenous nerve of the right lower extremity. Patient did receive a popliteal block from anesthesia prior to the procedure in the PACU. Please see anesthesia notes for further detail. Next, a well-padded thigh tourniquet was applied to the right lower extremity. Next, the right lower extremity was prepped and draped in normal aseptic manner. Next, a timeout was then undertaken verifying the correct patient, extremity, visibility of preoperative markings, availability of the equipment. Next, attention was directed to the right lower extremity. Using a 4 inch Esmarch, right lower extremity was exsanguinated and elevated to 60 degrees for 1 minute. Procedure #1: Endoscopic gastroc recession, right lower extremity (CPT code: 89073) Next, attention was directed to the right lower extermity. A silfverskiold test was performed on the operating table. There was evidence of a positive Silfverskiold test for gastrocnemius equinus. Next, attention was directed to the aponeurosis of the gastrocnemius muscle. A small stab incision was placed approximately 2 to 3 cm from the gastroc insertion. Using the Jimmie grinder set up operator centerless the aponeurosis was bow strong and then advanced to the lateral aspect of the right lower extremity. Once tenting of the skin was identified a small stab incision was made with a 15 blade laterally. Using the [place] obturator and cannula, it was advanced through both incisions. Using the [place] 30 degree 4.0 mm scope there showed evidence of the aponeurosis of the gastrocnemius mus be. Using the rasp the muscle fibers/Sub Q were removed from the aponeurosis tissue. Using the [place] 30 degree 4.0 mm scope and hook blade, careful incision across the aponeurosis was made half laterally then half medially until released. After release of the aponeurosis the ankle was put through range of motion with the knee extended as well as flexed and showed to be increased past 90 in both positions. Both incisions were flushed with copious steven of warm saline. The skin was reapproximated and closed with 3-0 nylon in simple interrupted suture technique. At this time the right tourniquet was deflated and reperfusion was noted distally to the right lower extremity. Procedure #2: Plantar fascial injection, right foot (CPT code: 75442) Next attention was directed to the plantar fascia area of the right heel. A 1.5 cc injection of 4 mg per quarter cc and 1 cc of 0.5% Marcaine plain were injected to the plantar fascia area of the right heel without incident. Sterile Band-Aid was applied. Procedure #3: Application posterior splint, right lower extremity (CPT code: 88085?right) Next, the right lower extremities were cleaned patted dry. All incisions were dressed with Betadine soaked Adaptic dry sterile dressing and a double layer Landeros AO splint was done at 90 degrees right lower extremity. The patient tolerated the procedure and anesthesia well and apparent satisfactory condition and was transported to the PACU for further monitoring prior to discharge home. Vital signs stable and vascular status intact to all digits bilateral. Post Operative Plan: Weightbearing: Nonweightbearing to right lower extremity. Antibiotics: 2 g Ancef through the IV DVT Prophylaxis: 81 mg aspirin Arreguin: None Dressing: Betadine soaked Adaptic dry sterile dressing double her Landeros AO splint to the right lower extremity. Pain Medication: Percocet 5/325, cyclobenzaprine 3 times daily Follow-up: Patient will follow-up at scheduled postoperative appointment in private office. Surgical Findings: Improved range of motion after endoscopic gastroc recession greater than 90 degrees to the right lower extremity. Complications Complications: No Admit VTE Documentation VTE Present on Admission: No VTE Mechan Device Prophylaxis: SCD's VTE Pharm Prophylaxis ordered?: Yes
[2025-06-28] MEDS: Cefazolin 1 GM/5 ML Vial 2 GM IV (14:00)
[2025-06-28] MEDS: Lactated Ringers 1,000 ML 1000 ML IV (14:00)
[2025-06-28] MEDS: Lidocaine 1% (5 ml sdv) 5 ML Vial IV (14:05)
[2025-06-28] MEDS: fentaNYL 100 MCG/2 ML Ampul IV (14:14)
--- NOTE | 2025-06-28 14:46 | PCM.POST.ANE ---
Anesthesia: Postop Eval I Current Vital Signs Temperature: 97.5 F Pulse Rate: 96 Blood Pressure: 120/66 Respiratory Rate: 18 Pulse Ox: 96 Assessment Airway patent: Yes Spontaneous unlabored respirations: Yes nausea: No Vomiting: No Anesthesia Complication: No Fluid Hydration Crystalloid volume administer (ml): 500 Total IV fluid infused: 500 Progress Note Anesthesia document: Postop Eval 1 completed: Yes
--- NOTE | 2025-06-28 15:01 | POSTOPAN2_ITS ---
Anesthesia Postop Eval I Sum Postop Eval Completion status Anesthesia document: Postop Eval 1 completed: Yes Anesthesia Postop Eval I Summary Anesthesia Postop Eval I Summary: Anesthesia Postop Eval I: Assessment Summary Airway patent Yes 06/28/25 14:46 [email or web address] Spontaneous unlabored Yes 06/28/25 14:46 BILL [email or web address] respirations Mental status nausea No 06/28/25 14:46 BILL [email or web address] Vomiting No 06/28/25 14:46 BILL [email or web address] Anesthesia Postop Eval I: Fluid Summary Crystalloid volume administer 500 06/28/25 14:46 BILL [email or web address] (ml) Colloids volume administered ( ml) Blood Product volume administered (ml) Total IV fluid infused 500 06/28/25 14:46 BILL [email or web address] Anesthesia Postop Eval I: Summary Notes Anesthesia Complication No 06/28/25 14:46 BILL [email or web address] Anesthesia Complication Comment: Post-operative progress note Anesthesia: Postop Eval II Evaluation Mental status: Awake Pain Level: 1 nausea: No Vomiting: No
--- NOTE | 2025-06-28 15:01 | PCM.POSTANE2 ---
Anesthesia Postop Eval I Sum Postop Eval Completion status Anesthesia document: Postop Eval 1 completed: Yes Anesthesia Postop Eval I Summary Anesthesia Postop Eval I Summary: Anesthesia Postop Eval I: Assessment Summary Airway patent Yes 06/28/25 14:46 WEB [email or web address] Spontaneous unlabored Yes 06/28/25 14:46 WEB MACHINE [email or web address] respirations Mental status nausea No 06/28/25 14:46 WEB MACHINE [email or web address] Vomiting No 06/28/25 14:46 WEB MACHINE [email or web address] Anesthesia Postop Eval I: Fluid Summary Crystalloid volume administer 500 06/28/25 14:46 WEB MACHINE [email or web address] (ml) Colloids volume administered ( ml) Blood Product volume administered (ml) Total IV fluid infused 500 06/28/25 14:46 WEB MACHINE [email or web address] Anesthesia Postop Eval I: Summary Notes Anesthesia Complication No 06/28/25 14:46 WEB MACHINE [email or web address] Anesthesia Complication Comment: Post-operative progress note Anesthesia: Postop Eval II Evaluation Mental status: Awake Pain Level: 1 nausea: No Vomiting: No
== END 2025-06-28 16:27 | disposition home or self-care (01) ==
LOC: SDC 11:53 → AC 13:41
PROVIDERS: Anesthesiology; PCP Family Medicine; Referring Provider Podiatrist Foot & Ankle Surgery; Visit Provider Podiatrist Foot & Ankle Surgery
PROC: (CPT 29999; principal; 2025-06-28 13:55)
DX: M72.2 Plantar fascial fibromatosis (principal); E11.9 Type 2 diabetes mellitus without complications; Z79.4 Long term (current) use of insulin; M76.61 Achilles tendinitis, right leg; E03.9 Hypothyroidism, unspecified; I10 Essential (primary) hypertension; G47.33 Obstructive sleep apnea (adult) (pediatric); F17.210 Nicotine dependence, cigarettes, uncomplicated
CPT/HCPCS: 20550; 29515; 64450; 01470; 27687; 36415; 81025; 82962; 83735; 87081; J2405; J3475